=== PATIENT | female | born 1935 | race Caucasian/White ===

== ENCOUNTER 2017-01-17 10:32 | Outpatient (CLI) | payer MEDICARE, OTHER | END 2017-01-17 10:33 | disposition home or self-care (01) | DX: I10 Essential (primary) hypertension (principal); E78.5 Hyperlipidemia, unspecified; E03.9 Hypothyroidism, unspecified ==

== ENCOUNTER 2017-04-19 11:16 | Outpatient (CLI) | payer MEDICARE, OTHER ==
--- NOTE | 2017-04-19 14:24 | Ultrasound Report ---
CAROTID DUPLEX: 04/19/2017 CLINICAL INDICATION: Followup right stenosis. COMPARISON: 07/01/2012 TECHNIQUE: Real-time sonographic vascular imaging was performed by the microfilmer through the carotid arteries utilizing both color-flow and Doppler spectral analysis. Multiple parts representative static images were saved for review. Vessel PSV cm/sec 2D Plaque Estimate % ICA/CCA PSV EDV cm/sec % Stenosis RCCA Prox 48 -- RCCA Dist 53 12 RECA 96 -- RT BULB 80 -- 1.50 23 NIRANJAN Prox 350 -- 6.60 113 NIRANJAN Mid 107 -- 2.01 28 NIRANJAN Dist 82 -- 1.54 30 RVA 49 RVA flow direction: Antegrade. Vessel PSV cm/sec 2D Plaque Estimate % ICA/CCA PSV EDV cm/sec % Stenosis LCCA Prox 64 -- LCCA Dist 60 15 LECA 93 -- LFT BULB 57 -- 0.95 20 LICA Prox 61 -- 1.01 18 LICA Mid 64 -- 1.06 21 LICA Dist 84 -- 1.40 25 LVA 37 LVA flow direction: Antegrade. Velocity criteria are extrapolated from diameter data as defined by the Society of Radiologists in Ultrasound Consensus Conference Radiology 2003; 229; 340-346. Degree of Stenosis % ICA PSV cm/sec Plaque Estimate % ICA/CCA RSV Ratio ICA EDV cm/sec Normal < 125 None < 2.0 < 40 <50 < 125 < 50 < 2.0 < 40 50-69 125 - 130 >/= 50 2.0 - 4.0 40 - 100 >/= 70 but less than near occlusion > 230 >/= 50 > 4.0 > 100 Near occlusion High, low, or undetectable Visible lumen Variable Variable Total occlusion Undetectable No detectable lumen Not applicable Not applicable FINDINGS: RIGHT: There is again seen a high grade stenosis of the right proximal internal carotid artery. Visually, it appears unchanged. LEFT: There is calcified plaquing in the left carotid bifurcation, without evidence of a focal hemodynamically significant stenosis. The vertebral arteries demonstrate antegrade flow bilaterally. IMPRESSION: NO APPRECIABLE INTERVAL CHANGE IN HEMODYNAMICALLY SIGNIFICANT STENOSIS OF THE PROXIMAL RIGHT INTERNAL CAROTID ARTERY. STABLE CALCIFIED PLAQUING, WITHOUT EVIDENCE OF A SIGNIFICANT STENOSIS, IN THE LEFT CAROTID SYSTEM. ANTEGRADE FLOW IN BOTH VERTEBRAL ARTERIES. MTDD
== END 2017-04-19 11:17 | disposition home or self-care (01) ==
LOC: DI 11:16
PROVIDERS: ATTEND Family Medicine
DX: I65.21 Occlusion and stenosis of right carotid artery (principal)
CPT/HCPCS: 93880

== ENCOUNTER 2017-08-02 17:49 | Emergency (ER) | payer MEDICARE, OTHER ==
--- NOTE | 2017-08-02 19:02 | XRAY Preliminary Report ---
Exam: XR Ankle 3 View LT IMPRESSION: No acute fracture or subluxation. [facility] SITE ID: [id number]
--- NOTE | 2017-08-02 19:04 | XRAY Report ---
EXAM: LEFT ANKLE RADIOGRAPHY EXAM DATE: 08/02/2017 06:13 PM. CLINICAL HISTORY: Trauma with pain. COMPARISON: None. TECHNIQUE: 3 views. FINDINGS: Bones: There is generalized diffuse demineralization. No cortical step-off or acute fracture. Joints: Satisfactory alignment. Soft Tissues: Normal. No soft tissue swelling. IMPRESSION: No acute fracture or subluxation. [facility] Referring Provider Line: [phone] SITE ID: [id number]
[2017-08-02] MEDS ORDERED: ACETAMINOPHEN 325 MG TABLET PO STA (20:29)
[2017-08-02] MEDS ORDERED: CEPHALEXIN 250 MG CAPSULE PO STA (20:30)
--- NOTE | 2017-08-02 20:31 | ED Physician Documentation ---
PD HPI LOWER EXT INJURY - Stated complaint Stated Complaint: LT ANKLE/FOOT INJURY - Chief complaint Chief Complaint: Ext Problem - History obtained from History obtained from: Patient - History of Present Illness PD HPI LOW EXT INJURY LOCATION: Left, Ankle, Foot Where injury occurred: Home Timing - onset: Today Timing - details: Gradual onset Improved by: Immobilization Associated symptoms: Discolored. No: Weakness, Numbness Similar symptoms before: Has not had sx before Recently seen: Not recently seen - Additional information Additional information: Patient is a 82 year old female presenting to the emergency for left leg pain. Patient states that she had some pain in her leg/wagner that got progressively worse. Patient states that it got more red and swollen over the day today. Patient denies any nausea, vomiting, fever or trauma. Review of Systems Constitutional: denies: Fever, Chills Eyes: reports: Reviewed and negative Ears: reports: Reviewed and negative Nose: reports: Reviewed and negative Throat: denies: Sore throat Cardiac: denies: Chest pain / pressure, Palpitations, Pedal edema Respiratory: denies: Cough GI: denies: Nausea, Vomiting : denies: Dysuria, Frequency, Hesitancy Skin: reports: Rash Musculoskeletal: reports: Extremity pain, Extremity swelling Neurologic: denies: Generalized weakness, Focal weakness, Difficulty speaking Immunocompromised: reports: Immunocompromised PD PAST MEDICAL HISTORY - Past Medical History Past Medical History: Yes Cardiovascular: Hypertension Respiratory: None Neuro: TIA Endocrine/Autoimmune: HyPOthyroidism GI: Other : None HEENT: Chronic hearing loss Psych: Depression Musculoskeletal: Osteoarthritis, Osteoporosis, Chronic back pain Derm: Herpes zoster - Past Surgical History Past Surgical History: Yes General: Colonoscopy Ortho: Hip replacement /[employer]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: Other - Present Medications Home Medications: Ambulatory Orders Medication Instructions Recorded Confirmed Aspirin 81 mg PO DAILY 03/09/13 08/02/17 Glucosamine Sulfate Dipot Chlr 1,000 mg PO DAILY 03/09/13 08/02/17 [Glucosamine] Levothyroxine [Synthroid] 75 mcg PO QDAC 03/09/13 08/02/17 Metoprolol Succinate [Toprol Xl] 25 mg PO DAILY 03/09/13 08/02/17 Calcium Carb, Citrate/Vit D3 1 tab PO DAILY 05/20/15 08/02/17 [Calcium + D3 ER Tablet] Cholecalciferol (Vitamin D3) 2,000 unit PO DAILY 10/04/15 08/02/17 [Vitamin D-3] amLODIPine [Norvasc] 10 mg PO DAILY 10/04/15 08/02/17 Atorvastatin [Lipitor] 10 mg PO DAILY 08/02/17 08/02/17 Cephalexin [Keflex] 500 mg PO Q6H 7 Days capsule 08/02/17 Sertraline HCl [Zoloft] 200 mg PO DAILY 08/02/17 08/02/17 - Allergies Allergies/Adverse Reactions: Allergies Allergy/AdvReac Type Severity Reaction Status Date / Time amoxicillin trihydrate * Allergy Mild Rash Verified 08/02/17 20:12 [From Augmentin] indomethacin [From Indocin] Allergy Mild Rash Verified 08/02/17 20:12 indomethacin sodium * Allergy Mild Rash Verified 08/02/17 20:12 [From Indocin] lorazepam [From Ativan] Allergy Mild Rash Verified 08/02/17 20:12 metoclopramide HCl * Allergy Mild Rash Verified 08/02/17 20:12 [From Reglan] Penicillins Allergy Mild Rash Verified 08/02/17 20:12 potassium clavulanate * Allergy Mild Rash Verified 08/02/17 20:12 [From Augmentin] prochlorperazine Allergy Mild Rash Verified 08/02/17 20:12 [Prochlorperazine] Sulfa (Sulfonamide Allergy Mild Rash Verified 08/02/17 20:12 Antibiotics) sulfamethoxazole Allergy Mild Rash Verified 08/02/17 20:12 [From Gantanol] adhesive Allergy Rash Verified 10/04/15 07:03 azo gantrisin Allergy Mild Rash Uncoded 03/09/13 16:02 sodium pentothal AdvReac Unknown Uncoded 05/20/15 00:22 - Social History Does the pt smoke?: No Smoking Status: Never smoker Does the pt drink ETOH?: No - Immunizations Immunizations are current?: Yes - POLST Patient has POLST: No PD ED PE NORMAL - Vitals Vital signs reviewed: Yes - General General: Alert and oriented X 3 - HEENT HEENT: Atraumatic, PERRL - Neck Neck: Supple, no meningeal sign - Cardiac Cardiac: RRR, No murmur - Respiratory Respiratory: No respiratory distress, Clear bilaterally - Abdomen Abdomen: Soft, Non distended - Extremities Extremities: No edema - Neuro Neuro: Alert and oriented X 3, No motor deficit, No sensory deficit, Normal speech - Psych Psych: Normal mood, Normal affect PD ED PE EXPANDED - Derm Derm: Rash (cellulitic rash of left lower extremity) - Extremities Extremities: Left leg (tenderness, warmth and erythema of left lower leg) Results - Vitals Vitals: Vital Signs - 24 hr 08/02/17 08/02/17 18:02 20:52 Temperature 36.0 C L 36.0 C L Heart Rate 110 H 98 Respiratory 16 20 Rate Blood Pressure 159/93 H 161/109 H O2 Saturation 100 98 Oxygen O2 Source [With Activity] Room air O2 Source Room air - Rads (name of study) ankle x-ray Radiology: Final report received (no acute bony abnormality) PD MEDICAL DECISION MAKING - ED course Complexity details: reviewed old records, reviewed results, re-evaluated patient , considered differential, d/w patient, d/w family ED course: Patient was seen and examined at bedside. patient had already been to x-ray and there was no acute abnormality. patient's findings were consistent with cellulitis of the lower extremity. patient was treated with keflex and tylenol. Patient required no further work up and was stable for discharge with outpatient follow up. Departure - Departure Disposition: 01 Home, Self Care Clinical Impression: Cellulitis Condition: Good Instructions: ED Infec Skin Cellulitis Follow-Up: Nazanin Bentley MD [Primary Care Provider] - Within 3 Days Prescriptions: Cephalexin [Keflex] 500 mg PO Q6H 7 Days capsule Comments: Your symptoms today are being caused by a cellulitis or infection in your skin. You will need to take the antibiotic 4 times a day for the next week. You can take motrin or tylenol as needed for pain. You should continue with your physical therapy as tolerated. You may return to the emergency department at any time for new, worsening or uncontrollable symptoms. Discharge Date/Time: 08/02/17 20:52
[2017-08-02] MEDS ORDERED: CEPHALEXIN 250 MG CAPSULE PO ONE (20:42)
[2017-08-02] MEDS ORDERED: ACETAMINOPHEN 325 MG TABLET PO ONE (20:43)
[2017-08-02 20:54] VITALS: BP 161/109
== END 2017-08-02 20:52 | disposition home or self-care (01) ==
LOC: ED 17:49
DX: L03.116 Cellulitis of left lower limb (principal); I10 Essential (primary) hypertension; E03.9 Hypothyroidism, unspecified; Z96.649 Presence of unspecified artificial hip joint; Z86.73 Personal history of transient ischemic attack (TIA), and cerebral infarction without residual deficits; Z79.82 Long term (current) use of aspirin
CPT/HCPCS: 73610; 99283; A9270

== ENCOUNTER 2017-09-13 16:47 | Outpatient (CLI) | payer MEDICARE, OTHER ==
--- NOTE | 2017-09-14 12:09 | MRI Report ---
EXAM: LEFT CALF/TIBIA MRI WITHOUT CONTRAST EXAM DATE: 09/13/2017 05:55 PM. CLINICAL HISTORY: Left mid leg pain. Patient heard a pop. COMPARISON: Radiograph 09/05/2017, knee MRI 06/23/2016. TECHNIQUE: Multiplanar, multisequence T1-weighted and fluid-sensitive sequences of the calf/tibia wit hout contrast. Other: None. FINDINGS: Bones: The previously seen fractures of the left proximal tibia have healed. There is a new trabecula r fracture in the lateral tibial plateau primarily anterior (series 601 and 701, image 4 and series 4 01, image 69). In addition, the patient has an oblique fracture through the mid tibia. Thickening of the anterior cortex is best visualized on series 601 and 701, image 10, and thickening of the posteri or cortex is best visualized on series 401, image 34. This is either a stress or insufficiency-type f racture. There is prominent surrounding marrow edema. In addition to the mid tibial fracture, a stres s fracture continues along the anterior medial cortex of the distal tibial diaphysis, corresponding t o the more distal marker indicating the patient's pain. When it reaches the metaphyseal region, the f racture line extends towards the anterior cortex (series 401, images 14 through 11). The patient is o steopenic. Joint Spaces: Visualized portions of the ankle and knee joints are unremarkable. Tendons: Where visualized, the Achilles and plantaris tendons are intact. Musculature: Muscle edema is seen within the peroneals, which may be related to the tibial fractures. There is some distal muscle edema in the flexor hallucis longus muscle which may represent grade 1 s train. Other: The distal calf has anterior subcutaneous edema. IMPRESSION: 1. Healing of the previous proximal tibial fractures. 2. New trabecular fracture of the lateral tibial plateau. 3. Stress or insufficiency oblique fracture through the midshaft of the tibia. 4. Stress fracture of the anterior medial distal tibia. [facility] MUSCULOSKELETAL RADIOLOGY SECTION Referring Provider Line: [phone] SITE ID: [id number]
== END 2017-09-13 16:48 | disposition home or self-care (01) ==
LOC: DI 16:47
PROVIDERS: ATTEND Orthopaedic Surgery
DX: S82.142A Displaced bicondylar fracture of left tibia, initial encounter for closed fracture (principal); M84.362A Stress fracture, left tibia, initial encounter for fracture

== ENCOUNTER 2017-10-14 10:31 | Outpatient (CLI) | payer MEDICARE, OTHER ==
--- NOTE | 2017-10-17 14:11 | DEXA Report ---
DEXA: 10/14/2017 CLINICAL INDICATION: Postmenopausal, Osteoporosis TECHNIQUE: Dual energy x-ray absorptiometry (DXA) was performed on a [employer] A/S system. Regions measured are the AP spine, femoral neck, and, if needed, forearm. COMPARISON: None. In accordance with the International Society for Clinical Densitometry (ISCD) guidelines, data from previous exams may be reanalyzed using current recommendations and techniques. This is done to allow a more accurate basis for comparison with the current study. FINDINGS LUMBAR SPINE DATA: REGION BMD (g/cm/cm) T-SCORE Z-SCORE L1 0.731 -3.3 -1.3 L2 0.875 -2.7 -0.6 L3 0.888 -2.6 -0.5 TOTAL 0.834 -2.8 -0.7 NOTE: All evaluable vertebrae are used for classification. HIP DATA: REGION BMD (g/cm/cm) T-SCORE Z-SCORE Neck 0.607 -3.1 -0.8 TOTAL 0.611 -3.2 -1.0 NOTE: The femoral neck or total proximal femur, whichever is lowest, is used for classification. IMPRESSION THE WHO CLASSIFICATION BASED ON THE INTERNATIONAL REFERENCE STANDARD: OSTEOPOROSIS FRACTURE RISK: HIGH. RECOMMENDATION: Patients with diagnosis of osteoporosis or osteopenia should have regular bone mineral density assessment. For those eligible for Medicare, routine testing is allowed once every 2 years. Testing frequency can be increased for patients who have rapidly progressing disease or for those who are receiving medical therapy to restore bone mass. COMMENT: World Health Organization (WHO) definitions for osteoporosis and osteopenia: NORMAL BMD: T-score at -1.0 or higher, fracture risk is low. OSTEOPENIA BMD: T-score between -1.0 and -2.5, fracture risk is increased. OSTEOPOROSIS BMD: T-score at -2.5 or lower, fracture risk high. National Osteoporosis Foundation recommends: 1. Obtain adequate dietary calcium (at least 1200 mg per day) and vitamin D (400 -800 international units per day). 2. Participate, as appropriate, in regular weight bearing and muscle- strengthening exercise. 3. Avoid tobacco use and reduce alcohol and caffeine intake. 4. For more detailed information see the website at www.NOF.org. MTDD
== END 2017-10-14 10:32 | disposition home or self-care (01) ==
LOC: DI 10:31
PROVIDERS: ATTEND Family Medicine
DX: M81.0 Age-related osteoporosis without current pathological fracture (principal)
CPT/HCPCS: 77080

== ENCOUNTER 2017-12-02 12:54 | Outpatient (CLI) | payer MEDICARE, OTHER ==
--- NOTE | 2017-12-03 17:12 | Ultrasound Report ---
DATE OF SERVICE: 12/02/2017 ULTRASOUND RIGHT BREAST: 12/02/2017 CLINICAL INDICATION: Palpable abnormality. TECHNIQUE: Real-time scanning was performed with product support representative static images obtained. Ultrasound of the palpable abnormality was performed. At the 9 o'clock position, 4 cm from the nipple, there is a hypoechoic irregularly marginated mass measuring 2.1 x 1.9 x 1.2 cm. It demonstrates mild associated vascularity. The appearance is highly suggestive of malignancy. Biopsy is recommended. The nodule appears amenable to ultrasound-guided core needle biopsy. No definite right axillary lymphadenopathy is appreciated. IMPRESSION: Findings highly suggestive of malignancy, with a hypoechoic shadowing mass correlating with the palpable abnormality. RECOMMENDATIONS: Biopsy. The nodule appears amenable to ultrasound-guided core needle biopsy. BI-RADS category 5, highly suggestive of malignancy. Results and recommendations discussed with the patient at the time of the examination, and called to Dr. Bentley on 12/02/2017. Biopsy is scheduled for 12/11/2017 at 9:45 a.m. TD: 12/03/2017 18:10
--- NOTE | 2017-12-03 17:19 | Mammography Report ---
DATE OF SERVICE: 12/02/2017 DIGITAL DIAGNOSTIC BILATERAL MAMMOGRAM: 12/02/2017 CLINICAL INDICATION: Palpable abnormality right breast. TECHNIQUE: Bilateral CC, MLO, as well as bilateral laterally exaggerated CC, right true lateral views were obtained. A marker was placed at the site of the palpable abnormality identified in the right breast 9 o'clock position. COMPARISON: 06/22/2014, 05/28/2013, 02/20/2012, 02/07/2011, 01/05/2010. The breasts again demonstrate heterogeneously dense fibroglandular parenchyma bilaterally. There is an irregular nodule at the site of palpable abnormality, measuring approximately 1.5 cm. Postoperative changes are present. Punctate, typically benign calcifications are seen. No mammographically suspicious findings are appreciated in the left breast. Please also refer to right breast ultrasound of the same day. IMPRESSION: Findings highly suggestive of malignancy, with an irregular shadowing mass correlating with the palpable and mammographic abnormality. RECOMMENDATIONS: Biopsy. The nodule appears amenable to ultrasound-guided core needle biopsy. BI-RADS category 5, highly suggestive of malignancy. Results and recommendations discussed with the patient at the time of the examination, and called to Dr. Bentley on 12/02/2017. Biopsy is scheduled for 12/11/2017 at 9:45 a.m. STANDARD QUALIFYING STATEMENTS 1. This examination was reviewed with the aid of Computed-Aided Detection (CAD). 2. A negative or benign imaging report should not delay biopsy if clinically suspicious findings are present. Consider surgical consultation if warranted. More than 5% of cancers are not identified by imaging. 3. Dense breasts may obscure an underlying neoplasm. TD: 12/03/2017 18:18
== END 2017-12-02 12:55 | disposition home or self-care (01) ==
LOC: DI 12:54
PROVIDERS: ATTEND Family Medicine
DX: N63.10 Unspecified lump in the right breast, unspecified quadrant (principal)
CPT/HCPCS: 76642; 77066

== ENCOUNTER 2017-12-11 09:38 | Outpatient (CLI) | payer MEDICARE, OTHER ==
--- NOTE | 2017-12-11 11:14 | Ultrasound Report ---
ULTRASOUND-GUIDED CORE NEEDLE BIOPSY RIGHT BREAST: 12/11/2017 CLINICAL INDICATION: Hypoechoic mass 9 o'clock periareolar breast. FINDINGS: Informed consent was obtained. Using standard aseptic technique, both 1% buffered lidocaine and Sensorcaine were injected into the right breast for local anesthesia. A small dulce was made in the skin with a #11 blade. A 12-gauge Celero vacuum-assisted device was used to obtain 3 specimens. A Celero marker was placed into the biopsy cavity under ultrasound guidance. The patient was taken to a separate mammography machine, and a 2-view digital mammogram was performed to document the marker in the expected location. No significant postbiopsy hematoma is seen. The wound was dressed and ice applied. The patient was observed for approximately 15 minutes, then was discharged from [facility] in good condition following instructions on wound care and obtaining biopsy results. The tissue was sent for histologic analysis. IMPRESSION: ULTRASOUND-GUIDED BIOPSY OF THE RIGHT BREAST. AN ADDENDUM WILL BE MADE TO THIS REPORT WHEN PATHOLOGY IS REVIEWED TO ESTABLISH CONCORDANCE. TD: 12/11/2017 11:13 KRISTAL
[2017-12-11 11:23] VITALS: BP 131/72
[2017-12-11] MEDS: BUFFERED LIDOCAINE 10 ML SYRINGE IU ONE (14:38)
[2017-12-11] MEDS: BUPIVACAINE 0.5% PF 30 ML VIAL SUBQ ONE (14:40)
== END 2017-12-11 09:39 | disposition home or self-care (01) ==
LOC: DI 09:38
PROVIDERS: ATTEND Family Medicine
DX: C50.811 Malignant neoplasm of overlapping sites of right female breast (principal); Z17.0 Estrogen receptor positive status [ER+]
CPT/HCPCS: 19083

== ENCOUNTER 2017-12-20 08:00 | Outpatient (CLI) | payer MEDICARE, OTHER ==
[2017-12-20 15:08] LABS: H. PYLORIS ANTIGEN STL NEGATIVE (Negative)
== END 2017-12-20 08:01 | disposition home or self-care (01) ==
LOC: LAB.WCP 08:00
PROVIDERS: ATTEND Family Medicine
DX: R19.7 Diarrhea, unspecified (principal)
CPT/HCPCS: 81599; 83630; 87045; 87046; 87177; 87209; 87329; 87338; 87493

== ENCOUNTER 2017-12-26 20:15 | Outpatient (CLI) | payer MEDICARE, OTHER | END 2017-12-26 20:16 | disposition home or self-care (01) | LOC: LAB.WCP 20:15 | PROVIDERS: ATTEND Family Medicine | DX: E03.9 Hypothyroidism, unspecified (principal) | CPT/HCPCS: 36415; 84443 ==

== ENCOUNTER 2018-01-10 12:56 | Outpatient (CLI) | payer MEDICARE, OTHER ==
[~2018-01-10 12:56] MED LIST: GADOBUTROL 7.5 MMOL/7.5 ML VIAL ONE
[2018-01-10] MEDS ORDERED: GADOBUTROL 7.5 MMOL/7.5 ML VIAL IVP ONE (13:58)
--- NOTE | 2018-01-10 15:48 | MRI Report ---
MRI OF BILATERAL BREASTS WITH AND WITHOUT CONTRAST: 01/10/2018 CLINICAL INDICATION: Third right breast cancer, now lobular type. TECHNIQUE: Using a dedicated breast coil, axial precontrast, T1, dynamic postcontrast axial 3-D images, axial 3-D high resolution images, and postcontrast diffusion weighted images were obtained. Six mL of Gadavist was administered intravenously. Post-processing with dynamic contrast enhancement analysis and multiplanar reformations were performed with Prepared Response. FINDINGS RIGHT BREAST: Postoperative changes of partial mastectomy are present. The biopsy-proven breast cancer in the right subareolar region is seen, demonstrating rapid enhancement with washout kinetics. The enhancing lesion measures 2.4 cm craniocaudal x 1.9 cm transverse x 1.5 cm AP. The lesion does abut, but does not definitively invade the chest wall. Right axillary lymph nodes appear enlarged, likely representing antonieta involvement. LEFT BREAST: The left breast demonstrates mild background parenchymal enhancement. No suspicious mass or abnormal enhancement is appreciated. The left axillary lymph nodes appear morphologically normal. IMPRESSION: BIOPSY-PROVEN RIGHT BREAST CANCER, MEASURING 2.4 CM MAXIMAL DIAMETER. THE ABNORMAL ENHANCEMENT DOES ABUT, BUT DOES NOT DEFINITIVELY INVADE THE CHEST WALL. PROMINENT RIGHT AXILLARY NODES, SUSPICIOUS FOR ANOTNIETA INVOLVEMENT. RECOMMENDATIONS: Continued surgical management. BIRADS category 6 - known malignancy. The patient has been instructed to obtain results from Dr. Verde in five business days. COMMENT: Breast MRI is a highly sensitive examination, and has a cancer detection threshold down to approximately 5 mm; however, it only has moderate specificity. Although breast MRI has a high negative predictive value, appropriate clinical and mammographic followup are always necessary. MRI may miss less angiogenic tumors; therefore, it should not be used to avoid a biopsy which is otherwise clinically indicated. Normal appearing lymph nodes may contain microscopic tumor. Due to prone positioning, the described location of findings may differ from other modalities. TD: 01/10/2018 15:47
== END 2018-01-10 12:57 | disposition home or self-care (01) ==
LOC: DI 12:56
PROVIDERS: ATTEND Surgery
DX: C50.911 Malignant neoplasm of unspecified site of right female breast (principal)
CPT/HCPCS: A9585; C8908; 77059

== ENCOUNTER 2018-02-04 10:50 | Day surgery (SDC) | payer MEDICARE, OTHER ==
[2018-02-04] MEDS ORDERED: ceFAZolin 2 GM/50 ML 2 GM/50 ML BAG IV ONE ×2 (10:59→15:57)
[2018-02-04] MEDS ORDERED: LACTATED RINGERS 1,000 ML IV ONE ×2 (11:24→15:35)
[2018-02-04] MEDS ORDERED: BUPIVACAINE 0.5% PF 10 ML VIAL ONE (13:36)
[2018-02-04] MEDS ORDERED: BUPIVACAINE 0.5% PF 30 ML VIAL SUBQ ONE (15:30)
--- NOTE | 2018-02-04 15:52 | OPERATIVE REPORT ---
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 - Other Other Information/Narrative: OPERATIVE DESCRIPTION/REPORT: After verbal and written informed consent was obtained detailing the risks of infection, bleeding requiring transfusion with its risks, nerve injury, and , and after I met with the patient confirming the surgery and the site of the surgery and after initialing the site of the surgery with a surgical marker , the patient was brought to the operative suite and placed supine on the operating table. Great care was taken to avoid pressure points to prevent pressure necrosis or nerve injury. Great care was taken to ensure that the arm was placed in a relaxed manner away from the body to facilitate exposure and to avoid nerve injury. Monitoring devices were applied along with TEDs and pneumatic compressive stockings (to prevent DVT). The patient received preoperative antibiotics for surgical prophylaxis. Dedrick Dickens MD sedated and anethetized the patient for the entire procedure. The patient was prepped and draped in the usual sterile manner. With the patient draped my initials were clearly visible. A "time in" then confirmed that the patient was identified with 3 identifiers (name, date and medical record number), the history and physical was in the chart, the signed consent confirming the procedure was in the chart, the patient was in the correct position, the aforementioned prophylactic measures were in place or given, we had the correct personnel and equipment to complete the procedure and that anesthesia, surgery and nursing were given an opportunity to express any concerns. With the agreement of everyone in the room, we proceeded with the operation. An elliptical incision was made to incorporate the nipple-areolar complex and the previous biopsy site. The skin incision was carried down to the subcutaneous fat, but no further. Using traction and counter traction, the upper flap was dissected from the chest wall, medially to the sternal border, superiorly to the clavicle, laterally to the anterior border of the latissimus dorsi muscle, and superolaterally to the insertion of the pectoralis major muscle. The lower flap was dissected in a similar manner down to the insertion of the pectoralis fascia overlying the fifth rib medially and laterally out to the latissimus dorsi. Bovie electrocautery was used for the majority of the dissection and hemostasis, tying only the large vessels with 2-0 Vicryl. The breast was dissected from the pectoralis muscle beginning medially and progressing laterally, removing the pectoralis fascia entirely. Once the lateral border of the pectoralis major muscle was identified, the pectoralis muscle was retracted medially and the interpectoral fat was removed with the specimen. There was one area where the mass was close to the fascia but not involving the fascia and at this location I resected a small bit of the pectoralis major muscle to ensure that the mass was completely excised. Copious water lavage was used to remove any debris, and meticulous hemostasis was obtained with Bovie electrocautery. Although the preoperative MRI showed clinically involved nodes I could not palpably make out any enlarged lymph nodes. A Lan drain was inserted through a separate stab incision below the initial incision and cut to fit. The drain was directed anteriorly across the pectoralis major. This was secured to the skin using 3-0 Nylon which was Bassam- sandaled about the drain. The subcutaneous tissue was approximated using interrupted simple 2-0 Vicryl. The skin incision was approximated with 4-0 Monocryl in a running subcuticular manner. Mastisol and steristrips were applied. A dressing was applied. The drain was placed on ``grenade suction. At this point a time out was performed that confirmed that all the counts were correct, the procedure that was performed, the blood loss, the urine output, the IV fluids administered, and the patients condition. Having tolerated the procedure well, the patient was subsequently extubated and taken to recovery room in good and stable condition. [employer] disclaimer: This document was created in part using voice recognition technology. Because of the inherent limitations of the system ([employer]'s [employer] Dictate user manual states that the licensee understands that speech recognition is a statistical process and that recognition errors are inherent in the process), occasional same sounding word substitutions and grammatical errors do occur and persist despite proofreading. Please read this document for context.
[2018-02-04] MEDS ORDERED: ROCURONIUM 50 MG/5 ML VIAL IVP ONE (15:57)
[2018-02-04] MEDS ORDERED: ONDANSETRON 4 MG/2 ML VIAL IVP ONE (15:57)
[2018-02-04] MEDS ORDERED: MIDAZOLAM 2 MG/2 ML VIAL IVP ONE (15:57)
[2018-02-04] MEDS ORDERED: fentaNYL 250 MCG/5 ML VIAL IVP ONE (15:57)
[2018-02-04] MEDS ORDERED: PROPOFOL 200 MG/20 ML VIAL IVP ONE (15:57)
[2018-02-04] MEDS: HYDROmorphone 1 MG/ML CARPUJECT ONE ×3 (16:00→16:11)
[2018-02-04] MEDS ORDERED: ACETAMINOPHEN 1,000 MG/100 ML 100 ML IV ONE (16:05)
[2018-02-04] MEDS ORDERED: HYDROmorphone 1 MG/ML CARPUJECT ONE (16:26)
[2018-02-04] MEDS ORDERED: HYDROmorphone 1 MG/ML CARPUJECT IVP PRN (16:38)
[2018-02-04] MEDS ORDERED: ONDANSETRON 4 MG/2 ML VIAL IVP PRN (16:39)
[2018-02-04] MEDS ORDERED: SODIUM CHLORIDE FLUSH 0.9% 10 ML SYRINGE IVP PRN (16:48)
[2018-02-04] MEDS: LACTATED RINGERS 1,000 ML IV SCH ×2 (17:00→22:32)
[2018-02-04] MEDS: HYDROcod/ACETAM 5/325 MG TABLET PO PRN ×2 (20:30→23:42)
[2018-02-04 23:45] VITALS: BP 120/63
== END 2018-02-05 09:35 | disposition home or self-care (01) ==
LOC: SDS 10:50 → OBS 15:45 → SDS 02-05 09:35
PROVIDERS: ATTEND Surgery
PROC: 0HBT0ZZ Excision of Right Breast, Open Approach (ICD-10-PCS; principal; 2018-02-04 11:45)
DX: C50.011 Malignant neoplasm of nipple and areola, right female breast (principal); Z17.0 Estrogen receptor positive status [ER+]; I10 Essential (primary) hypertension; E03.9 Hypothyroidism, unspecified; Z79.82 Long term (current) use of aspirin; Z87.891 Personal history of nicotine dependence
CPT/HCPCS: 19303; A9270; J0131; J0690; J1170; J3010; J7120; 88307

== ENCOUNTER 2018-02-08 09:55 | Emergency (ER) | payer MEDICARE, OTHER ==
[2018-02-08 11:23] LABS: BASOPHILS # (AUTO) 0.1 10^3/uL (0.0-0.1); BASOPHILS % (AUTO) 0.6 %; EOSINOPHILS # (AUTO) 0.1 10^3/uL (0.0-0.7); HGB - HEMOGLOBIN 10.4 g/dL (12.0-16.0); LYMPHOCYTES # (AUTO) 0.8 10^3/uL (1.5-3.5); LYMPHOCYTES % (AUTO) 5.6 %; MEAN CORPUSCULAR HEMOGLOBIN 34.4 pg (27.0-31.0); MEAN CORPUSCULAR HGB CONC 34.5 g/dL (32.0-36.0); MEAN CORPUSCULAR VOLUME 99.7 fL (81.0-99.0); MEAN PLATELET VOLUME 7.2 fL (7.9-10.8); MONOCYTES # (AUTO) 1.1 10^3/uL (0.0-1.0); MONOCYTES % (AUTO) 7.7 %; NEUTROPHILS # (AUTO) 11.7 10^3/uL (1.5-6.6); NEUTROPHILS % (AUTO) 85.1 %; PLT - PLATELET COUNT 301 10^3/uL (130-450); RED BLOOD COUNT 3.03 10^6/uL (4.20-5.40); RED CELL DISTRIBUTION WIDTH 13.3 % (12.0-15.0); WHITE BLOOD COUNT 13.7 x10^3/uL (4.8-10.8)
[2018-02-08 11:25] LABS: BILIRUBIN,URINE NEGATIVE (NEGATIVE); GLUCOSE, URINE (UA) NEGATIVE (NEGATIVE); KETONES,URINE (UA) NEGATIVE (NEGATIVE); LEUKOCYTE ESTERASE, URINE NEGATIVE (NEGATIVE); NITRITE,URINE NEGATIVE (NEGATIVE); OCCULT BLOOD,URINE NEGATIVE (NEGATIVE); PH,URINE 8.5 PH (5.0-7.5); PROTEIN,URINE NEGATIVE (NEGATIVE); UROBILINOGEN,URINE 0.2 (NORMAL) E.U./dL (NORMAL)
[2018-02-08 11:25] LABS: CREATININE 0.7 mg/dL (0.4-1.0)
[2018-02-08 11:28] LABS: CLARITY,URINE CLEAR (CLEAR)
--- NOTE | 2018-02-08 12:08 | ED Physician Documentation ---
History of Present Illness - Stated complaint Stated Complaint: POST OP/DRAINAGE - Chief complaint Chief Complaint: Wound - Additonal information Additional information: hx from pt 82 y/o f s/p masectomy 02/04 Dr Verde awoke this AM with fever to 101, erythema and pain around drain site also LLQ pain no cough dyspnea no NVD no urinary sx not on chemo not imunosuppressed Review of Systems Constitutional: reports: Fever, Fatigue Cardiac: reports: Chest pain / pressure (chest wall pain at surgical site) GI: reports: Abdominal Pain (LLQ) : denies: Dysuria Immunocompromised: denies: Immunocompromised PD PAST MEDICAL HISTORY - Past Medical History Cardiovascular: Hypertension, High cholesterol, Coronary artery disease, Other Respiratory: None Neuro: TIA Endocrine/Autoimmune: HyPOthyroidism GI: Chronic diarrhea, Ulcerative colitis 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 : None HEENT: Chronic hearing loss Psych: Depression Musculoskeletal: Osteoarthritis, Osteoporosis, Other Derm: Eczema - Past Surgical History Past Surgical History: Yes General: Colonoscopy Ortho: Hip replacement /TALENT DEVELOPMENT ANALYST: Mastectomy, Other - Present Medications Home Medications: Ambulatory Orders Medication Instructions Recorded Confirmed Aspirin 81 mg PO DAILY 03/09/13 02/04/18 Glucosamine Sulfate Dipot Chlr 1,500 mg PO DAILY 03/09/13 01/29/18 [Glucosamine] Levothyroxine [Synthroid] 75 mcg PO QDAC 03/09/13 01/29/18 Metoprolol Succinate [Toprol Xl] 25 mg PO DAILY 03/09/13 01/29/18 Calcium Carb, Citrate/Vit D3 1 tab PO DAILY 05/20/15 01/29/18 [Calcium + D3 ER Tablet] Cholecalciferol (Vitamin D3) 2,000 unit PO DAILY 10/04/15 01/29/18 [Vitamin D-3] amLODIPine [Norvasc] 10 mg PO DAILY 10/04/15 01/29/18 Atorvastatin [Lipitor] 10 mg PO DAILY 08/02/17 01/29/18 Sertraline HCl [Zoloft] 200 mg PO BID 08/02/17 02/04/18 Psyllium Husk/Aspartame [Fiber 660 gm PO TID 01/29/18 01/29/18 Therapy Powder] Levofloxacin [Levaquin] 500 mg PO DAILY #7 tablet 02/08/18 - Allergies Allergies/Adverse Reactions: Allergies Allergy/AdvReac Type Severity Reaction Status Date / Time amoxicillin trihydrate * Allergy Mild Rash Verified 02/08/18 10:31 [From Augmentin] indomethacin [From Indocin] Allergy Mild Rash Verified 02/08/18 10:31 indomethacin sodium * Allergy Mild Rash Verified 02/08/18 10:31 [From Indocin] lorazepam [From Ativan] Allergy Mild Rash Verified 02/08/18 10:31 metoclopramide HCl * Allergy Mild Rash Verified 02/08/18 10:31 [From Reglan] Penicillins Allergy Mild Rash Verified 02/08/18 10:31 potassium clavulanate * Allergy Mild Rash Verified 02/08/18 10:31 [From Augmentin] prochlorperazine Allergy Mild Rash Verified 02/08/18 10:31 [Prochlorperazine] Sulfa (Sulfonamide Allergy Mild Rash Verified 02/08/18 10:31 Antibiotics) sulfamethoxazole Allergy Mild Rash Verified 02/08/18 10:31 [From Gantanol] adhesive Allergy Rash Verified 01/31/18 14:27 thiopental [From Pentothal] Allergy seizures Verified 01/31/18 14:27 - Social History Does the pt smoke?: No Smoking Status: Never smoker Does the pt drink ETOH?: No - Immunizations Immunizations are current?: Yes - POLST Patient has POLST: No PD ED PE NORMAL - Vitals Vital signs reviewed: Yes - Neck Neck: Supple, no meningeal sign - Cardiac Cardiac: RRR - Respiratory Respiratory: No respiratory distress, Clear bilaterally, Other (R chest wall, red warm and tender, no necrosis bullae or crepitus) - Abdomen Abdomen: Other (mod mid L abd pain with some vol guarding) - Derm Derm: Other (see chest exam) - Extremities Extremities: No edema, No calf tenderness / cord - Neuro Neuro: Alert and oriented X 3 Results - Vitals Vitals: Vital Signs - 24 hr 02/08/18 02/08/18 10:27 13:23 Temperature 37 C 36.9 C Heart Rate 87 86 Respiratory 15 18 Rate Blood Pressure 108/80 129/79 O2 Saturation 100 97 Oxygen O2 Source [With Activity] Room air O2 Source Room air - Labs Labs: Laboratory Tests 02/08/18 02/08/18 02/08/18 11:05 11:05 11:05 WBC 13.7 H RBC 3.03 L Hgb 10.4 L Hct 30.2 L MCV 99.7 H MCH 34.4 H MCHC 34.5 RDW 13.3 Plt Count 301 MPV 7.2 L Neut # 11.7 H Lymph # 0.8 L [place] # 1.1 H Eos # 0.1 Baso # 0.1 Absolute Nucleated RBC 0.00 Nucleated RBC % 0.0 Sodium 132 L Potassium 3.6 Chloride 96 L Carbon Dioxide 26 Anion Gap 10.0 BUN 12 Creatinine 0.7 Estimated GFR (MDRD) 81 L Glucose 104 H Lactic Acid 0.9 Calcium 9.0 Urine Color Urine Clarity Urine pH Ur Specific [place] Urine Protein Urine Glucose (UA) Urine Ketones Urine Occult Blood Urine Nitrite Urine Bilirubin Urine Urobilinogen Ur Leukocyte Esterase Ur Microscopic Review Urine Culture Comments 02/08/18 11:10 WBC RBC Hgb Hct MCV MCH MCHC RDW Plt Count MPV Neut # Lymph # [place] # Eos # Baso # Absolute Nucleated RBC Nucleated RBC % Sodium Potassium Chloride Carbon Dioxide Anion Gap BUN Creatinine Estimated GFR (MDRD) Glucose Lactic Acid Calcium Urine Color YELLOW Urine Clarity CLEAR Urine pH 8.5 H Ur Specific [place] 1.015 Urine Protein NEGATIVE Urine Glucose (UA) NEGATIVE Urine Ketones NEGATIVE Urine Occult Blood NEGATIVE Urine Nitrite NEGATIVE Urine Bilirubin NEGATIVE Urine Urobilinogen 0.2 (NORMAL) Ur Leukocyte Esterase NEGATIVE Ur Microscopic Review NOT INDICATED Urine Culture Comments NOT INDICATED - Rads (name of study) CT AP Radiology: See rad report (diverticulosis no -itis, no other acute abn, ST thickening R chest wall s discrete abscess) PD MEDICAL DECISION MAKING - ED course ED course: pt seen in ED by Dr Finley who requests she be started on levaquin Departure - Departure Disposition: 01 Home, Self Care Clinical Impression: Cellulitis Qualifiers: Site of cellulitis: trunk Site of cellulitis of trunk: chest wall Qualified Code(s): L03.313 - Cellulitis of chest wall Condition: Good Instructions: ED Infec Skin Cellulitis Follow-Up: Nazanin Bentley MD [Primary Care Provider] - Dedrick Verde MD [Provider Admit Priv/Credential] - (Saturday for a recheck) Prescriptions: Levofloxacin [Levaquin] 500 mg PO DAILY #7 tablet Comments: Dr Finley would like you on an antibiotic called levaquin. Most people tolerate this medication very well. But some people can develop diarrhea so please eat yogurt every day or take a probiotic. And some people can develop nerve or tendon damage so if you have unusual pain in your joints or extremities, please stop the medication and call your PMD or surgeon
[2018-02-08] MEDS ORDERED: levoFLOXacin 250 MG TABLET PO STA (13:03)
[2018-02-08] MEDS ORDERED: levoFLOXacin 500 MG/100 ML 500 MG/100 ML BAG IV ONE (13:05)
--- NOTE | 2018-02-08 13:35 | CT Report ---
EXAM: CT ABDOMEN AND PELVIS EXAM DATE: 02/08/2018 12:33 PM. CLINICAL HISTORY: Left sided mid abdominal pain. COMPARISONS: Abdomen and pelvis CT 02/18/2014. TECHNIQUE: Routine helical CT imaging was performed through the abdomen and pelvis. IV contrast: None . Enteric contrast: No. Reconstructions: Coronal and sagittal. In accordance with CT protocol optimization, one or more of the following dose reduction techniques w ere utilized for this exam: automated exposure control, adjustment of mA and/or KV based on patient s ize, or use of iterative reconstructive technique. FINDINGS: Sensitivity for evaluation of the solid organs as well as bowel is reduced given the absence of both intravenous and oral contrast. Lung Bases: Mild centrilobular emphysema. Some edema and soft tissue density within the right lower c hest anteriorly as well as a surgical drain partially included in the examination in this patient who is status post recent mastectomy. No discrete chest wall abscess. Coronary atherosclerosis. Liver: Normal in contour with 2 hepatic cysts identified, largest measuring 2.4 cm. Gallbladder/Bile Ducts: Unremarkable. Spleen: Normal. Pancreas: Normal. Adrenal Glands: Normal. Kidneys: Normal. No masses or hydronephrosis. Peritoneal Cavity/Bowel: The stomach is decompressed and unremarkable. There are no dilated loops of large or small intestine. Moderate to large amount of stool within the colon. Mild colonic diverticul osis. Pelvic Organs: Normal. The bladder and visualized pelvic organs are within normal limits. Vasculature: Atherosclerosis without abdominal aortic aneurysm. Bones: Status post dynamic hip screw left femur. Other: Left gluteal and iliopsoas muscle atrophy. IMPRESSION: 1. Mild colonic diverticulosis without jaret diverticulitis. 2. Atherosclerosis including coronary atherosclerosis. 3. Soft tissue thickening and edema at the region of the right breast with a subcutaneous drain prese nt consistent with the history of recent right mastectomy. No discrete abscess seen. [facility] Referring Provider Line: [phone] SITE ID: [id number]
[2018-02-08 14:29] VITALS: BP 132/74
== END 2018-02-08 14:29 | disposition home or self-care (01) ==
LOC: ED 09:55
DX: L03.313 Cellulitis of chest wall (principal); C50.919 Malignant neoplasm of unspecified site of unspecified female breast; I10 Essential (primary) hypertension; I25.10 Atherosclerotic heart disease of native coronary artery without angina pectoris; E78.00 Pure hypercholesterolemia, unspecified; E03.9 Hypothyroidism, unspecified; Z86.73 Personal history of transient ischemic attack (TIA), and cerebral infarction without residual deficits; Z96.649 Presence of unspecified artificial hip joint; Z90.10 Acquired absence of unspecified breast and nipple; Z79.82 Long term (current) use of aspirin
CPT/HCPCS: 36415; 74176; 80048; 81001; 81003; 83605; 85025; 87040; 87086; 96365; 99283; 99284

== ENCOUNTER 2018-02-10 11:48 | Inpatient (IN) | payer MEDICARE, OTHER ==
[2018-02-10] MEDS ORDERED: SODIUM CHLORIDE FLUSH 0.9% 10 ML SYRINGE IVP PRN (12:14)
[2018-02-10] MEDS ORDERED: HYDROmorphone 1 MG/ML CARPUJECT IVP PRN ×2 (14:15)
[2018-02-10 14:35] LABS: BASOPHILS # (AUTO) 0.1 10^3/uL (0.0-0.1); BASOPHILS % (AUTO) 0.7 %; EOSINOPHILS # (AUTO) 0.5 10^3/uL (0.0-0.7); EOSINOPHILS % (AUTO) 4.4 %; HGB - HEMOGLOBIN 9.7 g/dL (12.0-16.0); LYMPHOCYTES % (AUTO) 9.4 %; MEAN CORPUSCULAR VOLUME 100.2 fL (81.0-99.0); MEAN PLATELET VOLUME 7.2 fL (7.9-10.8); MONOCYTES # (AUTO) 0.8 10^3/uL (0.0-1.0); MONOCYTES % (AUTO) 7.2 %; NEUTROPHILS # (AUTO) 8.2 10^3/uL (1.5-6.6); NEUTROPHILS % (AUTO) 78.3 %; PLT - PLATELET COUNT 312 10^3/uL (130-450); RED BLOOD COUNT 2.77 10^6/uL (4.20-5.40); RED CELL DISTRIBUTION WIDTH 13.3 % (12.0-15.0); WHITE BLOOD COUNT 10.5 x10^3/uL (4.8-10.8)
[2018-02-10] MEDS: CALCIUM CARB (OYSTER SHELL) 500 MG TABLET PO SCH (14:41)
[2018-02-10] MEDS: SACCHAROMYCES BOULARDII 250 MG CAPSULE PO SCH ×2 (14:41→16:55)
[2018-02-10] MEDS: MEROPENEM 1 GM in SODIUM CHLORIDE 0.9% MINIBAG 100 ML IV SCH ×2 (14:42→20:39)
[2018-02-10] MEDS: diphenhydrAMINE INJ 50 MG/ML VIAL IVP PRN (16:38)
[2018-02-10] MEDS: SODIUM CHLORIDE FLUSH 0.9% 10 ML SYRINGE IVP SCH (16:40)
[2018-02-10] MEDS: HYDROcod/ACETAM 5/325 MG TABLET PO PRN ×2 (16:47→20:39)
[2018-02-10] MEDS: ATORVASTATIN 10 MG TABLET PO SCH (20:38)
[2018-02-10] MEDS: PSYLLIUM PACKET PO SCH (21:50)
[2018-02-11] MEDS: HYDROcod/ACETAM 5/325 MG TABLET PO PRN ×4 (00:42→21:34)
[2018-02-11] MEDS: diphenhydrAMINE INJ 50 MG/ML VIAL IVP PRN ×2 (01:52→09:34)
[2018-02-11] MEDS: SODIUM CHLORIDE FLUSH 0.9% 10 ML SYRINGE IVP SCH ×3 (01:52→20:46)
[2018-02-11 04:29] LABS: BASOPHILS # (AUTO) 0.1 10^3/uL (0.0-0.1); EOSINOPHILS # (AUTO) 0.7 10^3/uL (0.0-0.7); EOSINOPHILS % (AUTO) 8.4 %; HGB - HEMOGLOBIN 9.1 g/dL (12.0-16.0); LYMPHOCYTES # (AUTO) 1.6 10^3/uL (1.5-3.5); LYMPHOCYTES % (AUTO) 17.6 %; MEAN CORPUSCULAR HEMOGLOBIN 34.6 pg (27.0-31.0); MEAN CORPUSCULAR HGB CONC 34.1 g/dL (32.0-36.0); MEAN CORPUSCULAR VOLUME 101.3 fL (81.0-99.0); MEAN PLATELET VOLUME 7.2 fL (7.9-10.8); MONOCYTES # (AUTO) 0.8 10^3/uL (0.0-1.0); MONOCYTES % (AUTO) 8.4 %; NEUTROPHILS # (AUTO) 5.8 10^3/uL (1.5-6.6); NEUTROPHILS % (AUTO) 64.6 %; PLT - PLATELET COUNT 313 10^3/uL (130-450); RED BLOOD COUNT 2.64 10^6/uL (4.20-5.40); RED CELL DISTRIBUTION WIDTH 12.9 % (12.0-15.0); WHITE BLOOD COUNT 8.9 x10^3/uL (4.8-10.8)
[2018-02-11] MEDS: MEROPENEM 1 GM in SODIUM CHLORIDE 0.9% MINIBAG 100 ML IV SCH (05:26)
[2018-02-11] MEDS: PSYLLIUM PACKET PO SCH ×3 (05:39→20:46)
[2018-02-11] MEDS: LEVOTHYROXINE 75 MCG TABLET PO SCH (06:15)
[2018-02-11] MEDS: SERTRALINE 50 MG TABLET PO SCH (09:34)
[2018-02-11] MEDS: amLODIPine 5 MG TABLET PO SCH (09:35)
[2018-02-11] MEDS: CALCIUM CARB (OYSTER SHELL) 500 MG TABLET PO SCH (09:35)
[2018-02-11] MEDS: METOPROLOL SUCCINATE 25 MG TABLET PO SCH (09:35)
[2018-02-11] MEDS: CHOLECALCIFEROL 1,000 UNIT TABLET PO SCH (09:35)
[2018-02-11] MEDS: SACCHAROMYCES BOULARDII 250 MG CAPSULE PO SCH ×2 (09:35→17:51)
[2018-02-11] MEDS ORDERED: MIN OIL/DIMETHICON/COCONUT OIL 92 GM TUBE TOP PRN (10:54)
[2018-02-11] MEDS: GLUCOSAMINE 1500 MG PO SCH (12:55)
--- NOTE | 2018-02-11 13:16 | PROVIDER PROGRESS NOTE ---
Subjective - General Admit Date: 02/10/18 Procedure Date: 02/04/18 Post Op Days: 7 Procedure Performed: RIGHT mastectomy - Review of Systems Wound/Incisions: positive: Erythema improving Drain Type: 19 Fr Lan Drain Output Description: Serous draining around tube Approximate mls Output: 50 General: positive: Other (Generalized itchiness felt to be secondary to antibiotics.) HEENT: positive: No symptoms (Some redness and swelling around eyes see "itchiness.") Pulmonary: positive: No symptoms Cardiovascular: positive: No symptoms Gastrointestinal: positive: No symptoms Genitourinary: positive: No symptoms Musculoskeletal: positive: No symptoms Skin: positive: Puritis Psychiatric: positive: No symptoms Objective - Patient Data Reviewed Vital Signs: Yes Vital Signs: Vital Signs x48h Temp Pulse Resp BP Pulse Ox 02/11/18 13:00 36.6 C 85 18 107/59 L 94 02/11/18 08:17 36.3 C L 97 18 119/70 95 Weight: Weight 02/09/18 02/10/18 02/11/18 23:59 23:59 23:59 Weight (kg) 58.5 kg Intake & Output: Intake and Output Totals x24h 02/09/18 02/10/18 02/11/18 23:59 23:59 23:59 Intake Total 1100 1010 Output Total 45 50 Balance 1055 960 - Lab Results Lab Results: 02/11/18 04:15 Other Lab Results: Lab Results x24hrs 02/11/18 02/10/18 Range/Units 04:15 14:29 WBC 8.9 10.5 (4.8-10.8) x10^3/uL RBC 2.64 L 2.77 L (4.20-5.40) 10^6/uL Hgb 9.1 L 9.7 L (12.0-16.0) g/dL Hct 26.8 L 27.7 L (37.0-47.0) % MCV 101.3 H 100.2 H (81.0-99.0) fL MCH 34.6 H 35.0 H (27.0-31.0) pg MCHC 34.1 35.0 (32.0-36.0) g/dL RDW 12.9 13.3 (12.0-15.0) % Plt Count 313 312 (130-450) 10^3/uL MPV 7.2 L 7.2 L (7.9-10.8) fL Neut # 5.8 8.2 H (1.5-6.6) 10^3/uL Lymph # 1.6 1.0 L (1.5-3.5) 10^3/uL [place] # 0.8 0.8 (0.0-1.0) 10^3/uL Eos # 0.7 0.5 (0.0-0.7) 10^3/uL Baso # 0.1 0.1 (0.0-0.1) 10^3/uL Absolute Nucleated RBC 0.00 0.01 x10^3/uL Nucleated RBC % 0.0 0.1 /100WBC - Current Medications Current Medications: Current Medications Generic Name Dose Route Start Last Admin Trade Name Freq PRN Reason Stop Dose Admin Acetaminophen/Hydrocodone Bitart 1 tab 02/10/18 14:16 02/11/18 11:09 [place] 5/325 PO 1 tab Q4HR PRN Administration PAIN Acetaminophen/Hydrocodone Bitart 2 tab 02/10/18 14:16 02/11/18 05:38 [place] 5/325 PO 2 tab Q4HR PRN Administration PAIN Amlodipine Besylate 10 mg 02/11/18 09:00 02/11/18 09:35 Norvasc PO 10 mg DAILY CHARLES Administration Atorvastatin Calcium 10 mg 02/10/18 21:00 02/10/18 20:38 Lipitor PO 10 mg QPM CHARLES Administration Calcium Carbonate/Glycine 500 mg 02/10/18 13:00 02/11/18 09:35 Oysco-500 PO 500 mg DAILY CHARLES Administration Cholecalciferol 2,000 unit 02/11/18 09:00 02/11/18 09:35 Vitamin D3 PO 2,000 unit DAILY CHARLES Administration Diphenhydramine HCl 25 mg 02/10/18 12:18 02/11/18 09:34 Benadryl Inj IVP 25 mg Q6H PRN Administration ITCHING Hydromorphone HCl 1 mg 02/10/18 14:15 02/10/18 14:50 Dilaudid Inj Carp IVP 1 mg Q2HR PRN Administration PAIN Meropenem 1 gm/ Sodium 100 mls @ 200 mls/hr 02/10/18 13:00 02/11/18 06:09 Chloride IV Infused Q8H CHARLES Infusion Levothyroxine Sodium 75 mcg 02/11/18 07:00 02/11/18 06:15 Synthroid PO 75 mcg QDAC CHARLES Administration Metoprolol Succinate 25 mg 02/11/18 09:00 02/11/18 09:35 Toprol Xl PO 25 mg DAILY CHARLES Administration Mineral Oil 1 applic 02/11/18 10:54 02/11/18 11:32 Cavilon TOP 1 drops PRN PRN Administration Skin Care Glucosamine 1,500 Mg 1 each 02/11/18 09:00 02/11/18 12:55 PO Not Given DAILY CHARLES Psyllium Hydrophilic Mucilloid 1 packet 02/10/18 22:00 02/11/18 05:39 Metamucil PO 1 packet TID CHARLES Administration Saccharomyces Boulardii 250 mg 02/10/18 13:00 02/11/18 09:35 Florastor PO 250 mg BIDWM CHARLES Administration Sertraline HCl 200 mg 02/11/18 09:00 02/11/18 09:34 Zoloft PO 200 mg DAILY CHARLES Administration Sodium Chloride 10 ml 02/10/18 17:00 02/11/18 12:55 Normal Saline Flush 0.9% IVP Not Given 0100,0900,1700 CHARLES Sodium Chloride 10 ml 02/10/18 12:14 02/11/18 05:27 Normal Saline Flush 0.9% IVP 10 ml PRN PRN Administration NEEDED PER PROVIDER ORDERS - Physical Exam Wound/Incisions: positive: Erythema improving (Well approximated. Serous drainage in tube and around tube.) Eyes Bilateral: positive: Conjunctivae nml, No scleral icterus, Other (Some redness and swelling around both eyes.) ENT: positive: No signs of dehydration Neck: positive: Trachea midline Neurologic/Psychiatric: positive: Oriented x3 Impression/Plan - Problem List Problem List: POD 7 s/p mastectomy admitted for treatment of cellulitis Complicated by multiple allergies now including Levaquin. Will try clindamycin as antibiotic will cover most common pathogens and patient is not currently listed to be allergic to it. Additionally, when I asked patient she did not state that she was allergic to it. Have enlisted the help of the hospitalists in case of an allergic reaction - an official consult is NOT required. If clindamycin works overnight will plan on discharge with a prescription in the morning.
[2018-02-11] MEDS: CLINDAMYCIN 150 MG CAPSULE PO SCH ×2 (14:42→17:51)
[2018-02-11] MEDS: diphenhydrAMINE 25 MG CAPSULE PO PRN ×2 (16:33→21:33)
[2018-02-11] MEDS: ATORVASTATIN 10 MG TABLET PO SCH (20:46)
[2018-02-12] MEDS: CLINDAMYCIN 150 MG CAPSULE PO SCH ×4 (00:38→17:53)
[2018-02-12] MEDS: SODIUM CHLORIDE FLUSH 0.9% 10 ML SYRINGE IVP SCH ×3 (00:38→16:49)
[2018-02-12] MEDS: LEVOTHYROXINE 75 MCG TABLET PO SCH (06:28)
[2018-02-12] MEDS: HYDROcod/ACETAM 5/325 MG TABLET PO PRN ×2 (06:29→12:48)
[2018-02-12] MEDS: PSYLLIUM PACKET PO SCH ×2 (06:30→12:49)
[2018-02-12] MEDS: diphenhydrAMINE 25 MG CAPSULE PO PRN ×2 (09:58→16:49)
[2018-02-12] MEDS: SACCHAROMYCES BOULARDII 250 MG CAPSULE PO SCH ×2 (09:59→16:49)
[2018-02-12] MEDS: amLODIPine 5 MG TABLET PO SCH (10:01)
[2018-02-12] MEDS: CALCIUM CARB (OYSTER SHELL) 500 MG TABLET PO SCH (10:02)
[2018-02-12] MEDS: CHOLECALCIFEROL 1,000 UNIT TABLET PO SCH (10:02)
[2018-02-12] MEDS: METOPROLOL SUCCINATE 25 MG TABLET PO SCH (10:04)
[2018-02-12] MEDS: SERTRALINE 50 MG TABLET PO SCH (10:12)
[2018-02-12] MEDS: GLUCOSAMINE 1500 MG PO SCH (10:22)
--- NOTE | 2018-02-12 13:28 | PROVIDER PROGRESS NOTE ---
Subjective - General Admit Date: 02/10/18 Procedure Date: 02/04/18 Post Op Days: 8 Procedure Performed: RIGHT mastectomy - Review of Systems Wound/Incisions: positive: Erythema improving (Well approximated. Serous drainage in tube and around tube.) Drain Type: 19 Fr Lan Drain Output Description: Serous draining around tube Approximate mls Output: 30 General: positive: Other (Very tearful feels weak and slightly dizzy.) HEENT: positive: No symptoms (Some redness and swelling around eyes see "itchiness.") Pulmonary: positive: No symptoms Cardiovascular: positive: No symptoms Gastrointestinal: positive: No symptoms Genitourinary: positive: No symptoms Musculoskeletal: positive: No symptoms Skin: positive: Puritis Psychiatric: positive: No symptoms Objective - Patient Data Reviewed Vital Signs: Yes Vital Signs: Vital Signs x48h Temp Pulse Resp BP Pulse Ox 02/12/18 12:42 36.4 C L 109 H 20 149/78 H 100 02/12/18 09:04 102 H 97/54 L 02/12/18 08:21 37 C 102 H 16 96/50 L 98 02/12/18 05:55 36.9 C 96 16 109/67 98 Weight: Weight 02/10/18 02/11/18 02/12/18 23:59 23:59 23:59 Weight (kg) 58.5 kg Intake & Output: Intake and Output Totals x24h 02/10/18 02/11/18 02/12/18 23:59 23:59 23:59 Intake Total 1100 2120 580 Output Total 45 80 30 Balance 1055 2040 550 - Lab Results Lab Results: 02/11/18 04:15 - Current Medications Current Medications: Current Medications Generic Name Dose Route Start Last Admin Trade Name Freq PRN Reason Stop Dose Admin Acetaminophen/Hydrocodone Bitart 1 tab 02/10/18 14:16 02/11/18 21:34 [place] 5/325 PO 1 tab Q4HR PRN Administration PAIN Acetaminophen/Hydrocodone Bitart 2 tab 02/10/18 14:16 02/12/18 12:48 [place] 5/325 PO 2 tab Q4HR PRN Administration PAIN Amlodipine Besylate 10 mg 02/11/18 09:00 02/12/18 10:01 Norvasc PO 10 mg DAILY CHARLES Administration Atorvastatin Calcium 10 mg 02/10/18 21:00 02/11/18 20:46 Lipitor PO 10 mg QPM CHARLES Administration Calcium Carbonate/Glycine 500 mg 02/10/18 13:00 02/12/18 10:02 Oysco-500 PO 500 mg DAILY CHARLES Administration Cholecalciferol 2,000 unit 02/11/18 09:00 02/12/18 10:02 Vitamin D3 PO 2,000 unit DAILY CHARLES Administration Clindamycin HCl 150 mg 02/11/18 14:00 02/12/18 11:39 Cleocin PO 150 mg Q6HR CHARLES Administration Diphenhydramine HCl 25 mg 02/11/18 14:57 02/12/18 09:58 Benadryl PO 25 mg Q4HR PRN Administration Allergy Symptoms Hydromorphone HCl 1 mg 02/10/18 14:15 02/10/18 14:50 Dilaudid Inj Carp IVP 1 mg Q2HR PRN Administration PAIN Levothyroxine Sodium 75 mcg 02/11/18 07:00 02/12/18 06:28 Synthroid PO 75 mcg QDAC [facility] Administration Metoprolol Succinate 25 mg 02/11/18 09:00 02/12/18 10:04 Toprol Xl PO Not Given DAILY [facility] Mineral Oil 1 applic 02/11/18 10:54 02/11/18 11:32 [place] TOP 1 drops PRN PRN Administration Skin Care Glucosamine 1,500 Mg 1 each 02/11/18 09:00 02/12/18 10:22 PO Not Given DAILY [facility] Psyllium Hydrophilic Mucilloid 1 packet 02/10/18 22:00 02/12/18 12:49 Metamucil PO 1 packet TID [facility] Administration Saccharomyces Boulardii 250 mg 02/10/18 13:00 02/12/18 09:59 Florastor PO 250 mg BIDWM [facility] Administration Sertraline HCl 200 mg 02/11/18 09:00 02/12/18 10:12 Zoloft PO 200 mg DAILY CHARLES Administration Sodium Chloride 10 ml 02/10/18 17:00 02/12/18 10:16 Normal Saline Flush 0.9% IVP Not Given 0100,0900,1700 CHARLES Sodium Chloride 10 ml 02/10/18 12:14 02/11/18 05:27 Normal Saline Flush 0.9% IVP 10 ml PRN PRN Administration NEEDED PER PROVIDER ORDERS - Physical Exam Wound/Incisions: positive: Healing well (Markedly improved from yesterday.) Eyes Bilateral: positive: Other (Redness around eyes slightly better.) ENT: positive: No signs of dehydration Neck: positive: Trachea midline Respiratory: positive: Chest non-tender, No respiratory distress, Breath sounds nml Cardiovascular: positive: Regular rate & rhythm Skin: positive: Color nml Neurologic/Psychiatric: positive: Oriented x3 Impression/Plan - Problem List Problem List: D8 s/p RIGHT mastectomy Patient tolerating Doxycycline and will be discharged on it. Orthostatic pressures did not show a great difference. Drain output was only 30 mL and I will remove drain prior to discharge. Discussed plan with patient and her who are in agreement.
[2018-02-12 17:52] VITALS: BP 134/79
--- NOTE | 2018-02-12 17:55 | DISCHARGE SUMMARY ---
"Discharge Summary Admit Date: 02/10/18 (Dr. Zhou Finley) Discharge Date: 02/12/18 Discharging Provider: MD Ammon Code Status: Attempt Resuscitation Condition at Discharge: Good Discharge Disposition: 01 Home, Self Care - DIAGNOSES Admission Diagnoses: Cellulitis complicated by multiple allergies to antibiotics - limiting choices. Discharge Diagnoses with Status of Each Condition: Celluilitis improved. - HPI History of Present Illness: The patient is 8 days postoperative following mastectomy for recurrent breast cancer. Apparently she presented with cellulitis of the chest wall that could not be treated with oral agents and was admitted to the hospital by Dr. Finley for IV Abx therapy. I then took over her care and started her on Doxycycline on the with excellent response. The drain out decreased to 30 mL in a 24 hour period and I pulled the drain prior to discharge. She is being sent home on 10 days of oral Doxycycline. - CONSULTS | PROCEDURES Procedures: Drain pulled 02-12-18 by me. - ALLERGIES Allergies/Adverse Reactions: Allergies Allergy/AdvReac Type Severity Reaction Status Date / Time amoxicillin trihydrate * Allergy Mild Rash Verified 02/08/18 10:31 [From Augmentin] indomethacin [From Indocin] Allergy Mild Rash Verified 02/08/18 10:31 indomethacin sodium * Allergy Mild Rash Verified 02/08/18 10:31 [From Indocin] lorazepam [From Ativan] Allergy Mild Rash Verified 02/08/18 10:31 metoclopramide HCl * Allergy Mild Rash Verified 02/08/18 10:31 [From Reglan] Penicillins Allergy Mild Rash Verified 02/08/18 10:31 potassium clavulanate * Allergy Mild Rash Verified 02/08/18 10:31 [From Augmentin] prochlorperazine Allergy Mild Rash Verified 02/08/18 10:31 [Prochlorperazine] Sulfa (Sulfonamide Allergy Mild Rash Verified 02/08/18 10:31 Antibiotics) sulfamethoxazole Allergy Mild Rash Verified 02/08/18 10:31 [From Gantanol] adhesive Allergy Rash Verified 01/31/18 14:27 thiopental [From Pentothal] Allergy seizures Verified 01/31/18 14:27 - MEDICATIONS Home Medications: Ambulatory Orders Medication Instructions Recorded Confirmed Aspirin 81 mg PO DAILY 03/09/13 02/10/18 Glucosamine Sulfate Dipot Chlr 1,500 mg PO DAILY 03/09/13 02/10/18 [Glucosamine] Levothyroxine [Synthroid] 75 mcg PO QDAC 03/09/13 02/10/18 Metoprolol Succinate [Toprol Xl] 25 mg PO DAILY 03/09/13 02/10/18 Calcium Carb, Citrate/Vit D3 1 tab PO DAILY 05/20/15 02/10/18 [Calcium + D3 ER Tablet] Cholecalciferol (Vitamin D3) 2,000 unit PO DAILY 10/04/15 02/10/18 [Vitamin D3] Atorvastatin [Lipitor] 10 mg PO QPM 08/02/17 02/10/18 Sertraline HCl [Zoloft] 200 mg PO DAILY 08/02/17 02/10/18 Psyllium Husk/Aspartame [Fiber 1 packet PO TID 01/29/18 02/10/18 Therapy Powder] Amlodipine Besylate 10 mg PO DAILY 02/10/18 02/10/18 Atorvastatin [Lipitor] 10 mg PO QPM tablet 02/12/18 Clindamycin [Cleocin] 150 mg PO Q6HR #40 capsule 02/12/18 HYDROcod/ACETAM 5/325 [[place] 5/325] 1 tab PO Q4HR PRN tablet 02/12/18 amLODIPine [Norvasc] 10 mg PO DAILY tablet 02/12/18 diphenhydrAMINE [Benadryl] 25 mg PO Q4HR PRN #20 capsule 02/12/18 Home Medications Other | Comments: Prescriptions for benadryl and Doxycycline. - PHYSICAL EXAM AT DISCHARGE General Appearance: positive: No acute distress Eyes Bilateral: positive: Other (Redness around eyes improved.) ENT: positive: No signs of dehydration Neck: positive: Trachea midline Respiratory: positive: Chest non-tender, No respiratory distress, Breath sounds nml Cardiovascular: positive: Regular rate & rhythm Skin: positive: Color nml, Other (Chest wall markedly improved.) Extremities: positive: Nml appearance Neurologic/Psychiatric: positive: Oriented x3 - LABS Result Diagrams: 02/11/18 04:15 - FOLLOW UP Follow Up: [facility] in 7-10 days. - TIME SPENT Time Spent in Discharge (Minutes): 40"
--- NOTE | 2018-02-12 18:02 | Discharge Plan ---
Discharge Plan Disposition: 01 Home, Self Care Condition: Good Prescriptions: diphenhydrAMINE [Benadryl] 25 mg PO Q4HR PRN #20 capsule PRN Reason: Allergy Symptoms Clindamycin [Cleocin] 150 mg PO Q6HR #40 capsule Diet: Regular Activity Restrictions: No Restrictions Shower Restrictions: No Driving Restrictions: Yes Assistance Devices: Cane Weight Bearing: Full Weight Additional Instructions or Follow Up instructions: Expect some swelling under the wound. If bothersome call my office for drainage. . No Smoking: If you smoke, Please STOP! Call for help. Follow-up with: Dedrick Verde MD [Provider Admit Priv/Credential] -
--- NOTE | 2018-02-20 01:07 | HISTORY & PHYSICAL EXAMINATION ---
DATE OF SERVICE: 02/10/2018 Physician: Bhargav Finley MD REASON FOR ADMISSION: Cellulitis right chest skin/chest wall, status post mastectomy 1 week prior. HISTORY OF PRESENT ILLNESS: Patient is an 82-year-old female who underwent a right mastectomy 1 week prior to this admission. She had developed some drainage around her KANG site about 3 days after surgery going into the emergency room. Patient did have bruising, edema and possible cellulitis being present. She was then started on Levaquin and discharged home. Today in clinic, she was seen with increasing redness, swelling on the chest wall. She also appeared to be having a reaction to Levaquin, as she was having pruritus along with reddened face, especially around her eyes. Because of this, along with ALLERGIES TO PENICILLIN, she was admitted to the hospital to be given IV antibiotics to treat this presumed cellulitis. PAST MEDICAL HISTORY, SURGICAL HISTORY, ALLERGIES, AND MEDICATIONS: See history of present illness. PHYSICAL EXAMINATION VITAL SIGNS: Temperature is 36.6, heart rate 97, blood pressure 104/64. GENERAL: patient looks tired and is bothered by her pruritus. FACE: Patient has a rash, mainly around her eyes. HEART: Regular. LUNGS: Clear. CHEST: Right mastectomy incision is intact. There is edema and bruising the whole right chest wall. There is some swelling and erythema also being present. She may have some fluid also underneath her flap. Her drain has been draining over 50 mL a day, however. EXTREMITIES: No edema or cyanosis. ABDOMEN: Soft, nontender. NEUROLOGIC: Patient appears a little drowsy, otherwise is coherent, cooperative. DIAGNOSTIC DATA: Patient had a white count elevation from prior emergency room visit with it being 14. She was having fevers also at that time. Since starting the Levaquin, she did have presumed allergic reaction, but has now been afebrile. ASSESSMENT AND PLAN 1. Status post right mastectomy, now with cellulitis on the chest wall. PATIENT IS ALLERGIC TO PENICILLIN AND MOST LIKELY FLUOROQUINOLONES. I have recommended she be admitted to the hospital and given IV antibiotics. 2. Pruritus, most likely allergic reaction to Levaquin. We will stop the Levaquin and start her on Benadryl. PLAN 1. Admit to the hospital. 2. IV antibiotics, which will be meropenem. 3. Benadryl as needed for pruritus. 4. Continued KANG drain care. If she continues to have drainage from around the wound, then would see about removing the drain. TD: 02/20/2018 01:06
== END 2018-02-12 18:35 | disposition home or self-care (01) | DRG 863 ==
LOC: MS2 11:48
PROVIDERS: ADMIT Surgery; ATTEND Surgery
DX: T81.4XXA Infection following a procedure, initial encounter (principal); L03.313 Cellulitis of chest wall; C50.911 Malignant neoplasm of unspecified site of right female breast; Y83.8 Other surgical procedures as the cause of abnormal reaction of the patient, or of later complication, without mention of misadventure at the time of the procedure; Y92.234 Operating room of hospital as the place of occurrence of the external cause; F41.9 Anxiety disorder, unspecified; F32.9 Major depressive disorder, single episode, unspecified; I10 Essential (primary) hypertension; E03.9 Hypothyroidism, unspecified; Z88.1 Allergy status to other antibiotic agents; Z90.11 Acquired absence of right breast and nipple; Z87.891 Personal history of nicotine dependence; Z86.73 Personal history of transient ischemic attack (TIA), and cerebral infarction without residual deficits; Z87.440 Personal history of urinary (tract) infections; Z96.642 Presence of left artificial hip joint
CPT/HCPCS: 36415; 85025

== ENCOUNTER 2018-05-29 13:12 | Outpatient (CLI) | payer MEDICARE, OTHER | END 2018-05-29 13:13 | disposition critical access hospital (66) | LOC: EMS 13:12 | PROVIDERS: ATTEND Surgery | DX: R47.9 Unspecified speech disturbances (principal); R68.89 Other general symptoms and signs | CPT/HCPCS: A0425; A0429 ==

== ENCOUNTER 2018-05-29 13:19 | Inpatient (IN) | payer MEDICARE, OTHER ==
--- NOTE | 2018-05-29 13:49 | ED Physician Documentation ---
PD HPI FOCAL NEURO - Stated complaint Stated Complaint: AFIB - History obtained from History obtained from: Patient - History of Present Illness Timing - onset: Today (She has been dealing with A. fib issues recently and has upcoming testing including echocardiogram and I think an ultrasound of her carotids. Today she had an episode of about 10 minutes worth of word salad without neurologic deficits otherwise. She was on warfarin for about a day may be a week ago, but she developed nausea with it and it was stopped.) Review of Systems Ten Systems: 10 systems reviewed and negative Constitutional: denies: Fever, Chills Cardiac: reports: Palpitations. 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: Breast cancer : None HEENT: Chronic hearing loss Psych: Depression Musculoskeletal: Osteoarthritis, Osteoporosis, Other Derm: Eczema - Past Surgical History Past Surgical History: Yes General: Colonoscopy Ortho: Hip replacement /SPANISH INTERPRETER/TRANSLATOR: Mastectomy, Other HEENT: Cataracts - Present Medications Home Medications: Ambulatory Orders Medication Instructions Recorded Confirmed Glucosamine Sulfate Dipot Chlr 1,500 mg PO DAILY 03/09/13 05/29/18 [Glucosamine] Levothyroxine [Synthroid] 75 mcg PO QDAC 03/09/13 05/29/18 Metoprolol Succinate [Toprol Xl] 50 mg PO DAILY 03/09/13 05/29/18 Cholecalciferol (Vitamin D3) 4,000 unit PO DAILY 10/04/15 05/29/18 [Vitamin D3] Atorvastatin [Lipitor] 10 mg PO QPM 08/02/17 05/29/18 Sertraline HCl [Zoloft] 200 mg PO DAILY 08/02/17 05/29/18 Psyllium Husk/Aspartame [Fiber 1 packet PO DAILY 01/29/18 05/29/18 Therapy Powder] Amlodipine Besylate [Amlodipine 10 mg PO DAILY 05/29/18 05/29/18 Besylate] Aspirin [Aspirin EC] 81 mg PO DAILY 05/29/18 05/29/18 Calcium Carbonate [Tums (Calcium 1,000 mg PO QPM 05/29/18 05/29/18 Carbonate 500mg)] Omeprazole [PriLOSEC] 20 mg PO BIDAC 05/29/18 05/29/18 - Allergies Allergies/Adverse Reactions: Allergies Allergy/AdvReac Type Severity Reaction Status Date / Time amoxicillin trihydrate * Allergy Mild Rash Verified 05/29/18 13:55 [From Augmentin] indomethacin [From Indocin] Allergy Mild Rash Verified 05/29/18 13:55 indomethacin sodium * Allergy Mild Rash Verified 05/29/18 13:55 [From Indocin] lorazepam [From Ativan] Allergy Mild Rash Verified 05/29/18 13:55 metoclopramide HCl * Allergy Mild Rash Verified 05/29/18 13:55 [From Reglan] Penicillins Allergy Mild Rash Verified 05/29/18 13:55 potassium clavulanate * Allergy Mild Rash Verified 05/29/18 13:55 [From Augmentin] prochlorperazine Allergy Mild Rash Verified 05/29/18 13:55 [Prochlorperazine] Sulfa (Sulfonamide Allergy Mild Rash Verified 05/29/18 13:55 Antibiotics) sulfamethoxazole Allergy Mild Rash Verified 05/29/18 13:55 [From Gantanol] adhesive Allergy Rash Verified 05/29/18 13:55 thiopental [From Pentothal] Allergy seizures Verified 05/29/18 13:55 - Social History Does the pt smoke?: No Smoking Status: Former smoker Does the pt drink ETOH?: No - Family History Family history: reports: Non contributory - Immunizations Immunizations are current?: Yes - POLST Patient has POLST: No PD ED PE NORMAL - Vitals Vital signs reviewed: Yes - General General: Alert and oriented X 3, No acute distress - HEENT HEENT: PERRL, EOMI - Neck Neck: Supple, no meningeal sign, No bony TTP - Cardiac Cardiac: Other (Rapid and irregularly irregular without murmur) - Respiratory Respiratory: No respiratory distress, Clear bilaterally - Abdomen Abdomen: Non tender - Extremities Extremities: No edema, No calf tenderness / cord - Neuro Neuro: Alert and oriented X 3, Normal speech NIHSS - Time Time: 13:45 - Level of Consciousness Level of consciousness: (0) Alert, Keenly responsive LOC Questions: (0) Answers both Q's correct LOC Commands: (0) Performs both correctly - Gaze Best Gaze: (0) Normal - Visual Visual: (0) No loss - Facial Palsy Facial Palsy: (0) Normal, symmetrical movement - Motor Arms (both separate) Motor Arm (right): (0) No drift Motor Arm (left): (0) No drift - Motor Legs (both separate) Motor Leg (right): (0) No drift Motor Leg (left): (0) No drift - Limb Ataxia Limb Ataxia: (0) Absent - Sensory Sensory: (0) Normal - Best Language Best Language: (0) No aphasia - Dysarthria Dysarthria: (0) Normal - Extinction and Inattention (formally neg Extinction and inattention: (0) No abnormality - Total Score/Results Total Score/Result: 0 Results - Vitals Vitals: Vital Signs - 24 hr 05/29/18 05/29/18 05/29/18 13:32 14:11 14:16 Temperature 36.2 C L Heart Rate 115 H 128 H 117 H Respiratory 18 21 22 Rate Blood Pressure 132/84 H 127/89 H 127/89 H O2 Saturation 95 93 92 05/29/18 05/29/18 05/29/18 15:13 15:35 15:37 Temperature Heart Rate 122 H 116 H 90 Respiratory 18 18 18 Rate Blood Pressure 121/97 H 109/69 91/62 O2 Saturation 92 92 92 Oxygen O2 Source [] Room air O2 Source Room air - EKG (time done) 1342 Rate: Rate (enter#) (133) Rhythm: Atrial fibrillation [place]: Normal QRS: Normal Ischemia: Non specific changes Computer interpretation: Agree with computer - Labs Labs: Laboratory Tests 05/29/18 05/29/18 05/29/18 14:15 14:15 14:15 WBC 6.2 RBC 3.38 L Hgb 11.7 L Hct 34.8 L MCV 102.8 H MCH 34.5 H MCHC 33.6 RDW 14.4 Plt Count 268 MPV 7.4 L Neut # (Auto) 4.8 Lymph # (Auto) 0.8 L [place] # (Auto) 0.5 Eos # (Auto) 0.1 Baso # (Auto) 0.1 Absolute Nucleated RBC 0.00 Nucleated RBC % 0.0 PT 12.1 INR 1.1 Sodium 132 L Potassium 4.2 Chloride 102 Carbon Dioxide 22 Anion Gap 8.0 BUN 21 H Creatinine 0.9 Estimated GFR (MDRD) 60 L Glucose 105 H Calcium 9.1 Total Bilirubin 1.1 H AST 96 H ALT 110 H Alkaline Phosphatase 85 B-Natriuretic Peptide Total Protein 7.3 Albumin 4.2 Globulin 3.1 Albumin/Globulin Ratio 1.4 Lipase 33 05/29/18 14:15 WBC RBC Hgb Hct MCV MCH MCHC RDW Plt Count MPV Neut # (Auto) Lymph # (Auto) [place] # (Auto) Eos # (Auto) Baso # (Auto) Absolute Nucleated RBC Nucleated RBC % PT INR Sodium Potassium Chloride Carbon Dioxide Anion Gap BUN Creatinine Estimated GFR (MDRD) Glucose Calcium Total Bilirubin AST ALT Alkaline Phosphatase B-Natriuretic Peptide 608 H Total Protein Albumin Globulin Albumin/Globulin Ratio Lipase - Rads (name of study) CT head Radiology: EMP read contemporaneously (Left posterior fossa arachnoid cyst unchanged from prior, the patient was already aware about this.) PD MEDICAL DECISION MAKING - ED course ED course: 83-year-old with recent diagnosis of atrial fibrillation who was briefly on anticoagulation but now not presents with A. fib with RVR and an episode that sounds like a TIA earlier today. Her neurologic symptoms have resolved and her head CT is without acute findings but the elevated liver enzymes suggest CHF which was corroborated by a BNP of 608. She had no response to a small dose of IV Lopressor and this was followed by diltiazem and Lasix IV. - Sepsis Event Vital Signs: Vital Signs - 24 hr 05/29/18 05/29/18 05/29/18 13:32 14:11 14:16 Temperature 36.2 C L Heart Rate 115 H 128 H 117 H Respiratory 18 21 22 Rate Blood Pressure 132/84 H 127/89 H 127/89 H O2 Saturation 95 93 92 05/29/18 05/29/18 05/29/18 15:13 15:35 15:37 Temperature Heart Rate 122 H 116 H 90 Respiratory 18 18 18 Rate Blood Pressure 121/97 H 109/69 91/62 O2 Saturation 92 92 92 Oxygen O2 Source [] Room air O2 Source Room air Departure - Departure Disposition: ED Place in Observation Clinical Impression: TIA (transient ischemic attack), Atrial fibrillation, rapid CHF (congestive heart failure) Qualifiers: Heart failure type: unspecified Heart failure chronicity: acute Qualified Code( s): I50.9 - Heart failure, unspecified Condition: Serious
[2018-05-29] MEDS ORDERED: METOPROLOL 5 MG/5 ML VIAL IVP STA (13:51)
--- NOTE | 2018-05-29 14:21 | CT Report ---
Procedure Date: 05/29/2018 Accession Number: [id number] / [id number] Procedure: CT - Head W/O CPT Code: FULL RESULT: EXAM: CT HEAD EXAM DATE: 05/29/2018 02:06 PM. CLINICAL HISTORY: Left posterior fossa cyst. Episode of altered mental status. COMPARISON: MRI BRAIN W TECHNIQUE: Multiaxial CT images were obtained from the foramen magnum to the vertex. Reformats: Head MRI 10/15/2011. No prior head CT. IV contrast: None. In accordance with CT protocol optimization, one or more of the following dose reduction techniques were utilized for this exam: automated exposure control, adjustment of mA and/or KV based on patient size, or use of iterative reconstructive technique. FINDINGS: Parenchyma: Stable 5.0 x 4.0 x 3.0 cm well demarcated thin walled uniformly water density lesion left side of the posterior fossa. No erosion of the adjacent bone. This causes stable moderate mass effect on the left cerebellar hemisphere. No intraparenchymal hemorrhage. No evidence of new mass, midline shift, or CT findings of acute infarction. Charles-white differentiation is distinct. Diffuse chronic microangiopathic white matter changes are evident. Extraaxial Spaces: Normal for age. No subdural or epidural collections identified. Ventricles: Stable mild left to right shift of the normal caliber fourth ventricle. Normal caliber third and lateral ventricles remain midline. No intraventricular blood products. Sinuses and orbits: Imaged paranasal sinuses, orbits, and mastoids show no significant abnormality. Bones: No evidence of fracture or calvarial defect. Other: None. IMPRESSION: 1. Stable 5.0 x 4.0 x 3.0 cm arachnoid cyst left lateral posterior fossa. 2. No acute intracranial abnormality nor bleed. RADIA
[2018-05-29 14:22] LABS: BASOPHILS # (AUTO) 0.1 10^3/uL (0.0-0.1); BASOPHILS % (AUTO) 1.4 %; EOSINOPHILS # (AUTO) 0.1 10^3/uL (0.0-0.7); EOSINOPHILS % (AUTO) 1.2 %; HGB - HEMOGLOBIN 11.7 g/dL (12.0-16.0); LYMPHOCYTES # (AUTO) 0.8 10^3/uL (1.5-3.5); LYMPHOCYTES % (AUTO) 12.4 %; MEAN CORPUSCULAR HEMOGLOBIN 34.5 pg (27.0-31.0); MEAN CORPUSCULAR HGB CONC 33.6 g/dL (32.0-36.0); MEAN CORPUSCULAR VOLUME 102.8 fL (81.0-99.0); MEAN PLATELET VOLUME 7.4 fL (7.9-10.8); MONOCYTES # (AUTO) 0.5 10^3/uL (0.0-1.0); MONOCYTES % (AUTO) 7.6 %; NEUTROPHILS # (AUTO) 4.8 10^3/uL (1.5-6.6); NEUTROPHILS % (AUTO) 77.4 %; PLT - PLATELET COUNT 268 10^3/uL (130-450); RED BLOOD COUNT 3.38 10^6/uL (4.20-5.40); RED CELL DISTRIBUTION WIDTH 14.4 % (12.0-15.0); WHITE BLOOD COUNT 6.2 x10^3/uL (4.8-10.8)
[2018-05-29 14:38] LABS: INR 1.1 (0.8-1.2); PT - PROTHROMBIN TIME 12.1 secs (9.9-12.6)
[2018-05-29 14:42] LABS: ALBUMIN 4.2 g/dL (3.2-5.5); ALBUMIN/GLOBULIN RATIO 1.4 (1.0-2.2); BILIRUBIN,TOTAL 1.1 mg/dL (0.2-1.0); CALCIUM 9.1 mg/dL (8.5-10.3); CREATININE 0.9 mg/dL (0.4-1.0); TOTAL PROTEIN 7.3 g/dL (6.7-8.2)
--- NOTE | 2018-05-29 15:18 | XRAY Report ---
Procedure Date: 05/29/2018 Accession Number: [id number] / [id number] Procedure: XR - Chest 1 View X-Ray CPT Code: 06716 FULL RESULT: EXAM: CHEST RADIOGRAPHY EXAM DATE: 05/29/2018 03:07 PM. CLINICAL HISTORY: Dyspnea. COMPARISON: Chest 2 view PA/lateral 08/05/2017. TECHNIQUE: 1 view. FINDINGS: Lungs/Pleura: Overexpanded, emphysematous changes. New small airspace of the right base. New minimal blunting right lateral costophrenic angle. No pneumothorax. Mediastinum: New mild cardiomegaly. No tracheal shift. Other: Remote right mastectomy. IMPRESSION: 1. Mild cardiomegaly. 2. Acute on chronic lung disease consisting of small right lung base infiltrate and effusion. RADIA
[2018-05-29] MEDS ORDERED: diltiaZEM INJ 5 MG/ML VIAL IVP STA (15:22)
[2018-05-29] MEDS ORDERED: FUROSEMIDE 20 MG/2 ML VIAL IVP STA (15:22)
[2018-05-29] MEDS ORDERED: ENOXAPARIN 60 MG/0.6 ML SYRINGE SUBQ STA (15:31)
[2018-05-29] MEDS ORDERED: PROCHLORPERAZINE 10 MG/2 ML VIAL IVP PRN (16:54)
[2018-05-29] MEDS ORDERED: ONDANSETRON 4 MG/2 ML VIAL IVP PRN (16:54)
[2018-05-29] MEDS ORDERED: ACETAMINOPHEN 325 MG TABLET PO PRN (16:54)
[2018-05-29] MEDS ORDERED: ONDANSETRON ODT 4 MG TABLET TL PRN (16:54)
[2018-05-29] MEDS ORDERED: diltiaZEM INJ 5 MG/ML VIAL IVP ONE (18:30)
[2018-05-29] MEDS: SODIUM CHLORIDE FLUSH 0.9% 10 ML SYRINGE IVP SCH (19:51)
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
[2018-05-29] MEDS: ATORVASTATIN 10 MG TABLET PO SCH (20:19)
[2018-05-29] MEDS: oxyCODONE 5 MG TABLET PO PRN (21:15)
[2018-05-30] MEDS: SODIUM CHLORIDE FLUSH 0.9% 10 ML SYRINGE IVP PRN (00:23)
--- NOTE | 2018-05-30 04:38 | Ultrasound Report ---
Procedure Date: 05/30/2018 Accession Number: [id number] / [id number] Procedure: US - Abdomen Complete CPT Code: FULL RESULT: EXAM: ABDOMEN ULTRASOUND EXAM DATE: 05/30/2018 12:43 AM. CLINICAL HISTORY: History of breast cancer. Abnormal liver function tests. COMPARISON: CT, 02/08/2018. TECHNIQUE: Real-time scanning was performed with static images obtained. FINDINGS: Liver: Left lobe cyst measuring 2.5 x 2.1 x 2.2 cm. Otherwise normal echotexture. 14.1 cm. Main portal vein flow: Hepatopetal. Gallbladder: Wall thickness upper normal at 3 mm. Trace pericholecystic fluid. No gallstones are seen. No focal tenderness over the gallbladder. Biliary System: Common bile duct measures 2.4 mm. No intrahepatic or extrahepatic ductal dilatation. Pancreas: Visualized portion is unremarkable. Kidneys: Right: 9.9 cm longitudinally. Normal. No contour-deforming mass, stones, or hydronephrosis. Left: 8.3 cm longitudinally. Normal. No contour-deforming mass, stones, or hydronephrosis. Spleen: 7.5 cm. Normal in size and echotexture. Aorta and Inferior Vena Cava: Unremarkable where seen. Other: None. IMPRESSION: 1. Left lobe liver cyst. No other focal liver abnormality seen. 2. No cholelithiasis or cholecystitis identified. There is trace pericholecystic fluid. 3. No biliary dilatation seen. RADIA
[2018-05-30] MEDS: NAPROXEN 250 MG TABLET PO PRN (06:18)
[2018-05-30] MEDS: oxyCODONE 5 MG TABLET PO PRN (07:49)
[2018-05-30] MEDS: LEVOTHYROXINE 75 MCG TABLET PO SCH (07:49)
--- NOTE | 2018-05-30 07:50 | Ultrasound Report ---
Procedure Date: 05/30/2018 Accession Number: [id number] / [id number] Procedure: US - Carotid Doppler Complete CPT Code: FULL RESULT: EXAM: BILATERAL CAROTID AND VERTEBRAL ARTERY DUPLEX DOPPLER ULTRASOUND: EXAM DATE: 05/30/2018 01:35 AM CLINICAL HISTORY: Garbled speech, atrial fibrillation. COMPARISON: Carotid Doppler 04/19/2017. TECHNIQUE: Grayscale imaging, color Doppler, and duplex spectral Doppler were used to evaluate the carotid and vertebral arteries bilaterally. Static images were obtained. FINDINGS: Right Carotid System: Moderate calcified plaque in the distal common carotid artery, carotid bulb and proximal internal and external carotid arteries with peak systolic velocity in the proximal internal carotid artery measuring 215 cm/s and end-diastolic velocity measuring 44 cm/s indicating 50-69% stenosis. Calcified shadowing plaque in the proximal internal carotid artery with suboptimal visualization of the vessel lumen. Left Carotid System: Small amount of partially calcified plaque in the proximal common carotid artery without stenosis. Moderate calcified plaque in the carotid bulb and proximal internal carotid artery with shadowing plaque precluding evaluation of the lumen without elevated velocities or ratios in the internal carotid artery to suggest an underlying hemodynamically significant stenosis. Normal antegrade flow is present in bilateral vertebral arteries. VELOCITIES (cm/s): Right: RCCA Prox: PSV 36.8 cm/s, EDV 10.8 cm/s. RCCA Mid: PSV 30.1 cm/s, EDV 8.1 cm/s. RCCA Dist: PSV 30.9 cm/s, EDV 14.2 cm/s. RECA: PSV 78.4 cm/s, EDV 15.8 cm/s. R Bulb: PSV 30.3 cm/s, EDV 8.0 cm/s. NIRANJAN Prox: PSV 215.1 cm/s, EDV 98.6 cm/s. NIRANJAN Mid: PSV 89.6 cm/s, EDV 31.4 cm/s. NIRANJAN Dist: PSV 45.0 cm/s, EDV 25.2 cm/s. RVA: PSV 61.9 cm/s, EDV 27.1 cm/s. RVA flow direction: Antegrade. ICA/CCA PSV: 5.85 ICA/CCA EDV: 6.93 Left: LCCA Prox: PSV 42.5 cm/s, EDV 15.1 cm/s. LCCA Mid: PSV 49.8 cm/s, EDV 25.5 cm/s. LCCA Dist: PSV 48.3 cm/s, EDV 23.2 cm/s. LECA: PSV 59.9 cm/s, EDV 12.8 cm/s. L Bulb: PSV 40.6 cm/s, EDV 9.7 cm/s. LICA Prox: PSV 56.0 cm/s, EDV 25.5 cm/s. LICA Mid: PSV 52.1 cm/s, EDV 26.7 cm/s. LICA Dist: PSV 85.9 cm/s, EDV 36.5 cm/s. LVA: PSV 28.2 cm/s, EDV 12.4 cm/s. LVA flow direction: Antegrade. ICA/CCA PSV: 1.72 ICA/CCA EDV: 1.43 IMPRESSION: 1. Moderate calcified plaque in the right carotid bulb and proximal internal carotid artery with velocities indicating 50-69% stenosis. 2. Moderate calcified plaque in the left carotid bulb and proximal internal carotid artery with shadowing plaque limiting evaluation of the lumen without velocities indicating a hemodynamically significant stenosis. Degree of stenosis would be better evaluated with CTA neck. RADIA
[2018-05-30] MEDS: SERTRALINE 50 MG TABLET PO SCH (08:45)
[2018-05-30] MEDS: POLYETHYLENE GLYCOL 3350 17 GM PACKET PO SCH (08:45)
[2018-05-30] MEDS: amLODIPine 5 MG TABLET PO SCH (08:45)
[2018-05-30] MEDS: SODIUM CHLORIDE FLUSH 0.9% 10 ML SYRINGE IVP SCH ×2 (08:46→18:13)
[2018-05-30] MEDS ORDERED: METOPROLOL 5 MG/5 ML VIAL IVP STA (08:51)
[2018-05-30] MEDS ORDERED: METOPROLOL SUCCINATE 25 MG TABLET PO SCH (09:00)
[2018-05-30] MEDS: APIXABAN 2.5 MG TABLET PO SCH ×2 (09:12→20:18)
[2018-05-30] MEDS ORDERED: LORazepam 2 MG/ML VIAL IVP PRN (09:21)
[2018-05-30] MEDS ORDERED: diazePAM 5 MG TABLET PO PRN (09:23)
[2018-05-30] MEDS ORDERED: GADOBUTROL 7.5 MMOL/7.5 ML VIAL ONE (11:52)
[2018-05-30 13:02] LABS: HEPATITIS A IGM NON-REACTIVE (NON-REACTIVE); HEPATITIS B CORE ANTIBODY IGM NON-REACTIVE (NON-REACTIVE); HEPATITIS B SURFACE ANTIGEN NON-REACTIVE (NON-REACTIVE); HEPATITIS C ANTIBODY NON-REACTIVE (NON-REACTIVE)
--- NOTE | 2018-05-30 15:07 | MRI Report ---
Procedure Date: 05/30/2018 Accession Number: [id number] / [id number] Procedure: MRI - Brain W/O CPT Code: FULL RESULT: EXAM: MRI BRAIN WITHOUT CONTRAST EXAM DATE: 05/30/2018 12:19 PM. CLINICAL HISTORY: 83-year-old with history of breast cancer and atrial fibrillation presenting with loss of speech. Evaluate for intracranial pathology. COMPARISON: CT head 05/29/2018; MR brain 10/15/2011. TECHNIQUE: Multiplanar, multisequence T1-weighted and fluid-sensitive MR sequences of the brain were performed. Sequences optimized for routine evaluation. Other: None. IV Contrast: None. FINDINGS: Brain Volume: Normal for age. Parenchyma/Dura: No definite acute parenchymal hemorrhage, mass, or midline shift. There is mild to moderate bilateral areas of T2/FLAIR signal hyperintensity seen that appears slightly progressed from 10/15/2011. Old chronic lacunar infarct of the left thalamus and bilateral centrum semiovale, greater on the right. There are at least 6 punctate to small foci of restricted diffusion involving the left temporal operculum and left temporoparietal region and a left MCA territory distribution. Largest area of restricted diffusion is within the left temporal operculum measuring up to 8 mm (series 505, image 104). There is associated T2/FLAIR signal hyperintensity. There is no associated susceptibility artifact or intrinsic T1 signal hyperintensity. No abnormal areas of hemosiderin deposition. Ventricles/Cisterns: Again seen is a CSF density left posterior fossa extra-axial arachnoid cyst measuring 3.8 x 3.8 x 4.2 cm) cc by TRV by AP) is unchanged in size from 10/15/2011. There is mass effect on the left cerebellum and brachium pontis similar to prior study. No definite new abnormal extra-axial fluid collection/mass seen. Graft overall ventricular size configuration appears similar to prior study. Orbits: Changes of bilateral lens replacement. Sella Turcica: The pituitary gland, cavernous sinuses, suprasellar cistern and optic chiasm are unremarkable. IAC: Symmetric and unremarkable. Vasculature: Normal signal flow void is seen in the major arterial structures at the skull base. Sinuses: No acute appearing sinus disease. Bones: No focal pathologic appearing marrow signal changes. Other: None. IMPRESSION: 1. There is a cluster of 6 punctate to small foci of acute infarct (1-7 days) involving the left temporal operculum and left temporoparietal region in a left MCA territory distribution. No evidence of hemorrhagic transformation. 2. There is mild to moderate white matter changes including old chronic lacunar infarcts that appear progressed from 10/15/2011 and may represent sequela of chronic small vessel ischemic disease. 3. Again seen is a large lateral left posterior fossa arachnoid cyst is unchanged in size from 10/15/2011. 4. No acute intracranial hemorrhage, mass, hydrocephalus, or midline shift. RADIA The above findings were discussed with Lin Heard by Dr. Cristian Avila at 15:06 hrs on 05/30/18.
[2018-05-30] MEDS ORDERED: FUROSEMIDE 20 MG/2 ML VIAL IVP STA (17:49)
[2018-05-30] MEDS ORDERED: METOPROLOL SUCCINATE 50 MG TABLET PO ONE (17:49)
--- NOTE | 2018-05-30 18:32 | PROVIDER PROGRESS NOTE ---
Subjective - Prog Note Date Prog Note Date: 05/30/18 Prog Note Time: 18:30 - Subjective Pt reports feeling: No change Subjective: I have been treating her for congestive heart failure from [place] lacey with RVR. Mild. She continues to have mild shortness of breath, in spite of multiple doses of beta-tyrel and calcium channel tyrel continues to be tachycardic. Echocardiogram shows intact left ventricle. Dilated atrial sizes. Mild right- sided heart failure and elevated pulmonary pressures. Her carotid Dopplers show the same stenosis amount. No new stenosis. CT that had a been negative. The echo was negative for clots. However the MRIs come back positive for 6 micro punctate lesions in the parietal lobe left side. Current Medications - Current Medications Current Medications: Active Medications Generic Name Dose Route Start Last Admin Trade Name Freq PRN Reason Stop Dose Admin Acetaminophen 650 mg 05/29/18 16:54 Tylenol PO Q4HR PRN Pain 1 to 4 Amlodipine Besylate 10 mg 05/30/18 09:00 05/30/18 08:45 Norvasc PO 10 mg DAILY CHARLES Administration Apixaban 2.5 mg 05/30/18 09:00 05/30/18 09:12 Eliquis PO 2.5 mg BID CHARLES Administration Atorvastatin Calcium 10 mg 05/29/18 21:00 05/29/18 20:19 Lipitor PO 10 mg QPM CHARLES Administration Levothyroxine Sodium 75 mcg 05/30/18 07:00 05/30/18 07:49 Synthroid PO 75 mcg QDAC CHARLES Administration Metoprolol Succinate 50 mg 05/30/18 09:00 05/30/18 08:45 Toprol Xl PO 50 mg DAILY CHARLES Administration Naproxen 250 mg 05/30/18 06:07 05/30/18 06:18 Naprosyn PO 250 mg TID PRN Administration PAIN Ondansetron HCl 4 mg 05/29/18 16:54 Zofran Inj IVP Q6HR PRN Nausea / Vomiting Ondansetron HCl 4 mg 05/29/18 16:54 Zofran Odt TL Q6HR PRN Nausea / Vomiting Oxycodone HCl 5 mg 05/29/18 16:54 05/30/18 07:49 Roxicodone PO 5 mg Q4HR PRN Administration Pain 5 to 7 Polyethylene Glycol 17 gm 05/30/18 09:00 05/30/18 08:45 Miralax PO Not Given DAILY CHARLES Prochlorperazine Edisylate 10 mg 05/29/18 16:54 Compazine Inj IVP Q6HR PRN Nausea / Vomiting Sertraline HCl 200 mg 05/30/18 09:00 05/30/18 08:45 Zoloft PO 200 mg DAILY CHARLES Administration Sodium Chloride 10 ml 05/29/18 16:54 05/30/18 00:23 Normal Saline Flush 0.9% IVP 10 ml PRN PRN Administration NEEDED PER PROVIDER ORDERS Sodium Chloride 10 ml 05/30/18 01:00 05/30/18 18:13 Normal Saline Flush 0.9% IVP 10 ml 0100,0900,1700 CHARLES Administration Glucosamine Sulfate Dipot Chlr [Glucosamine] 1,500 mg PO DAILY 03/09/13 Levothyroxine [Synthroid] 75 mcg PO QDAC 03/09/13 Metoprolol Succinate [Toprol Xl] 50 mg PO DAILY 03/09/13 Cholecalciferol (Vitamin D3) [Vitamin D3] 4,000 unit PO DAILY 10/04/15 Atorvastatin [Lipitor] 10 mg PO QPM 08/02/17 Sertraline HCl [Zoloft] 200 mg PO DAILY 08/02/17 Psyllium Husk/Aspartame [Fiber Therapy Powder] 1 packet PO DAILY 01/29/18 Amlodipine Besylate [Amlodipine Besylate] 10 mg PO DAILY 05/29/18 Aspirin [Aspirin EC] 81 mg PO DAILY 05/29/18 Calcium Carbonate [Tums (Calcium Carbonate 500mg)] 1,000 mg PO QPM 05/29/18 Omeprazole [PriLOSEC] 20 mg PO BIDAC 05/29/18 Objective - Vital Signs/Intake & Output Reviewed Vital Signs: Yes Vital Signs: Vital Signs x48h Temp Pulse Resp BP Pulse Ox 05/30/18 15:53 36.7 C 116 H 19 101/62 95 Intake & Output: Intake & Output 05/27/18 05/28/18 05/29/18 05/30/18 23:59 23:59 23:59 23:59 Intake Total 1720 Balance 1720 - Objective General Appearance: positive: No acute distress, Alert, Other (Still tearful. When we discussed the arachnoid cyst that she has had for decades, she starts perseverating and fixates on the arachnoid cyst and is angry that people of not been following up on that over the last few years.) Eyes Bilateral: positive: PERRL ENT: positive: Pharynx nml Neck: positive: No JVD. negative: Stiff neck Respiratory: positive: Chest non-tender. negative: Wheezes, Rales, Rhonchi Cardiovascular: positive: Irregularly irregular, Tachycardia. negative: Gallop/ S4, Friction rub Abdomen: positive: Non-tender, No organomegaly, Nml bowel sounds, No distention Skin: positive: No rash, Warm, Dry Extremities: positive: Full ROM, No pedal edema Neurologic/Psychiatric: positive: Oriented x3, CN's nml (2-12), Motor nml (She has a little bit of stumbling when she stands but finger to nose is still normal. Slow on her rapid alternating hand movement. No tremors.), Slurred/ abnml speech (Still with word finding difficulty, occasionally stuttering speech especially the more anxious she gets). negative: Mood/affect nml ( Anxious. 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 MRI confirms the punctate small emboli. I have explained, carefully, to her that it is most likely from the atrial fibrillation. Anticoagulation is important. I have given her chads score. She gets very anxious when she is told that she must take medication so I have couched in terms of leaving it up to her. She has a high risk of stroke, she is already proven it. Or we can reduce the risk of stroke with anticoagulation. After going back and forth she decided to do anticoagulation she just does not want Coumadin. Start Eliquis 2.5 mg p.o. twice daily Occupational and physical therapy consult Changed to inpatient status (2) Atrial fibrillation, rapid Impression: Rate is still not controlled. BNP is the same as it was. We will give a dose of IV Lasix, a dose of p.o. metoprolol as well as IV metoprolol. (3) Abnormal liver enzymes Impression: My fear was that of metastatic breast cancer. There are no liver lesions. Acute hepatitis panel pending. (4) Acute systolic congestive heart failure, NYHA class 2 Impression: Still present with a mild elevation of BNP and shortness of breath at rest. I hope that the Lasix and slowing down her rate was more metoprolol will help. Again patient has been drainage transition to inpatient status
[2018-05-30] MEDS: ATORVASTATIN 10 MG TABLET PO SCH (20:18)
[2018-05-31] MEDS: SODIUM CHLORIDE FLUSH 0.9% 10 ML SYRINGE IVP SCH ×3 (00:23→16:00)
[2018-05-31 05:08] LABS: CALCIUM 8.7 mg/dL (8.5-10.3); CREATININE 0.8 mg/dL (0.4-1.0)
[2018-05-31] MEDS: LEVOTHYROXINE 75 MCG TABLET PO SCH (06:05)
[2018-05-31] MEDS ORDERED: diltiaZEM 30 MG TABLET PO ONE (08:42)
[2018-05-31] MEDS: METOPROLOL SUCCINATE 50 MG TABLET PO SCH (08:58)
[2018-05-31] MEDS: amLODIPine 5 MG TABLET PO SCH (08:59)
[2018-05-31] MEDS: SERTRALINE 50 MG TABLET PO SCH (08:59)
[2018-05-31] MEDS: APIXABAN 2.5 MG TABLET PO SCH ×2 (09:00→21:05)
[2018-05-31] MEDS: POLYETHYLENE GLYCOL 3350 17 GM PACKET PO SCH (09:08)
[2018-05-31] MEDS: POTASSIUM CHLORIDE 20 MEQ/15 ML UDC PO SCH (09:12)
--- NOTE | 2018-05-31 13:17 | PROVIDER PROGRESS NOTE ---
Subjective - Prog Note Date Prog Note Date: 05/31/18 Prog Note Time: 13:15 - Subjective Pt reports feeling: No change Subjective: She continues to have mild to moderate word finding difficulty. In the more anxious she gets the more she stutters and then tries to find her words and gets more frustrated. But no focal neurological deficits. No ataxia that severe. She is tolerating the Eliquis. Heart rate still bounces up to the 120s in spite of metoprolol dosing yesterday. Shortness of breath is gone, still short of breath when she tries to get up out of bed to go to the bathroom or sit in a chair Current Medications - Current Medications Current Medications: Active Medications Acetaminophen (Tylenol) 650 mg PO Q4HR PRN PRN Reason: Pain 1 to 4 Amlodipine Besylate (Norvasc) 10 mg PO DAILY [facility] Last Admin: 05/31/18 08:59 Dose: 10 mg Apixaban (Eliquis) 2.5 mg PO BID [facility] Last Admin: 05/31/18 09:00 Dose: 2.5 mg Atorvastatin Calcium (Lipitor) 10 mg PO QPM [facility] Last Admin: 05/30/18 20:18 Dose: 10 mg Levothyroxine Sodium (Synthroid) 75 mcg PO QDAC [facility] Last Admin: 05/31/18 06:05 Dose: 75 mcg Metoprolol Succinate (Toprol Xl) 100 mg PO DAILY [facility] Last Admin: 05/31/18 08:58 Dose: 100 mg Naproxen (Naprosyn) 250 mg PO TID PRN PRN Reason: PAIN Last Admin: 05/30/18 06:18 Dose: 250 mg Ondansetron HCl (Zofran Inj) 4 mg IVP Q6HR PRN PRN Reason: Nausea / Vomiting Ondansetron HCl (Zofran Odt) 4 mg TL Q6HR PRN PRN Reason: Nausea / Vomiting Oxycodone HCl (Roxicodone) 5 mg PO Q4HR PRN PRN Reason: Pain 5 to 7 Last Admin: 05/30/18 07:49 Dose: 5 mg Polyethylene Glycol (Miralax) 17 gm PO DAILY [facility] Last Admin: 05/31/18 09:08 Dose: Not Given Potassium Chloride () [facility] [place] Admin: 05/31/18 09:12 Dose: 20 meq Prochlorperazine Edisylate (Compazine Inj) 10 mg IVP Q6HR PRN PRN Reason: Nausea / Vomiting Sertraline HCl (Zoloft) 200 mg PO DAILY [facility] Last Admin: 05/31/18 08:59 Dose: 200 mg Sodium Chloride (Normal Saline Flush 0.9%) 10 ml IVP PRN PRN PRN Reason: NEEDED PER PROVIDER ORDERS Last Admin: 05/30/18 00:23 Dose: 10 ml Sodium Chloride (Normal Saline Flush 0.9%) 10 ml IVP 0100,0900,1700 [facility] Last Admin: 05/31/18 09:12 Dose: Not Given Glucosamine Sulfate Dipot Chlr [Glucosamine] 1,500 mg PO DAILY 03/09/13 Levothyroxine [Synthroid] 75 mcg PO QDAC 03/09/13 Metoprolol Succinate [Toprol Xl] 50 mg PO DAILY 03/09/13 Cholecalciferol (Vitamin D3) [Vitamin D3] 4,000 unit PO DAILY 10/04/15 Atorvastatin [Lipitor] 10 mg PO QPM 08/02/17 Sertraline HCl [Zoloft] 200 mg PO DAILY 08/02/17 Psyllium Husk/Aspartame [Fiber Therapy Powder] 1 packet PO DAILY 01/29/18 Amlodipine Besylate [Amlodipine Besylate] 10 mg PO DAILY 05/29/18 Aspirin [Aspirin EC] 81 mg PO DAILY 05/29/18 Calcium Carbonate [Tums (Calcium Carbonate 500mg)] 1,000 mg PO QPM 05/29/18 Omeprazole [PriLOSEC] 20 mg PO BIDAC 05/29/18 Objective - Vital Signs/Intake & Output Reviewed Vital Signs: Yes Vital Signs: Vital Signs x48h Temp Pulse Pulse Resp BP BP BP 05/31/18 11:52 106 H 134/79 H 05/31/18 08:58 119/81 H 05/31/18 07:58 36.5 C 122 H 20 119/81 H Pulse Ox Pulse Ox 05/31/18 11:52 92 05/31/18 08:58 05/31/18 07:58 96 Intake & Output: Intake & Output 05/28/18 05/29/18 05/30/18 05/31/18 23:59 23:59 23:59 23:59 Intake Total 1150 830 Balance 1150 830 - Objective General Appearance: positive: Alert, Mild distress (From the stress of it all in the anxiety), Other (Has been at the bedside.) Eyes Bilateral: positive: PERRL, EOMI ENT: positive: Pharynx nml Neck: positive: No JVD, Carotid bruit. negative: Stiff neck Respiratory: positive: Chest non-tender. negative: Wheezes, Rales, Rhonchi Cardiovascular: positive: Irregularly irregular, Tachycardia (At times but the rate is slower than it has been the last 2 days). negative: Gallop/S4, Friction rub Abdomen: positive: Non-tender, No organomegaly, Nml bowel sounds, No distention Skin: positive: Warm, Dry Extremities: positive: Full ROM, No pedal edema Neurologic/Psychiatric: positive: Oriented x3, CN's nml (2-12), Motor nml, Other (She continues to have manifestations of cognitive deficit. Today I answered her questions which were repetitive. I answered all of her questions once, she could not remember my answers and had to repeat it again twice. These questions were the same questions answered yesterday for her. So I do believe she has cognitive deficit as a manifestation of her punctate microhemorrhages as well as word finding difficulty.) - Lab Results Fish Bones: 05/29/18 14:15 05/31/18 04:35 Other Labs: Lab Results x24hrs 05/31/18 Range/Units 04:35 Sodium 135 (135-145) mmol/L Potassium 3.4 L (3.5-5.0) mmol/L Chloride 104 (101-111) mmol/L Carbon Dioxide 23 (21-32) mmol/L Anion Gap 8.0 (6-13) BUN 15 (6-20) mg/dL Creatinine 0.8 (0.4-1.0) mg/dL Estimated GFR (MDRD) 69 L (>89) Glucose 98 (70-100) mg/dL Calcium 8.7 (8.5-10.3) mg/dL ABX Reporting Has patient been on IV antibiotics over the past 48 hours?: No Assessment/Plan - Problem List (1) 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 MRI yesterday confirms the punctate small emboli. I did explain to radiology that I wanted MRI with and without contrast because I was worried about her breast cancer and the possibility of metastatic disease. However they were unable to do the contrast part because of her anxiety and 7 panic and needing to get off the table. The radiologist feels that I do not need to repeat the MRI with contrast. That her answer is seen with the punctate hemorrhages.I have explained, carefully, to her that it is most likely from the atrial fibrillation. This was done yesterday and today. Her is present today. Anticoagulation is important. I have given her chads score. She gets very anxious when she is told that she must take medication so I have couched in terms of leaving it up to her. She has a high risk of stroke, she is already proven it. Or we can reduce the risk of stroke with anticoagulation. After going back and forth she decided to do anticoagulation she just does not want Coumadin. Today she wonders if she made a mistake about declining Coumadin. She is still on Eliquis. She has an appointment with Dr. Faye on June 04. I told her to share her concerns and worries with Dr. Faye and between she and Dr. Faye I am confident that they can come up with the right anticoagulant to suit her. Started Eliquis 2.5 mg p.o. twice daily yesterday. Occupational and physical therapy consult but no OT this weekend, only PT. Changed to inpatient status yesterday. Will need OT, cognitive eval in outpatient setting. No driving until eval feel she can do it. Plan for dc in am bc of rate control. (2) Atrial fibrillation, rapid Impression: Rate is still not controlled. BNP was the same as it was on admission. We gave a dose of IV Lasix, a dose of p.o. metoprolol as well as IV metoprolol yesterday. this am I have doubled her metoprolol dose. Check CMP an BNP. Hopefully rate will be controlled enough to dc in am. (3) Abnormal liver enzymes Impression: My fear was that of metastatic breast cancer. There are no liver lesions. Acute hepatitis panel nonreactive. So unclear why she bumped her liver enzymes. repeat check today [facility] CMP (4) Acute systolic congestive heart failure, NYHA class 2 Impression: Still present with a mild elevation of BNP and shortness of breath at rest. I hope that the Lasix and slowing down her rate was more metoprolol will help. Again patient has been transitioned to inpatient status yesterday. ECHO shows RVSP to 57 mm Hg. Moderate TR. LV is 60-65% and no . Moderate LAE. Systolic heart failure most likely from right side and the fast afib.
[2018-05-31 15:24] LABS: CALCIUM 9.2 mg/dL (8.5-10.3); CREATININE 0.9 mg/dL (0.4-1.0)
[2018-05-31] MEDS: NAPROXEN 250 MG TABLET PO PRN (16:00)
[2018-05-31] MEDS ORDERED: FUROSEMIDE 40 MG/4 ML VIAL IVP ONE ×2 (18:34)
[2018-05-31] MEDS ORDERED: METOPROLOL 5 MG/5 ML VIAL IVP STA (18:35)
[2018-05-31] MEDS: SODIUM CHLORIDE FLUSH 0.9% 10 ML SYRINGE IVP PRN (18:55)
[2018-05-31] MEDS: ATORVASTATIN 10 MG TABLET PO SCH (21:05)
[2018-05-31] MEDS: oxyCODONE 5 MG TABLET PO PRN (22:38)
[2018-06-01] MEDS: SODIUM CHLORIDE FLUSH 0.9% 10 ML SYRINGE IVP SCH ×2 (00:12→09:05)
[2018-06-01 05:11] LABS: CALCIUM 8.5 mg/dL (8.5-10.3); CREATININE 0.8 mg/dL (0.4-1.0)
[2018-06-01] MEDS: LEVOTHYROXINE 75 MCG TABLET PO SCH ×2 (06:09→06:12)
--- NOTE | 2018-06-01 07:59 | Discharge Plan ---
Discharge Plan Disposition: Home, Self Care Condition: Stable Prescriptions: Apixaban [Eliquis] 2.5 mg PO BID #30 tablet Furosemide [Lasix] 20 mg PO DAILY PRN #30 tablet PRN Reason: Shortness Of Air/Wheezing Metoprolol Succinate [Toprol Xl] 100 mg PO DAILY #60 tablet Potassium Chloride [Klor-Con 10] 10 meq PO DAILY #30 tablet.er Diet: Low Sodium Activity Restrictions: no driving until seen by occupational therapy Shower Restrictions: No Driving Restrictions: Yes Instruction Topics: Apixaban oral tablets, Atrial Fibrillation Additional Instructions or Follow Up instructions: You were admitted to the hospital because of garbled speech and mild confusion. You were also in atrial fibrillation with a fast heart rate. And that fast heart rate was giving you mild congestive heart failure. Before you came to the hospital, you already knew you had the atrial fibrillation but were unable to tolerate the medications given to you because they made you nauseated. While here we found out that your garbled speech and mild confusion was from small embolic strokes. The tiny little blood clots called emboli most likely came from your heart that were formed in the heart chambers as a result of the atrial fibrillation. You will need blood thinners. You had taken 1 dose of Coumadin but between you and Dr. Boyd, you felt that that was the cause of your nausea. So we have started you on Eliquis. You are worried about the cost. I would suggest to talk to Dr. Bentley, Dr. Faye, and your . Between the four of you, you should be able to figure out which blood thinner is best for you. But I strongly recommend you stay on a blood thinner since the blood thinner will prevent further emboli from forming and hopefully prevent further embolic strokes. Your heart rate was in the 130s and 140s when you came in. When at rest and not anxious your heart rate can go down to 80 which is a very good heart rate. When you start getting anxious, your heart rate goes into the low 100s. Right now we have increased your metoprolol from 25 mg a day to 100 mg a day. Your heart rate this morning is 86. Dr. Faye may change the metoprolol to another medicine or may continue this current dose. Follow his recommendations. For the mild congestive heart failure that the fast heart rate gave you, you were given Lasix while here. Lasix makes your potassium low. You will go home on Lasix and potassium temporarily. Once your heart rate slows down, and stays down on a regular basis, you most likely will be able to come off the Lasix. Dr. Faye or Dr. Bentley will be able to decide when that happens. Please keep your appointment with Dr. Faye. That is already scheduled for June 04. I have printed up the reports of the results of your echocardiogram, carotid Dopplers, MRI of the head. Please feel free to share those with Dr. Faye when he sees you. After you see Dr. Faye, make an appointment with your regular primary care provider to keep him or her in the loop of what is going on with you. Follow-Up Care: Outpatient Rehab - PT, Outpatient Rehab - OT No Smoking: If you smoke, Please STOP! Call for help. Follow-up with: Nazanin Bentley MD [Primary Care Provider] -
[2018-06-01] MEDS: POTASSIUM CHLORIDE 20 MEQ/15 ML UDC PO SCH (09:03)
[2018-06-01] MEDS: POLYETHYLENE GLYCOL 3350 17 GM PACKET PO SCH (09:04)
[2018-06-01] MEDS: METOPROLOL SUCCINATE 50 MG TABLET PO SCH (09:04)
[2018-06-01] MEDS: APIXABAN 2.5 MG TABLET PO SCH (09:04)
[2018-06-01] MEDS: SERTRALINE 50 MG TABLET PO SCH (09:04)
[2018-06-01] MEDS: amLODIPine 5 MG TABLET PO SCH (09:05)
[2018-06-01 10:44] VITALS: BP 110/61
--- NOTE | 2018-06-02 08:01 | DISCHARGE SUMMARY ---
Physician: Lin Heard MD DATE OF ADMISSION: 05/30/2018 DATE OF DISCHARGE: 06/01/2018 PRIMARY CARE PROVIDER: Nazanin Bentley MD DISCHARGE DIAGNOSES 1. 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 2. Persistent atrial fibrillation with rapid ventricular response. 3. Abnormal liver function studies. 4. History of breast cancer. 5. Acute systolic congestive heart failure. 6. Generalized anxiety. 7. Carotid stenosis DISCHARGE MEDICATIONS 1. Amlodipine 10 mg daily. 2. Eliquis 2.5 mg p.o. b.i.d., which is a new prescription. 3. Aspirin 81 mg daily. 4. Lipitor 10 mg q.p.m. 5. Calcium 1000 mg q.p.m. 6. Vitamin D 4000 units daily. 7. Lasix 20 mg p.o. daily (new prescription). 8. Metoprolol XL 100 mg p.o. daily (new prescription). 9. Potassium 10 mEq daily (new prescription). 10. Glucosamine 1500 mg daily. 11. Synthroid 75 mcg daily. 12. Prilosec 20 mg b.i.d. 13. Psyllium 1 packet daily. 14. Zoloft 200 mg daily. PRINCIPAL PROCEDURES 1. Head CT 05/29/2018 showing no acute intracranial abnormalities or bleeds. She has a stable 5 x 4 x 3 cm arachnoid cyst of the left lateral posterior fossa. 2. Chest x-ray with mild cardiomegaly, acute on chronic lung disease consisting of small right lung base infiltrate and effusion. 3. Carotid Doppler study compared to carotid Doppler 04/19/2017. Moderate calcified plaque in the right carotid bulb and proximal internal carotid artery with velocities indicating 50%-69% stenosis. Moderate calcified plaque in the left carotid bulb and proximal internal carotid artery with shadowing of plaque limiting evaluation of lumen without velocities, indicating a hemodynamically significant stenosis. 4. Abdominal ultrasound with left lobe liver cyst. No cholelithiasis or cholecystitis. No biliary dilatation. 5. Brain MRI done without contrast. The patient was unable to tolerate contrast to stay on the table because of severe anxiety. Brain shows a cluster of 6 punctate to small foci of acute infarct involving the left temporal operculum and left temporoparietal region in the left middle cerebral artery distribution. No evidence of hemorrhagic transformation. Mild to moderate white matter changes including old chronic lacunar infarcts that have progressed from 10/15/2011. A large lateral left posterior fossa arachnoid cyst, unchanged. No acute intracranial hemorrhage. 6. Echocardiogram. This is a preliminary report. Final report has not been read. She is in atrial fibrillation, left ventricular systolic function normal with ejection fraction of 60%-65%. Moderate right ventricular enlargement with right ventricular systolic function mildly impaired. Moderate right atrial enlargement. Moderate to severe tricuspid regurgitation. Moderately abnormal right heart pressures. Right ventricular systolic pressure at rest is 57 mmHg. HOSPITAL COURSE: The patient is an 83-year-old female who has had a previous stroke in the past. That history is vague and unavailable for review. She did have a history of garbled speech with use of aromatase inhibitor in 2011. At that time, she was identified as having 70% carotid stenosis on the right side. She recently had another recurrence of her breast cancer that was initially diagnosed in 1992. This is her second recurrence as she underwent a mastectomy in January. Postoperative complication included cellulitis. She is under a lot of stress, has had some illness, and she is becoming more and more tearful and stressed out, according to her . She is a worrier and will have quite a bit of generalized anxiety and gets angry when she gets anxious. About a month ago, she began having daily diarrhea, nausea, and occasional palpitations with shortness of breath. No edema. No chest pain. No orthopnea. No swollen legs. This went on from March into April. She saw her primary care provider on 05/22/2018 and was found to have new atrial fibrillation and EKG confirmed that. She was given Coumadin, aspirin, and metoprolol. She was referred to Dr. Faye , who saw her in the past for her carotid Dopplers, at least that is what she remembers. After one dose of Coumadin, she felt it was worse and did not take the medication after consulting with Dr. Boyd. On 05/23/2018, she called the office to tell him that she was having heartburn and more shortness of breath. After today's garbled speech episode, she came to the emergency room. No fever, no chills, no focal deficits, no facial dysesthesia, no dizziness. She was evaluated by Dr. Mai, and head CT was negative. She was in atrial fibrillation with RVR, and she was felt to have mild congestive heart failure with an elevated BNP. Her lung exam was clear, no JVD. The other problem was that of generalized nausea with right upper quadrant fullness and elevated liver enzymes. Treatment in the emergency room consisted of diltiazem, Lopressor, and Lasix for atrial fibrillation with RVR and congestive heart failure. She was angry, tearful, having fast pressured speech because of the idea of being admitted to observation initially. She required doses of Lopressor and diltiazem IV. She was eventually slowed down and given Lasix to control her CHF. Metoprolol doses were gradually increased. At the time of discharge, pulse was 86-96. It would bounce up to the one-teens when she was up and about or anxious. This is an improvement to a heart rate into the 130s and 140s when she was admitted. Lasix was used p.r.n. Shortness of breath was also improved. BNP went up to 724, and it was down to 585 by the time of discharge. Hypokalemia was treated with potassium. Because she is still going to be on Lasix at discharge, she is discharged on potassium as well. Echocardiogram showed intact left ventricular function with dilated atria, right -sided heart failure with elevated pulmonary pressures, and moderate tricuspid regurgitation. All of these readings were shared with the patient. Printed copies were given to the patient. She is very anxious about what these results show and how she needs to deal with them. She has an appointment with Dr. Faye on June 04. I urged her to make sure she gives copies of these reports to Dr. Faye. She may be a candidate for changing in her medications. She may be a candidate for carotid treatment and he may refer her to vascular surgery. She is also felt to have possible microemboli from her AFib. Could this have given her not only her strokes, but also her elevated liver enzymes? With regards to her elevated liver enzymes, I was worried about metastatic disease because of her breast cancer. In the past, she has declined radiation and aromatase inhibitor hormonal manipulation. She has [place] positive, ER positive and HER2/ava positive with varying stages, but her tumor markers have worsened with her second recurrence. Her ultrasound showed no metastatic disease. No lesions. Acute hepatitis panel was negative. But, again, I wonder if she is having some emboli to her liver. Generalized anxiety was noted during her stay. In times of stress, this patient gets very angry, very tearful. Her was constantly remonstrating her, asking her to please calm down. I attempted to allay some of her anxiety by making sure that I sat down, spent close to an hour every day going over everything in our treatment plan. She still has more to go. I have carefully explained that to her. For instance , she needs to see Dr. Faye in followup. Will need to see her primary care in followup, and most likely will need opinion about the carotid disease. She was unable to do the MRI with contrast because of anxiety, and unable to lay on the table even after I gave her Ativan. At discharge, she is discharged in stable condition. Temperature is 36.3, pulse is 96, blood pressure 110/61, respirations 19 and 90% on room air. I was not aware of this discharge O2 percentage and she has been 94-97% room air. She has clear lungs, irregular rate and rhythm with a systolic murmur. The abdomen is soft, nontender. No masses. She still has vague right upper quadrant fullness and aching. Feet have no edema. She was evaluated by physical therapy and has no ataxia. She was walking independently over 150 feet. She was not felt to need any further PT needs. During my exam, speech deficit and occasional garbled speech was noted. She is to follow up with physical therapy, [facility], and occupational therapy as well. She has identified them as the place she wants to see. Greater than 30 minutes was spent in coordinating discharge. cc: Nazanin Bentley MD TD: 06/01/2018 18:46 [facility]
== END 2018-06-01 11:25 | disposition home or self-care (01) | DRG 64 ==
LOC: EDUNIT# → ED 13:19 → MS3 16:54 → OBSVTOIN 05-30 15:19
PROVIDERS: ADMIT Specialist; ATTEND Specialist
DX: I63.412 Cerebral infarction due to embolism of left middle cerebral artery (principal); I50.21 Acute systolic (congestive) heart failure; I11.0 Hypertensive heart disease with heart failure; I48.1 Persistent atrial fibrillation; R74.8 Abnormal levels of other serum enzymes; R11.0 Nausea; J43.9 Emphysema, unspecified; R47.89 Other speech disturbances; I25.10 Atherosclerotic heart disease of native coronary artery without angina pectoris; E03.9 Hypothyroidism, unspecified; I65.21 Occlusion and stenosis of right carotid artery; M81.0 Age-related osteoporosis without current pathological fracture; E78.5 Hyperlipidemia, unspecified; F41.8 Other specified anxiety disorders; R48.2 Apraxia; R41.89 Other symptoms and signs involving cognitive functions and awareness; Z87.891 Personal history of nicotine dependence; Z63.79 Other stressful life events affecting family and household; Z90.11 Acquired absence of right breast and nipple; I50.810 Right heart failure, unspecified; Z66 Do not resuscitate; G93.0 Cerebral cysts; F41.1 Generalized anxiety disorder; J98.4 Other disorders of lung; I65.23 Occlusion and stenosis of bilateral carotid arteries; K76.89 Other specified diseases of liver; I07.1 Rheumatic tricuspid insufficiency; E87.6 Hypokalemia; Z86.73 Personal history of transient ischemic attack (TIA), and cerebral infarction without residual deficits; Z79.899 Other long term (current) drug therapy; Z85.3 Personal history of malignant neoplasm of breast; Z79.82 Long term (current) use of aspirin
CPT/HCPCS: 36415; 70450; 70551; 71045; 76700; 80048; 80053; 80074; 83690; 83880; 85025; 85610; 93005; 93306; 93880; 96372; 96374; 96375; 96376; 99284

== ENCOUNTER 2018-06-28 15:11 | Inpatient (IN) | payer MEDICARE, OTHER ==
--- NOTE | 2018-06-28 15:40 | ED Physician Documentation ---
History of Present Illness - Stated complaint Stated Complaint: PULSE HIGH, L SIDE RIB/ABN PX - Chief complaint Chief Complaint: General - History obtained from History obtained from: Patient, Family - History of Present Illness Pain level max: 7 Pain level now: 5 - Additonal information Additional information: Patient is an 83-year-old female with several issues today upon presentation to the emergency department. The first is dyspnea on exertion worsening over the past month. States that it is worse with exertion and better with rest. She also complains of a rapid heartbeat for the past month. States that she was recently diagnosed with atrial fibrillation and has been on metoprolol for this. She also complains of left-sided abdominal pain that is been ongoing for "quite some time". She does state that it is been worse over the past few days and today developed diarrhea. She also states that she had a temperature of 100.0 today at home no vomiting. The pain is worse with palpation or movement and better with rest Review of Systems Ten Systems: 10 systems reviewed and negative Constitutional: reports: Fever, Chills Ears: denies: Ear pain Nose: denies: Rhinorrhea / runny nose, Congestion Throat: denies: Sore throat Cardiac: reports: Palpitations. denies: Chest pain / pressure Respiratory: reports: Dyspnea, Wheezing. denies: Cough GI: reports: Abdominal Pain, Diarrhea. denies: Nausea, Vomiting Skin: denies: Rash Musculoskeletal: denies: Neck pain, Back pain Neurologic: denies: Headache PD PAST MEDICAL HISTORY - Past Medical History Cardiovascular: Hypertension, High cholesterol, Coronary artery disease, Other Respiratory: None Endocrine/Autoimmune: HyPOthyroidism GI: Chronic diarrhea, Ulcerative colitis [employer]: Breast cancer : None HEENT: Chronic hearing loss Psych: Depression Musculoskeletal: Osteoarthritis, Osteoporosis, Other Derm: Eczema - Past Surgical History Past Surgical History: Yes General: Colonoscopy Ortho: Hip replacement /[employer]: Mastectomy, Other HEENT: Cataracts - Present Medications Home Medications: Ambulatory Orders Medication Instructions Recorded Confirmed Glucosamine Sulfate Dipot Chlr 1,500 mg PO DAILY 03/09/13 06/28/18 [Glucosamine] Levothyroxine [Synthroid] 75 mcg PO QDAC 03/09/13 06/28/18 Cholecalciferol (Vitamin D3) 4,000 unit PO DAILY 10/04/15 06/28/18 [Vitamin D3] Atorvastatin [Lipitor] 10 mg PO QPM 08/02/17 06/28/18 Sertraline HCl [Zoloft] 200 mg PO DAILY 08/02/17 06/28/18 Psyllium Husk/Aspartame [Fiber 1 packet PO DAILY 01/29/18 06/28/18 Therapy Powder] Aspirin [Aspirin EC] 81 mg PO DAILY 05/29/18 06/28/18 Calcium Carbonate [Tums (Calcium 1,000 mg PO QPM 05/29/18 06/28/18 Carbonate 500mg)] Omeprazole [PriLOSEC] 20 mg PO BIDAC 05/29/18 06/28/18 Furosemide [Lasix] 20 mg PO DAILY PRN #30 tablet 06/01/18 06/28/18 Potassium Chloride [Klor-Con 10] 10 meq PO DAILY #30 tablet.er 06/01/18 06/28/18 Rivaroxaban [Xarelto] 15 mg PO DAILY 06/24/18 06/28/18 Metoprolol Succinate [Toprol Xl] 100 mg PO BID 06/28/18 06/28/18 - Allergies Allergies/Adverse Reactions: Allergies Allergy/AdvReac Type Severity Reaction Status Date / Time amoxicillin trihydrate * Allergy Mild Rash Verified 05/29/18 13:55 [From Augmentin] indomethacin [From Indocin] Allergy Mild Rash Verified 05/29/18 13:55 indomethacin sodium * Allergy Mild Rash Verified 05/29/18 13:55 [From Indocin] lorazepam [From Ativan] Allergy Mild Rash Verified 05/29/18 13:55 metoclopramide HCl * Allergy Mild Rash Verified 05/29/18 13:55 [From Reglan] Penicillins Allergy Mild Rash Verified 05/29/18 13:55 potassium clavulanate * Allergy Mild Rash Verified 05/29/18 13:55 [From Augmentin] prochlorperazine Allergy Mild Rash Verified 05/29/18 13:55 [Prochlorperazine] Sulfa (Sulfonamide Allergy Mild Rash Verified 05/29/18 13:55 Antibiotics) sulfamethoxazole Allergy Mild Rash Verified 05/29/18 13:55 [From Gantanol] adhesive Allergy Rash Verified 05/29/18 13:55 thiopental [From Pentothal] Allergy seizures Verified 05/29/18 13:55 - Social History Does the pt smoke?: No Smoking Status: Never smoker Does the pt drink ETOH?: No - Immunizations Immunizations are current?: Yes - POLST Patient has POLST: No PD ED PE NORMAL - Vitals Vital signs reviewed: Yes - General General: Alert and oriented X 3, No acute distress - HEENT HEENT: Moist mucous membranes - Neck Neck: Supple, no meningeal sign, Other (JVD present) - Cardiac Cardiac: Other (Tachycardic, irregular) - Respiratory Respiratory: Other (Fine crackles throughout both lung richardson) - Abdomen Abdomen: Soft, Non distended, Other (Tender palpation along the left side of the abdomen without peritoneal signs) - Back Back: No CVA TTP, No spinal TTP - Derm Derm: Warm and dry - Extremities Extremities: Other (2+ bilateral lower extremity edema) - Neuro Neuro: Alert and oriented X 3 - Psych Psych: Normal mood, Normal affect Results - Vitals Vitals: Vital Signs - 24 hr 06/28/18 06/28/18 06/28/18 15:20 15:40 16:38 Temperature 36.2 C L Heart Rate 114 H 117 H 105 H Respiratory 22 18 18 Rate Blood Pressure 147/118 H 147/118 H 136/93 H O2 Saturation 93 94 93 Oxygen O2 Source [With Activity] Room air O2 Source Room air - EKG (time done) 1527 Rate: Rate (enter#) (130) Rhythm: Atrial fibrillation (RVR) [place]: Normal QRS: Normal Ischemia: Non specific changes - Labs Labs: Laboratory Tests 06/28/18 06/28/18 06/28/18 15:40 15:40 15:40 WBC 7.3 RBC 3.62 L Hgb 12.4 Hct 36.8 L MCV 101.7 H MCH 34.3 H MCHC 33.7 RDW 14.0 Plt Count 263 MPV 7.4 L Neut # (Auto) 5.4 Lymph # (Auto) 1.0 L [place] # (Auto) 0.7 Eos # (Auto) 0.2 Baso # (Auto) 0.1 Absolute Nucleated RBC 0.00 Nucleated RBC % 0.0 Sodium 133 L Potassium 4.0 Chloride 100 L Carbon Dioxide 23 Anion Gap 10.0 BUN 17 Creatinine 0.9 Estimated GFR (MDRD) 60 L Glucose 110 H Calcium 9.2 Total Bilirubin 1.1 H AST 87 H ALT 81 H Alkaline Phosphatase 89 Troponin I < 0.04 B-Natriuretic Peptide Total Protein 7.1 Albumin 4.4 Globulin 2.7 Albumin/Globulin Ratio 1.6 Lipase 28 06/28/18 15:40 WBC RBC Hgb Hct MCV MCH MCHC RDW Plt Count MPV Neut # (Auto) Lymph # (Auto) [place] # (Auto) Eos # (Auto) Baso # (Auto) Absolute Nucleated RBC Nucleated RBC % Sodium Potassium Chloride Carbon Dioxide Anion Gap BUN Creatinine Estimated GFR (MDRD) Glucose Calcium Total Bilirubin AST ALT Alkaline Phosphatase Troponin I B-Natriuretic Peptide 854 H Total Protein Albumin Globulin Albumin/Globulin Ratio Lipase - Rads (name of study) cxr Radiology: Prelim report reviewed, EMP read contemporaneously, See rad report ( Linear and patchy bibasilar opacities. New masslike consolidation about the right cardiophrenic sulcus. Correlate clinically for pneumonia. Follow-up is recommended) ct abd/pelvis Radiology: Prelim report reviewed, EMP read contemporaneously, See rad report PD MEDICAL DECISION MAKING - ED course Complexity details: reviewed old records, reviewed results, re-evaluated patient , considered differential, d/w patient, d/w computing consultant ED course: Patient is an 83-year-old female who presents to the emergency department with new pulmonary edema as well as borderline hypoxia, drops into the upper 80s whenever she moves or attempts to walk. She is also in atrial fibrillation with rapid ventricular response, placed on an esmolol drip. Given Lasix in the emergency department as well. Will admit for further evaluation and care. CT scan is ordered from the emergency department and will be followed up by the hospitalist. Discussed the case with Dr. Finn, hospitalist who accepts This document was made in part using voice recognition software. While efforts are made to proofread this document, sound alike and grammatical errors may occur. - Sepsis Event Vital Signs: Vital Signs - 24 hr 06/28/18 06/28/18 06/28/18 15:20 15:40 16:38 Temperature 36.2 C L Heart Rate 114 H 117 H 105 H Respiratory 22 18 18 Rate Blood Pressure 147/118 H 147/118 H 136/93 H O2 Saturation 93 94 93 Oxygen O2 Source [With Activity] Room air O2 Source Room air Departure - Departure Disposition: 66 [facility] DC/Xfer Clinical Impression: Atrial fibrillation with RVR Abdominal pain Qualifiers: Abdominal location: unspecified location Qualified Code(s): R10.9 - Unspecified abdominal pain Pulmonary edema Qualifiers: Chronicity: acute Qualified Code(s): J81.0 - Acute pulmonary edema Condition: Stable Discharge Date/Time: 06/28/18 17:25
[2018-06-28 15:56] LABS: BASOPHILS # (AUTO) 0.1 10^3/uL (0.0-0.1); BASOPHILS % (AUTO) 0.7 %; EOSINOPHILS # (AUTO) 0.2 10^3/uL (0.0-0.7); EOSINOPHILS % (AUTO) 2.6 %; HGB - HEMOGLOBIN 12.4 g/dL (12.0-16.0); LYMPHOCYTES % (AUTO) 13.3 %; MEAN CORPUSCULAR HEMOGLOBIN 34.3 pg (27.0-31.0); MEAN CORPUSCULAR HGB CONC 33.7 g/dL (32.0-36.0); MEAN CORPUSCULAR VOLUME 101.7 fL (81.0-99.0); MEAN PLATELET VOLUME 7.4 fL (7.9-10.8); MONOCYTES # (AUTO) 0.7 10^3/uL (0.0-1.0); MONOCYTES % (AUTO) 9.2 %; NEUTROPHILS # (AUTO) 5.4 10^3/uL (1.5-6.6); NEUTROPHILS % (AUTO) 74.2 %; PLT - PLATELET COUNT 263 10^3/uL (130-450); RED BLOOD COUNT 3.62 10^6/uL (4.20-5.40); WHITE BLOOD COUNT 7.3 x10^3/uL (4.8-10.8)
[2018-06-28 16:06] LABS: ALBUMIN 4.4 g/dL (3.2-5.5); ALBUMIN/GLOBULIN RATIO 1.6 (1.0-2.2); BILIRUBIN,TOTAL 1.1 mg/dL (0.2-1.0); CALCIUM 9.2 mg/dL (8.5-10.3); CREATININE 0.9 mg/dL (0.4-1.0); TOTAL PROTEIN 7.1 g/dL (6.7-8.2)
--- NOTE | 2018-06-28 16:09 | XRAY Report ---
Reason: chest pain Procedure Date: 06/28/2018 Accession Number: [id number] / [id number] Procedure: XR - Chest 1 View X-Ray CPT Code: 21494 FULL RESULT: EXAM: CHEST RADIOGRAPHY EXAM DATE: 06/28/2018 03:52 PM. CLINICAL HISTORY: Palpitations and cough COMPARISON: Chest 05/29/2018. TECHNIQUE: 1 view. FINDINGS: Lungs/Pleura: There are linear and patchy bibasilar opacities. There is new masslike consolidation about the right cardiophrenic sulcus. Mediastinum: Stable cardiomegaly. IMPRESSION: Linear and patchy bibasilar opacities. New masslike consolidation about the right cardiophrenic sulcus. Correlate clinically for pneumonia. Follow-up is recommended. [facility]
[2018-06-28] MEDS ORDERED: ESMOLOL 100 MG/10 ML VIAL IVP STA (16:20)
[2018-06-28] MEDS ORDERED: FUROSEMIDE 20 MG/2 ML VIAL IVP STA (16:26)
[2018-06-28] MEDS ORDERED: ESMOLOL 2.5 GM/250 ML BAG IV STA (16:47)
[2018-06-28] MEDS ORDERED: SODIUM CHLORIDE FLUSH 0.9% 10 ML SYRINGE IVP PRN (16:50)
[2018-06-28] MEDS ORDERED: ALBUTEROL NEB 2.5 MG/3 ML INH PRN (16:50)
[2018-06-28] MEDS ORDERED: ZOLPIDEM 5 MG TABLET PO PRN (16:50)
--- NOTE | 2018-06-28 17:03 | HISTORY & PHYSICAL EXAMINATION ---
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 treated with lumpectomy followed by right breast radiation, recurrent right breast cancer in 2011 involving right lower chest wall below the inflammatory crease treated with surgical resection placed on tamoxifen briefly , stopped after she had a stroke, recurrent right breast infiltrating lobular carcinoma status post mastectomy of the right breast on 02/04/2018, recent diagnosis of atrial fibrillation on Xarelto, 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 The patient states that after she was discharged from the hospital on 06/01/2018 she felt fatigued and as though she had very little energy. She states that she continued to have mild dysarthria which is what she presented to the hospital with. She states that for some time she began feeling better and had started going for walks like she previously did. She states however when she did go for a walk she noticed that she was having palpitations. She states that normally her heart rate was running between 60 and 70 but when she would check it it was running over 100 constantly. She states that over the last few weeks she is noticed that she is becoming more and more short of breath. She states that she needs to go up a flight of stairs in her home and previously was able to do this with ease. She states that over the last 2 weeks she becomes short of air and has to stop about long term up the stairs. She also notes that she has been having difficulty sleeping because she has been unable to get comfortable in the bed. She denies any orthopnea. She states that she has been having a left upper quadrant abdominal pain which has been radiating across the upper abdomen. She denies having had any increased lower extremity swelling. She just feels a pressure-like sensation in her upper abdomen. She denies any chest pain but does state that there is discomfort that she feels with the palpitations. Over the last 2 days the patient is stated that she has been having increasing bowel movements that have been loose. She states that this is not normal for her. She states that she recently did have her metoprolol dose doubled however her heart rate continues to be elevated. The patient denies any fevers or chills. She denies any cough. She denies any nausea or vomiting. She denies any dysuria, increased urinary frequency or urinary urgency. The patient does admit to a headache today. The patient denies any blurred vision, runny nose, sore throat, nasal congestion , difficulty swallowing, constipation, increased joint pain, muscle aches, joint swelling, back pain, neck stiffness, recent unintentional weight loss, changes in her appetite, night sweats, skin rash, hair loss or any new focal neurologic deficits. On presentation to the emergency department the patient was afebrile, tachycardic with heart rate ranging from the 110s to the 120s. She was hypertensive and mildly tachypneic. The patient was saturating well on room air. The patient underwent routine lab work which revealed a mild hyponatremia along with mildly elevated LFTs and an elevated BNP. The patient's troponin was less than 0.04 and her EKG showed no acute ischemic changes. The patient's urinalysis was negative. The patient did undergo a chest x-ray which appeared to show pulmonary vascular congestion but was read as linear and patchy by basilar opacities with a new masslike consolidation about the right cardiophrenic sulcus. The patient was given a dose of esmolol in the emergency department with which the patient's heart rate did improve however she continued to remain tachycardic with atrial fibrillation. The patient also appeared to be congested on examination. The patient was admitted to the intensive care unit on a esmolol drip for atrial fibrillation with rapid ventricular rate and acute diastolic heart failure. The emergency room physician also ordered a CT of the patient's abdomen and pelvis given her complaints of abdominal discomfort and diarrhea which was pending at the time of this dictation. 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: reports: Breast cancer : reports: None HEENT: reports: Chronic hearing loss Psych: reports: Depression Musculoskeletal: reports: Osteoarthritis, Osteoporosis, Other Derm: reports: Eczema MRSA Hx?: No Other Past Medical History: Postherpetic neuralgia - Past Surgical History General: reports: Colonoscopy Ortho: reports: Hip replacement /CONTINUOUS PICKLING LINE PICKLER: reports: Mastectomy, Other HEENT: reports: Cataracts - Family & Social History Family History: Mother: , Father: , Hyperlipidemia, Hypertension , Mental Illness Family History Comment/Other: Father had arrhythmias, Mom had migraines and DVT. Living arrangement: At home Living Situation: With spouse/s.o. Social History Notes: Patient lives with her in their home. She has been living on [facility] for decades. She lives independently but does have a lady that comes in to help clean the home every other week. They live in [place]. She has one son who lives in [place] and another son who lives in [facility]. She smoked one-quarter of a pack a day for 30 years and quit smoking in 1969. She drinks 2 glasses of wine daily. She denies any illicit drug use. - POLST Patient has POLST: No POLST Status: DNR Meds/Allgy - Home Medications Home Medications: Ambulatory Orders Medication Instructions Recorded Confirmed Glucosamine Sulfate Dipot Chlr 1,500 mg PO DAILY 03/09/13 06/28/18 [Glucosamine] Levothyroxine [Synthroid] 75 mcg PO QDAC 03/09/13 06/28/18 Cholecalciferol (Vitamin D3) 4,000 unit PO DAILY 10/04/15 06/28/18 [Vitamin D3] Atorvastatin [Lipitor] 10 mg PO QPM 08/02/17 06/28/18 Sertraline HCl [Zoloft] 200 mg PO DAILY 08/02/17 06/28/18 Psyllium Husk/Aspartame [Fiber 1 packet PO DAILY 01/29/18 06/28/18 Therapy Powder] Aspirin [Aspirin EC] 81 mg PO DAILY 05/29/18 06/28/18 Calcium Carbonate [Tums (Calcium 1,000 mg PO QPM 05/29/18 06/28/18 Carbonate 500mg)] Omeprazole [PriLOSEC] 20 mg PO BIDAC 05/29/18 06/28/18 Furosemide [Lasix] 20 mg PO DAILY PRN #30 tablet 06/01/18 06/28/18 Potassium Chloride [Klor-Con 10] 10 meq PO DAILY #30 tablet.er 06/01/18 06/28/18 Rivaroxaban [Xarelto] 15 mg PO DAILY 06/24/18 06/28/18 Metoprolol Succinate [Toprol Xl] 100 mg PO BID 06/28/18 06/28/18 - Allergies Allergies/Adverse Reactions: Allergies Allergy/AdvReac Type Severity Reaction Status Date / Time amoxicillin trihydrate * Allergy Mild Rash Verified 05/29/18 13:55 [From Augmentin] indomethacin [From Indocin] Allergy Mild Rash Verified 05/29/18 13:55 indomethacin sodium * Allergy Mild Rash Verified 05/29/18 13:55 [From Indocin] lorazepam [From Ativan] Allergy Mild Rash Verified 05/29/18 13:55 metoclopramide HCl * Allergy Mild Rash Verified 05/29/18 13:55 [From Reglan] Penicillins Allergy Mild Rash Verified 05/29/18 13:55 potassium clavulanate * Allergy Mild Rash Verified 05/29/18 13:55 [From Augmentin] prochlorperazine Allergy Mild Rash Verified 05/29/18 13:55 [Prochlorperazine] Sulfa (Sulfonamide Allergy Mild Rash Verified 05/29/18 13:55 Antibiotics) sulfamethoxazole Allergy Mild Rash Verified 05/29/18 13:55 [From Gantanol] adhesive Allergy Rash Verified 05/29/18 13:55 thiopental [From Pentothal] Allergy seizures Verified 05/29/18 13:55 Review of Systems - Other Findings Other Findings: A comprehensive review of systems was performed the pertinent positives and negatives are stated above in the HPI and the remainder of the review of systems is negative. Exam - Vital Signs Reviewed Vital Signs: Yes Vital Signs: Vital Signs x48h Temp Pulse Resp BP Pulse Ox 06/28/18 16:38 105 H 18 136/93 H 93 06/28/18 15:40 117 H 18 147/118 H 94 06/28/18 15:20 36.2 C L 114 H 22 147/118 H 93 - Physical Exam General Appearance: positive: Alert, Mild distress (Tachypnic), Other (Elderly, frail, thin) Eyes Bilateral: positive: Normal inspection, PERRL, EOMI, No lid inflammation, Conjunctivae nml, No scleral icterus ENT: positive: ENT inspection nml, Pharynx nml, No signs of dehydration. negative: Purulent nasal drainage Neck: positive: Nml inspection, Thyroid nml, Trachea midline, Carotid bruit ( Right). negative: Thyromegaly, Lymphadenopathy (R), Lymphadenopathy (L), Stiff neck Respiratory: positive: Chest non-tender, Rales (Mild, scattered at the bases) Cardiovascular: positive: Irregularly irregular, Tachycardia, Systolic murmur Peripheral Pulses: positive: 2+ Abdomen: positive: No organomegaly, Nml bowel sounds, Tenderness (Mild tenderness in the LUQ and across the upper abd). negative: Guarding, Rebound, Hepatomegaly Back: positive: Nml inspection. negative: CVA tenderness (R), CVA tenderness (L ) Skin: positive: Color nml, No rash, Warm, Dry. negative: Cyanosis, Diaphoresis , Pallor, Skin rash Extremities: positive: Non-tender, Full ROM, Nml appearance, Pedal edema (Trace) Neurologic/Psychiatric: positive: Oriented x3, CN's nml (2-12), Motor nml, Sensation nml, Mood/affect nml, Slurred/abnml speech (Mild word finding difficulties) Conclusion/Plan - Problem List (1) Atrial fibrillation with RVR Conclusion/Plan: Patient was diagnosed with atrial fibrillation last month during hospitalization for a stroke. The patient was started on Eliquis at that time she has since been switched to Xarelto for anticoagulation. The patient's chads 2 score is 5. She is appropriately on anticoagulation. She was also placed on metoprolol for rate control. However since discharge the patient states that she has continued to have palpitations and when she checks her heart rate at home it is consistently above 100. She did report this to her primary care physician who increased her metoprolol dose from 50 mg to 100 mg. Despite this the patient continues to have an elevated heart rate with palpitations. The patient has also began having increasing shortness of breath with exertion. On presentation to the emergency department the patient's heart rate was in the 120s. She also appeared to be in congestive heart failure. She was placed on an esmolol drip and given IV Lasix and admitted to the intensive care unit. Plan: Admit to the intensive care unit Continue to titrate esmolol drip with target heart rate of less than 110 Telemetry monitoring Continue Xarelto Increase Toprol-XL to 200 mg daily and consider adding diltiazem if rate still not controlled Serial troponins Patient had an echo less than a month ago therefore no need for repeat echocardiogram (2) Acute on chronic diastolic congestive heart failure, NYHA class 2 Conclusion/Plan: The patient has a history of diastolic heart failure with a preserved ejection fraction. She had an echo done just 1 month ago. The patient appears to be in diastolic heart failure as she does have congestion on chest x-ray, elevated BNP and crackles on examination. She is also been having increasing shortness of breath over the last month. The patient has been in A. fib with RVR which is likely contributing to her developing diastolic heart failure. The patient' s previous echo showed tricuspid regurgitation with elevated right sided pressures. This is likely also the cause of her abdominal discomfort as she likely has congestion from right-sided heart failure. She has mildly elevated LFTs which are also likely due to the congestion. Plan: Admit to the intensive care unit for a esmolol drip to control heart rate Lasix 40 mg IV twice daily Monitor daily weights and strict I's and O's Restricted 2 L of fluid 2 g sodium restriction Telemetry monitoring No need for repeat echocardiogram as patient has echocardiogram just 1 month ago. (3) Abdominal pain Conclusion/Plan: Patient has been having abdominal discomfort all throughout the last month. Recently over the last couple of days she has developed diarrhea. Given the patient's presenting symptoms it is likely that the patient has congestion secondary to right-sided heart failure which is causing her abdominal discomfort. It is likely that the diarrhea is not related to the abdominal discomfort as most of her discomfort is in the upper abdomen. The patient's abdomen is not terribly tender and her exam is benign. The patient is not having any fever or elevated white blood cell count. The patient did have a CT of her abdomen and ultrasound of her abdomen and the last 4 months both of which showed liver cysts but no other obvious abnormalities. Plan: The emergency room physician did order a CT of the patient's abdomen and pelvis which we will follow-up We will monitor the patient for any further diarrhea. If the patient does continue to have diarrhea we will get stool studies including cultures and C. difficile. For now the patient is being given IV Lasix for diastolic heart failure if she does continue to have diarrhea and becomes dehydrated patient may require IV fluids. Patient will be given Tylenol and oxycodone for pain control. Qualifiers: Abdominal location: unspecified location Qualified Code(s): R10.9 - Unspecified abdominal pain (4) HTN (hypertension) Conclusion/Plan: Patient is a history of hypertension and blood pressure was elevated on presentation to the emergency department. It has remained elevated specifically her diastolic blood pressure has remained over 100. The patient's hypertension is likely also contributing to her diastolic heart failure. The patient will be continued on metoprolol and dose will be increased. The patient is being placed on an esmolol drip which should help to control the patient's blood pressure. We will monitor the patient's blood pressure closely and titrate medication as needed. Qualifiers: Hypertension type: essential hypertension Qualified Code(s): I10 - Essential (primary) hypertension (5) Depression Conclusion/Plan: Patient has depression with anxiety. She takes Zoloft at home which we will continue while she is hospitalized. Currently the patient does not appear depressed or anxious her mood appears to be stable. Qualifiers: Depression Type: unspecified Qualified Code(s): F32.9 - Major depressive disorder, single episode, unspecified (6) Hyperlipidemia Conclusion/Plan: Patient has a history of hyperlipidemia and is on Lipitor at home. Patient will be continued on her home dose of Lipitor while she is hospitalized. Qualifiers: Hyperlipidemia type: unspecified Qualified Code(s): E78.5 - Hyperlipidemia , unspecified (7) History of CVA (cerebrovascular accident) Conclusion/Plan: Patient had recent CVA likely secondary to atrial fibrillation as she had what appears to be multiple emboli in the left middle cerebral artery causing dysarthria. The patient does still have some mild residual dysarthria but otherwise has no major focal neurologic deficits. The patient is currently on aspirin, Lipitor and Xarelto. We will continue these medications while the patient is hospitalized. (8) Hypothyroidism Conclusion/Plan: Patient has a history of hypothyroidism and is on Synthroid at home. Patient will be continued on her home dose of Synthroid. The patient did have her TSH checked in December of this year and it was 1.3 at that time. Qualifiers: Hypothyroidism type: unspecified Qualified Code(s): E03.9 - Hypothyroidism , unspecified (9) Abnormal chest xray Conclusion/Plan: The patient has a finding of a new masslike consolidation about the right cardiophrenic sulcus. Given her history of recent recurrent breast cancer this is concerning for possible malignancy. The patient is not having any obvious signs or symptoms of pneumonia therefore I will get a CT of the chest to better evaluate this finding. - Lab Results Lab results reviewed: Yes Fish Bones: 06/28/18 15:40 06/28/18 15:40 Other Lab Results: Laboratory Results WBC 7.3 x10^3/uL (4.8-10.8) 06/28/18 15:40 RBC 3.62 10^6/uL (4.20-5.40) L 06/28/18 15:40 Hgb 12.4 g/dL (12.0-16.0) 06/28/18 15:40 Hct 36.8 % (37.0-47.0) L 06/28/18 15:40 MCV 101.7 fL (81.0-99.0) H 06/28/18 15:40 MCH 34.3 pg (27.0-31.0) H 06/28/18 15:40 MCHC 33.7 g/dL (32.0-36.0) 06/28/18 15:40 RDW 14.0 % (12.0-15.0) 06/28/18 15:40 Plt Count 263 10^3/uL (130-450) 06/28/18 15:40 MPV 7.4 fL (7.9-10.8) L 06/28/18 15:40 Neut # (Auto) 5.4 10^3/uL (1.5-6.6) 06/28/18 15:40 Lymph # (Auto) 1.0 10^3/uL (1.5-3.5) L 06/28/18 15:40 [place] # (Auto) 0.7 10^3/uL (0.0-1.0) 06/28/18 15:40 Eos # (Auto) 0.2 10^3/uL (0.0-0.7) 06/28/18 15:40 Baso # (Auto) 0.1 10^3/uL (0.0-0.1) 06/28/18 15:40 Absolute Nucleated RBC 0.00 x10^3/uL 06/28/18 15:40 Nucleated RBC % 0.0 /100WBC 06/28/18 15:40 Sodium 133 mmol/L (135-145) L 06/28/18 15:40 Potassium 4.0 mmol/L (3.5-5.0) 06/28/18 15:40 Chloride 100 mmol/L (101-111) L 06/28/18 15:40 Carbon Dioxide 23 mmol/L (21-32) 06/28/18 15:40 Anion Gap 10.0 (6-13) 06/28/18 15:40 BUN 17 mg/dL (6-20) 06/28/18 15:40 Creatinine 0.9 mg/dL (0.4-1.0) 06/28/18 15:40 Estimated GFR (MDRD) 60 (>89) L 06/28/18 15:40 Glucose 110 mg/dL (70-100) H 06/28/18 15:40 Calcium 9.2 mg/dL (8.5-10.3) 06/28/18 15:40 Total Bilirubin 1.1 mg/dL (0.2-1.0) H 06/28/18 15:40 AST 87 IU/L (10-42) H 06/28/18 15:40 ALT 81 IU/L (10-60) H 06/28/18 15:40 Alkaline Phosphatase 89 IU/L (42-121) 06/28/18 15:40 Troponin I < 0.04 ng/mL (<0.49) 06/28/18 15:40 B-Natriuretic Peptide 854 pg/mL (5-100) H 06/28/18 15:40 Total Protein 7.1 g/dL (6.7-8.2) 06/28/18 15:40 Albumin 4.4 g/dL (3.2-5.5) 06/28/18 15:40 Globulin 2.7 g/dL (2.1-4.2) 06/28/18 15:40 Albumin/Globulin Ratio 1.6 (1.0-2.2) 06/28/18 15:40 Lipase 28 U/L (22-51) 06/28/18 15:40 - Diagnostic Imaging Results Diagnostic Imaging Results: positive: Final report reviewed Diagnostic Imaging Results Comments: Chest x-ray Impression: Linear and patchy bibasilar opacities. New masslike consolidation about the right cardiophrenic sulcus. Correlate clinically for pneumonia. Follow-up is recommended. - EKG Results EKG Interpreted Independently: Yes EKG Findings: No ST elevations or acute ischemic changes. Core Measures - Anticipated LOS I expect patient to be DC'd or transferred within 96 hours.: Yes - DVT/VTE - Prophylaxis VTE/DVT Device ordered at admit?: Yes
[2018-06-28] MEDS ORDERED: IOPAMIDOL-300 100 ML VIAL ONE (17:11)
[2018-06-28] MEDS: ESMOLOL 2.5 GM/250 ML BAG IV SCH ×2 (17:30→21:59)
[2018-06-28 17:45] LABS: BILIRUBIN,URINE NEGATIVE (NEGATIVE); GLUCOSE, URINE (UA) NEGATIVE (NEGATIVE); KETONES,URINE (UA) NEGATIVE (NEGATIVE); LEUKOCYTE ESTERASE, URINE NEGATIVE (NEGATIVE); NITRITE,URINE NEGATIVE (NEGATIVE); OCCULT BLOOD,URINE NEGATIVE (NEGATIVE); PROTEIN,URINE NEGATIVE (NEGATIVE); UROBILINOGEN,URINE 0.2 (NORMAL) E.U./dL (NORMAL)
[2018-06-28 17:49] LABS: CLARITY,URINE CLEAR (CLEAR)
[2018-06-28] MEDS ORDERED: IOPAMIDOL-300 100 ML VIAL IVP ONE (20:19)
[2018-06-28] MEDS: ATORVASTATIN 10 MG TABLET PO SCH (21:10)
[2018-06-28] MEDS: CALCIUM CARBONATE CHEW 500 MG TABLET PO SCH (21:11)
[2018-06-28] MEDS: FUROSEMIDE 40 MG/4 ML VIAL IVP SCH (21:11)
[2018-06-28] MEDS: IBUPROFEN 400 MG TABLET PO PRN (21:16)
[2018-06-28] MEDS: SODIUM CHLORIDE FLUSH 0.9% 10 ML SYRINGE IVP SCH (21:45)
--- NOTE | 2018-06-28 23:15 | CT Report ---
Reason: Mass like consolidation on CXR h/o Breast cancer Procedure Date: 06/28/2018 Accession Number: [id number] / [id number] Procedure: CT - Chest W/ CPT Code: FULL RESULT: EXAM: CT CHEST EXAM DATE: 06/28/2018 08:18 PM. CLINICAL HISTORY: Abnormal chest x-ray, question mass COMPARISONS: CHEST 1 VIEW 06/28/2018. TECHNIQUE: Routine helical CT imaging was performed through the chest. IV contrast: 100 mL Isovue 300. Reconstructions: Coronal and sagittal. In accordance with CT protocol optimization, one or more of the following dose reduction techniques were utilized for this exam: automated exposure control, adjustment of mA and/or KV based on patient size, or use of iterative reconstructive technique. FINDINGS: Lungs/Pleura: Right greater than left pleural effusions with basilar atelectasis. Mild emphysema. No evidence of pulmonary nodule or mass lesion. No pneumothorax. Mediastinum: Normal. No adenopathy or masses. The heart and great vessels are normal. Bones: Unremarkable. Visualized Abdomen: Please see separate CT. Other: None. IMPRESSION: Right greater than left effusions with basilar atelectasis. No evidence of pulmonary nodule or mass lesion in the aerated segments. RADIA
--- NOTE | 2018-06-28 23:19 | CT Report ---
Reason: L sided abd pain, diarrhea Procedure Date: 06/28/2018 Accession Number: [id number] / [id number] Procedure: CT - Abdomen/Pelvis W/ CPT Code: FULL RESULT: EXAM: CT ABDOMEN AND PELVIS EXAM DATE: 06/28/2018 08:18 PM. CLINICAL HISTORY: Left sided abdominal pain, diarrhea COMPARISONS: ABDOMEN/PELVIS W/O 02/08/2018 12:22 AM. TECHNIQUE: Routine helical CT imaging was performed through the abdomen and pelvis. IV contrast: ISOVUE 300 100mL. Enteric contrast: No. Reconstructions: Coronal and sagittal. Image quality is degraded by respiratory motion. In accordance with CT protocol optimization, one or more of the following dose reduction techniques were utilized for this exam: automated exposure control, adjustment of mA and/or KV based on patient size, or use of iterative reconstructive technique. FINDINGS: Lung Bases: Please see separate CT. Liver: Stable cyst in the left lobe. No new lesion. Gallbladder/Bile Ducts: Unremarkable. Spleen: Normal. Pancreas: Normal. Adrenal Glands: Normal. Kidneys: Normal. No masses or hydronephrosis. Peritoneal Cavity/Bowel: No evidence of bowel obstruction. Trace ascites. No free gas is appreciated. pelvic Organs: Trace ascites in the pelvis. The bladder and visualized pelvic organs are within normal limits. Vasculature: No aneurysms or other significant abnormality. Bones: No significant abnormality. Other: None. IMPRESSION: Trace ascites. No evidence of bowel obstruction. RADIA
[2018-06-29] MEDS: ESMOLOL 2.5 GM/250 ML BAG IV SCH ×8 (01:38→22:48)
[2018-06-29] MEDS ORDERED: METOPROLOL 5 MG/5 ML VIAL IVP PRN (02:01)
[2018-06-29] MEDS: METOPROLOL TARTRATE 50 MG TABLET PO SCH ×2 (02:14→09:15)
[2018-06-29] MEDS: oxyCODONE 5 MG TABLET PO PRN ×3 (02:20→20:06)
[2018-06-29] MEDS: SODIUM CHLORIDE FLUSH 0.9% 10 ML SYRINGE IVP SCH ×4 (02:23→20:07)
[2018-06-29 05:01] LABS: BASOPHILS # (AUTO) 0.1 10^3/uL (0.0-0.1); BASOPHILS % (AUTO) 1.2 %; EOSINOPHILS # (AUTO) 0.2 10^3/uL (0.0-0.7); EOSINOPHILS % (AUTO) 3.6 %; HGB - HEMOGLOBIN 10.7 g/dL (12.0-16.0); LYMPHOCYTES # (AUTO) 0.9 10^3/uL (1.5-3.5); LYMPHOCYTES % (AUTO) 14.1 %; MEAN CORPUSCULAR HEMOGLOBIN 35.2 pg (27.0-31.0); MEAN CORPUSCULAR HGB CONC 34.7 g/dL (32.0-36.0); MEAN CORPUSCULAR VOLUME 101.7 fL (81.0-99.0); MEAN PLATELET VOLUME 7.6 fL (7.9-10.8); MONOCYTES # (AUTO) 0.5 10^3/uL (0.0-1.0); MONOCYTES % (AUTO) 8.1 %; NEUTROPHILS # (AUTO) 4.7 10^3/uL (1.5-6.6); PLT - PLATELET COUNT 231 10^3/uL (130-450); RED BLOOD COUNT 3.04 10^6/uL (4.20-5.40); RED CELL DISTRIBUTION WIDTH 14.2 % (12.0-15.0); WHITE BLOOD COUNT 6.5 x10^3/uL (4.8-10.8)
[2018-06-29 05:05] LABS: INR 1.3 (0.8-1.2); PT - PROTHROMBIN TIME 14.8 secs (9.9-12.6)
[2018-06-29 05:16] LABS: ALBUMIN 3.6 g/dL (3.2-5.5); ALBUMIN/GLOBULIN RATIO 1.5 (1.0-2.2); BILIRUBIN,TOTAL 0.8 mg/dL (0.2-1.0); CALCIUM 8.8 mg/dL (8.5-10.3); CREATININE 1.2 mg/dL (0.4-1.0); MAGNESIUM 1.7 mg/dL (1.7-2.8)
[2018-06-29] MEDS: LEVOTHYROXINE 75 MCG TABLET PO SCH (07:07)
[2018-06-29] MEDS ORDERED: METOPROLOL SUCCINATE 50 MG TABLET PO SCH (09:00)
[2018-06-29] MEDS: ASPIRIN EC 81 MG TABLET PO SCH (09:12)
[2018-06-29] MEDS: CHOLECALCIFEROL 1,000 UNIT TABLET PO SCH (09:13)
[2018-06-29] MEDS: IBUPROFEN 400 MG TABLET PO PRN (09:13)
[2018-06-29] MEDS: SERTRALINE 50 MG TABLET PO SCH (09:13)
[2018-06-29] MEDS: RIVAROXABAN 15 MG TABLET PO SCH (09:14)
[2018-06-29] MEDS: POTASSIUM CHLORIDE 10 MEQ CAPSULE PO SCH (09:14)
[2018-06-29] MEDS: FAMOTIDINE 20 MG TABLET PO SCH (09:14)
[2018-06-29] MEDS: FUROSEMIDE 40 MG/4 ML VIAL IVP SCH ×3 (09:35→20:06)
[2018-06-29] MEDS ORDERED: diltiaZEM CD 180 MG CAPSULE PO SCH (10:00)
--- NOTE | 2018-06-29 15:41 | PROVIDER PROGRESS NOTE ---
Assessment/Plan - Problem List (1) Atrial fibrillation with RVR Assessment/Plan: Patient was diagnosed with atrial fibrillation last month during hospitalization for a stroke. The patient was started on Eliquis at that time she has since been switched to Xarelto for anticoagulation. The patient's chads 2 score is 5. She is appropriately on anticoagulation. She was also placed on metoprolol for rate control. However since discharge the patient states that she has continued to have palpitations and when she checks her heart rate at home it is consistently above 100. She did report this to her primary care physician who increased her metoprolol dose from 50 mg to 100 mg. Despite this the patient continues to have an elevated heart rate with palpitations. The patient has also began having increasing shortness of breath with exertion. On presentation to the emergency department the patient's heart rate was in the 120s. She also appeared to be in congestive heart failure. She was placed on an esmolol drip and given IV Lasix and admitted to the intensive care unit. Patient is on a max dose of the esmolol drip and HR still up Increased Toprol-XL to 200 mg this morning daily and restarted home dose of dilt 180 mg this am hopefully with this HR will improve We will monitor if HR not controlled will consider switching esmolol drip to dilt drip Serial troponins negative Patient had an echo less than a month ago therefore no need for repeat echocardiogram Continued Xarelto (2) Acute on chronic diastolic congestive heart failure, NYHA class 2 Conclusion/Plan: The patient has a history of diastolic heart failure with a preserved ejection fraction. She had an echo done just 1 month ago. The patient appears to be in diastolic heart failure as she does have congestion on chest x-ray, elevated BNP and crackles on examination. She is also been having increasing shortness of breath over the last month. The patient has been in A. fib with RVR which is likely contributing to her developing diastolic heart failure. The patient' s previous echo showed tricuspid regurgitation with elevated right sided pressures. This is likely also the cause of her abdominal discomfort as she likely has congestion from right-sided heart failure. She has mildly elevated LFTs which are also likely due to the congestion. 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 Patients CT abdomen showed trace ascites but no other acute findings. Given increased right sided heart pressures on recent echo and tricuspid regurgitation patient likely as liver congestion secondary to right heart failure and this is likely cause of abdominal discomfort as the discomfort is in the upper abdomen. Qualifiers: Abdominal location: unspecified location Qualified Code(s): R10.9 - Unspecified abdominal pain (4) HTN (hypertension) Conclusion/Plan: Being on the esmolol drip, PO metoprolol and PO diltiazem the patients BP is borderline Will need to monitor closely and may need to start amiodarone or digoxin if BP remains low Qualifiers: Hypertension type: essential hypertension Qualified Code(s): I10 - Essential (primary) hypertension (5) Depression Conclusion/Plan: Patient has depression with anxiety. She takes Zoloft at home which has been continued while she is hospitalized. Currently the patient does not appear depressed or anxious her mood appears to be stable. Qualifiers: Depression Type: unspecified Qualified Code(s): F32.9 - Major depressive disorder, single episode, unspecified (6) Hyperlipidemia Conclusion/Plan: Patient has a history of hyperlipidemia and is on Lipitor at home. Patient continued on her home dose of Lipitor and stable Qualifiers: Hyperlipidemia type: unspecified Qualified Code(s): E78.5 - Hyperlipidemia , unspecified (7) History of CVA (cerebrovascular accident) Conclusion/Plan: Patient had recent CVA likely secondary to atrial fibrillation as she had what appears to be multiple emboli in the left middle cerebral artery causing dysarthria. The patient does still have some mild residual dysarthria but otherwise has no major focal neurologic deficits. The patient is currently on aspirin, Lipitor and Xarelto. We will continue these medications while the patient is hospitalized. Stable (8) Hypothyroidism Conclusion/Plan: Patient has a history of hypothyroidism and is on Synthroid at home. Patient continued on her home dose of Synthroid. The patient did have her TSH checked in December of this year and it was 1.3 at that time. Qualifiers: Hypothyroidism type: unspecified Qualified Code(s): E03.9 - Hypothyroidism , unspecified (9) Abnormal chest xray Conclusion/Plan: The patient has a finding of a new masslike consolidation about the right cardiophrenic sulcus. Given her history of recent recurrent breast cancer this is concerning for possible malignancy. CT chest done and shows no evidence of mass only showing bilateral pleural effusion right greater than left - Current Meds Current Meds: Current Medications Generic Name Dose Route Start Last Admin Trade Name Freq PRN Reason Stop Dose Admin Aspirin 81 mg 06/29/18 09:00 06/29/18 09:12 Ecotrin PO 81 mg DAILY CHARLES Administration Atorvastatin Calcium 10 mg 06/28/18 21:00 06/28/18 21:10 Lipitor PO 10 mg QPM CHARLES Administration Calcium Carbonate/Glycine 1,000 mg 06/28/18 21:00 06/28/18 21:11 Tums PO 1,000 mg QPM CHARLES Administration Cholecalciferol 4,000 unit 06/29/18 09:00 06/29/18 09:13 Vitamin D3 PO 4,000 unit DAILY CHARLES Administration Diltiazem HCl 180 mg 06/29/18 10:00 06/29/18 10:33 Cardizem Cd PO 180 mg DAILY CHARLES Administration Famotidine 20 mg 06/29/18 09:00 06/29/18 09:14 Pepcid PO 20 mg DAILY CHARLES Administration Furosemide 40 mg 06/28/18 21:00 06/29/18 09:35 Lasix Inj 40 Mg Vial IVP 40 mg BID CHARLES Administration Esmolol HCl 2.5 gm in 250 mls @ 16.8 mls/hr 06/28/18 17:00 06/29/18 15:24 Brevibloc IV 0.3 mg/kg/min .[id number] CHARLES 100.8 mls/hr Protocol Administration 0.05 MG/KG/MIN Ibuprofen 400 mg 06/28/18 18:14 06/29/18 09:13 Motrin PO 400 mg Q6HR PRN Administration PAIN Levothyroxine Sodium 75 mcg 06/29/18 07:00 06/29/18 07:07 Synthroid PO 75 mcg QDAC CHARLES Administration Metoprolol Tartrate 100 mg 06/29/18 02:01 06/29/18 09:15 Lopressor PO 100 mg BID CHARLES Administration Oxycodone HCl 5 mg 06/28/18 16:50 06/29/18 11:05 Roxicodone PO 5 mg Q4HR PRN Administration Pain 5 to 7 Potassium Chloride 10 meq 06/29/18 09:00 06/29/18 09:14 Micro-K PO 10 meq DAILY CHARLES Administration Rivaroxaban 15 mg 06/29/18 09:00 06/29/18 09:14 Xarelto PO 15 mg DAILY CHARLES Administration Sertraline HCl 200 mg 06/29/18 09:00 06/29/18 09:13 Zoloft PO 200 mg DAILY CHARLES Administration Sodium Chloride 10 ml 06/28/18 17:00 06/29/18 09:19 Normal Saline Flush 0.9% IVP Not Given 0100,0900,1700 CHARLES - Lab Result Lab results reviewed: Yes Fish Bone Diagrams: 06/29/18 04:30 06/29/18 04:30 - Diagnostic Imaging Results Diagnostic Imaging Results: Final report reviewed - Additional Planning Condition/Complexity: Guarded My Orders: My Active Orders 06/28/18 18:14 Ibuprofen [Motrin] 400 mg PO Q6HR PRN 06/28/18 18:18 Nutrition Consult [CONS] Routine 06/28/18 20:57 Nebulizer [Nebulizer/MDI Tx.] [RC] .prn 06/29/18 10:00 diltiaZEM CD [Cardizem Cd] 180 mg PO DAILY Plan Discussed with:: Patient, Family, Spouse Time Spent: 31-60 minutes Subjective - Subjective Patient Reports: Abdominal Pain (Discomfort mostly in the left upper quadrant), Diarrhea (Improving), Shortness of Breath (With minimal movement or exertion), Other (Now requring O2.) Nursing Reports: No Complaints Objective Vital Signs: Vital Signs - 24 hr 06/28/18 06/28/18 06/28/18 17:01 17:44 18:00 Temperature Heart Rate 122 H Heart Rate [ 120 H 118 H Monitoring electrodes] Respiratory 23 20 20 Rate Blood Pressure 146/110 H Blood Pressure 113/64 132/108 H [Left] O2 Saturation 94 94 97 06/28/18 06/28/18 06/28/18 18:21 18:30 19:00 Temperature Heart Rate Heart Rate [ 105 H 111 H 115 H Monitoring electrodes] Respiratory 17 18 24 Rate Blood Pressure Blood Pressure 124/88 H 125/84 H 115/76 [Left] O2 Saturation 93 94 94 06/28/18 06/28/18 06/28/18 20:00 21:00 22:00 Temperature 36.7 C Heart Rate Heart Rate [ 118 H 103 H 114 H Monitoring electrodes] Respiratory 20 19 19 Rate Blood Pressure Blood Pressure 94/67 119/82 H 107/76 [Left] O2 Saturation 89 L 92 92 06/28/18 06/29/18 06/29/18 23:00 00:00 01:00 Temperature 37.1 C Heart Rate Heart Rate [ 117 H 120 H 112 H Monitoring electrodes] Respiratory 19 24 16 Rate Blood Pressure Blood Pressure 100/80 93/52 L 96/64 [Left] O2 Saturation 91 L 89 L 88 L 06/29/18 06/29/18 06/29/18 02:00 02:14 03:00 Temperature Heart Rate Heart Rate [ 117 H 118 H Monitoring electrodes] Respiratory 16 16 Rate Blood Pressure 105/89 H Blood Pressure 105/89 H 103/69 [Left] O2 Saturation 87 L 88 L 06/29/18 06/29/18 06/29/18 04:00 05:00 06:00 Temperature 36.7 C Heart Rate Heart Rate [ 123 H 109 H 104 H Monitoring electrodes] Respiratory 19 14 14 Rate Blood Pressure Blood Pressure 110/73 107/80 96/74 [Left] O2 Saturation 93 84 L 87 L 06/29/18 06/29/18 06/29/18 07:00 07:30 08:00 Temperature 36.6 C Heart Rate 120 H Heart Rate [ 106 H 118 H Monitoring electrodes] Respiratory 18 24 18 Rate Blood Pressure Blood Pressure 117/98 H 120/95 H [Left] O2 Saturation 91 L 94 06/29/18 06/29/18 06/29/18 09:00 09:15 10:00 Temperature Heart Rate Heart Rate [ 116 H 77 Monitoring electrodes] Respiratory 19 21 Rate Blood Pressure 96/65 Blood Pressure 96/65 109/96 H [Left] O2 Saturation 96 95 06/29/18 06/29/18 06/29/18 11:00 12:00 13:00 Temperature 37.0 C Heart Rate Heart Rate [ 106 H 109 H 114 H Monitoring electrodes] Respiratory 15 16 16 Rate Blood Pressure Blood Pressure 113/83 H 102/83 H 98/63 [Left] O2 Saturation 95 95 95 06/29/18 06/29/18 14:00 15:00 Temperature Heart Rate Heart Rate [ 105 H 102 H Monitoring electrodes] Respiratory 12 12 Rate Blood Pressure Blood Pressure 85/46 L 87/58 L [Left] O2 Saturation 94 Oxygen O2 Source Nasal cannula I&O (Last 24 Hrs): Intake and Output Totals x24h 06/27/18 06/28/18 06/29/18 23:59 23:59 23:59 Intake Total 463.32 3381.12 Output Total 800 375 Balance -336.68 3006.12 General: Alert, Oriented x3, Cooperative, No acute distress HEENT: Atraumatic, PERRLA, EOMI, Other (Dry mucus membranes) Neck: Supple, No thyromegaly, +2 carotid pulse wo bruit, No LAD, Other (Pos JVD) Lymphatic: no adenopathy Neuro: Alert, Non Focal, CN 2-12 Grossly Intact, Oriented Times 3 Cardiovascular: Other (Irreguarly irregular, tachycardic, systolic murmur) Respiratory: Chest non-tender, No respiratory distress, Rales (Bilateral crackles) Abdomen: Normal bowel sounds, Soft, No hepatospenomegaly, Other (Upper abdominal tenderness, soft, no peritoneal signs) Extremities: No clubbing, No cyanosis, Normal pulses, Other (Trace LE edema) Skin: No rashes, No breakdown - Results Results: Laboratory Results WBC 6.5 x10^3/uL (4.8-10.8) 06/29/18 04:30 RBC 3.04 10^6/uL (4.20-5.40) L 06/29/18 04:30 Hgb 10.7 g/dL (12.0-16.0) L 06/29/18 04:30 Hct 30.9 % (37.0-47.0) L 06/29/18 04:30 MCV 101.7 fL (81.0-99.0) H 06/29/18 04:30 MCH 35.2 pg (27.0-31.0) H 06/29/18 04:30 MCHC 34.7 g/dL (32.0-36.0) 06/29/18 04:30 RDW 14.2 % (12.0-15.0) 06/29/18 04:30 Plt Count 231 10^3/uL (130-450) 06/29/18 04:30 MPV 7.6 fL (7.9-10.8) L 06/29/18 04:30 Neut # (Auto) 4.7 10^3/uL (1.5-6.6) 06/29/18 04:30 Lymph # (Auto) 0.9 10^3/uL (1.5-3.5) L 06/29/18 04:30 [place] # (Auto) 0.5 10^3/uL (0.0-1.0) 06/29/18 04:30 Eos # (Auto) 0.2 10^3/uL (0.0-0.7) 06/29/18 04:30 Baso # (Auto) 0.1 10^3/uL (0.0-0.1) 06/29/18 04:30 Absolute Nucleated RBC 0.00 x10^3/uL 06/29/18 04:30 Nucleated RBC % 0.0 /100WBC 06/29/18 04:30 PT 14.8 secs (9.9-12.6) H 06/29/18 04:30 INR 1.3 (0.8-1.2) H 06/29/18 04:30 Sodium 133 mmol/L (135-145) L 06/29/18 04:30 Potassium 3.7 mmol/L (3.5-5.0) 06/29/18 04:30 Chloride 101 mmol/L (101-111) 06/29/18 04:30 Carbon Dioxide 20 mmol/L (21-32) L 06/29/18 04:30 Anion Gap 12.0 (6-13) 06/29/18 04:30 BUN 20 mg/dL (6-20) 06/29/18 04:30 Creatinine 1.2 mg/dL (0.4-1.0) H 06/29/18 04:30 Estimated GFR (MDRD) 43 (>89) L 06/29/18 04:30 Glucose 101 mg/dL (70-100) H 06/29/18 04:30 Calcium 8.8 mg/dL (8.5-10.3) 06/29/18 04:30 Phosphorus 4.0 mg/dL (2.5-4.6) 06/29/18 04:30 Magnesium 1.7 mg/dL (1.7-2.8) 06/29/18 04:30 Total Bilirubin 0.8 mg/dL (0.2-1.0) 06/29/18 04:30 AST 66 IU/L (10-42) H 06/29/18 04:30 ALT 63 IU/L (10-60) H 06/29/18 04:30 Alkaline Phosphatase 75 IU/L (42-121) 06/29/18 04:30 Troponin I < 0.04 ng/mL (<0.49) 06/29/18 04:30 B-Natriuretic Peptide 996 pg/mL (5-100) H 06/29/18 04:30 Total Protein 6.0 g/dL (6.7-8.2) L 06/29/18 04:30 Albumin 3.6 g/dL (3.2-5.5) 06/29/18 04:30 Globulin 2.4 g/dL (2.1-4.2) 06/29/18 04:30 Albumin/Globulin Ratio 1.5 (1.0-2.2) 06/29/18 04:30 Lipase 28 U/L (22-51) 06/28/18 15:40 Urine Color YELLOW 06/28/18 17:30 Urine Clarity CLEAR (CLEAR) 06/28/18 17:30 Urine pH 6.0 PH (5.0-7.5) 06/28/18 17:30 Ur Specific [place] <=1.005 (1.002-1.030) 06/28/18 17:30 Urine Protein NEGATIVE mg/dL (NEGATIVE) 06/28/18 17:30 Urine Glucose (UA) NEGATIVE mg/dL (NEGATIVE) 06/28/18 17:30 Urine Ketones NEGATIVE mg/dL (NEGATIVE) 06/28/18 17:30 Urine Occult Blood NEGATIVE (NEGATIVE) 06/28/18 17:30 Urine Nitrite NEGATIVE (NEGATIVE) 06/28/18 17:30 Urine Bilirubin NEGATIVE (NEGATIVE) 06/28/18 17:30 Urine Urobilinogen 0.2 (NORMAL) E.U./dL (NORMAL) 06/28/18 17:30 Ur Leukocyte Esterase NEGATIVE (NEGATIVE) 06/28/18 17:30 Ur Microscopic Review NOT INDICATED 06/28/18 17:30 Urine Culture Comments NOT INDICATED 06/28/18 17:30 - Procedures Procedures: Procedures CATARAC PHACOEMULS/ASPIR (09/08/14) EXCISION OF RIGHT BREAST, OPEN APPROACH (02/04/18) INSERT CATHETER SPINAL CANAL, INFUSION THER. SUB. (05/20/15) INSERT LENS AT CATAR EXT (09/08/14) LIMB SKIN TRACTION NEC (05/20/15) OPEN REDUC-INT FIX FEMUR (05/20/15) PACKED CELL TRANSFUSION (05/20/15) REMOVAL OF INT FIX FROM L UP FEMUR, OPEN APPROACH (11/22/15) REPLACEMENT OF L UP FEMUR WITH NONAUT SUB, OPEN APPROACH (11/22/15) ABX Reporting Has patient been on IV antibiotics over the past 48 hours?: No Current Medications - Current Medications Current Medications: Active Medications Generic Name Dose Route Start Last Admin Trade Name Freq PRN Reason Stop Dose Admin Acetaminophen 650 mg 06/28/18 16:50 Tylenol PO Q4HR PRN Pain 1 to 4 Albuterol 2.5 mg 06/28/18 16:50 INH Q4HR PRN Wheezing Aspirin 81 mg 06/29/18 09:00 06/29/18 09:12 Ecotrin PO 81 mg DAILY CHARLES Administration Atorvastatin Calcium 10 mg 06/28/18 21:00 06/28/18 21:10 Lipitor PO 10 mg QPM CHARLES Administration Calcium Carbonate/Glycine 1,000 mg 06/28/18 21:00 06/28/18 21:11 Tums PO 1,000 mg QPM CHARLES Administration Cholecalciferol 4,000 unit 06/29/18 09:00 06/29/18 09:13 Vitamin D3 PO 4,000 unit DAILY CHARLES Administration Diltiazem HCl 180 mg 06/29/18 10:00 06/29/18 10:33 Cardizem Cd PO 180 mg DAILY CHARLES Administration Famotidine 20 mg 06/29/18 09:00 06/29/18 09:14 Pepcid PO 20 mg DAILY CHARLES Administration Furosemide 40 mg 06/28/18 21:00 06/29/18 09:35 Lasix Inj 40 Mg Vial IVP 40 mg BID CHARLES Administration Esmolol HCl 2.5 gm in 250 mls @ 16.8 mls/hr 06/28/18 17:00 06/29/18 15:24 Brevibloc IV 0.3 mg/kg/min .[id number] CHARLES 100.8 mls/hr Protocol Administration 0.05 MG/KG/MIN Levothyroxine Sodium 75 mcg 06/29/18 07:00 06/29/18 07:07 Synthroid PO 75 mcg QDAC CHARLES Administration Metoprolol Tartrate 5 mg 06/29/18 02:01 Lopressor Inj IVP Q6H PRN for HR> 100 Metoprolol Tartrate 100 mg 06/29/18 02:01 06/29/18 09:15 Lopressor PO 100 mg BID CHARLES Administration Ondansetron HCl 4 mg 06/28/18 16:50 Zofran Inj IVP Q6HR PRN Nausea / Vomiting Oxycodone HCl 5 mg 06/28/18 16:50 06/29/18 11:05 Roxicodone PO 5 mg Q4HR PRN Administration Pain 5 to 7 Potassium Chloride 10 meq 06/29/18 09:00 06/29/18 09:14 Micro-K PO 10 meq DAILY CHARLES Administration Rivaroxaban 15 mg 06/29/18 09:00 06/29/18 09:14 Xarelto PO 15 mg DAILY CHARLES Administration Sertraline HCl 200 mg 06/29/18 09:00 06/29/18 09:13 Zoloft PO 200 mg DAILY CHARLES Administration Sodium Chloride 10 ml 06/28/18 17:00 06/29/18 09:19 Normal Saline Flush 0.9% IVP Not Given 0100,0900,1700 [facility] Sodium Chloride 10 ml 06/28/18 16:50 Normal Saline Flush 0.9% IVP PRN PRN NEEDED PER PROVIDER ORDERS Zolpidem Tartrate 5 mg 06/28/18 16:50 Ambien PO QPM PRN Insomnia Glucosamine Sulfate Dipot Chlr [Glucosamine] 1,500 mg PO DAILY 03/09/13 Levothyroxine [Synthroid] 75 mcg PO QDAC 03/09/13 Cholecalciferol (Vitamin D3) [Vitamin D3] 4,000 unit PO DAILY 10/04/15 Atorvastatin [Lipitor] 10 mg PO QPM 08/02/17 Sertraline HCl [Zoloft] 200 mg PO DAILY 08/02/17 Psyllium Husk/Aspartame [Fiber Therapy Powder] 1 packet PO DAILY 01/29/18 Aspirin [Aspirin EC] 81 mg PO DAILY 05/29/18 Calcium Carbonate [Tums (Calcium Carbonate 500mg)] 1,000 mg PO QPM 05/29/18 Omeprazole [PriLOSEC] 20 mg PO BIDAC 05/29/18 Rivaroxaban [Xarelto] 15 mg PO DAILY 06/24/18 Metoprolol Succinate [Toprol Xl] 100 mg PO BID 06/28/18 diltiaZEM CD [Cardizem Cd] 180 mg PO DAILY 06/29/18
[2018-06-29] MEDS: ONDANSETRON 4 MG/2 ML VIAL IVP PRN (16:33)
[2018-06-29] MEDS: ACETAMINOPHEN 325 MG TABLET PO PRN (20:05)
[2018-06-29] MEDS: CALCIUM CARBONATE CHEW 500 MG TABLET PO SCH (20:06)
[2018-06-29] MEDS: MAG HYDROX/AL HYDROX/SIMETH 30 ML UDC PO PRN (20:06)
[2018-06-29] MEDS: ATORVASTATIN 10 MG TABLET PO SCH (20:06)
[2018-06-30] MEDS: ESMOLOL 2.5 GM/250 ML BAG IV SCH ×2 (01:21→03:50)
[2018-06-30] MEDS ORDERED: DIGOXIN 500 MCG/2 ML AMP IVP STA (03:54)
[2018-06-30] MEDS: DIGOXIN 125 MCG TABLET PO SCH ×2 (04:46→09:26)
[2018-06-30] MEDS: oxyCODONE 5 MG TABLET PO PRN ×3 (04:47→22:27)
[2018-06-30] MEDS: ACETAMINOPHEN 325 MG TABLET PO PRN (04:48)
[2018-06-30 05:15] LABS: BASOPHILS % (AUTO) 0.7 %; EOSINOPHILS # (AUTO) 0.2 10^3/uL (0.0-0.7); EOSINOPHILS % (AUTO) 3.3 %; HGB - HEMOGLOBIN 10.3 g/dL (12.0-16.0); LYMPHOCYTES # (AUTO) 0.8 10^3/uL (1.5-3.5); LYMPHOCYTES % (AUTO) 14.9 %; MEAN CORPUSCULAR HEMOGLOBIN 35.1 pg (27.0-31.0); MEAN CORPUSCULAR HGB CONC 34.2 g/dL (32.0-36.0); MEAN CORPUSCULAR VOLUME 102.7 fL (81.0-99.0); MEAN PLATELET VOLUME 7.5 fL (7.9-10.8); MONOCYTES # (AUTO) 0.5 10^3/uL (0.0-1.0); MONOCYTES % (AUTO) 9.9 %; NEUTROPHILS # (AUTO) 3.7 10^3/uL (1.5-6.6); NEUTROPHILS % (AUTO) 71.2 %; PLT - PLATELET COUNT 223 10^3/uL (130-450); RED BLOOD COUNT 2.93 10^6/uL (4.20-5.40); WHITE BLOOD COUNT 5.2 x10^3/uL (4.8-10.8)
[2018-06-30 05:28] LABS: ALBUMIN 3.2 g/dL (3.2-5.5); ALBUMIN/GLOBULIN RATIO 1.3 (1.0-2.2); BILIRUBIN,TOTAL 0.7 mg/dL (0.2-1.0); CALCIUM 8.4 mg/dL (8.5-10.3); CREATININE 1.2 mg/dL (0.4-1.0); INR 1.7 (0.8-1.2); MAGNESIUM 1.9 mg/dL (1.7-2.8); PHOSPHORUS 4.5 mg/dL (2.5-4.6); PT - PROTHROMBIN TIME 18.3 secs (9.9-12.6); TOTAL PROTEIN 5.7 g/dL (6.7-8.2)
[2018-06-30] MEDS: LEVOTHYROXINE 75 MCG TABLET PO SCH (06:50)
[2018-06-30] MEDS: CHOLECALCIFEROL 1,000 UNIT TABLET PO SCH (08:31)
[2018-06-30] MEDS: FAMOTIDINE 20 MG TABLET PO SCH (08:31)
[2018-06-30] MEDS: FUROSEMIDE 40 MG/4 ML VIAL IVP SCH (08:31)
[2018-06-30] MEDS: ASPIRIN EC 81 MG TABLET PO SCH (08:31)
[2018-06-30] MEDS: POTASSIUM CHLORIDE 10 MEQ CAPSULE PO SCH (08:32)
[2018-06-30] MEDS: SODIUM CHLORIDE FLUSH 0.9% 10 ML SYRINGE IVP SCH ×2 (08:32→17:03)
[2018-06-30] MEDS: SERTRALINE 50 MG TABLET PO SCH (08:32)
[2018-06-30] MEDS: RIVAROXABAN 15 MG TABLET PO SCH (08:32)
[2018-06-30] MEDS: MAG HYDROX/AL HYDROX/SIMETH 30 ML UDC PO PRN (08:37)
[2018-06-30] MEDS: ONDANSETRON 4 MG/2 ML VIAL IVP PRN (08:40)
[2018-06-30] MEDS ORDERED: diltiaZEM CD 180 MG CAPSULE PO SCH (09:00)
[2018-06-30] MEDS ORDERED: DIGOXIN 500 MCG/2 ML AMP IVP SCH (10:00)
[2018-06-30] MEDS: METOPROLOL TARTRATE 50 MG TABLET PO SCH ×2 (12:11→21:27)
--- NOTE | 2018-06-30 13:37 | PROVIDER PROGRESS NOTE ---
Assessment/Plan - Problem List (1) Atrial fibrillation with RVR Assessment/Plan: Patient was diagnosed with atrial fibrillation last month during hospitalization for a stroke. The patient was started on Eliquis at that time she has since been switched to Xarelto for anticoagulation. The patient's chads 2 score is 5. She is appropriately on anticoagulation. She was also placed on metoprolol for rate control. However since discharge the patient states that she has continued to have palpitations and when she checks her heart rate at home it is consistently above 100. She did report this to her primary care physician who increased her metoprolol dose from 50 mg to 100 mg. Despite this the patient continues to have an elevated heart rate with palpitations. The patient has also began having increasing shortness of breath with exertion. On presentation to the emergency department the patient's heart rate was in the 120s. She also appeared to be in congestive heart failure. She was placed on an esmolol drip and given IV Lasix and admitted to the intensive care unit. Patient was on a max dose of the esmolol drip and HR was still up despite increasing PO dilt and metoprolol doses yesterday. Also patient was hypotensive. Overnight the night hospitalist stopped the esmolol drip and placed the patient on IV digoxin load and changed to the diltiazem to 60 mg PO q 6 and stopped metoprolol as patient was hypotensive This morning patient extremely nauseated and unable to keep down any of her morning meds. Patient feels the nausea is secondary to digoxin and wants to stop digoxin. Digoxin stopped this morning and patient will be given antiemetics then metoprolol will be restarted Serial troponins negative Patient had an echo less than a month ago therefore no need for repeat echocardiogram Continued Xarelto HR is better but still in the low 100s for the most part Off of the drip Continue to monitor closely in the ICU for now (2) Acute on chronic diastolic congestive heart failure, NYHA class 2 Conclusion/Plan: The patient has a history of diastolic heart failure with a preserved ejection fraction. She had an echo done just 1 month ago. The patient appears to be in diastolic heart failure as she does have congestion on chest x-ray, elevated BNP and crackles on examination. She is also been having increasing shortness of breath over the last month. The patient has been in A. fib with RVR which is likely contributing to her developing diastolic heart failure. The patient' s previous echo showed tricuspid regurgitation with elevated right sided pressures. This is likely also the cause of her abdominal discomfort as she likely has congestion from right-sided heart failure. She has mildly elevated LFTs which are also likely due to the congestion. Patient receiving 40 mg IV lasix BID with improved urine output today Patients acct exec stable today at 1.2 BNP improved to 677 BP better this am Patient still requiring 2L of O2 Continue lasix Continue treatment for a fib rvr COntinue fluid restriction Tele monitoring Patient +3800 ml yesterday secondary to esmolol drip but better urine output today with negative fluid balance (3) Abdominal pain Conclusion/Plan: Patients CT abdomen showed trace ascites but no other acute findings. Given increased right sided heart pressures on recent echo and tricuspid regurgitation patient likely as liver congestion secondary to right heart failure and this is likely cause of abdominal discomfort as the discomfort is in the upper abdomen. Today she is nauseated but feels that the nausea started when she took digoxin. Will stop nausea and monitor. Qualifiers: Abdominal location: unspecified location Qualified Code(s): R10.9 - Unspecified abdominal pain (4) HTN (hypertension) Conclusion/Plan: BP improved this am Will continue PO metoprolol and diltiazem along with lasix IV Qualifiers: Hypertension type: essential hypertension Qualified Code(s): I10 - Essential (primary) hypertension (5) Depression Conclusion/Plan: Patient has depression with anxiety. She takes Zoloft at home which has been continued while she is hospitalized. Currently the patient does appear depressed and anxious as she is frustrated with her predicament and taking so many medications. Qualifiers: Depression Type: unspecified Qualified Code(s): F32.9 - Major depressive disorder, single episode, unspecified (6) Hyperlipidemia Conclusion/Plan: Patient has a history of hyperlipidemia and is on Lipitor at home. Patient continued on her home dose of Lipitor and stable Qualifiers: Hyperlipidemia type: unspecified Qualified Code(s): E78.5 - Hyperlipidemia , unspecified (7) History of CVA (cerebrovascular accident) Conclusion/Plan: Patient had recent CVA likely secondary to atrial fibrillation as she had what appears to be multiple emboli in the left middle cerebral artery causing dysarthria. The patient does still have some mild residual dysarthria but otherwise has no major focal neurologic deficits. The patient is currently on aspirin, Lipitor and Xarelto. We will continue these medications while the patient is hospitalized. Stable (8) Hypothyroidism Conclusion/Plan: Patient has a history of hypothyroidism and is on Synthroid at home. Patient continued on her home dose of Synthroid. The patient did have her TSH checked in December of this year and it was 1.3 at that time. Qualifiers: Hypothyroidism type: unspecified Qualified Code(s): E03.9 - Hypothyroidism , unspecified (9) Abnormal chest xray Conclusion/Plan: The patient had a finding of a new masslike consolidation about the right cardiophrenic sulcus. Given her history of recent recurrent breast cancer this is concerning for possible malignancy. CT chest done and shows no evidence of mass only showing bilateral pleural effusion right greater than left - Current Meds Current Meds: Current Medications Generic Name Dose Route Start Last Admin Trade Name Freq PRN Reason Stop Dose Admin Acetaminophen 650 mg 06/28/18 16:50 06/30/18 04:48 Tylenol PO 650 mg Q4HR PRN Administration Pain 1 to 4 Al Hydroxide/Mg Hydroxide 30 ml 06/29/18 19:21 06/30/18 08:37 Mylanta Plus PO 30 ml Q4HR PRN Administration INDIGESTION Aspirin 81 mg 06/29/18 09:00 06/30/18 08:31 Ecotrin PO 81 mg DAILY CHARLES Administration Atorvastatin Calcium 10 mg 06/28/18 21:00 06/29/18 20:06 Lipitor PO 10 mg QPM CHARLES Administration Calcium Carbonate/Glycine 1,000 mg 06/28/18 21:00 06/29/18 20:06 Tums PO Not Given QPM CHARLES Cholecalciferol 4,000 unit 06/29/18 09:00 06/30/18 08:31 Vitamin D3 PO 4,000 unit DAILY CHARLES Administration Digoxin 250 mcg 06/30/18 10:00 06/30/18 09:26 Lanoxin Inj IVP 06/30/18 14:00 250 mcg ONCE CHARLES Administration Diltiazem HCl 60 mg 06/30/18 04:00 06/30/18 11:59 Cardizem PO 60 mg Q6HR CHARLES Administration Famotidine 20 mg 06/29/18 09:00 06/30/18 08:31 Pepcid PO 20 mg DAILY CHARLES Administration Furosemide 40 mg 06/30/18 09:00 06/30/18 08:31 Lasix Inj 40 Mg Vial IVP 40 mg DAILY CHARLES Administration Levothyroxine Sodium 75 mcg 06/29/18 07:00 06/30/18 06:50 Synthroid PO 75 mcg QDAC CHARLES Administration Metoprolol Tartrate 200 mg 06/30/18 12:00 06/30/18 12:11 Lopressor PO 200 mg BID CHARLES Administration Ondansetron HCl 4 mg 06/28/18 16:50 06/30/18 08:40 Zofran Inj IVP 4 mg Q6HR PRN Administration Nausea / Vomiting Oxycodone HCl 5 mg 06/28/18 16:50 06/30/18 08:32 Roxicodone PO 5 mg Q4HR PRN Administration Pain 5 to 7 Potassium Chloride 10 meq 06/29/18 09:00 06/30/18 08:32 Micro-K PO 10 meq DAILY CHARLES Administration Rivaroxaban 15 mg 06/29/18 09:00 06/30/18 08:32 Xarelto PO 15 mg DAILY CHARLES Administration Sertraline HCl 200 mg 06/29/18 09:00 06/30/18 08:32 Zoloft PO 200 mg DAILY CHARLES Administration Sodium Chloride 10 ml 06/28/18 17:00 06/30/18 08:32 Normal Saline Flush 0.9% IVP 10 ml 0100,0900,1700 CHARLES Administration Sodium Chloride 10 ml 06/28/18 16:50 06/30/18 08:40 Normal Saline Flush 0.9% IVP 10 ml PRN PRN Administration NEEDED PER PROVIDER ORDERS - Lab Result Lab results reviewed: Yes Fish Bone Diagrams: 06/30/18 04:38 06/30/18 04:38 - Diagnostic Imaging Results Diagnostic Imaging Results: Final report reviewed - Additional Planning Condition/Complexity: Guarded My Orders: My Active Orders 06/29/18 19:21 Mag Hydrox/Al Hydrox/Simeth [Mylanta Plus] 30 ml PO Q4HR PRN 06/30/18 12:00 Metoprolol Tartrate [Lopressor] 200 mg PO BID Plan Discussed with:: Patient, Spouse Time Spent: 31-60 minutes Subjective - Subjective Patient Reports: Abdominal Pain (Upper left quadrant across upper abdoment), Fatigue, Nausea (Unable to keep down meds this morning has been unable to eat dinner last night and breakfast this morning), Shortness of Breath (With exertion not improved), Other (No fevers or chills.) Nursing Reports: No Complaints Objective Vital Signs: Vital Signs - 24 hr 06/29/18 06/29/18 06/29/18 14:00 15:00 16:00 Temperature Heart Rate Heart Rate [ 105 H 102 H 95 Monitoring electrodes] Respiratory 12 12 15 Rate Blood Pressure Blood Pressure 85/46 L 87/58 L 95/57 L [Left] O2 Saturation 94 06/29/18 06/29/18 06/29/18 17:00 18:00 19:00 Temperature Heart Rate Heart Rate [ 95 94 105 H Monitoring electrodes] Respiratory 14 13 14 Rate Blood Pressure Blood Pressure 95/74 110/63 108/87 H [Left] O2 Saturation 06/29/18 06/29/18 06/29/18 20:00 21:00 22:00 Temperature 36.0 C L Heart Rate Heart Rate [ 112 H 107 H 99 Monitoring electrodes] Respiratory 15 15 16 Rate Blood Pressure Blood Pressure 102/61 94/65 91/55 L [Left] O2 Saturation 98 97 91 L 06/29/18 06/30/18 06/30/18 23:00 00:00 01:00 Temperature 36.1 C L Heart Rate Heart Rate [ 98 106 H 114 H Monitoring electrodes] Respiratory 11 L 10 L 12 Rate Blood Pressure Blood Pressure 88/69 L 86/55 L 83/65 L [Left] O2 Saturation 97 96 95 06/30/18 06/30/18 06/30/18 02:00 03:00 04:00 Temperature 36.1 C L Heart Rate Heart Rate [ 117 H 116 H 114 H Monitoring electrodes] Respiratory 18 12 17 Rate Blood Pressure Blood Pressure 91/54 L 104/75 97/69 [Left] O2 Saturation 96 97 97 06/30/18 06/30/18 06/30/18 04:55 05:00 06:00 Temperature Heart Rate Heart Rate [ 106 H 108 H Monitoring electrodes] Respiratory 11 L 13 Rate Blood Pressure 114/79 Blood Pressure 128/92 H 109/70 [Left] O2 Saturation 93 95 06/30/18 06/30/18 06/30/18 06:57 08:00 09:00 Temperature 36.6 C Heart Rate Heart Rate [ 105 H 100 104 H Monitoring electrodes] Respiratory 14 15 16 Rate Blood Pressure Blood Pressure 135/88 H 138/90 H 144/109 H [Left] O2 Saturation 97 97 98 06/30/18 06/30/18 06/30/18 09:26 10:00 11:00 Temperature Heart Rate 112 H Heart Rate [ 108 H 93 Monitoring electrodes] Respiratory 18 12 Rate Blood Pressure Blood Pressure 140/108 H 122/75 [Left] O2 Saturation 97 92 06/30/18 06/30/18 06/30/18 11:59 12:00 13:00 Temperature 36.6 C Heart Rate Heart Rate [ 89 94 Monitoring electrodes] Respiratory 14 16 Rate Blood Pressure 124/89 H Blood Pressure 124/89 H 107/58 L [Left] O2 Saturation 98 97 Oxygen O2 Source Nasal cannula I&O (Last 24 Hrs): Intake and Output Totals x24h 06/28/18 06/29/18 06/30/18 23:59 23:59 23:59 Intake Total 463.32 4646.16 1810.16 Output Total 902 752 3013 Balance -336.68 3871.16 -139.84 General: Alert, Oriented x3, Cooperative, Mild distress (secondary to nausea), Other (Elderly appearing) HEENT: Atraumatic, PERRLA, EOMI, Other (Dry mucus membranes) Neck: Supple, No JVD, No thyromegaly, +2 carotid pulse wo bruit, No LAD Lymphatic: no adenopathy Neuro: Alert, Non Focal, CN 2-12 Grossly Intact, Oriented Times 3 Cardiovascular: Other (Irregular, tachycardic, systolic murmur) Respiratory: Chest non-tender, Rales (Bilateral bases) Abdomen: Normal bowel sounds, Soft, Other (Tenderness mostly epigastric and LUQ) Extremities: No clubbing, No cyanosis, Normal pulses, Other (Bilateral trace edema) Skin: No rashes, No breakdown - Results Results: Laboratory Results WBC 5.2 x10^3/uL (4.8-10.8) 06/30/18 04:38 RBC 2.93 10^6/uL (4.20-5.40) L 06/30/18 04:38 Hgb 10.3 g/dL (12.0-16.0) L 06/30/18 04:38 Hct 30.1 % (37.0-47.0) L 06/30/18 04:38 MCV 102.7 fL (81.0-99.0) H 06/30/18 04:38 MCH 35.1 pg (27.0-31.0) H 06/30/18 04:38 MCHC 34.2 g/dL (32.0-36.0) 06/30/18 04:38 RDW 14.0 % (12.0-15.0) 06/30/18 04:38 Plt Count 223 10^3/uL (130-450) 06/30/18 04:38 MPV 7.5 fL (7.9-10.8) L 06/30/18 04:38 Neut # (Auto) 3.7 10^3/uL (1.5-6.6) 06/30/18 04:38 Lymph # (Auto) 0.8 10^3/uL (1.5-3.5) L 06/30/18 04:38 [place] # (Auto) 0.5 10^3/uL (0.0-1.0) 06/30/18 04:38 Eos # (Auto) 0.2 10^3/uL (0.0-0.7) 06/30/18 04:38 Baso # (Auto) 0.0 10^3/uL (0.0-0.1) 06/30/18 04:38 Absolute Nucleated RBC 0.01 x10^3/uL 06/30/18 04:38 Nucleated RBC % 0.1 /100WBC 06/30/18 04:38 PT 18.3 secs (9.9-12.6) H 06/30/18 04:38 INR 1.7 (0.8-1.2) H 06/30/18 04:38 Sodium 131 mmol/L (135-145) L 06/30/18 04:38 Potassium 3.5 mmol/L (3.5-5.0) 06/30/18 04:38 Chloride 101 mmol/L (101-111) 06/30/18 04:38 Carbon Dioxide 20 mmol/L (21-32) L 06/30/18 04:38 Anion Gap 10.0 (6-13) 06/30/18 04:38 BUN 18 mg/dL (6-20) 06/30/18 04:38 Creatinine 1.2 mg/dL (0.4-1.0) H 06/30/18 04:38 Estimated GFR (MDRD) 43 (>89) L 06/30/18 04:38 Glucose 96 mg/dL (70-100) 06/30/18 04:38 Calcium 8.4 mg/dL (8.5-10.3) L 06/30/18 04:38 Phosphorus 4.5 mg/dL (2.5-4.6) 06/30/18 04:38 Magnesium 1.9 mg/dL (1.7-2.8) 06/30/18 04:38 Total Bilirubin 0.7 mg/dL (0.2-1.0) 06/30/18 04:38 AST 45 IU/L (10-42) H 06/30/18 04:38 ALT 54 IU/L (10-60) 06/30/18 04:38 Alkaline Phosphatase 65 IU/L (42-121) 06/30/18 04:38 Troponin I < 0.04 ng/mL (<0.49) 06/29/18 04:30 B-Natriuretic Peptide 677 pg/mL (5-100) H 06/30/18 04:38 Total Protein 5.7 g/dL (6.7-8.2) L 06/30/18 04:38 Albumin 3.2 g/dL (3.2-5.5) 06/30/18 04:38 Globulin 2.5 g/dL (2.1-4.2) 06/30/18 04:38 Albumin/Globulin Ratio 1.3 (1.0-2.2) 06/30/18 04:38 Lipase 28 U/L (22-51) 06/28/18 15:40 Urine Color YELLOW 06/28/18 17:30 Urine Clarity CLEAR (CLEAR) 06/28/18 17:30 Urine pH 6.0 PH (5.0-7.5) 06/28/18 17:30 Ur Specific [place] <=1.005 (1.002-1.030) 06/28/18 17:30 Urine Protein NEGATIVE mg/dL (NEGATIVE) 06/28/18 17:30 Urine Glucose (UA) NEGATIVE mg/dL (NEGATIVE) 06/28/18 17:30 Urine Ketones NEGATIVE mg/dL (NEGATIVE) 06/28/18 17:30 Urine Occult Blood NEGATIVE (NEGATIVE) 06/28/18 17:30 Urine Nitrite NEGATIVE (NEGATIVE) 06/28/18 17:30 Urine Bilirubin NEGATIVE (NEGATIVE) 06/28/18 17:30 Urine Urobilinogen 0.2 (NORMAL) E.U./dL (NORMAL) 06/28/18 17:30 Ur Leukocyte Esterase NEGATIVE (NEGATIVE) 06/28/18 17:30 Ur Microscopic Review NOT INDICATED 06/28/18 17:30 Urine Culture Comments NOT INDICATED 06/28/18 17:30 - Procedures Procedures: Procedures CATARAC PHACOEMULS/ASPIR (09/08/14) EXCISION OF RIGHT BREAST, OPEN APPROACH (02/04/18) INSERT CATHETER SPINAL CANAL, INFUSION THER. SUB. (05/20/15) INSERT LENS AT CATAR EXT (09/08/14) LIMB SKIN TRACTION NEC (05/20/15) OPEN REDUC-INT FIX FEMUR (05/20/15) PACKED CELL TRANSFUSION (05/20/15) REMOVAL OF INT FIX FROM L UP FEMUR, OPEN APPROACH (11/22/15) REPLACEMENT OF L UP FEMUR WITH NONAUT SUB, OPEN APPROACH (11/22/15) ABX Reporting Has patient been on IV antibiotics over the past 48 hours?: No Current Medications - Current Medications Current Medications: Active Medications Generic Name Dose Route Start Last Admin Trade Name Freq PRN Reason Stop Dose Admin Acetaminophen 650 mg 06/28/18 16:50 06/30/18 04:48 Tylenol PO 650 mg Q4HR PRN Administration Pain 1 to 4 Al Hydroxide/Mg Hydroxide 30 ml 06/29/18 19:21 06/30/18 08:37 Mylanta Plus PO 30 ml Q4HR PRN Administration INDIGESTION Albuterol 2.5 mg 06/28/18 16:50 INH Q4HR PRN Wheezing Aspirin 81 mg 06/29/18 09:00 06/30/18 08:31 Ecotrin PO 81 mg DAILY CHARLES Administration Atorvastatin Calcium 10 mg 06/28/18 21:00 06/29/18 20:06 Lipitor PO 10 mg QPM CHARLES Administration Calcium Carbonate/Glycine 1,000 mg 06/28/18 21:00 06/29/18 20:06 Tums PO Not Given QPM CHARLES Cholecalciferol 4,000 unit 06/29/18 09:00 06/30/18 08:31 Vitamin D3 PO 4,000 unit DAILY CHARLES Administration Digoxin 250 mcg 06/30/18 10:00 06/30/18 09:26 Lanoxin Inj IVP 06/30/18 14:00 250 mcg ONCE CHARLES Administration Diltiazem HCl 60 mg 06/30/18 04:00 06/30/18 11:59 Cardizem PO 60 mg Q6HR CHARLES Administration Famotidine 20 mg 06/29/18 09:00 06/30/18 08:31 Pepcid PO 20 mg DAILY CHARLES Administration Furosemide 40 mg 06/30/18 09:00 06/30/18 08:31 Lasix Inj 40 Mg Vial IVP 40 mg DAILY CHARLES Administration Levothyroxine Sodium 75 mcg 06/29/18 07:00 06/30/18 06:50 Synthroid PO 75 mcg QDAC CHARLES Administration Metoprolol Tartrate 200 mg 06/30/18 12:00 06/30/18 12:11 Lopressor PO 200 mg BID CHARLES Administration Ondansetron HCl 4 mg 06/28/18 16:50 06/30/18 08:40 Zofran Inj IVP 4 mg Q6HR PRN Administration Nausea / Vomiting Oxycodone HCl 5 mg 06/28/18 16:50 06/30/18 08:32 Roxicodone PO 5 mg Q4HR PRN Administration Pain 5 to 7 Potassium Chloride 10 meq 06/29/18 09:00 06/30/18 08:32 Micro-K PO 10 meq DAILY CHARLES Administration Rivaroxaban 15 mg 06/29/18 09:00 06/30/18 08:32 Xarelto PO 15 mg DAILY CHARLES Administration Sertraline HCl 200 mg 06/29/18 09:00 06/30/18 08:32 Zoloft PO 200 mg DAILY CHARLES Administration Sodium Chloride 10 ml 06/28/18 17:00 06/30/18 08:32 Normal Saline Flush 0.9% IVP 10 ml 0100,0900,1700 CHARLES Administration Sodium Chloride 10 ml 06/28/18 16:50 06/30/18 08:40 Normal Saline Flush 0.9% IVP 10 ml PRN PRN Administration NEEDED PER PROVIDER ORDERS Zolpidem Tartrate 5 mg 06/28/18 16:50 Ambien PO QPM PRN Insomnia Glucosamine Sulfate Dipot Chlr [Glucosamine] 1,500 mg PO DAILY 03/09/13 Levothyroxine [Synthroid] 75 mcg PO QDAC 03/09/13 Cholecalciferol (Vitamin D3) [Vitamin D3] 4,000 unit PO DAILY 10/04/15 Atorvastatin [Lipitor] 10 mg PO QPM 08/02/17 Sertraline HCl [Zoloft] 200 mg PO DAILY 08/02/17 Psyllium Husk/Aspartame [Fiber Therapy Powder] 1 packet PO DAILY 01/29/18 Aspirin [Aspirin EC] 81 mg PO DAILY 05/29/18 Calcium Carbonate [Tums (Calcium Carbonate 500mg)] 1,000 mg PO QPM 05/29/18 Omeprazole [PriLOSEC] 20 mg PO BIDAC 05/29/18 Rivaroxaban [Xarelto] 15 mg PO DAILY 06/24/18 Metoprolol Succinate [Toprol Xl] 100 mg PO BID 06/28/18 diltiaZEM CD [Cardizem Cd] 180 mg PO DAILY 06/29/18
[2018-06-30] MEDS: ATORVASTATIN 10 MG TABLET PO SCH (21:25)
[2018-06-30] MEDS: CALCIUM CARBONATE CHEW 500 MG TABLET PO SCH (21:25)
[2018-07-01] MEDS: SODIUM CHLORIDE FLUSH 0.9% 10 ML SYRINGE IVP SCH ×3 (04:46→16:56)
[2018-07-01 05:30] LABS: BASOPHILS % (AUTO) 0.7 %; EOSINOPHILS # (AUTO) 0.3 10^3/uL (0.0-0.7); HGB - HEMOGLOBIN 11.6 g/dL (12.0-16.0); LYMPHOCYTES # (AUTO) 1.3 10^3/uL (1.5-3.5); LYMPHOCYTES % (AUTO) 19.3 %; MEAN CORPUSCULAR HEMOGLOBIN 34.9 pg (27.0-31.0); MEAN CORPUSCULAR HGB CONC 34.1 g/dL (32.0-36.0); MEAN CORPUSCULAR VOLUME 102.2 fL (81.0-99.0); MEAN PLATELET VOLUME 7.3 fL (7.9-10.8); MONOCYTES # (AUTO) 0.6 10^3/uL (0.0-1.0); MONOCYTES % (AUTO) 8.9 %; NEUTROPHILS # (AUTO) 4.6 10^3/uL (1.5-6.6); NEUTROPHILS % (AUTO) 66.1 %; PLT - PLATELET COUNT 257 10^3/uL (130-450); RED BLOOD COUNT 3.32 10^6/uL (4.20-5.40); RED CELL DISTRIBUTION WIDTH 14.1 % (12.0-15.0); WHITE BLOOD COUNT 6.9 x10^3/uL (4.8-10.8)
[2018-07-01 05:31] LABS: INR 1.8 (0.8-1.2); PT - PROTHROMBIN TIME 19.6 secs (9.9-12.6)
[2018-07-01 05:44] LABS: ALBUMIN 3.3 g/dL (3.2-5.5); ALBUMIN/GLOBULIN RATIO 1.3 (1.0-2.2); BILIRUBIN,TOTAL 0.7 mg/dL (0.2-1.0); CALCIUM 8.7 mg/dL (8.5-10.3); MAGNESIUM 1.9 mg/dL (1.7-2.8); PHOSPHORUS 3.8 mg/dL (2.5-4.6); TOTAL PROTEIN 5.8 g/dL (6.7-8.2)
[2018-07-01] MEDS: LEVOTHYROXINE 75 MCG TABLET PO SCH (07:04)
[2018-07-01] MEDS: CHOLECALCIFEROL 1,000 UNIT TABLET PO SCH (09:19)
[2018-07-01] MEDS: POTASSIUM CHLORIDE 10 MEQ CAPSULE PO SCH (09:20)
[2018-07-01] MEDS: METOPROLOL TARTRATE 50 MG TABLET PO SCH (09:20)
[2018-07-01] MEDS: ASPIRIN EC 81 MG TABLET PO SCH (09:20)
[2018-07-01] MEDS: FUROSEMIDE 40 MG/4 ML VIAL IVP SCH (09:20)
[2018-07-01] MEDS: SERTRALINE 50 MG TABLET PO SCH (09:20)
[2018-07-01] MEDS: FAMOTIDINE 20 MG TABLET PO SCH (09:21)
[2018-07-01] MEDS: oxyCODONE 5 MG TABLET PO PRN ×3 (09:21→21:09)
[2018-07-01] MEDS: RIVAROXABAN 15 MG TABLET PO SCH (09:21)
[2018-07-01] MEDS: METOPROLOL SUCCINATE 50 MG TABLET PO SCH ×2 (12:32→21:09)
[2018-07-01] MEDS: diltiaZEM CD 240 MG CAPSULE PO SCH (12:32)
--- NOTE | 2018-07-01 16:46 | PROVIDER PROGRESS NOTE ---
Assessment/Plan - Problem List (1) Atrial fibrillation with RVR Assessment/Plan: The patient required iv Esmolol drip, higher doses of Cardizem sukhwinder Metoprolol and even Dig, to obtaine Rate control. Today the HRis 70-990, but BP is low (90 systolic). Esmolol iv was stopped and Dig also (due to nausea), but Dig effect still in her toxicology blood test results Will continue with a higher Cardizem CD dose of 240 daily and her old Metoprolol dose of Toprol XL 100 mg bid. Monitor HR with more activity OOB today. Will order PT to eval, for poss DCh tomorrow. The pt had a limited Echo done today, to check for tachycardia induced cardiomyopathy, and LVEF was preserved. (2) Acute on chronic diastolic congestive heart failure, NYHA class 2 Assessment/Plan: Pt is not volume overloaded by clinical exam today. Also BP was low this am. Will stop iv Lasix. Resume the po Lasix dose as at home (it was prn). Will assess for need for home O2 with exercise, tomorrow. Probable DCh tomorrow. (3) Nausea Assessment/Plan: Resolved. (4) Hypotension Assessment/Plan: Meds were held this am due to systolic BP of 90. This afternoon BP colleen to 129. Will stop iv Lasix and adjust oral B-tyrel and Diltiazem. (5) History of CVA (cerebrovascular accident) Assessment/Plan: The patient had a limited Echo done today, to check for tachycardia induced cardiomyopathy, and LVEF was preserved. The Echo did however confirm moderate pulmonary HTN, which was seen 1 mo ago, and found a large PFO with L to R shunt by color Doppler, which was not read at last Echo 1 month ago. This was discussed with patient, and son. She will need Cardiology F/U for consideration for possible PFO closure with clamshell device, after DCh. Continue Xarrelto, dose checked and is correct for her creat clearance (GFR, on labs). The patient has known moderate carotid on one side. Continue ASA daily and statin. (6) Anxiety and depression Assessment/Plan: Continue meds. (7) Hyperlipidemia Qualifiers: Hyperlipidemia type: unspecified Qualified Code(s): E78.5 - Hyperlipidemia , unspecified Assessment/Plan: Continue home meds. (8) Hypothyroidism Qualifiers: Hypothyroidism type: unspecified Qualified Code(s): E03.9 - Hypothyroidism , unspecified Assessment/Plan: Her free T4 was checked today, to R/O any other cause for RVR. It was at a good level. Continue current Synthroid replacement dose. - Current Meds Current Meds: Current Medications Generic Name Dose Route Start Last Admin Trade Name Freq PRN Reason Stop Dose Admin Acetaminophen 650 mg 06/28/18 16:50 06/30/18 04:48 Tylenol PO 650 mg Q4HR PRN Administration Pain 1 to 4 Al Hydroxide/Mg Hydroxide 30 ml 06/29/18 19:21 06/30/18 08:37 Mylanta Plus PO 30 ml Q4HR PRN Administration INDIGESTION Aspirin 81 mg 06/29/18 09:00 07/01/18 09:20 Ecotrin PO 81 mg DAILY CHARLES Administration Atorvastatin Calcium 10 mg 06/28/18 21:00 06/30/18 21:25 Lipitor PO 10 mg QPM CHARLES Administration Calcium Carbonate/Glycine 1,000 mg 06/28/18 21:00 06/30/18 21:25 Tums PO 1,000 mg QPM CHARLES Administration Cholecalciferol 4,000 unit 06/29/18 09:00 07/01/18 09:19 Vitamin D3 PO 4,000 unit DAILY CHARLES Administration Diltiazem HCl 240 mg 07/01/18 13:00 07/01/18 12:32 Cardizem Cd PO 240 mg DAILY CHARLES Administration Famotidine 20 mg 06/29/18 09:00 07/01/18 09:21 Pepcid PO 20 mg DAILY CHARLES Administration Levothyroxine Sodium 75 mcg 06/29/18 07:00 07/01/18 07:04 Synthroid PO 75 mcg QDAC CHARLES Administration Metoprolol Succinate 100 mg 07/01/18 13:00 07/01/18 12:32 Toprol Xl PO 100 mg BID CHARLES Administration Ondansetron HCl 4 mg 06/28/18 16:50 06/30/18 08:40 Zofran Inj IVP 4 mg Q6HR PRN Administration Nausea / Vomiting Oxycodone HCl 5 mg 06/28/18 16:50 07/01/18 13:26 Roxicodone PO 5 mg Q4HR PRN Administration Pain 5 to 7 Sertraline HCl 200 mg 06/29/18 09:00 07/01/18 09:20 Zoloft PO 200 mg DAILY CHARLES Administration Sodium Chloride 10 ml 06/28/18 17:00 07/01/18 09:23 Normal Saline Flush 0.9% IVP 10 ml 0100,0900,1700 CHARLES Administration Sodium Chloride 10 ml 06/28/18 16:50 06/30/18 08:40 Normal Saline Flush 0.9% IVP 10 ml PRN PRN Administration NEEDED PER PROVIDER ORDERS - Lab Result Fish Bone Diagrams: 07/01/18 04:55 07/01/18 04:55 - Additional Planning My Orders: My Active Orders 07/01/18 Evaluate and Treat PT [PT] Routine 07/01/18 09:25 Echo Limited [ECHO] Routine 07/01/18 13:00 Metoprolol Succinate [Toprol Xl] 100 mg PO BID diltiaZEM CD [Cardizem Cd] 240 mg PO DAILY 07/02/18 09:00 Oxygen Desat. Study w/Exercise [RC] .ONCE 07/02/18 13:00 Rivaroxaban [Xarelto] 15 mg PO 1700 Subjective - Subjective Patient Reports: Feeling Better, Resting Comfortably, Other (Frustrated over all the new diagnoses in past 2 mos.) Objective Vital Signs: Vital Signs - 24 hr 06/30/18 06/30/18 06/30/18 17:00 21:00 21:27 Temperature 36.7 C 36.8 C Heart Rate [ 78 59 L Monitoring electrodes] Respiratory 17 15 Rate Blood Pressure 83/58 L Blood Pressure 113/97 H 83/58 L [Left] O2 Saturation 94 97 07/01/18 07/01/18 07/01/18 01:00 04:47 08:26 Temperature 36.8 C 36.8 C 36.2 C L Heart Rate [ 72 69 81 Monitoring electrodes] Respiratory 20 14 13 Rate Blood Pressure Blood Pressure 101/68 118/71 152/99 H [Left] O2 Saturation 96 96 100 07/01/18 07/01/18 07/01/18 09:20 12:16 16:19 Temperature 36.4 C L 36.6 C Heart Rate [ 100 73 Monitoring electrodes] Respiratory 18 20 Rate Blood Pressure 91/74 Blood Pressure 125/94 H 129/80 [Left] O2 Saturation 97 95 Oxygen O2 Source Room air I&O (Last 24 Hrs): Intake and Output Totals x24h 06/29/18 06/30/18 07/01/18 23:59 23:59 23:59 Intake Total 4646.16 2110.16 960 Output Total 775 2250 Balance 3871.16 -139.84 960 General: Alert, Oriented x3 HEENT: Mucous membr. moist/pink Neck: Supple, Other ((+) JVD) Neuro: Other ([place] slow speech) Cardiovascular: No murmurs Respiratory: No respiratory distress, Breath sounds nml Abdomen: Normal bowel sounds, Soft Extremities: No cyanosis, No edema - Results Results: Laboratory Results WBC 6.9 x10^3/uL (4.8-10.8) 07/01/18 04:55 RBC 3.32 10^6/uL (4.20-5.40) L 07/01/18 04:55 Hgb 11.6 g/dL (12.0-16.0) L 07/01/18 04:55 Hct 33.9 % (37.0-47.0) L 07/01/18 04:55 MCV 102.2 fL (81.0-99.0) H 07/01/18 04:55 MCH 34.9 pg (27.0-31.0) H 07/01/18 04:55 MCHC 34.1 g/dL (32.0-36.0) 07/01/18 04:55 RDW 14.1 % (12.0-15.0) 07/01/18 04:55 Plt Count 257 10^3/uL (130-450) 07/01/18 04:55 MPV 7.3 fL (7.9-10.8) L 07/01/18 04:55 Neut # (Auto) 4.6 10^3/uL (1.5-6.6) 07/01/18 04:55 Lymph # (Auto) 1.3 10^3/uL (1.5-3.5) L 07/01/18 04:55 [place] # (Auto) 0.6 10^3/uL (0.0-1.0) 07/01/18 04:55 Eos # (Auto) 0.3 10^3/uL (0.0-0.7) 07/01/18 04:55 Baso # (Auto) 0.0 10^3/uL (0.0-0.1) 07/01/18 04:55 Absolute Nucleated RBC 0.00 x10^3/uL 07/01/18 04:55 Nucleated RBC % 0.0 /100WBC 07/01/18 04:55 PT 19.6 secs (9.9-12.6) H 07/01/18 04:55 INR 1.8 (0.8-1.2) H 07/01/18 04:55 Sodium 136 mmol/L (135-145) 07/01/18 04:55 Potassium 3.5 mmol/L (3.5-5.0) 07/01/18 04:55 Chloride 103 mmol/L (101-111) 07/01/18 04:55 Carbon Dioxide 25 mmol/L (21-32) 07/01/18 04:55 Anion Gap 8.0 (6-13) 07/01/18 04:55 BUN 14 mg/dL (6-20) 07/01/18 04:55 Creatinine 1.0 mg/dL (0.4-1.0) 07/01/18 04:55 Estimated GFR (MDRD) 53 (>89) L 07/01/18 04:55 Glucose 90 mg/dL (70-100) 07/01/18 04:55 Calcium 8.7 mg/dL (8.5-10.3) 07/01/18 04:55 Phosphorus 3.8 mg/dL (2.5-4.6) 07/01/18 04:55 Magnesium 1.9 mg/dL (1.7-2.8) 07/01/18 04:55 Total Bilirubin 0.7 mg/dL (0.2-1.0) 07/01/18 04:55 AST 35 IU/L (10-42) 07/01/18 04:55 ALT 44 IU/L (10-60) 07/01/18 04:55 Alkaline Phosphatase 62 IU/L (42-121) 07/01/18 04:55 Troponin I < 0.04 ng/mL (<0.49) 06/29/18 04:30 B-Natriuretic Peptide 900 pg/mL (5-100) H 07/01/18 04:55 Total Protein 5.8 g/dL (6.7-8.2) L 07/01/18 04:55 Albumin 3.3 g/dL (3.2-5.5) 07/01/18 04:55 Globulin 2.5 g/dL (2.1-4.2) 07/01/18 04:55 Albumin/Globulin Ratio 1.3 (1.0-2.2) 07/01/18 04:55 Lipase 28 U/L (22-51) 06/28/18 15:40 Free T4 0.89 ng/dL (0.58-1.64) 07/01/18 04:45 Urine Color YELLOW 06/28/18 17:30 Urine Clarity CLEAR (CLEAR) 06/28/18 17:30 Urine pH 6.0 PH (5.0-7.5) 06/28/18 17:30 Ur Specific [place] <=1.005 (1.002-1.030) 06/28/18 17:30 Urine Protein NEGATIVE mg/dL (NEGATIVE) 06/28/18 17:30 Urine Glucose (UA) NEGATIVE mg/dL (NEGATIVE) 06/28/18 17:30 Urine Ketones NEGATIVE mg/dL (NEGATIVE) 06/28/18 17:30 Urine Occult Blood NEGATIVE (NEGATIVE) 06/28/18 17:30 Urine Nitrite NEGATIVE (NEGATIVE) 06/28/18 17:30 Urine Bilirubin NEGATIVE (NEGATIVE) 06/28/18 17:30 Urine Urobilinogen 0.2 (NORMAL) E.U./dL (NORMAL) 06/28/18 17:30 Ur Leukocyte Esterase NEGATIVE (NEGATIVE) 06/28/18 17:30 Ur Microscopic Review NOT INDICATED 06/28/18 17:30 Urine Culture Comments NOT INDICATED 06/28/18 17:30 Last Dose Date 06/30/18 07/01/18 04:45 Last Dose Time 0926 07/01/18 04:45 Digoxin 1.0 ng/mL 07/01/18 04:45 - Procedures Procedures: Procedures CATARAC PHACOEMULS/ASPIR (09/08/14) EXCISION OF RIGHT BREAST, OPEN APPROACH (02/04/18) INSERT CATHETER SPINAL CANAL, INFUSION THER. SUB. (05/20/15) INSERT LENS AT CATAR EXT (09/08/14) LIMB SKIN TRACTION NEC (05/20/15) OPEN REDUC-INT FIX FEMUR (05/20/15) PACKED CELL TRANSFUSION (05/20/15) REMOVAL OF INT FIX FROM L UP FEMUR, OPEN APPROACH (11/22/15) REPLACEMENT OF L UP FEMUR WITH NONAUT SUB, OPEN APPROACH (11/22/15) ABX Reporting Has patient been on IV antibiotics over the past 48 hours?: No
[2018-07-01] MEDS: CALCIUM CARBONATE CHEW 500 MG TABLET PO SCH (21:09)
[2018-07-01] MEDS: ATORVASTATIN 10 MG TABLET PO SCH (21:09)
[2018-07-02] MEDS: SODIUM CHLORIDE FLUSH 0.9% 10 ML SYRINGE IVP SCH ×2 (01:23→08:32)
[2018-07-02 04:45] LABS: BASOPHILS % (AUTO) 0.8 %; EOSINOPHILS # (AUTO) 0.3 10^3/uL (0.0-0.7); EOSINOPHILS % (AUTO) 5.8 %; HGB - HEMOGLOBIN 11.8 g/dL (12.0-16.0); LYMPHOCYTES # (AUTO) 1.3 10^3/uL (1.5-3.5); LYMPHOCYTES % (AUTO) 21.2 %; MEAN CORPUSCULAR HEMOGLOBIN 34.9 pg (27.0-31.0); MEAN CORPUSCULAR HGB CONC 33.9 g/dL (32.0-36.0); MONOCYTES # (AUTO) 0.7 10^3/uL (0.0-1.0); MONOCYTES % (AUTO) 11.1 %; NEUTROPHILS # (AUTO) 3.7 10^3/uL (1.5-6.6); NEUTROPHILS % (AUTO) 61.1 %; PLT - PLATELET COUNT 261 10^3/uL (130-450); RED BLOOD COUNT 3.39 10^6/uL (4.20-5.40); RED CELL DISTRIBUTION WIDTH 13.9 % (12.0-15.0)
[2018-07-02 04:54] LABS: ALBUMIN 3.4 g/dL (3.2-5.5); ALBUMIN/GLOBULIN RATIO 1.4 (1.0-2.2); BILIRUBIN,TOTAL 0.6 mg/dL (0.2-1.0); CALCIUM 8.8 mg/dL (8.5-10.3); CREATININE 0.7 mg/dL (0.4-1.0); MAGNESIUM 1.8 mg/dL (1.7-2.8); PHOSPHORUS 3.5 mg/dL (2.5-4.6); TOTAL PROTEIN 5.9 g/dL (6.7-8.2)
[2018-07-02] MEDS: LEVOTHYROXINE 75 MCG TABLET PO SCH (07:06)
[2018-07-02 07:45] VITALS: BP 171/84
[2018-07-02] MEDS: SERTRALINE 50 MG TABLET PO SCH (08:30)
[2018-07-02] MEDS: ASPIRIN EC 81 MG TABLET PO SCH (08:31)
[2018-07-02] MEDS: diltiaZEM CD 240 MG CAPSULE PO SCH (08:31)
[2018-07-02] MEDS: FAMOTIDINE 20 MG TABLET PO SCH (08:31)
[2018-07-02] MEDS: CHOLECALCIFEROL 1,000 UNIT TABLET PO SCH (08:31)
[2018-07-02] MEDS: METOPROLOL SUCCINATE 50 MG TABLET PO SCH (08:32)
[2018-07-02] MEDS ORDERED: POLYETHYLENE GLYCOL 3350 17 GM PACKET PO SCH (09:00)
--- NOTE | 2018-07-02 11:18 | Discharge Plan ---
Discharge Plan Disposition: 01 Home, Self Care Condition: Stable Diet: Low Sodium Activity Restrictions: Activity as Tolerated Shower Restrictions: No Assistance Devices: Cane Weight Bearing: Full Weight Instruction Topics: Metoprolol extended-release tablets, Diltiazem extended- release capsules or tablets Additional Instructions or Follow Up instructions: Resume all your pre-hospital medications EXCEPT STOP THE CARDIZEM CD 180 mg daily dose and start the new 240 mg daily dose. A new prescription has been provided for you. The Xarelto, blood thinner medication, should be taken with your dinner meal. See your Clothes Model (or get a referral to a new Clothes Model from your PCP), to have follow-up for: -decision regarding a stress test or an angiogram -decision about management of the PFO (which is the shunt in the upper chambers of your heart) found by Echo. -decision about possible cardioversion out of Afib. You should weigh yourself daily and if you have gained > 5 lbs in 1 day, it is likely water weight, and you should take the water pill (Lasix) on that day. If you feel short of breath, dizzy/lightheaded or have palpitations, and cannot reach your doctor, return to the ER. No Smoking: If you smoke, Please STOP! Call for help. Follow-up with: Nazanin Bentley MD [Primary Care Provider] -
[2018-07-02] MEDS ORDERED: RIVAROXABAN 15 MG TABLET PO SCH (13:00)
--- NOTE | 2018-07-07 03:32 | DISCHARGE SUMMARY ---
Physician: Joi Joseph MD DATE OF ADMISSION: 06/28/2018 DATE OF DISCHARGE: 07/02/2018 HISTORY OF PRESENT ILLNESS: This is an 83-year-old white female with a history of remote breast cancer and recurrent breast cancer, GERD, hypertension, hyperlipidemia, anxiety and depression, and hypothyroidism. The patient had just been discharged from this hospital one month previously when she was an inpatient with a stroke. Prior to that, she had been diagnosed with new atrial fibrillation, and her anticoagulant had been discontinued. During that hospitalization with stroke, she had an Echo showing normal LV function, Carotid Doppler showing right carotid atherosclerosis that was moderate, and she was started on metoprolol for rate control and discharged on anticoagulants. Subsequently, she was seen by her doctor, who adjusted her anticoagulant, possibly due to cost. She was compliant with her medications but had continued feelings of weakness and shortness of breath. She presented with these complaints now, and was found to be in a rapid rate of 160s to 180s in her atrial fib. She reported not yet having a stress test or outpatient workup looking for CAD or etiologies of the new onset of atrial fib. The patient was admitted for management of shortness of breath and rate control. HOSPITAL COURSE AND DISCHARGE DIAGNOSES 1. Atrial fibrillation with rapid ventricular response. The patient required an esmolol drip and was in the ICU during her course. Despite that, she required digitalization and Cardizem doses. This combination caused her to have nausea and vomiting and low blood pressure. She was eventually controlled with various medication adjustments and discharged on the same dose of Toprol- XL 100 mg b.i.d. but a higher dose of Cardizem CD. She was also continued on her Xarelto 15 mg daily at the time of discharge. 2. [id number] diastolic heart failure, [place] Heart Association class II. The patient needed IV Lasix, then eventual transitioned to her p.o. diuretic. A repeat limited Echocardiogram with color Doppler was performed to confirm that she had not developed a tachycardia-induced cardiomyopathy. The LVEF remained normal at 55% to 60%. Of note was that PA pressure was elevated at 54 mmHg, similar to one month previously, but also color Doppler revealed a large patent foramen ovale with [id number] shunt, which had not been reported on the Echocardiogram from 05/30/2018, on the stroke admission. This result was reviewed with the patient and family and the PFO needs followup and management decisions by her Store Host. 3. History of stroke. The patient had the recent hospitalization and discharge one month previously. She was continued on her cholesterol medication , baby aspirin daily, Xarelto, and blood pressure medications. The patient's residual deficit was slower speech and occasional difficulty finding words. 4. Patent foramen ovale. This is a new diagnosis for this patient, based on the Echocardiogram report, as described above. Continued anticoagulation is advised and consultation with Cardiology as to whether she needs a closure device placed. 5. Anxiety and depression. The patient was continued on her medications during the hospital course. 6. Elevated cholesterol. The patient's atorvastatin was continued throughout this course. The patient has not yet had a stress test since the diagnosis of new-onset atrial fib, which was approximately 6 weeks previously. 3. Hypothyroidism. The patient was on her Synthroid dose while here. Her free T4 was checked and in a normal range, ruling out thyroid excess as the cause of the atrial fibrillation. ALLERGIES 1. AMOXICILLIN. 2. INDOCIN 3. ATIVAN. 4. REGLAN. 5. PENICILLIN. 6. AUGMENTIN 7. PROCHLORPERAZINE. 8. SULFA ANTIBIOTICS. 9. SULFAMETHOXAZOLE. 10. ADHESIVE TAPE, 11. THIOPENTAL. MEDICATIONS AT DISCHARGE 1. Toprol-XL 100 mg b.i.d. 2. Zoloft 200 mg daily. 3. Xarelto 15 mg daily with dinner. 4. Fiber Therapy powder 1 packet daily. 2. Potassium 10 mEq daily. 3. Prilosec 20 mg b.i.d. 4. Levothyroxine 75 mcg daily. 5. Glucosamine daily. 6. Lasix 20 mg daily p.r.n. edema or orthopnea. 7. Vitamin D3 4000 units daily. 8. Tums daily. 9. Lipitor 10 mg every evening. 10. Baby aspirin daily. 11. Diltiazem CD 240 mg daily. LABORATORY AND IMAGING: Reviewed and summarized above. CONDITION AT DISCHARGE: Stable. PHYSICAL EXAMINATION VITAL SIGNS: Blood pressure 171/84, pulse of 78, in atrial fibrillation, afebrile, room air saturation 95%. HEENT: Unremarkable. NECK: Without JVD and no carotid bruits heard. CHEST: Clear. HEART: Sounds are irregular, with a 1-2/6 murmur heard at the lower left sternal border. ABDOMEN: Soft and benign. EXTREMITIES: No edema. NEUROLOGIC: Slow speech and word finding difficulty, otherwise nonfocal. FOLLOWUP: The patient was given instructions to see her Store Host, to have followup for decision regarding a stress test or an angiogram, decision about management of the PFO, and decision about possible cardioversion out of atrial fibrillation. She should see her PCP within a week for lab tests such as electrolytes, creatinine, and arrange the above Cardiology appointment. CODE STATUS: DNR. Time required to complete this entire discharge, chart review, medication orders , patient education, and dictation: 60 minutes. cc: Nazanin Bentley MD TD: 07/06/2018 20:45 [email or web address]
== END 2018-07-02 12:10 | disposition home or self-care (01) | DRG 308 ==
LOC: ED 15:11 → ICU 16:51
PROVIDERS: ADMIT Internal Medicine; ATTEND Internal Medicine
DX: I48.91 Unspecified atrial fibrillation (principal); R10.9 Unspecified abdominal pain; J81.0 Acute pulmonary edema; I50.43 Acute on chronic combined systolic (congestive) and diastolic (congestive) heart failure; Q21.1 Atrial septal defect; I25.10 Atherosclerotic heart disease of native coronary artery without angina pectoris; K52.9 Noninfective gastroenteritis and colitis, unspecified; K51.90 Ulcerative colitis, unspecified, without complications; I11.0 Hypertensive heart disease with heart failure; I69.021 Dysphasia following nontraumatic subarachnoid hemorrhage; F41.8 Other specified anxiety disorders; E78.00 Pure hypercholesterolemia, unspecified; E03.9 Hypothyroidism, unspecified; E78.5 Hyperlipidemia, unspecified; K21.9 Gastro-esophageal reflux disease without esophagitis; H91.90 Unspecified hearing loss, unspecified ear; I69.821 Dysphasia following other cerebrovascular disease; R11.0 Nausea; T46.0X5A Adverse effect of cardiac-stimulant glycosides and drugs of similar action, initial encounter; Y92.230 Patient room in hospital as the place of occurrence of the external cause; Z79.82 Long term (current) use of aspirin; Z87.891 Personal history of nicotine dependence; Z85.3 Personal history of malignant neoplasm of breast; Z90.11 Acquired absence of right breast and nipple; Z72.89 Other problems related to lifestyle
CPT/HCPCS: 36415; 71045; 71260; 74177; 80053; 80162; 81001; 81003; 83690; 83735; 83880; 84100; 84439; 84484; 85025; 85610; 87086; 87150; 93005; 93308; 94761; 96374; 96375; 99284

== ENCOUNTER 2018-07-07 01:32 | Outpatient (CLI) | payer MEDICARE, OTHER | END 2018-07-07 01:33 | disposition critical access hospital (66) | LOC: EMS 01:32 | PROVIDERS: ATTEND Surgery | DX: R00.0 Tachycardia, unspecified (principal); R07.0 Pain in throat; H92.03 Otalgia, bilateral; R00.2 Palpitations ==

== ENCOUNTER 2018-07-07 01:44 | Emergency (ER) | payer MEDICARE, OTHER ==
--- NOTE | 2018-07-07 02:48 | ED Physician Documentation ---
History of Present Illness - Stated complaint Stated Complaint: SOA - Chief complaint Chief Complaint: Cardiac - History obtained from History obtained from: Patient, Family (spouse) - History of Present Illness Timing: Today (tonight) Pain level now: 0 Improved by: rest Worsened by: exertion - Additonal information Additional information: discharged from [facility] 07/02 (4 days ago) after inpatient stay for FLO. presents due to recurrence of rapid and irregular palpitations associated with dyspnea. This episode occurred few hours ago while in bed, woke her from sleep. Review of Systems Constitutional: denies: Fever Cardiac: reports: Palpitations. denies: Chest pain / pressure Respiratory: reports: Dyspnea. denies: Cough GI: reports: Reviewed and negative PD PAST MEDICAL HISTORY - Past Medical History Past Medical History: Yes Cardiovascular: Hypertension, High cholesterol, Coronary artery disease, Other Respiratory: None Neuro: CVA, TIA, Other Endocrine/Autoimmune: HyPOthyroidism GI: Chronic diarrhea, Ulcerative colitis [employer]: Breast cancer : None HEENT: Chronic hearing loss Psych: Depression Musculoskeletal: Osteoarthritis, Osteoporosis, Other Derm: Eczema - Past Surgical History Past Surgical History: Yes General: Colonoscopy Ortho: Hip replacement /[employer]: Mastectomy, Other HEENT: Cataracts - Present Medications Home Medications: Ambulatory Orders Medication Instructions Recorded Confirmed Glucosamine Sulfate [place] Chlr 1,500 mg PO DAILY 03/09/13 06/28/18 [Glucosamine] Levothyroxine [Synthroid] 75 mcg PO QDAC 03/09/13 06/28/18 Cholecalciferol (Vitamin D3) 4,000 unit PO DAILY 10/04/15 06/28/18 [Vitamin D3] Atorvastatin [Lipitor] 10 mg PO QPM 08/02/17 06/28/18 Sertraline HCl [Zoloft] 200 mg PO DAILY 08/02/17 06/28/18 Psyllium Husk/Aspartame [Fiber 1 packet PO DAILY 01/29/18 06/28/18 Therapy Powder] Aspirin [Aspirin EC] 81 mg PO DAILY 05/29/18 06/28/18 Calcium Carbonate [Tums (Calcium 1,000 mg PO QPM 05/29/18 06/28/18 Carbonate 500mg)] Omeprazole [PriLOSEC] 20 mg PO BIDAC 05/29/18 06/28/18 Furosemide [Lasix] 20 mg PO DAILY PRN #30 tablet 06/01/18 06/28/18 Potassium Chloride [Klor-Con 10] 10 meq PO DAILY #30 tablet.er 06/01/18 06/28/18 Rivaroxaban [Xarelto] 15 mg PO DAILY 06/24/18 06/28/18 Metoprolol Succinate [Toprol Xl] 100 mg PO BID 06/28/18 06/28/18 Omeprazole [PriLOSEC] 20 mg PO BID #60 capsule 07/02/18 diltiaZEM CD [Cardizem Cd] 240 mg PO DAILY capsule 07/02/18 diltiaZEM CD [Cardizem Cd] 240 mg PO DAILY #30 capsule 07/02/18 diltiaZEM CD [Cardizem Cd] 120 mg PO DAILY #14 capsule 07/07/18 - Allergies Allergies/Adverse Reactions: Allergies Allergy/AdvReac Type Severity Reaction Status Date / Time amoxicillin trihydrate * Allergy Mild Rash Verified 07/07/18 01:53 [From Augmentin] indomethacin [From Indocin] Allergy Mild Rash Verified 07/07/18 01:53 indomethacin sodium * Allergy Mild Rash Verified 07/07/18 01:53 [From Indocin] lorazepam [From Ativan] Allergy Mild Rash Verified 07/07/18 01:53 metoclopramide HCl * Allergy Mild Rash Verified 07/07/18 01:53 [From Reglan] Penicillins Allergy Mild Rash Verified 07/07/18 01:53 potassium clavulanate * Allergy Mild Rash Verified 07/07/18 01:53 [From Augmentin] prochlorperazine Allergy Mild Rash Verified 07/07/18 01:53 [Prochlorperazine] Sulfa (Sulfonamide Allergy Mild Rash Verified 07/07/18 01:53 Antibiotics) sulfamethoxazole Allergy Mild Rash Verified 07/07/18 01:53 [From Gantanol] adhesive Allergy Rash Verified 07/07/18 01:53 thiopental [From Pentothal] Allergy seizures Verified 07/07/18 01:53 - Social History Does the pt smoke?: No Smoking Status: Former smoker Does the pt drink ETOH?: Yes Does the pt have substance abuse?: No - Immunizations Immunizations are current?: Yes - POLST Patient has POLST: No POLST Status: DNR PD ED PE NORMAL - Vitals Vital signs reviewed: Yes - General General: Alert and oriented X 3, No acute distress, Well developed/nourished - Cardiac Cardiac: No murmur - Respiratory Respiratory: No respiratory distress, Clear bilaterally - Abdomen Abdomen: Soft, Non tender - Derm Derm: Normal color, Warm and dry - Extremities Extremities: No edema PD ED PE EXPANDED - Cardiac Cardiac: Tachy, Irregularly irregular Results - Vitals Vitals: Vital Signs - 24 hr 07/07/18 07/07/18 07/07/18 01:47 02:14 03:42 Temperature 36.4 C L 36.6 C Heart Rate 123 H 128 H Respiratory 18 14 Rate Blood Pressure 155/120 H 152/117 H Blood Pressure 152/114 H [Left] O2 Saturation 96 93 07/07/18 07/07/18 07/07/18 03:50 03:56 04:01 Temperature Heart Rate 93 71 76 Respiratory 21 16 18 Rate Blood Pressure 114/75 117/81 H 130/76 Blood Pressure [Left] O2 Saturation 91 L 92 93 07/07/18 07/07/18 07/07/18 04:16 04:30 04:47 Temperature Heart Rate 76 78 76 Respiratory 20 24 15 Rate Blood Pressure 121/82 H 151/91 H 130/91 H Blood Pressure [Left] O2 Saturation 93 88 L 92 07/07/18 05:35 Temperature Heart Rate 92 Respiratory 20 Rate Blood Pressure 142/107 H Blood Pressure [Left] O2 Saturation 96 Oxygen O2 Source [With Activity] Room air O2 Source Room air - EKG (time done) No standard instances Rate: Rate (enter#) (128), Tachy Rhythm: Atrial fibrillation Sells: LAD QRS: Normal Ischemia: Normal ST segments - Labs Labs: Laboratory Tests 07/07/18 07/07/18 07/07/18 03:46 03:46 03:46 WBC 9.6 RBC 3.50 L Hgb 12.1 Hct 35.2 L MCV 100.6 H MCH 34.5 H MCHC 34.3 RDW 13.6 Plt Count 315 MPV 7.3 L Neut # (Auto) 7.6 H Lymph # (Auto) 0.7 L [place] # (Auto) 0.7 Eos # (Auto) 0.4 Baso # (Auto) 0.1 Absolute Nucleated RBC 0.00 Nucleated RBC % 0.0 Sodium 138 Potassium 3.6 Chloride 103 Carbon Dioxide 22 Anion Gap 13.0 BUN 19 Creatinine 0.8 Estimated GFR (MDRD) 69 L Glucose 114 H Calcium 9.3 Troponin I 0.06 B-Natriuretic Peptide TSH 07/07/18 07/07/18 03:46 03:46 WBC RBC Hgb Hct MCV MCH MCHC RDW Plt Count MPV Neut # (Auto) Lymph # (Auto) [place] # (Auto) Eos # (Auto) Baso # (Auto) Absolute Nucleated RBC Nucleated RBC % Sodium Potassium Chloride Carbon Dioxide Anion Gap BUN Creatinine Estimated GFR (MDRD) Glucose Calcium Troponin I B-Natriuretic Peptide 976 H TSH 3.85 - Rads (name of study) chest xray Radiology: Prelim report reviewed, See rad report PD MEDICAL DECISION MAKING - ED course Complexity details: reviewed old records, reviewed results, re-evaluated patient , considered differential, d/w patient, d/w family ED course: patient had excellent response to single dose of IV diltiazem 15mg: given early in ED stay and subsequently she remained in atrial fibrillation with ventricular rate 80s-90s and mildly elevated blood pressure readings. She reported significant improvement in symptoms. - Sepsis Event Vital Signs: Vital Signs - 24 hr 07/07/18 07/07/18 07/07/18 01:47 02:14 03:42 Temperature 36.4 C L 36.6 C Heart Rate 123 H 128 H Respiratory 18 14 Rate Blood Pressure 155/120 H 152/117 H Blood Pressure 152/114 H [Left] O2 Saturation 96 93 07/07/18 07/07/18 07/07/18 03:50 03:56 04:01 Temperature Heart Rate 93 71 76 Respiratory 21 16 18 Rate Blood Pressure 114/75 117/81 H 130/76 Blood Pressure [Left] O2 Saturation 91 L 92 93 07/07/18 07/07/18 07/07/18 04:16 04:30 04:47 Temperature Heart Rate 76 78 76 Respiratory 20 24 15 Rate Blood Pressure 121/82 H 151/91 H 130/91 H Blood Pressure [Left] O2 Saturation 93 88 L 92 07/07/18 05:35 Temperature Heart Rate 92 Respiratory 20 Rate Blood Pressure 142/107 H Blood Pressure [Left] O2 Saturation 96 Oxygen O2 Source [With Activity] Room air O2 Source Room air Departure - Departure Disposition: 01 Home, Self Care Clinical Impression: Atrial fibrillation with RVR Condition: Good Instructions: ED Afib Prescriptions: diltiaZEM CD [Cardizem Cd] 120 mg PO DAILY #14 capsule Comments: Continue your current medications. In addition to the Cardizem CD 240mg that you are currently taking, you should also take Cardizem CD 120mg. You are being provided with a prescription for the Cardizem CD 120mg at this time. If you are taking your Cardizem CD 240mg in the morning, I recommend you take the Cardizem CD 120mg at night. Follow up with your manufacturing technologist Saturday as scheduled. Discharge Date/Time: 07/07/18 05:54
[2018-07-07] MEDS ORDERED: diltiaZEM INJ 5 MG/ML VIAL IVP STA (03:13)
[2018-07-07 03:50] LABS: BASOPHILS # (AUTO) 0.1 10^3/uL (0.0-0.1); BASOPHILS % (AUTO) 1.1 %; EOSINOPHILS # (AUTO) 0.4 10^3/uL (0.0-0.7); EOSINOPHILS % (AUTO) 4.2 %; HGB - HEMOGLOBIN 12.1 g/dL (12.0-16.0); LYMPHOCYTES # (AUTO) 0.7 10^3/uL (1.5-3.5); LYMPHOCYTES % (AUTO) 7.5 %; MEAN CORPUSCULAR HEMOGLOBIN 34.5 pg (27.0-31.0); MEAN CORPUSCULAR HGB CONC 34.3 g/dL (32.0-36.0); MEAN CORPUSCULAR VOLUME 100.6 fL (81.0-99.0); MEAN PLATELET VOLUME 7.3 fL (7.9-10.8); MONOCYTES # (AUTO) 0.7 10^3/uL (0.0-1.0); MONOCYTES % (AUTO) 7.4 %; NEUTROPHILS # (AUTO) 7.6 10^3/uL (1.5-6.6); NEUTROPHILS % (AUTO) 79.8 %; PLT - PLATELET COUNT 315 10^3/uL (130-450); RED CELL DISTRIBUTION WIDTH 13.6 % (12.0-15.0); WHITE BLOOD COUNT 9.6 x10^3/uL (4.8-10.8)
[2018-07-07 03:59] LABS: CALCIUM 9.3 mg/dL (8.5-10.3); CREATININE 0.8 mg/dL (0.4-1.0)
--- NOTE | 2018-07-07 04:00 | XRAY Report ---
Reason: dyspnea Procedure Date: 07/07/2018 Accession Number: [id number] / [id number] Procedure: XR - Chest 2 View X-Ray CPT Code: 64513 FULL RESULT: EXAM: CHEST RADIOGRAPHY EXAM DATE: 07/07/2018 03:17 AM. CLINICAL HISTORY: Dyspnea. COMPARISON: 06/28/2018. TECHNIQUE: 2 views. FINDINGS: Lungs/Pleura: Large lung volumes consistent with emphysema. Pulmonary vascular congestion. Small right pleural effusion with associated atelectasis or infiltrate. No pneumothorax. Mediastinum: Mild cardiomegaly. Aortic atherosclerosis. Other: Osteopenia. Status post right mastectomy. IMPRESSION: 1. Emphysema with cardiomegaly and pulmonary vascular congestion. 2. Small right pleural effusion with right basilar atelectasis or infiltrate. RADIA
[2018-07-07 05:36] VITALS: BP 142/107
== END 2018-07-07 05:54 | disposition home or self-care (01) ==
LOC: EDUNIT# → SUPCPDRO 01:44 → ED 01:44
DX: I48.91 Unspecified atrial fibrillation (principal); I45.81 Long QT syndrome; I10 Essential (primary) hypertension; I25.10 Atherosclerotic heart disease of native coronary artery without angina pectoris; E78.00 Pure hypercholesterolemia, unspecified; E03.9 Hypothyroidism, unspecified; Z86.73 Personal history of transient ischemic attack (TIA), and cerebral infarction without residual deficits; Z85.3 Personal history of malignant neoplasm of breast; Z90.10 Acquired absence of unspecified breast and nipple; Z96.649 Presence of unspecified artificial hip joint; Z87.891 Personal history of nicotine dependence
CPT/HCPCS: 36415; 71046; 80048; 83880; 84443; 84484; 85025; 93005; 96374; 99283; 99284

== ENCOUNTER 2018-07-23 00:54 | Outpatient (CLI) | payer MEDICARE, OTHER | END 2018-07-23 00:55 | disposition critical access hospital (66) | LOC: EMS 00:54 | PROVIDERS: ATTEND Surgery | DX: R07.9 Chest pain, unspecified (principal); R06.02 Shortness of breath; R11.0 Nausea; R51 Headache | CPT/HCPCS: A0425; A0427 ==

== ENCOUNTER 2018-07-23 01:08 | Emergency (ER) | payer MEDICARE, OTHER ==
--- NOTE | 2018-07-23 01:10 | ED Physician Documentation ---
PD HPI CHEST PAIN - Stated complaint Stated Complaint: CP/SOA - Chief complaint Chief Complaint: Cardiac - History obtained from History obtained from: Patient, Family (spouse) - History of Present Illness Timing - onset: How many hours ago (2) Timing - onset during: Rest Timing - duration: Hours Timing - details: Gradual onset Quality: Pain Location: Substernal Radiation: Other (back of head, "behind my ears") Improved by: Nothing Worsened by: Other (no exacerbating factors) Associated symptoms: Shortness of air, Nausea. No: Diaphoresis, Vomiting - Additional information Additional information: c/o chest pain, dyspnea, nausea, posterior headache x 2 hours, onset while lying in bed but awake. Patient says she felt fine all day and says she was active during the day Review of Systems Constitutional: denies: Fever, Chills, Sweats Cardiac: reports: Chest pain / pressure. denies: Palpitations, Pedal edema, Calf pain Respiratory: reports: Dyspnea. denies: Cough, Wheezing GI: reports: Nausea. denies: Abdominal Pain, Abdominal Swelling, Vomiting, Constipation, Diarrhea : denies: Dysuria, Frequency Musculoskeletal: reports: Reviewed and negative Neurologic: reports: Headache. 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 : None HEENT: Chronic hearing loss Psych: Depression Musculoskeletal: Osteoarthritis, Osteoporosis, Other Derm: Eczema - Past Surgical History Past Surgical History: Yes General: Colonoscopy Ortho: Hip replacement /CERAMIC TILER: Mastectomy, Other HEENT: Cataracts - Present Medications Home Medications: Ambulatory Orders Medication Instructions Recorded Confirmed Glucosamine Sulfate Dipot Chlr 1,500 mg PO DAILY 03/09/13 07/23/18 [Glucosamine] Levothyroxine [Synthroid] 75 mcg PO QPM 03/09/13 07/23/18 Atorvastatin [Lipitor] 10 mg PO DAILY 08/02/17 07/23/18 Sertraline HCl [Zoloft] 200 mg PO QPM 08/02/17 07/23/18 Psyllium Husk/Aspartame [Fiber 1 packet PO DAILY 01/29/18 06/28/18 Therapy Powder] Aspirin [Aspirin EC] 81 mg PO DAILY 05/29/18 07/23/18 Furosemide [Lasix] 20 mg PO DAILY PRN #30 tablet 06/01/18 07/23/18 Rivaroxaban [Xarelto] 15 mg PO QPM 06/24/18 07/23/18 Metoprolol Succinate [Toprol Xl] 100 mg PO BID 06/28/18 07/23/18 diltiaZEM CD [Cardizem Cd] 240 mg PO DAILY #30 capsule 07/02/18 07/23/18 Calcium Carbonate/Vitamin D3 1 tab PO DAILY 07/23/18 07/23/18 [Calcium 500-Vit D3 600 Caplet] Cholecalciferol (Vitamin D3) 1 tab PO DAILY 07/23/18 07/23/18 [Vitajoy Daily D] Omeprazole [PriLOSEC] 20 mg PO DAILY 07/23/18 07/23/18 diltiaZEM CD [Cardizem Cd] 120 mg PO QPM 07/23/18 07/23/18 - Allergies Allergies/Adverse Reactions: Allergies Allergy/AdvReac Type Severity Reaction Status Date / Time amoxicillin trihydrate * Allergy Mild Rash Verified 07/23/18 01:23 [From Augmentin] indomethacin [From Indocin] Allergy Mild Rash Verified 07/23/18 01:23 indomethacin sodium * Allergy Mild Rash Verified 07/23/18 01:23 [From Indocin] lorazepam [From Ativan] Allergy Mild Rash Verified 07/23/18 01:23 metoclopramide HCl * Allergy Mild Rash Verified 07/23/18 01:23 [From Reglan] Penicillins Allergy Mild Rash Verified 07/23/18 01:23 potassium clavulanate * Allergy Mild Rash Verified 07/23/18 01:23 [From Augmentin] prochlorperazine Allergy Mild Rash Verified 07/23/18 01:23 [Prochlorperazine] Sulfa (Sulfonamide Allergy Mild Rash Verified 07/23/18 01:23 Antibiotics) sulfamethoxazole Allergy Mild Rash Verified 07/23/18 01:23 [From Gantanol] adhesive Allergy Rash Verified 07/23/18 01:23 thiopental [From Pentothal] Allergy seizures Verified 07/23/18 01:23 - Social History Does the pt smoke?: No Smoking Status: Former smoker Does the pt drink ETOH?: Yes Does the pt have substance abuse?: No - Immunizations Immunizations are current?: Yes - POLST Patient has POLST: No POLST Status: DNR PD ED PE NORMAL - Vitals Vital signs reviewed: Yes - General General: Alert and oriented X 3, No acute distress, Well developed/nourished - HEENT HEENT: Atraumatic, PERRL, EOMI, Moist mucous membranes - Neck Neck: Supple, no meningeal sign, No bony TTP - Cardiac Cardiac: No murmur - Respiratory Respiratory: No respiratory distress, Clear bilaterally - Abdomen Abdomen: Soft, Non tender, Non distended - Back Back: No CVA TTP - Derm Derm: Normal color, Warm and dry, No rash - Extremities Extremities: No deformity, No edema - Neuro Neuro: Alert and oriented X 3, plug maker 2-12 intact, No motor deficit, No sensory deficit, Normal speech Eye Opening: Spontaneous Motor: Obeys Commands Verbal: Oriented GCS Score: 15 PD ED PE EXPANDED - Cardiac Cardiac: Regular Rate, Irregularly irregular Results - Vitals Vitals: Oxygen O2 Source [With Activity] Room air O2 Source Room air - EKG (time done) No standard instances Rate: Rate (enter#) (77) Rhythm: Atrial fibrillation [place]: Normal QRS: Normal Ischemia: Normal ST segments - Labs Labs: Laboratory Tests 07/23/18 07/23/18 07/23/18 01:20 01:20 01:20 WBC 8.7 RBC 3.51 L Hgb 12.1 Hct 35.8 L MCV 102.2 H MCH 34.4 H MCHC 33.7 RDW 14.0 Plt Count 287 MPV 7.1 L Neut # (Auto) 6.3 Lymph # (Auto) 1.2 L [place] # (Auto) 0.7 Eos # (Auto) 0.6 Baso # (Auto) 0.1 Absolute Nucleated RBC 0.01 Nucleated RBC % 0.1 Sodium 136 Potassium 3.5 Chloride 101 Carbon Dioxide 22 Anion Gap 13.0 BUN 18 Creatinine 0.7 Estimated GFR (MDRD) 80 L Glucose 102 H Calcium 9.2 Total Bilirubin 0.3 AST 64 H ALT 49 Alkaline Phosphatase 82 Troponin I < 0.04 Total Protein 6.9 Albumin 3.9 Globulin 3.0 Albumin/Globulin Ratio 1.3 Lipase 31 PD MEDICAL DECISION MAKING - ED course Complexity details: reviewed old records, reviewed results, re-evaluated patient, considered differential, d/w patient, d/w family - Sepsis Event Vital Signs: Oxygen O2 Source [With Activity] Room air O2 Source Room air Departure - Departure Disposition: 01 Home, Self Care Clinical Impression: Chest pain Condition: Good Instructions: ED Chest Pain Atypical Unkn Cause Follow-Up: Nazanin Bentley MD [Primary Care Provider] - Discharge Date/Time: 07/23/18 04:16
[2018-07-23 01:35] LABS: BASOPHILS # (AUTO) 0.1 10^3/uL (0.0-0.1); BASOPHILS % (AUTO) 1.3 %; EOSINOPHILS # (AUTO) 0.6 10^3/uL (0.0-0.7); EOSINOPHILS % (AUTO) 6.4 %; HGB - HEMOGLOBIN 12.1 g/dL (12.0-16.0); LYMPHOCYTES # (AUTO) 1.2 10^3/uL (1.5-3.5); LYMPHOCYTES % (AUTO) 13.2 %; MEAN CORPUSCULAR HEMOGLOBIN 34.4 pg (27.0-31.0); MEAN CORPUSCULAR HGB CONC 33.7 g/dL (32.0-36.0); MEAN CORPUSCULAR VOLUME 102.2 fL (81.0-99.0); MEAN PLATELET VOLUME 7.1 fL (7.9-10.8); MONOCYTES # (AUTO) 0.7 10^3/uL (0.0-1.0); MONOCYTES % (AUTO) 7.5 %; NEUTROPHILS # (AUTO) 6.3 10^3/uL (1.5-6.6); NEUTROPHILS % (AUTO) 71.6 %; PLT - PLATELET COUNT 287 10^3/uL (130-450); RED BLOOD COUNT 3.51 10^6/uL (4.20-5.40); WHITE BLOOD COUNT 8.7 x10^3/uL (4.8-10.8)
[2018-07-23 01:46] LABS: ALBUMIN 3.9 g/dL (3.2-5.5); ALBUMIN/GLOBULIN RATIO 1.3 (1.0-2.2); BILIRUBIN,TOTAL 0.3 mg/dL (0.2-1.0); CALCIUM 9.2 mg/dL (8.5-10.3); CREATININE 0.7 mg/dL (0.4-1.0); TOTAL PROTEIN 6.9 g/dL (6.7-8.2)
[2018-07-23] MEDS ORDERED: ACETAMINOPHEN 325 MG TABLET PO STA (02:43)
[2018-07-23] MEDS ORDERED: ALPRAZolam 0.25 MG TABLET PO STA (03:48)
[2018-07-23 04:16] VITALS: BP 120/68
== END 2018-07-23 04:16 | disposition home or self-care (01) ==
LOC: EDUNIT# → ED 01:08
DX: R07.9 Chest pain, unspecified (principal); I10 Essential (primary) hypertension; I25.10 Atherosclerotic heart disease of native coronary artery without angina pectoris; Z86.73 Personal history of transient ischemic attack (TIA), and cerebral infarction without residual deficits; Z87.891 Personal history of nicotine dependence
CPT/HCPCS: 36415; 80053; 83690; 84484; 85025; 93005; 99283; 99284; A9270

== ENCOUNTER 2018-08-07 15:39 | Outpatient (CLI) | payer MEDICARE, OTHER ==
[2018-08-07 16:18] LABS: CALCIUM 8.7 mg/dL (8.5-10.3); CREATININE 0.8 mg/dL (0.4-1.0)
== END 2018-08-07 15:40 | disposition home or self-care (01) ==
LOC: LAB 15:39
PROVIDERS: ATTEND Family Medicine
DX: I10 Essential (primary) hypertension (principal)
CPT/HCPCS: 36415; 80048

== ENCOUNTER 2018-10-09 08:00 | Outpatient (CLI) | payer MEDICARE, OTHER | END 2018-10-09 23:59 | disposition home or self-care (01) | LOC: LAB.WCP 08:00 | PROVIDERS: ATTEND Family Medicine | DX: E03.9 Hypothyroidism, unspecified (principal) | CPT/HCPCS: 36415; 84443 ==

== ENCOUNTER 2018-11-17 01:52 | Outpatient (CLI) | payer MEDICARE, OTHER | END 2018-11-17 01:53 | disposition critical access hospital (66) | LOC: EMS 01:52 | PROVIDERS: ATTEND Surgery | DX: R06.02 Shortness of breath (principal) | CPT/HCPCS: A0425; A0429 ==

== ENCOUNTER 2018-11-17 02:04 | Inpatient (IN) | payer MEDICARE, OTHER ==
--- NOTE | 2018-11-17 02:09 | ED Physician Documentation ---
History of Present Illness - Stated complaint Stated Complaint: SOA, ABD PAIN - History obtained from History obtained from: Patient - History of Present Illness Timing: Other (multiple c/o with various timeframes (see below)) Pain level now: 6 Improved by: rest Worsened by: exertion (dyspnea) Associated symptoms: dyspnea, chest discomfort, abdominal pain, black/tarry stool - Additonal information Additional information: BIBA. She c/o exertional shortness of breath x 1 week, dark/tarry stool x a few weeks, episodic abdominal pain (across lower abdomen) x 1 week, and midline upper chest and anterior neck discomfort since earlier this evening. Review of Systems Constitutional: reports: Fatigue. denies: Fever, Chills, Sweats Eyes: reports: Reviewed and negative Ears: reports: Reviewed and negative Nose: reports: Reviewed and negative Throat: reports: Reviewed and negative Cardiac: reports: Chest pain / pressure. denies: Palpitations, Pedal edema Respiratory: reports: Dyspnea. denies: Cough, Hemoptysis GI: reports: Abdominal Pain, Bloody / black stool. 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 HEENT: Chronic hearing loss Psych: Depression Musculoskeletal: Osteoarthritis, Osteoporosis, Other Derm: Eczema - Past Surgical History Past Surgical History: Yes General: Colonoscopy Ortho: Hip replacement /OIL EXTRACTOR: Mastectomy, Other HEENT: Cataracts - Present Medications Home Medications: Ambulatory Orders Medication Instructions Recorded Confirmed Glucosamine Sulfate Dipot Chlr 1,500 mg PO DAILY 03/09/13 07/23/18 [Glucosamine] Levothyroxine [Synthroid] 75 mcg PO QPM 03/09/13 07/23/18 Atorvastatin [Lipitor] 10 mg PO DAILY 08/02/17 07/23/18 Sertraline HCl [Zoloft] 200 mg PO QPM 08/02/17 07/23/18 Psyllium Husk/Aspartame [Fiber 1 packet PO DAILY 01/29/18 06/28/18 Therapy Powder] Aspirin [Aspirin EC] 81 mg PO DAILY 05/29/18 07/23/18 Furosemide [Lasix] 20 mg PO DAILY PRN #30 tablet 06/01/18 07/23/18 Rivaroxaban [Xarelto] 15 mg PO QPM 06/24/18 07/23/18 Metoprolol Succinate [Toprol Xl] 100 mg PO BID 06/28/18 07/23/18 diltiaZEM CD [Cardizem Cd] 240 mg PO DAILY #30 capsule 07/02/18 07/23/18 Calcium Carbonate/Vitamin D3 1 tab PO DAILY 07/23/18 07/23/18 [Calcium 500-Vit D3 600 Caplet] Cholecalciferol (Vitamin D3) 1 tab PO DAILY 07/23/18 07/23/18 [Vitajoy Daily D] Omeprazole [PriLOSEC] 20 mg PO DAILY 07/23/18 07/23/18 diltiaZEM CD [Cardizem Cd] 120 mg PO QPM 07/23/18 07/23/18 amLODIPine [Norvasc] 10 mg PO DAILY 11/17/18 11/17/18 - Allergies Allergies/Adverse Reactions: Allergies Allergy/AdvReac Type Severity Reaction Status Date / Time amoxicillin trihydrate * Allergy Mild Rash Verified 07/23/18 01:23 [From Augmentin] indomethacin [From Indocin] Allergy Mild Rash Verified 07/23/18 01:23 indomethacin sodium * Allergy Mild Rash Verified 07/23/18 01:23 [From Indocin] lorazepam [From Ativan] Allergy Mild Rash Verified 07/23/18 01:23 metoclopramide HCl * Allergy Mild Rash Verified 07/23/18 01:23 [From Reglan] Penicillins Allergy Mild Rash Verified 07/23/18 01:23 potassium clavulanate * Allergy Mild Rash Verified 07/23/18 01:23 [From Augmentin] prochlorperazine Allergy Mild Rash Verified 07/23/18 01:23 [Prochlorperazine] Sulfa (Sulfonamide Allergy Mild Rash Verified 07/23/18 01:23 Antibiotics) sulfamethoxazole Allergy Mild Rash Verified 07/23/18 01:23 [From Gantanol] adhesive Allergy Rash Verified 07/23/18 01:23 sulfasalazine Allergy Unknown Verified 11/17/18 02:19 [From Sulfazine] thiopental [From Pentothal] Allergy seizures Verified 07/23/18 01:23 aspirin AdvReac Cramps Verified 11/17/18 02:19 levofloxacin [From Levaquin] AdvReac Itching Verified 11/17/18 02:19 metoclopramide [From Reglan] AdvReac Unknown Verified 11/17/18 02:19 phenazopyridine [From Azo] AdvReac Cramps Verified 11/17/18 02:19 - Social History Does the pt smoke?: No Smoking Status: Former smoker Does the pt drink ETOH?: Yes Does the pt have substance abuse?: No - Immunizations Immunizations are current?: Yes - POLST Patient has POLST: No POLST Status: DNR PD ED PE NORMAL - Vitals Vital signs reviewed: Yes - General General: Alert and oriented X 3, No acute distress, Well developed/nourished - HEENT HEENT: PERRL, EOMI, Moist mucous membranes - Neck Neck: Supple, no meningeal sign - Cardiac Cardiac: RRR, No murmur, No gallop, No rub - Respiratory Respiratory: No respiratory distress, Clear bilaterally - Abdomen Abdomen: Soft, Non distended, Other (mild tenderness bilateral lower quadrants without rebound or guarding) - Back Back: No CVA TTP - Derm Derm: Warm and dry, Other (pale) - Extremities Extremities: No edema - Neuro Neuro: Alert and oriented X 3 Eye Opening: Spontaneous Motor: Obeys Commands Verbal: Oriented GCS Score: 15 PD ED PE EXPANDED - Rectal Rectal: Heme Occult Pos - QC + (strongly (+) reaction ), Market Research Specialist present, Other (black stool). No: Hemorrhoid Results - Vitals Vitals: Vital Signs - 24 hr 11/17/18 11/17/18 11/17/18 02:05 02:40 03:00 Temperature 36.7 C Heart Rate 76 70 70 Respiratory 20 14 16 Rate Blood Pressure 158/74 H 136/78 H 136/76 H O2 Saturation 99 100 100 Oxygen O2 Source [With Activity] Room air O2 Source Room air - EKG (time done) No standard instances Rate: Rate (enter#) (67) Rhythm: NSR, Abnormal P waves (II, III, aVF (inverted p waves)) [place]: Normal Intervals: Normal [place] QRS: Normal Ischemia: Normal ST segments - Labs Labs: Laboratory Tests 11/17/18 11/17/18 11/17/18 02:09 02:09 02:09 WBC 6.2 RBC 1.78 L Hgb 6.4 L* Hct 18.8 L* MCV 105.4 H MCH 35.9 H MCHC 34.1 RDW 16.7 H Plt Count 384 MPV 6.7 L Neut # (Auto) 4.6 Lymph # (Auto) 0.7 L [place] # (Auto) 0.5 Eos # (Auto) 0.3 Baso # (Auto) 0.1 Absolute Nucleated RBC 0.01 Nucleated RBC % 0.1 Sodium 134 L Potassium 3.8 Chloride 103 Carbon Dioxide 22 Anion Gap 9.0 BUN 25 H Creatinine 0.9 Estimated GFR (MDRD) 60 L Glucose 107 H Calcium 8.5 Total Bilirubin 0.6 AST 26 ALT 18 Alkaline Phosphatase 55 Troponin I < 0.04 Total Protein 6.8 Albumin 3.8 Globulin 3.0 Albumin/Globulin Ratio 1.3 Lipase 33 Blood Type Antibody Screen Crossmatch IS Only 11/17/18 11/17/18 02:39 02:39 WBC RBC Hgb 7.1 L Hct 21.0 L MCV MCH MCHC RDW Plt Count MPV Neut # (Auto) Lymph # (Auto) [place] # (Auto) Eos # (Auto) Baso # (Auto) Absolute Nucleated RBC Nucleated RBC % Sodium Potassium Chloride Carbon Dioxide Anion Gap BUN Creatinine Estimated GFR (MDRD) Glucose Calcium Total Bilirubin AST ALT Alkaline Phosphatase Troponin I Total Protein Albumin Globulin Albumin/Globulin Ratio Lipase Blood Type O POSITIVE Antibody Screen NEGATIVE Crossmatch IS Only See Detail - Rads (name of study) chest xray Radiology: Prelim report reviewed, See rad report PD MEDICAL DECISION MAKING - ED course Complexity details: reviewed old records, reviewed results, re-evaluated jun nava, considered differential, d/w patient ED course: symptomatic anemia with guaiac (+) stool and on xarelto. Will admit for RBC transfusions and further w/u and observation Departure - Departure Disposition: 66 [facility] DC/Xfer Clinical Impression: Lower gastrointestinal bleeding Condition: Stable Discharge Date/Time: 11/17/18 04:06
[2018-11-17 02:23] LABS: BASOPHILS # (AUTO) 0.1 10^3/uL (0.0-0.1); BASOPHILS % (AUTO) 1.1 %; EOSINOPHILS # (AUTO) 0.3 10^3/uL (0.0-0.7); EOSINOPHILS % (AUTO) 5.2 %; LYMPHOCYTES # (AUTO) 0.7 10^3/uL (1.5-3.5); LYMPHOCYTES % (AUTO) 11.6 %; MEAN CORPUSCULAR HEMOGLOBIN 35.9 pg (27.0-31.0); MEAN CORPUSCULAR HGB CONC 34.1 g/dL (32.0-36.0); MEAN CORPUSCULAR VOLUME 105.4 fL (81.0-99.0); MEAN PLATELET VOLUME 6.7 fL (7.9-10.8); MONOCYTES # (AUTO) 0.5 10^3/uL (0.0-1.0); MONOCYTES % (AUTO) 8.8 %; NEUTROPHILS # (AUTO) 4.6 10^3/uL (1.5-6.6); NEUTROPHILS % (AUTO) 73.3 %; PLT - PLATELET COUNT 384 10^3/uL (130-450); RED BLOOD COUNT 1.78 10^6/uL (4.20-5.40); RED CELL DISTRIBUTION WIDTH 16.7 % (12.0-15.0); WHITE BLOOD COUNT 6.2 x10^3/uL (4.8-10.8)
[2018-11-17 02:27] LABS: ALBUMIN 3.8 g/dL (3.2-5.5); ALBUMIN/GLOBULIN RATIO 1.3 (1.0-2.2); BILIRUBIN,TOTAL 0.6 mg/dL (0.2-1.0); CALCIUM 8.5 mg/dL (8.5-10.3); CREATININE 0.9 mg/dL (0.4-1.0); HGB - HEMOGLOBIN 6.4 g/dL (12.0-16.0); TOTAL PROTEIN 6.8 g/dL (6.7-8.2)
[2018-11-17 02:46] LABS: HGB - HEMOGLOBIN 7.1 g/dL (12.0-16.0)
--- NOTE | 2018-11-17 03:17 | XRAY Report ---
Reason: dyspnea Procedure Date: 11/17/2018 Accession Number: [id number] / [id number] Procedure: XR - Chest 2 View X-Ray CPT Code: 03543 FULL RESULT: EXAM: CHEST RADIOGRAPHY EXAM DATE: 11/17/2018 03:08 AM. CLINICAL HISTORY: Dyspnea. COMPARISON: SHOULDER 2 VIEW LT 11/05/2018 3:02 PM. TECHNIQUE: 2 views. FINDINGS: Lungs/Pleura: The lungs are relatively hyperinflated. There are no infiltrates nor pleural effusions. Mediastinum: The heart is borderline enlarged. Other: There is a healing fracture involving the left humeral neck. IMPRESSION: 1. Enlarged heart. 2. No infiltrates. RADIA
[2018-11-17] MEDS ORDERED: ONDANSETRON 4 MG/2 ML VIAL IVP PRN (03:41)
[2018-11-17] MEDS ORDERED: diphenhydrAMINE INJ 50 MG/ML VIAL IVP ONE (03:41)
[2018-11-17] MEDS ORDERED: MORPHINE 2 MG/ML CARPUJECT IVP PRN (03:41)
[2018-11-17] MEDS ORDERED: FUROSEMIDE 20 MG/2 ML VIAL IVP PRN (03:41)
[2018-11-17] MEDS ORDERED: FUROSEMIDE 20 MG TABLET PO PRN (03:48)
--- NOTE | 2018-11-17 03:55 | HISTORY & PHYSICAL EXAMINATION ---
Chief Complaint - Chief Complaint Chief Complaint: Shortness of breath History of Present Illness - Admitted From Admitted From:: Emergency department - History Obtained From Records Reviewed: Emergency department as well as prior hospital stay History obtained from: Patient, and Dr. Slaughter, ED physician Exam Limitations: None - History of Present Illness HPI Comment/Other: Patient is an 83-year-old female with a past medical history of atrial fibrillation, Breast cancer, CVA, hypothyroidism, colitis, who presents with a 2-week history of shortness of breath progressively getting worse in particular over the last 48 hours to the extent that today when she tried to go out for a walk she had to stop multiple times due to the difficulty breathing. She also noted on the review of systems to the urgency room physician that she is been having dark tarry stools for approximately the same timeline. She does endorse a mild amount of lower abdominal pain, but denies any significant debilitating abdominal pain or acute abdomen symptoms. She denies any nausea or vomiting but has had a decreased oral intake with decreased appetite. She does not complain of chest pain but she does complain of some mild discomfort in the anterior neck area. She denies any radicular pain into the jaw or upper extremity though she does have a left humeral fracture remotely which is in the process of healing. In the emergency department, the evaluation was remarkable for an initial hemoglobin of 6.4 which was drawn from the IV line, when repeated increased to 7.1 but still with a hematocrit of 21 and she did have a guaiac positive results. Given the symptoms of shortness of breath, with acute anemia blood loss and history of dark tarry stools, we were asked to admit the patient. Her vital signs are relatively normal, with heart rate 70, blood pressure in the 130s and her oxygen saturation is in the mid 90s on room air. Emergency room physician initiated the process for a transfusion of 2 units of packed red blood cells, which I will continue on the floor. 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 Social History Notes: Patient lives with her in their home. She has been living on [facility] for decades. She lives independently but does have a lady that comes in to help clean the home every other week. They live in [place]. She has one son who lives in [place] and another son who lives in [facility]. She smoked one-quarter of a pack a day for 30 years and quit smoking in 1969. She drinks 2 glasses of wine daily. She denies any illicit drug use. - POLST Patient has POLST: Yes POLST Status: DNR Meds/Allgy - Home Medications Home Medications: Ambulatory Orders Medication Instructions Recorded Confirmed Glucosamine Sulfate Dipot Chlr 1,500 mg PO DAILY 03/09/13 07/23/18 [Glucosamine] Levothyroxine [Synthroid] 75 mcg PO QPM 03/09/13 07/23/18 Atorvastatin [Lipitor] 10 mg PO DAILY 08/02/17 07/23/18 Sertraline HCl [Zoloft] 200 mg PO QPM 08/02/17 07/23/18 Psyllium Husk/Aspartame [Fiber 1 packet PO DAILY 01/29/18 06/28/18 Therapy Powder] Aspirin [Aspirin EC] 81 mg PO DAILY 05/29/18 07/23/18 Furosemide [Lasix] 20 mg PO DAILY PRN #30 tablet 06/01/18 07/23/18 Rivaroxaban [Xarelto] 15 mg PO QPM 06/24/18 07/23/18 Metoprolol Succinate [Toprol Xl] 100 mg PO BID 06/28/18 07/23/18 diltiaZEM CD [Cardizem Cd] 240 mg PO DAILY #30 capsule 07/02/18 07/23/18 Calcium Carbonate/Vitamin D3 1 tab PO DAILY 07/23/18 07/23/18 [Calcium 500-Vit D3 600 Caplet] Cholecalciferol (Vitamin D3) 1 tab PO DAILY 07/23/18 07/23/18 [Vitajoy Daily D] Omeprazole [PriLOSEC] 20 mg PO DAILY 07/23/18 07/23/18 diltiaZEM CD [Cardizem Cd] 120 mg PO QPM 07/23/18 07/23/18 amLODIPine [Norvasc] 10 mg PO DAILY 11/17/18 11/17/18 - Allergies Allergies/Adverse Reactions: Allergies Allergy/AdvReac Type Severity Reaction Status Date / Time amoxicillin trihydrate * Allergy Mild Rash Verified 07/23/18 01:23 [From Augmentin] indomethacin [From Indocin] Allergy Mild Rash Verified 07/23/18 01:23 indomethacin sodium * Allergy Mild Rash Verified 07/23/18 01:23 [From Indocin] lorazepam [From Ativan] Allergy Mild Rash Verified 07/23/18 01:23 metoclopramide HCl * Allergy Mild Rash Verified 07/23/18 01:23 [From Reglan] Penicillins Allergy Mild Rash Verified 07/23/18 01:23 potassium clavulanate * Allergy Mild Rash Verified 07/23/18 01:23 [From Augmentin] prochlorperazine Allergy Mild Rash Verified 07/23/18 01:23 [Prochlorperazine] Sulfa (Sulfonamide Allergy Mild Rash Verified 07/23/18 01:23 Antibiotics) sulfamethoxazole Allergy Mild Rash Verified 07/23/18 01:23 [From Gantanol] adhesive Allergy Rash Verified 07/23/18 01:23 sulfasalazine Allergy Unknown Verified 11/17/18 02:19 [From Sulfazine] thiopental [From Pentothal] Allergy seizures Verified 07/23/18 01:23 aspirin AdvReac Cramps Verified 11/17/18 02:19 levofloxacin [From Levaquin] AdvReac Itching Verified 11/17/18 02:19 metoclopramide [From Reglan] AdvReac Unknown Verified 11/17/18 02:19 phenazopyridine [From Azo] AdvReac Cramps Verified 11/17/18 02:19 Review of Systems - Constitutional Constitutional: reports: Fatigue, Malaise, Weakness, Poor appetite. denies: Fever, Chills - Cardiovascular Cariovascular: reports: Lightheadedness, Exertional dyspnea, Decr. exercise tolerance. denies: Irregular heart rate, Palpitations, Chest pain, Syncope - Respiratory Respiratory: reports: SOB at rest, SOB with exertion. denies: Cough, Sputum pro duction, Wheezing - Gastrointestinal Gastrointestinal: reports: Abdominal pain, Black stools, Nausea, Reflux/heartburn. denies: Abdominal distention, Constipation, Diarrhea, Change in bowel habits, Bloody stools, Vomiting, Bile emesis, Conrad blood emesis, Coff ee grounds emesis - Neurological Neurological: reports: General weakness. denies: Focal weakness - Hematologic/Lymphatic Hematologic/Lymphatic: reports: Petechiae. denies: Blood clots, Bleeding tendencies - All Other Systems All Other Systems: reports: Reviewed and negative Prior Level of Functionality: Previously independent Exam - Vital Signs Reviewed Vital Signs: Yes Vital Signs: Vital Signs x48h Temp Pulse Resp BP Pulse Ox 11/17/18 03:00 70 16 136/76 H 100 11/17/18 02:40 70 14 136/78 H 100 11/17/18 02:05 36.7 C 76 20 158/74 H 99 - Physical Exam General Appearance: positive: No acute distress Eyes Bilateral: positive: Normal inspection ENT: positive: ENT inspection nml Neck: positive: Nml inspection Respiratory: positive: Chest non-tender, No respiratory distress, Breath sounds nml Cardiovascular: positive: Regular rate & rhythm, No murmur, No gallop, Irregularly irregular Peripheral Pulses: positive: 2+ Abdomen: positive: Non-tender, No organomegaly, Nml bowel sounds, No distention Skin: positive: Color nml, No rash, Warm Extremities: positive: Non-tender, No pedal edema Neurologic/Psychiatric: positive: Oriented x3, CN's nml (2-12), Motor nml, Sensation nml, Mood/affect nml Sepsis Event Note (H) - Evaluation Current Stage of Sepsis: Ruled out Conclusion/Plan - Problem List (1) Lower gastrointestinal bleeding Conclusion/Plan: Patient presents with symptoms of lower GI bleed with dark tarry stools causing shortness of breath over the last 2 weeks. Given her history of colitis, which apparently is documented in the chart as ulcerative colitis but the patient is unsure of this, she may need a repeat colonoscopy. ED has already initiated the process for 2 units PRBC transfusion. Given her symptoms, being that she is on Xarelto, I would agree with this management. We will check a hemoglobin and hematocrit level posttransfusion. Will consult general surgery in the morning for consideration of GI series. In the meantime her vitals are stable and she will be closely monitored for signs of hypotension and/or tachycardia to be managed accordingly. (2) Acute blood loss anemia Conclusion/Plan: As stated above, symptomatic anemia with shortness of breath, transfusion orders in process. (3) Atrial fibrillation Conclusion/Plan: Patient is currently in a regular sinus rhythm and rate controlled. She was admitted in July with atrial fibrillation with a rapid ventricular response. Her blood pressures are normal so I will continue the metoprolol as it appears she will be able to tolerate that, but for now may hold off on the 240 mg extended release Cardizem pending clinical course in case she becomes more hypotensive with blood loss. Qualifiers: Atrial fibrillation type: paroxysmal Qualified Code(s): I48.0 - Paroxysmal atrial fibrillation (4) HTN (hypertension) Conclusion/Plan: As stated above, is on metoprolol and Cardizem due to A. fib. Blood pressure is now normal, will hold off on Cardizem and add if necessary once stabilized. Qualifiers: Hypertension type: essential hypertension Qualified Code(s): I10 - Essential (primary) hypertension (5) Hyperlipidemia Conclusion/Plan: Chronic, continue statin Qualifiers: Hyperlipidemia type: unspecified Qualified Code(s): E78.5 - Hyperlipidemia, unspecified (6) Hypothyroidism Conclusion/Plan: Chronic, continue levothyroxine Qualifiers: Hypothyroidism type: unspecified Qualified Code(s): E03.9 - Hypothyroidism, unspecified - Lab Results Lab results reviewed: Yes Fish Bones: 11/17/18 02:39 11/17/18 02:09 - Diagnostic Imaging Results Diagnostic Imaging Results: positive: Final report reviewed - EKG Results EKG Interpreted Independently: Yes EKG Comparison: Changed from prior EKG (No longer in A. fib or rapid ventricular response) Core Measures - Anticipated LOS I expect patient to be DC'd or transferred within 96 hours.: Yes - DVT/VTE - Prophylaxis VTE/DVT Device ordered at admit?: Yes
[2018-11-17] MEDS: SODIUM CHLORIDE FLUSH 0.9% 10 ML SYRINGE IVP PRN ×3 (04:33→06:30)
[2018-11-17] MEDS ORDERED: SODIUM CHLORIDE 0.9% 500 ML IV ONE (04:33)
[2018-11-17] MEDS: SODIUM CHLORIDE 0.9% 1,000 ML IV SCH (04:33)
[2018-11-17] MEDS: PANTOPRAZOLE 40 MG VIAL IVP SCH ×2 (06:25→16:34)
[2018-11-17 08:17] LABS: BILIRUBIN,URINE NEGATIVE (NEGATIVE); GLUCOSE, URINE (UA) NEGATIVE (NEGATIVE); KETONES,URINE (UA) NEGATIVE (NEGATIVE); LEUKOCYTE ESTERASE, URINE NEGATIVE (NEGATIVE); NITRITE,URINE NEGATIVE (NEGATIVE); OCCULT BLOOD,URINE NEGATIVE (NEGATIVE); PROTEIN,URINE NEGATIVE (NEGATIVE); UROBILINOGEN,URINE 0.2 (NORMAL) E.U./dL (NORMAL)
[2018-11-17 08:19] LABS: CLARITY,URINE CLEAR (CLEAR)
[2018-11-17] MEDS: amLODIPine 5 MG TABLET PO SCH (09:10)
[2018-11-17] MEDS: METOPROLOL SUCCINATE 50 MG TABLET PO SCH ×2 (09:10→20:00)
[2018-11-17] MEDS: POLYETHYLENE GLYCOL 3350 17 GM PACKET PO SCH (09:10)
[2018-11-17] MEDS: SODIUM CHLORIDE FLUSH 0.9% 10 ML SYRINGE IVP SCH ×2 (09:10→16:35)
[2018-11-17] MEDS: ATORVASTATIN 10 MG TABLET PO SCH (09:10)
[2018-11-17 14:26] LABS: INR 1.1 (0.8-1.2); PT - PROTHROMBIN TIME 12.3 secs (9.9-12.6)
--- NOTE | 2018-11-17 17:49 | CONSULTATION NOTE ---
Referring Provider Consult Date: 11/17/18 Chief Complaint - Chief Complaint Chief Complaint: Dyspnea History of Present Illness - History of Present Illness HPI Comment/Other: 83 yo demented woman presented to the ER for progressive dyspnea. She was found to have severe anemia and admitted to two weeks of melena. Admits to taking NSAIDs for joint pains. Also has Afib and is prescribed Xarelto, although it is unclear if she was actually taking it. Also c/o epigastric pain. 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 Social History Notes: Patient lives with her in their home. She has been living on [facility] for decades. She lives independently but does have a lady that comes in to help clean the home every other week. They live in [place]. She has one son who lives in [place] and another son who lives in [facility]. She smoked one-quarter of a pack a day for 30 years and quit smoking in 1969. She drinks 2 glasses of wine daily. She denies any illicit drug use. - POLST Patient has POLST: No POLST Status: DNR Meds/Allgy - Home Medications Home Medications: Ambulatory Orders Medication Instructions Recorded Confirmed Glucosamine Sulfate Dipot Chlr 1,500 mg PO DAILY 03/09/13 11/17/18 [Glucosamine] Atorvastatin [Lipitor] 10 mg PO DAILY 08/02/17 11/17/18 Sertraline HCl [Zoloft] 200 mg PO QPM 08/02/17 11/17/18 Psyllium Husk/Aspartame [Fiber 1 packet PO DAILY 01/29/18 11/17/18 Therapy Powder] Aspirin [Aspirin EC] 81 mg PO DAILY 05/29/18 11/17/18 Rivaroxaban [Xarelto] 15 mg PO QDDINNER 06/24/18 11/17/18 Metoprolol Succinate [Toprol Xl] 100 mg PO DAILY 06/28/18 11/17/18 Calcium Carbonate/Vitamin D3 1 tab PO DAILY 07/23/18 11/17/18 [Calcium 500-Vit D3 600 Caplet] Cholecalciferol (Vitamin D3) 2,000 unit PO DAILY 07/23/18 11/17/18 [Vitajoy Daily D] Omeprazole [PriLOSEC] 20 mg PO DAILY 07/23/18 11/17/18 diltiaZEM CD [Cardizem Cd] 120 mg PO QPM 07/23/18 11/17/18 Furosemide 20 mg PO DAILY 11/17/18 11/17/18 Levothyroxine Sodium 75 mcg PO QDAC 11/17/18 11/17/18 Potassium Chloride 10 meq PO DAILY 11/17/18 11/17/18 - Allergies Allergies/Adverse Reactions: Allergies Allergy/AdvReac Type Severity Reaction Status Date / Time amoxicillin trihydrate * Allergy Mild Rash Verified 07/23/18 01:23 [From Augmentin] indomethacin [From Indocin] Allergy Mild Rash Verified 07/23/18 01:23 indomethacin sodium * Allergy Mild Rash Verified 07/23/18 01:23 [From Indocin] lorazepam [From Ativan] Allergy Mild Rash Verified 07/23/18 01:23 metoclopramide HCl * Allergy Mild Rash Verified 07/23/18 01:23 [From Reglan] Penicillins Allergy Mild Rash Verified 07/23/18 01:23 potassium clavulanate * Allergy Mild Rash Verified 07/23/18 01:23 [From Augmentin] prochlorperazine Allergy Mild Rash Verified 07/23/18 01:23 [Prochlorperazine] Sulfa (Sulfonamide Allergy Mild Rash Verified 07/23/18 01:23 Antibiotics) sulfamethoxazole Allergy Mild Rash Verified 07/23/18 01:23 [From Gantanol] adhesive Allergy Rash Verified 07/23/18 01:23 sulfasalazine Allergy Unknown Verified 11/17/18 02:19 [From Sulfazine] thiopental [From Pentothal] Allergy seizures Verified 07/23/18 01:23 aspirin AdvReac Cramps Verified 11/17/18 02:19 levofloxacin [From Levaquin] AdvReac Itching Verified 11/17/18 02:19 metoclopramide [From Reglan] AdvReac Unknown Verified 11/17/18 02:19 phenazopyridine [From Azo] AdvReac Cramps Verified 11/17/18 02:19 Review of Systems - Constitutional Constitutional: reports: Fatigue, Weakness - Respiratory Respiratory: reports: SOB with exertion - Gastrointestinal Gastrointestinal: reports: Abdominal pain, Black stools Exam - Vital Signs Vital Signs: Vital Signs x48h Temp Pulse Resp BP Pulse Ox 11/17/18 15:21 36.7 C 92 18 165/95 H 97 - Physical Exam General Appearance: positive: No acute distress Eyes Bilateral: positive: Normal inspection ENT: positive: ENT inspection nml Neck: positive: Nml inspection Respiratory: positive: Chest non-tender Abdomen: positive: Tenderness Back: positive: Nml inspection Skin: positive: Color nml Extremities: positive: Non-tender Neurologic/Psychiatric: positive: Oriented x3 Conclusion/Plan - Diagnosis Diagnosis: Upper GI bleed - Plan Plan: Probable upper GI bleed. Plan for EGD tomorrow if she continues to bleed overnight. - Lab Results Lab results reviewed: Yes Fish Bones: 11/17/18 13:40 11/17/18 02:09
[2018-11-17] MEDS ORDERED: LEVOTHYROXINE 75 MCG TABLET PO SCH (21:00)
[2018-11-17] MEDS ORDERED: SERTRALINE 50 MG TABLET PO SCH (21:00)
[2018-11-18] MEDS: SODIUM CHLORIDE FLUSH 0.9% 10 ML SYRINGE IVP SCH ×2 (00:10→07:54)
[2018-11-18] MEDS: SODIUM CHLORIDE 0.9% 1,000 ML IV SCH (00:11)
[2018-11-18] MEDS: SODIUM CHLORIDE FLUSH 0.9% 10 ML SYRINGE IVP PRN ×2 (06:24→06:30)
[2018-11-18] MEDS: PANTOPRAZOLE 40 MG VIAL IVP SCH (06:24)
[2018-11-18 08:04] LABS: HGB - HEMOGLOBIN 9.9 g/dL (12.0-16.0)
[2018-11-18] MEDS ORDERED: LEVOTHYROXINE 75 MCG TABLET PO SCH (09:00)
--- NOTE | 2018-11-18 10:45 | Discharge Plan ---
Discharge Plan Disposition: 01 Home, Self Care Condition: Good Prescriptions: Acetaminophen 1,000 mg PO Q8H #180 tablet Diet: Regular Activity Restrictions: Activity as Tolerated Shower Restrictions: No Additional Instructions or Follow Up instructions: You were admitted with GI bleeding that was significant enough to require a blood transfusion. Since you reported black stools, the most likely explanation is the bleeding was very high up in the bowels or in your stomach. You got 2 units of blood cells and your blood counts stabilized. Your diet was resumed and you had a resolution of your symptoms. Your bleed is thought to be caused by the combination of the Aleve that you take with your joint pain, and your Xarelto that you take for the atrial fibrillation. Since your admission, you have had no documented moments of atrial fibrillation. You will need gastrointestinal specialist follow up. Please take a proton pump inhibitor (omeprazole-Prilosec), this would be the treatment for a suspected gastric ulcer. Please STOP Xarelto, Aleve and the baby dose aspirin. This is probably temporary, and some of these may be restarted in the future. Your arthritis pain can be treated with Tylenol. Your PCP may have other alternatives if the Tylenol is not effective. Please allow at least 5 days of regular tylenol use to get the greatest effect. Please see your PCP within one week, Nazanin Bentley will get a discharge summary. No Smoking: If you smoke, Please STOP! Call for help. Follow-up with: Juan Luis Awan DO [Primary Care Provider] -
--- NOTE | 2018-11-18 10:51 | PROVIDER PROGRESS NOTE ---
Subjective - Prog Note Date Prog Note Date: 11/18/18 Prog Note Time: 10:49 - Subjective Pt reports feeling: Improved (Pt's hematocrit has remianed stable. Abdominal pain resolved.) Objective - Vital Signs/Intake & Output Vital Signs: Vital Signs x48h Temp Pulse Resp BP Pulse Ox 11/18/18 07:41 36.6 C 66 16 156/83 H 97 11/18/18 05:28 36.4 C L 89 18 105/90 H 98 11/18/18 02:53 60 18 163/80 H Intake & Output: Intake & Output 11/15/18 11/16/18 11/17/18 11/18/18 23:59 23:59 23:59 23:59 Intake Total 579 1672.5 Output Total 450 Balance 129 1672.5 - Objective General Appearance: positive: No acute distress Eyes Bilateral: positive: Normal inspection ENT: positive: ENT inspection nml Neck: positive: Nml inspection Respiratory: positive: Chest non-tender Abdomen: positive: Non-tender Back: positive: Nml inspection Skin: positive: Color nml Extremities: positive: Non-tender Neurologic/Psychiatric: positive: Oriented x3 - Lab Results Fish Bones: 11/18/18 08:00 11/17/18 02:09 Other Labs: Lab Results x24hrs 11/18/18 11/17/18 11/17/18 Range/Units 08:00 14:17 13:40 Hgb 9.9 L 9.8 L (12.0-16.0) g/dL Hct 28.9 L (37.0-47.0) % PT 12.3 (9.9-12.6) secs INR 1.1 (0.8-1.2) APTT 28.2 (24.9-33.3) secs Sepsis Event Note (H) - Evaluation Current Stage of Sepsis: Ruled out Assessment/Plan - Problem List (1) Acute blood loss anemia Impression: Pt's bleeding has spontaneously resolved. No EGD planned.
[2018-11-18] MEDS: METOPROLOL SUCCINATE 50 MG TABLET PO SCH (11:03)
[2018-11-18] MEDS: amLODIPine 5 MG TABLET PO SCH (11:04)
[2018-11-18] MEDS: ATORVASTATIN 10 MG TABLET PO SCH (11:04)
[2018-11-18] MEDS: POLYETHYLENE GLYCOL 3350 17 GM PACKET PO SCH (11:04)
--- NOTE | 2018-11-18 11:04 | DISCHARGE SUMMARY ---
"Discharge Summary Admit Date: 11/17/18 Discharge Date: 11/18/18 Discharging Provider: DONATO Huntley Code Status: Do Not Attempt Resuscitation Condition at Discharge: Good Discharge Disposition: 01 Home, Self Care - DIAGNOSES Admission Diagnoses: Gastrointestinal hemorrhage, unspecified (K92.2) Acute posthemorrhagic anemia (D62) Unspecified atrial fibrillation (I48.91) Essential (primary) hypertension (I10) Hyperlipidemia, unspecified (E78.5) Hypothyroidism, unspecified (E03.9) Discharge Diagnoses with Status of Each Condition: GI bleed (K92.2) resolved. Anticoagulant-induced bleeding (T45.7X1A) resolved. Acute blood loss anemia (D62) improved, transfused 2 units of PRBCs. Atrial fibrillation (I48.91) chronic, no atrial fibrillation noted while inpatient. Hypertension (I10) chronic, stable. Hyperlipidemia (E78.5) chronic, stable. Hypothyroidism (E03.9) chronic, stable. History of CVA (cerebrovascular accident) (Z86.73) chronic, stable. NSAID long-term use (Z79.1) chronic, no longer advised. Osteoarthritis (M19.90) chronic, stable. Recommended Tylenol use. Short-term memory loss (R41.3) chronic, stable. Depression (F32.9) chronic, stable. - HPI History of Present Illness: HPI per Dr. Guerrero: Patient is an 83-year-old female with a past medical history of atrial fibrillation, Breast cancer, CVA, hypothyroidism, colitis, who presents with a 2-week history of shortness of breath progressively getting worse in particular over the last 48 hours to the extent that today when she tried to go out for a walk she had to stop multiple times due to the difficulty breathing. She also noted on the review of systems to the urgency room physician that she is been having dark tarry stools for approximately the same timeline. She does endorse a mild amount of lower abdominal pain, but denies any significant debilitating abdominal pain or acute abdomen symptoms. She denies any nausea or vomiting but has had a decreased oral intake with decreased appetite. She does not complain of chest pain but she does complain of some mild discomfort in the anterior neck area. She denies any radicular pain into the jaw or upper extremity though she does have a left humeral fracture remotely which is in the process of healing. In the emergency department, the evaluation was remarkable for an initial hemoglobin of 6.4 which was drawn from the IV line, when repeated increased to 7.1 but still with a hematocrit of 21 and she did have a guaiac positive results. Given the symptoms of shortness of breath, with acute anemia blood loss and history of dark tarry stools, we were asked to admit the patient. Her vital signs are relatively normal, with heart rate 70, blood pressure in the 130s and her oxygen saturation is in the mid 90s on room air. Emergency room physician initiated the process for a transfusion of 2 units of packed red blood cells, which I will continue on the floor. - CONSULTS | PROCEDURES Consultations: general surgery-Dr. Beckwith Procedures: none - HOSPITAL COURSE Hospital Course: The patient received a blood transfusion in response to her acute GI bleed as she had a hemoglobin that was 6.4, improved to 9.9. She reported black stools, and the most likely explanation was a possible gastric ulcer. Her diet was resumed and she had a resolution of her symptoms. The bleed was thought to be caused by the combination of the Aleve and Xarelto. She had no documented atrial fibrillation during her hospital stay. She will need gastrointestinal specialist follow up. She was continued on her proton pump inhibitor (omeprazole-Prilosec) as this would be the treatment for a gastric ulcer. Anticoagulation may be considered in the future. To treat her arthritis, she was instructed to take Tylenol. General surgery was consulted in case a scope was indicated, but given the patient reservations about her previous experience to anesthesia AND the suspicion of the bleeding to have been resolved, this was saved to be done at a later date outpatient. The patient scored a 2, low re- bleeding risk using the [place] score. The patient was medically stable at the time of discharge and anxious to return home. Time was taken to sit down and explain all events and specifically which medications she should no longer take. - ALLERGIES Allergies/Adverse Reactions: Allergies Allergy/AdvReac Type Severity Reaction Status Date / Time amoxicillin trihydrate * Allergy Mild Rash Verified 07/23/18 01:23 [From Augmentin] indomethacin [From Indocin] Allergy Mild Rash Verified 07/23/18 01:23 indomethacin sodium * Allergy Mild Rash Verified 07/23/18 01:23 [From Indocin] lorazepam [From Ativan] Allergy Mild Rash Verified 07/23/18 01:23 metoclopramide HCl * Allergy Mild Rash Verified 07/23/18 01:23 [From Reglan] Penicillins Allergy Mild Rash Verified 07/23/18 01:23 potassium clavulanate * Allergy Mild Rash Verified 07/23/18 01:23 [From Augmentin] prochlorperazine Allergy Mild Rash Verified 07/23/18 01:23 [Prochlorperazine] Sulfa (Sulfonamide Allergy Mild Rash Verified 07/23/18 01:23 Antibiotics) sulfamethoxazole Allergy Mild Rash Verified 07/23/18 01:23 [From Gantanol] adhesive Allergy Rash Verified 07/23/18 01:23 sulfasalazine Allergy Unknown Verified 11/17/18 02:19 [From Sulfazine] thiopental [From Pentothal] Allergy seizures Verified 07/23/18 01:23 aspirin AdvReac Cramps Verified 11/17/18 02:19 levofloxacin [From Levaquin] AdvReac Itching Verified 11/17/18 02:19 metoclopramide [From Reglan] AdvReac Unknown Verified 11/17/18 02:19 phenazopyridine [From Azo] AdvReac Cramps Verified 11/17/18 02:19 - MEDICATIONS Home Medications: Ambulatory Orders Medication Instructions Recorded Confirmed Glucosamine Sulfate Dipot Chlr 1,500 mg PO DAILY 03/09/13 11/17/18 [Glucosamine] Atorvastatin [Lipitor] 10 mg PO DAILY 08/02/17 11/17/18 Sertraline HCl [Zoloft] 200 mg PO QPM 08/02/17 11/17/18 Psyllium Husk/Aspartame [Fiber 1 packet PO DAILY 01/29/18 11/17/18 Therapy Powder] Metoprolol Succinate [Toprol Xl] 100 mg PO DAILY 06/28/18 11/17/18 Calcium Carbonate/Vitamin D3 1 tab PO DAILY 07/23/18 11/17/18 [Calcium 500-Vit D3 600 Caplet] Cholecalciferol (Vitamin D3) 2,000 unit PO DAILY 07/23/18 11/17/18 [Vitajoy Daily D] Omeprazole [PriLOSEC] 20 mg PO DAILY 07/23/18 11/17/18 diltiaZEM CD [Cardizem Cd] 120 mg PO QPM 07/23/18 11/17/18 Furosemide 20 mg PO DAILY 11/17/18 11/17/18 Levothyroxine Sodium 75 mcg PO QDAC 11/17/18 11/17/18 Potassium Chloride 10 meq PO DAILY 11/17/18 11/17/18 Acetaminophen 1,000 mg PO Q8H #180 tablet 11/18/18 - PHYSICAL EXAM AT DISCHARGE General Appearance: positive: No acute distress, Alert, Anxious Eyes Bilateral: positive: PERRL ENT: positive: Pharynx nml, No signs of dehydration Neck: positive: Thyroid nml, No JVD, Trachea midline Respiratory: positive: Chest non-tender, No respiratory distress, Breath sounds nml Cardiovascular: positive: Regular rate & rhythm, No gallop, Systolic murmur Peripheral Pulses: positive: 2+ Abdomen: positive: Non-tender, Nml bowel sounds Back: positive: Nml inspection Skin: positive: No rash, Warm, Dry Extremities: positive: Non-tender, Full ROM, Nml appearance, No pedal edema Neurologic/Psychiatric: positive: Oriented x3, CN's nml (2-12), Motor nml, Sensation nml, Weakness, Other (baseline STM loss) Reflexes: Bicep (R): 2+, Bicep (L): 2+ - LABS Result Diagrams: 11/18/18 08:00 11/17/18 02:09 - DIAGNOSTIC IMAGING Diagnostic Imaging Results: Final report reviewed Diagnostic Imaging Results Comments: EXAM: CHEST RADIOGRAPHY EXAM DATE: 11/17/2018 03:08 AM. IMPRESSION: 1. Enlarged heart. 2. No infiltrates. - SEPSIS Current Stage of Sepsis: Ruled out - FOLLOW UP Follow Up: Disposition: Home Prescriptions: Acetaminophen 1,000 mg PO Q8H #180 tablet Additional Instructions or Follow Up instructions: You were admitted with GI bleeding that was significant enough to require a blood transfusion. Since you reported black stools, the most likely explanation is the bleeding was very high up in the bowels or in your stomach. You got 2 units of blood cells and your blood counts stabilized. Your diet was resumed and you had a resolution of your symptoms. Your bleed is thought to be caused by the combination of the Aleve that you take with your joint pain, and your Xarelto that you take for the atrial fibrillation. Since your admission, you have had no documented moments of atrial fibrillation. You will need gastrointestinal specialist follow up. Please take a proton pump inhibitor (omeprazole-Prilosec), this would be the treatment for a suspected gastric ulcer. Please STOP Xarelto, Aleve and the baby dose aspirin. This is probably temporary, and some of these may be restarted in the future. Your arthritis pain can be treated with Tylenol. Your PCP may have other alternatives if the Tylenol is not effective. Please allow at least 5 days of regular tylenol use to get the greatest effect. Please see your PCP within one week. - TIME SPENT Time Spent in Discharge (Minutes): 55"
[2018-11-18 12:47] VITALS: BP 138/65
[2018-11-18] MEDS ORDERED: diltiaZEM CD 120 MG CAPSULE PO SCH (21:00)
== END 2018-11-18 13:05 | disposition home or self-care (01) | DRG 378 ==
LOC: EDUNIT# → ED 02:04 → MS2 03:41
PROVIDERS: ADMIT Family Medicine Sports Medicine; ATTEND Family Medicine Sports Medicine
PROC: 30233N1 Transfusion of Nonautologous Red Blood Cells into Peripheral Vein, Percutaneous Approach (ICD-10-PCS; principal; 2018-11-17)
DX: K92.2 Gastrointestinal hemorrhage, unspecified (principal); D64.9 Anemia, unspecified; D62 Acute posthemorrhagic anemia; E78.00 Pure hypercholesterolemia, unspecified; I25.10 Atherosclerotic heart disease of native coronary artery without angina pectoris; I48.91 Unspecified atrial fibrillation; E78.5 Hyperlipidemia, unspecified; K52.9 Noninfective gastroenteritis and colitis, unspecified; K51.90 Ulcerative colitis, unspecified, without complications; Z85.3 Personal history of malignant neoplasm of breast; H91.90 Unspecified hearing loss, unspecified ear; R41.3 Other amnesia; F32.9 Major depressive disorder, single episode, unspecified; M81.0 Age-related osteoporosis without current pathological fracture; Z96.649 Presence of unspecified artificial hip joint; Z90.10 Acquired absence of unspecified breast and nipple; Z79.82 Long term (current) use of aspirin; Z87.891 Personal history of nicotine dependence; I10 Essential (primary) hypertension; Z86.73 Personal history of transient ischemic attack (TIA), and cerebral infarction without residual deficits; E03.9 Hypothyroidism, unspecified; M19.90 Unspecified osteoarthritis, unspecified site; Z66 Do not resuscitate
CPT/HCPCS: 36415; 71046; 80053; 81001; 81003; 83690; 84484; 85014; 85018; 85025; 85610; 85730; 86850; 86900; 86901; 86920; 87086; 93005; 99284

== ENCOUNTER 2018-12-03 12:05 | Outpatient (CLI) | payer MEDICARE, OTHER ==
[2018-12-03 12:18] LABS: BASOPHILS # (AUTO) 0.1 10^3/uL (0.0-0.1); BASOPHILS % (AUTO) 1.4 %; EOSINOPHILS # (AUTO) 0.4 10^3/uL (0.0-0.7); EOSINOPHILS % (AUTO) 5.6 %; HGB - HEMOGLOBIN 11.1 g/dL (12.0-16.0); LYMPHOCYTES # (AUTO) 0.9 10^3/uL (1.5-3.5); MEAN CORPUSCULAR HEMOGLOBIN 33.3 pg (27.0-31.0); MEAN CORPUSCULAR VOLUME 97.8 fL (81.0-99.0); MEAN PLATELET VOLUME 6.7 fL (7.9-10.8); MONOCYTES # (AUTO) 0.5 10^3/uL (0.0-1.0); MONOCYTES % (AUTO) 7.8 %; NEUTROPHILS # (AUTO) 4.7 10^3/uL (1.5-6.6); NEUTROPHILS % (AUTO) 71.2 %; PLT - PLATELET COUNT 329 10^3/uL (130-450); RED BLOOD COUNT 3.34 10^6/uL (4.20-5.40); RED CELL DISTRIBUTION WIDTH 18.3 % (12.0-15.0); WHITE BLOOD COUNT 6.7 x10^3/uL (4.8-10.8)
== END 2018-12-03 12:06 | disposition home or self-care (01) ==
LOC: LAB 12:05
PROVIDERS: ATTEND Family Medicine
DX: K92.2 Gastrointestinal hemorrhage, unspecified (principal)
CPT/HCPCS: 36415; 85025

== ENCOUNTER 2018-12-07 03:26 | Outpatient (CLI) | payer MEDICARE, OTHER | END 2018-12-07 03:27 | disposition critical access hospital (66) | LOC: EMS 03:26 | PROVIDERS: ATTEND Surgery | DX: R11.2 Nausea with vomiting, unspecified (principal); R10.10 Upper abdominal pain, unspecified | CPT/HCPCS: A0425; A0427 ==

== ENCOUNTER 2018-12-07 03:36 | Emergency (ER) | payer MEDICARE, OTHER ==
[2018-12-07] MEDS ORDERED: MAG HYDROX/AL HYDROX/SIMETH 30 ML UDC PO STA (03:55)
--- NOTE | 2018-12-07 03:57 | ED Physician Documentation ---
History of Present Illness - Stated complaint Stated Complaint: N/V - Chief complaint Chief Complaint: Abd Pain - History obtained from History obtained from: Patient, EMS - History of Present Illness Timing: How many hours ago (2) Pain level max: 5 Pain level now: 5 - Additonal information Additional information: 83-year-old female presents to the emergency department with nausea and a feeling of a burning sensation going from her mouth down to her stomach. This goes through the chest. She has had dry heaves but no vomitus. Has had similar symptoms several times in the past. She states no cause found. No fevers. No diarrhea. No constipation. States nothing makes it better or worse. Brought in by EMS. Patient was recently admitted for an upper GI bleed, but was not scoped at that time. Review of Systems Constitutional: denies: Fever, Chills Ears: denies: Ear pain Nose: denies: Rhinorrhea / runny nose, Congestion Respiratory: denies: Cough GI: reports: Nausea, Vomiting. denies: Abdominal Pain, Diarrhea Skin: denies: Rash Musculoskeletal: denies: Neck pain, Back pain PD PAST MEDICAL HISTORY - Past Medical History Past Medical History: Yes Cardiovascular: Hypertension, High cholesterol, Coronary artery disease, Other Respiratory: None Neuro: CVA, TIA, Other Endocrine/Autoimmune: HyPOthyroidism GI: Chronic diarrhea, Ulcerative colitis CONDITIONER TENDER: Breast cancer : None HEENT: Chronic hearing loss Psych: Depression Musculoskeletal: Osteoarthritis, Osteoporosis, Other Derm: Eczema - Past Surgical History Past Surgical History: Yes General: Colonoscopy Ortho: Hip replacement /CONDITIONER TENDER: Mastectomy, Other HEENT: Cataracts - Present Medications Home Medications: Ambulatory Orders Medication Instructions Recorded Confirmed Glucosamine Sulfate Dipot Chlr 1,500 mg PO DAILY 03/09/13 12/07/18 [Glucosamine] Atorvastatin [Lipitor] 10 mg PO DAILY 08/02/17 12/07/18 Sertraline HCl [Zoloft] 200 mg PO QPM 08/02/17 12/07/18 Psyllium Husk/Aspartame [Fiber 1 packet PO DAILY 01/29/18 12/07/18 Therapy Powder] Metoprolol Succinate [Toprol Xl] 100 mg PO DAILY 06/28/18 12/07/18 Calcium Carbonate/Vitamin D3 1 tab PO DAILY 07/23/18 12/07/18 [Calcium 500-Vit D3 600 Caplet] Cholecalciferol (Vitamin D3) 2,000 unit PO DAILY 07/23/18 12/07/18 [Vitajoy Daily D] Omeprazole [PriLOSEC] 20 mg PO DAILY 07/23/18 12/07/18 diltiaZEM CD [Cardizem Cd] 120 mg PO QPM 07/23/18 12/07/18 Furosemide 20 mg PO DAILY 11/17/18 12/07/18 Levothyroxine Sodium 75 mcg PO QDAC 11/17/18 12/07/18 Potassium Chloride 10 meq PO DAILY 11/17/18 12/07/18 Acetaminophen 1,000 mg PO Q8H #180 tablet 11/18/18 12/07/18 - Allergies Allergies/Adverse Reactions: Allergies Allergy/AdvReac Type Severity Reaction Status Date / Time amoxicillin trihydrate * Allergy Mild Rash Verified 12/07/18 03:54 [From Augmentin] indomethacin [From Indocin] Allergy Mild Rash Verified 12/07/18 03:54 indomethacin sodium * Allergy Mild Rash Verified 12/07/18 03:54 [From Indocin] lorazepam [From Ativan] Allergy Mild Rash Verified 12/07/18 03:54 metoclopramide HCl * Allergy Mild Rash Verified 12/07/18 03:54 [From Reglan] Penicillins Allergy Mild Rash Verified 12/07/18 03:54 potassium clavulanate * Allergy Mild Rash Verified 12/07/18 03:54 [From Augmentin] prochlorperazine Allergy Mild Rash Verified 12/07/18 03:54 [Prochlorperazine] Sulfa (Sulfonamide Allergy Mild Rash Verified 12/07/18 03:54 Antibiotics) sulfamethoxazole Allergy Mild Rash Verified 12/07/18 03:54 [From Gantanol] adhesive Allergy Rash Verified 12/07/18 03:54 sulfasalazine Allergy Unknown Verified 12/07/18 03:54 [From Sulfazine] thiopental [From Pentothal] Allergy seizures Verified 12/07/18 03:54 aspirin AdvReac Cramps Verified 12/07/18 03:54 levofloxacin [From Levaquin] AdvReac Itching Verified 12/07/18 03:54 metoclopramide [From Reglan] AdvReac Unknown Verified 12/07/18 03:54 phenazopyridine [From Azo] AdvReac Cramps Verified 12/07/18 03:54 - Social History Does the pt smoke?: No Smoking Status: Never smoker Does the pt drink ETOH?: Yes Does the pt have substance abuse?: No - Immunizations Immunizations are current?: Yes - POLST Patient has POLST: No POLST Status: DNR PD ED PE NORMAL - Vitals Vital signs reviewed: Yes - General General: Alert and oriented X 3, No acute distress, Well developed/nourished - HEENT HEENT: PERRL, Moist mucous membranes - Neck Neck: Supple, no meningeal sign - Cardiac Cardiac: RRR, Strong equal pulses - Respiratory Respiratory: No respiratory distress, Clear bilaterally - Abdomen Abdomen: Soft, Non tender, Non distended - Back Back: No CVA TTP, No spinal TTP - Derm Derm: Warm and dry - Extremities Extremities: No edema, No calf tenderness / cord - Neuro Neuro: Alert and oriented X 3 - Psych Psych: Normal mood, Normal affect Results - Vitals Vitals: Vital Signs - 24 hr 12/07/18 12/07/18 12/07/18 03:37 04:05 04:20 Temperature 36.5 C Heart Rate 70 56 L 72 Respiratory 19 19 16 Rate Blood Pressure 181/106 H 179/90 H 165/89 H O2 Saturation 100 98 96 12/07/18 12/07/18 04:59 05:50 Temperature 36.5 C Heart Rate 79 70 Respiratory 16 16 Rate Blood Pressure 172/96 H 160/90 H O2 Saturation 98 100 Oxygen O2 Source [] Room air O2 Source Room air - EKG (time done) 0359 Rate: Rate (enter#) (57) Rhythm: NSR [place]: Normal Intervals: Normal ID QRS: Normal Ischemia: Normal ST segments - Labs Labs: Laboratory Tests 12/07/18 12/07/18 12/07/18 03:57 03:57 03:57 WBC 5.8 RBC 3.29 L Hgb 11.0 L Hct 32.4 L MCV 98.5 MCH 33.5 H MCHC 34.0 RDW 18.0 H Plt Count 296 MPV 6.9 L Neut # (Auto) 4.0 Lymph # (Auto) 1.1 L [place] # (Auto) 0.4 Eos # (Auto) 0.3 Baso # (Auto) 0.1 Absolute Nucleated RBC 0.00 Nucleated RBC % 0.0 Sodium 135 Potassium 3.6 Chloride 100 L Carbon Dioxide 22 Anion Gap 13.0 BUN 20 Creatinine 0.7 Estimated GFR (MDRD) 80 L Glucose 84 Calcium 9.6 Total Bilirubin 0.4 AST 36 ALT 22 Alkaline Phosphatase 58 Troponin I < 0.04 Total Protein 7.5 Albumin 4.3 Globulin 3.2 Albumin/Globulin Ratio 1.3 Lipase 41 - Rads (name of study) cxr Radiology: Prelim report reviewed, EMP read contemporaneously, See rad report (Mild cardiomegaly with pulmonary vascular congestion. Left humeral neck fracture again seen) PD MEDICAL DECISION MAKING - ED course Complexity details: reviewed old records, reviewed results, re-evaluated patient, considered differential, d/w patient, d/w family ED course: 83-year-old female with nausea and vomiting earlier tonight. Resolved prior to arrival in the emergency department. Tolerating p.o. without difficulty here. She is well-appearing, nontoxic. Afebrile. Did develop a slight headache and was given tramadol. This resolved her symptoms. No chest pain in the emergency department. She states that it started after eating pizza last night, possible esophageal irritation? Patient counseled regarding signs and symptoms for which I believe and urgent re-evaluation would be necessary. Patient with good understanding of and agreement to plan and is comfortable going home at this time This document was made in part using voice recognition software. While efforts are made to proofread this document, sound alike and grammatical errors may occur. Departure - Departure Disposition: 01 Home, Self Care Clinical Impression: Nausea Vomiting Qualifiers: Vomiting type: unspecified Vomiting Intractability: non-intractable Nausea presence: with nausea Qualified Code(s): R11.2 - Nausea with vomiting, unspecified Condition: Good Instructions: ED Nausea Vomiting Follow-Up: your,doctor in 1 week [Other] Comments: Your testing is normal tonight. return if you worsen. The cause of your symptoms is unclear tonight but may be related to the pizza you ate last night. Discharge Date/Time: 12/07/18 05:53
[2018-12-07 04:05] LABS: BASOPHILS # (AUTO) 0.1 10^3/uL (0.0-0.1); BASOPHILS % (AUTO) 1.1 %; EOSINOPHILS # (AUTO) 0.3 10^3/uL (0.0-0.7); EOSINOPHILS % (AUTO) 5.2 %; LYMPHOCYTES # (AUTO) 1.1 10^3/uL (1.5-3.5); LYMPHOCYTES % (AUTO) 18.8 %; MEAN CORPUSCULAR HEMOGLOBIN 33.5 pg (27.0-31.0); MEAN CORPUSCULAR VOLUME 98.5 fL (81.0-99.0); MEAN PLATELET VOLUME 6.9 fL (7.9-10.8); MONOCYTES # (AUTO) 0.4 10^3/uL (0.0-1.0); MONOCYTES % (AUTO) 6.6 %; NEUTROPHILS % (AUTO) 68.3 %; PLT - PLATELET COUNT 296 10^3/uL (130-450); RED BLOOD COUNT 3.29 10^6/uL (4.20-5.40); WHITE BLOOD COUNT 5.8 x10^3/uL (4.8-10.8)
[2018-12-07 04:18] LABS: ALBUMIN 4.3 g/dL (3.2-5.5); ALBUMIN/GLOBULIN RATIO 1.3 (1.0-2.2); BILIRUBIN,TOTAL 0.4 mg/dL (0.2-1.0); CALCIUM 9.6 mg/dL (8.5-10.3); CREATININE 0.7 mg/dL (0.4-1.0); TOTAL PROTEIN 7.5 g/dL (6.7-8.2)
--- NOTE | 2018-12-07 04:25 | XRAY Report ---
Reason: Chest Pain Procedure Date: 12/07/2018 Accession Number: [id number] / [id number] Procedure: XR - Chest 1 View X-Ray CPT Code: 25085 FULL RESULT: EXAM: CHEST RADIOGRAPHY EXAM DATE: 12/07/2018 03:58 AM. CLINICAL HISTORY: Chest Pain. COMPARISON: 11/17/2018. TECHNIQUE: 1 view. FINDINGS: Lungs/Pleura: Large lung volumes. Mild pulmonary vascular congestion. No alveolar consolidation or pleural effusion. No pneumothorax. Mediastinum: Lordotic position. Within exam limitations, there is mild cardiomegaly. Aortic atherosclerosis. Other: Osteopenia. Left humeral neck fracture again seen. Surgical clips in the right axilla. IMPRESSION: 1. Mild cardiomegaly with pulmonary vascular congestion. 2. Left humeral neck fracture again seen. RADIA
[2018-12-07] MEDS ORDERED: traMADol 50 MG TABLET PO STA (05:47)
[2018-12-07 06:07] VITALS: BP 160/90
== END 2018-12-07 05:53 | disposition home or self-care (01) ==
LOC: EDUNIT# → ED 03:36
DX: R11.2 Nausea with vomiting, unspecified (principal); R51 Headache; Z87.19 Personal history of other diseases of the digestive system; I10 Essential (primary) hypertension; I51.7 Cardiomegaly
CPT/HCPCS: 36415; 71045; 80053; 83690; 84484; 85025; 93005; 99283; 99284; A9270

== ENCOUNTER 2018-12-22 11:32 | Outpatient (CLI) | payer MEDICARE, OTHER ==
--- NOTE | 2018-12-23 10:06 | Ultrasound Report ---
Reason: ABDOMINAL MASS Procedure Date: 12/22/2018 Accession Number: [id number] / [id number] Procedure: US - Abdomen Limited CPT Code: FULL RESULT: EXAM: ABDOMEN ULTRASOUND LIMITED EXAM DATE: 12/22/2018 11:58 AM. CLINICAL HISTORY: Abdominal mass. COMPARISON: None. TECHNIQUE: Real-time scanning was performed with static images obtained. FINDINGS: Focal ultrasound of the epigastric region was performed which demonstrated a 1.5 x 1.4 cm wide and 0.4 cm tall hernia sac which did not reduce during the examination, with a 0.3 cm narrow neck which did not contain any bowel sonographically. IMPRESSION: Fat-containing epigastric hernia. RADIA
== END 2018-12-22 11:33 | disposition home or self-care (01) ==
LOC: DI 11:32
PROVIDERS: ATTEND Family Medicine
DX: K43.9 Ventral hernia without obstruction or gangrene (principal)
CPT/HCPCS: 76705

== ENCOUNTER 2019-01-01 15:59 | Outpatient (CLI) | payer MEDICARE, OTHER | END 2019-01-01 16:00 | disposition home or self-care (01) | LOC: LAB 15:59 | PROVIDERS: ATTEND Family Medicine | DX: R07.9 Chest pain, unspecified (principal) | CPT/HCPCS: 36415; 84484 ==

== ENCOUNTER 2019-01-30 15:07 | Outpatient (CLI) | payer MEDICARE, OTHER ==
[2019-01-30 15:39] LABS: BUN - BLOOD UREA NITROGEN 25 mg/dL (6-20); CALCIUM 9.7 mg/dL (8.5-10.3); CARBON DIOXIDE - CO2 25 mmol/L (21-32); CHLORIDE 100 mmol/L (101-111); CREATININE 0.7 mg/dL (0.4-1.0); DIGOXIN 0.5 ng/mL; GFR - MDRD 80 (>89); GLUCOSE 92 mg/dL (70-100); SODIUM 138 mmol/L (135-145)
== END 2019-01-30 15:08 | disposition home or self-care (01) ==
LOC: LAB 15:07
PROVIDERS: ATTEND Nurse Practitioner
DX: I48.0 Paroxysmal atrial fibrillation (principal)
CPT/HCPCS: 36415; 80048; 80162

== ENCOUNTER 2019-04-13 14:09 | Outpatient (CLI) | payer MEDICARE, OTHER ==
[2019-04-13 14:51] LABS: BASOPHILS # (AUTO) 0.1 10^3/uL (0.0-0.1); BASOPHILS % (AUTO) 1.1 %; EOSINOPHILS # (AUTO) 0.3 10^3/uL (0.0-0.7); EOSINOPHILS % (AUTO) 4.7 %; HGB - HEMOGLOBIN 11.7 g/dL (12.0-16.0); LYMPHOCYTES # (AUTO) 1.3 10^3/uL (1.5-3.5); LYMPHOCYTES % (AUTO) 21.7 %; MEAN CORPUSCULAR HEMOGLOBIN 33.1 pg (27.0-31.0); MEAN CORPUSCULAR HGB CONC 32.9 g/dL (32.0-36.0); MEAN CORPUSCULAR VOLUME 100.7 fL (81.0-99.0); MEAN PLATELET VOLUME 7.2 fL (7.9-10.8); MONOCYTES # (AUTO) 0.5 10^3/uL (0.0-1.0); MONOCYTES % (AUTO) 8.3 %; NEUTROPHILS # (AUTO) 3.7 10^3/uL (1.5-6.6); NEUTROPHILS % (AUTO) 64.2 %; PLT - PLATELET COUNT 272 10^3/uL (130-450); RED BLOOD COUNT 3.54 10^6/uL (4.20-5.40); WHITE BLOOD COUNT 5.8 x10^3/uL (4.8-10.8)
[2019-04-13 15:10] LABS: ALBUMIN 4.3 g/dL (3.2-5.5); ALBUMIN/GLOBULIN RATIO 1.5 (1.0-2.2); ALKALINE PHOSPHATASE 53 IU/L (42-121); ALT ALANINE AMINOTRANSFERASE 37 IU/L (10-60); AST ASPARTATE AMINOTRANSFERASE 45 IU/L (10-42); BUN - BLOOD UREA NITROGEN 20 mg/dL (6-20); CALCIUM 9.3 mg/dL (8.5-10.3); CARBON DIOXIDE - CO2 23 mmol/L (21-32); CHLORIDE 101 mmol/L (101-111); CHOLESTEROL 176 mg/dL; CREATININE 0.8 mg/dL (0.4-1.0); GFR - MDRD 69 (>89); GLUCOSE 91 mg/dL (70-100); HDL CHOLESTEROL 86 mg/dL; LDL CHOLESTEROL,CALCULATED 78 mg/dL; LDL/HDL RATIO 0.9 (<4.4); SODIUM 135 mmol/L (135-145); TOTAL PROTEIN 7.1 g/dL (6.7-8.2); VLDL CHOLESTEROL 12 mg/dL
== END 2019-04-13 14:10 | disposition home or self-care (01) ==
LOC: LAB 14:09
PROVIDERS: ATTEND Family Medicine
DX: R19.7 Diarrhea, unspecified (principal); E78.5 Hyperlipidemia, unspecified; R61 Generalized hyperhidrosis; I10 Essential (primary) hypertension; E03.9 Hypothyroidism, unspecified
CPT/HCPCS: 36415; 80053; 80061; 81599; 83630; 83721; 84443; 85025; 87045; 87046; 87177; 87209; 87329; 87493; 89055

== ENCOUNTER 2019-04-16 01:55 | Outpatient (CLI) | payer MEDICARE, OTHER | END 2019-04-16 01:56 | disposition critical access hospital (66) | LOC: EMS 01:55 | PROVIDERS: ATTEND Surgery | DX: R07.9 Chest pain, unspecified (principal); R51 Headache; M54.2 Cervicalgia | CPT/HCPCS: A0425; A0427 ==

== ENCOUNTER 2019-04-16 02:05 | Emergency (ER) | payer MEDICARE, OTHER ==
--- NOTE | 2019-04-16 02:21 | ED Physician Documentation ---
PD HPI CHEST PAIN - Stated complaint Stated Complaint: CP - Chief complaint Chief Complaint: Cardiac - History obtained from History obtained from: Patient - History of Present Illness Timing - onset: Today Timing - duration: Minutes (Just prior to arrival) Timing - details: Abrupt onset Quality: Pressure Location: Substernal Radiation: Neck Improved by: Nitro Worsened by: Exertion Associated symptoms: Shortness of air (With exertion), Nausea, Palpitations. No: Vomiting, Cough Similar symptoms before: Diagnosis (History of atrial fibrillation. Denies history of DC.) - Additional information Additional information: This is an 84-year-old woman who presents from home with complaints that she was getting ready for bed when she got pain in her neck and in the front of her chest radiating up into her ears bilaterally and her pulse felt very rapid and she had a headache. She called the ambulance and in route they gave her a nit roglycerin tablet and some morphine. The pressure in her chest is now down to a 6 out of 10 from a 7 out of 10. Patient does have a history of atrial fibrillation and is on Xarelto. She has been told not to take aspirin because of a history of GI bleeding. She denies history of DC but says she has had a stroke in the past. She is feeling little nauseous but has not vomited. She has been experiencing shortness of breath with exertion. Denies any peripheral edema. She is not dizzy. Review of Systems Unable to obtain: Other (Tachycardia with active chest pain) Constitutional: denies: Fever Cardiac: reports: Chest pain / pressure, Palpitations Respiratory: reports: Dyspnea. denies: Cough GI: reports: Nausea. denies: Abdominal Pain, Vomiting, Diarrhea : denies: Dysuria Musculoskeletal: reports: Neck pain Neurologic: reports: Headache. 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 : None HEENT: Chronic hearing loss Psych: Depression Musculoskeletal: Osteoarthritis, Osteoporosis, Other Derm: Eczema - Past Surgical History Past Surgical History: Yes General: Colonoscopy Ortho: Hip replacement /DOUGHNUT BATTER MIXER: Mastectomy, Other HEENT: Cataracts - Present Medications Home Medications: Ambulatory Orders Medication Instructions Recorded Confirmed Atorvastatin [Lipitor] 10 mg PO DAILY 08/02/17 12/07/18 Sertraline HCl [Zoloft] 100 mg PO BID 08/02/17 12/07/18 Psyllium Husk/Aspartame [Fiber 1 packet PO DAILY 01/29/18 12/07/18 Therapy Powder] Metoprolol Succinate [Toprol Xl] 100 mg PO BID 06/28/18 12/07/18 Calcium Carbonate/Vitamin D3 1 tab PO DAILY 07/23/18 12/07/18 [Calcium 500-Vit D3 600 Caplet] Cholecalciferol (Vitamin D3) 2,000 unit PO DAILY 07/23/18 12/07/18 [Vitajoy Daily D] Furosemide 20 mg PO DAILY 11/17/18 12/07/18 Levothyroxine Sodium 75 mcg PO QDAC 11/17/18 12/07/18 Potassium Chloride 10 meq PO DAILY 11/17/18 12/07/18 Aspirin [Adult Low Dose Aspirin EC] 81 mg PO DAILY 04/16/19 04/16/19 Clobetasol 0.05% Oint [Temovate 1 applic TOP PRN 04/16/19 0.05% Oint] Digoxin 125 mcg PO DAILY 04/16/19 04/16/19 Lisinopril 2.5 mg PO DAILY 04/16/19 04/16/19 Rivaroxaban [Xarelto] 20 mg PO DAILY 04/16/19 04/16/19 Vitamin B Complex/Folic Acid 0.4 mg PO DAILY 04/16/19 04/16/19 [Vitamin B-100 Complex Tablet] - Allergies Allergies/Adverse Reactions: Allergies Allergy/AdvReac Type Severity Reaction Status Date / Time amoxicillin trihydrate * Allergy Mild Rash Verified 04/16/19 02:16 [From Augmentin] indomethacin [From Indocin] Allergy Mild Rash Verified 04/16/19 02:16 indomethacin sodium * Allergy Mild Rash Verified 04/16/19 02:16 [From Indocin] lorazepam [From Ativan] Allergy Mild Rash Verified 04/16/19 02:16 metoclopramide HCl * Allergy Mild Rash Verified 04/16/19 02:16 [From Reglan] Penicillins Allergy Mild Rash Verified 04/16/19 02:16 potassium clavulanate * Allergy Mild Rash Verified 04/16/19 02:16 [From Augmentin] prochlorperazine Allergy Mild Rash Verified 04/16/19 02:16 [Prochlorperazine] Sulfa (Sulfonamide Allergy Mild Rash Verified 04/16/19 02:16 Antibiotics) sulfamethoxazole Allergy Mild Rash Verified 04/16/19 02:16 [From Gantanol] adhesive Allergy Rash Verified 04/16/19 02:16 sulfasalazine Allergy Unknown Verified 04/16/19 02:16 [From Sulfazine] thiopental [From Pentothal] Allergy seizures Verified 04/16/19 02:16 aspirin AdvReac Cramps Verified 04/16/19 02:16 levofloxacin [From Levaquin] AdvReac Itching Verified 04/16/19 02:16 metoclopramide [From Reglan] AdvReac Unknown Verified 04/16/19 02:16 phenazopyridine [From Azo] AdvReac Cramps Verified 04/16/19 02:16 - Social History Does the pt smoke?: No Smoking Status: Never smoker Does the pt drink ETOH?: Yes Does the pt have substance abuse?: No - Immunizations Immunizations are current?: Yes - POLST Patient has POLST: No POLST Status: DNR PD ED PE NORMAL - Vitals Vital signs reviewed: Yes (Thin 84-year-old woman) - General General: Alert and oriented X 3, No acute distress - HEENT HEENT: Atraumatic, PERRL, Moist mucous membranes - Neck Neck: Supple, no meningeal sign, No adenopathy - Cardiac Cardiac: Strong equal pulses, Other (Tachycardia. 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, No motor deficit, No sensory deficit, Normal speech - Psych Psych: Normal mood, Normal affect Results - Vitals Vitals: Vital Signs - 24 hr 04/16/19 04/16/19 04/16/19 02:11 02:56 03:04 Temperature 36.9 C Heart Rate 135 H 124 H 100 Respiratory 17 20 16 Rate Blood Pressure 130/104 H 130/106 H 130/95 H O2 Saturation 93 97 98 04/16/19 04/16/19 04/16/19 03:08 03:13 03:29 Temperature Heart Rate 76 64 65 Respiratory 20 15 15 Rate Blood Pressure 98/68 107/75 115/71 O2 Saturation 92 93 97 04/16/19 04/16/19 04/16/19 03:45 03:59 04:37 Temperature Heart Rate 67 66 73 Respiratory 17 18 18 Rate Blood Pressure 129/104 H 113/76 126/69 O2 Saturation 95 95 96 04/16/19 04/16/19 05:25 06:00 Temperature Heart Rate 79 80 Respiratory 16 16 Rate Blood Pressure 115/71 126/72 O2 Saturation 95 94 Oxygen O2 Source [] Room air O2 Source Room air - EKG (time done) 0217 Rate: Rate (enter#) Rhythm: Atrial fibrillation Ischemia: Non specific changes Compare to prior EKG: Unchanged from prior EKG - Labs Labs: Laboratory Tests 04/16/19 04/16/19 04/16/19 03:00 03:00 03:00 WBC 6.2 RBC 3.52 L Hgb 11.9 L Hct 34.7 L MCV 98.6 MCH 33.7 H MCHC 34.2 RDW 14.7 Plt Count 241 MPV 7.1 L Neut # (Auto) 4.6 Lymph # (Auto) 0.9 L [place] # (Auto) 0.4 Eos # (Auto) 0.2 Baso # (Auto) 0.1 Absolute Nucleated RBC 0.00 Nucleated RBC % 0.1 Sodium 136 Potassium 3.9 Chloride 104 Carbon Dioxide 21 Anion Gap 11.0 BUN 22 H Creatinine 0.8 Estimated GFR (MDRD) 69 L Glucose 100 Calcium 9.1 Troponin I < 0.04 B-Natriuretic Peptide 04/16/19 04/16/19 03:00 06:00 WBC RBC Hgb Hct MCV MCH MCHC RDW Plt Count MPV Neut # (Auto) Lymph # (Auto) [place] # (Auto) Eos # (Auto) Baso # (Auto) Absolute Nucleated RBC Nucleated RBC % Sodium Potassium Chloride Carbon Dioxide Anion Gap BUN Creatinine Estimated GFR (MDRD) Glucose Calcium Troponin I < 0.04 B-Natriuretic Peptide 437 H - Rads (name of study) CXR Radiology: See rad report PD MEDICAL DECISION MAKING - ED course Complexity details: re-evaluated patient ED course: 0342: Patient's heart rate is down into the 60s and 70s. She remains in A. fib after Cardizem 20 mg bolus. BNP is elevated over 300 with some mild interstitial edema on her chest x-ray. She still complaining of a headache and pain in her throat but is feeling little better. We discussed treatment options for the headache and have decided to give a hydrocodone tablet. She is also ordered for Lasix 20 mg IV. Plan to observe and check a 3-hour troponin. 0653: Patient's heart rate has remained controlled. Her 3-hour troponin was normal. She is been urinating after the Lasix. She is quite frustrated that she is having these episodes of tachycardia but they have tried to cardiovert her on at least 2 occasions without success and she had some mural thrombus that dictated that they could not convert her. I have encouraged her to follow-up with her assistant store manager operations about these breakthrough episodes. Return if she has increasing shortness of breath, return to the rapid heart rate or other problems arise. Departure - Departure Disposition: 01 Home, Self Care Clinical Impression: Atypical chest pain, Atrial fibrillation with RVR Condition: Good Instructions: ED Afib Follow-Up: Nazanin Bentley MD [Primary Care Provider] - Gregory Ha MD [Physician No Access] - Comments: Continue to use her regular heart medications and the Lasix. Follow-up with your primary care provider or assistant store manager operations by early next week. He should probably discuss with the assistant store manager operations whether there is a better way to control the rate at home and prevent the breakthrough episodes. Return if you have increasing shortness of breath, return to the rapid heart rate that does not resolve, vomiting or other problems arise.
[2019-04-16] MEDS ORDERED: diltiaZEM INJ 5 MG/ML VIAL IVP STA (02:42)
[2019-04-16 03:10] LABS: BASOPHILS # (AUTO) 0.1 10^3/uL (0.0-0.1); BASOPHILS % (AUTO) 1.1 %; EOSINOPHILS # (AUTO) 0.2 10^3/uL (0.0-0.7); EOSINOPHILS % (AUTO) 3.3 %; HGB - HEMOGLOBIN 11.9 g/dL (12.0-16.0); LYMPHOCYTES # (AUTO) 0.9 10^3/uL (1.5-3.5); LYMPHOCYTES % (AUTO) 15.1 %; MEAN CORPUSCULAR HEMOGLOBIN 33.7 pg (27.0-31.0); MEAN CORPUSCULAR HGB CONC 34.2 g/dL (32.0-36.0); MEAN CORPUSCULAR VOLUME 98.6 fL (81.0-99.0); MEAN PLATELET VOLUME 7.1 fL (7.9-10.8); MONOCYTES # (AUTO) 0.4 10^3/uL (0.0-1.0); MONOCYTES % (AUTO) 6.6 %; NEUTROPHILS # (AUTO) 4.6 10^3/uL (1.5-6.6); NEUTROPHILS % (AUTO) 73.9 %; PLT - PLATELET COUNT 241 10^3/uL (130-450); RED BLOOD COUNT 3.52 10^6/uL (4.20-5.40); RED CELL DISTRIBUTION WIDTH 14.7 % (12.0-15.0); WHITE BLOOD COUNT 6.2 x10^3/uL (4.8-10.8)
--- NOTE | 2019-04-16 03:14 | XRAY Report ---
Reason: chest pain Procedure Date: 04/16/2019 Accession Number: [id number] / [id number] Procedure: XR - Chest 1 View X-Ray CPT Code: 19101 FULL RESULT: EXAM: CHEST RADIOGRAPHY EXAM DATE: 04/16/2019 02:57 AM. CLINICAL HISTORY: Chest pain. COMPARISON: CHEST 1 VIEW 12/07/2018 3:58 AM. TECHNIQUE: 1 view. FINDINGS: Lungs/Pleura: Large lung volumes. Pulmonary vascular congestion. Possible trace interstitial edema. No alveolar consolidation or pleural effusion seen. No pneumothorax. Mediastinum: Within exam limitations, heart is mildly enlarged. Aortic atherosclerosis. Other: Osteopenia. Left humeral neck fracture again seen. Surgical clips in the right axilla. IMPRESSION: 1. Large lung volumes with cardiomegaly and pulmonary vascular congestion. 2. Possible trace interstitial edema. RADIA
[2019-04-16 03:19] LABS: CALCIUM 9.1 mg/dL (8.5-10.3); CREATININE 0.8 mg/dL (0.4-1.0)
[2019-04-16] MEDS ORDERED: HYDROcod/ACETAM 5/325 MG TABLET PO STA (03:38)
[2019-04-16] MEDS ORDERED: FUROSEMIDE 20 MG/2 ML VIAL IVP STA (03:39)
[2019-04-16 07:20] VITALS: BP 126/85
== END 2019-04-16 08:35 | disposition home or self-care (01) ==
LOC: EDUNIT# → ED 02:05
DX: R07.89 Other chest pain (principal); I48.91 Unspecified atrial fibrillation; Z79.01 Long term (current) use of anticoagulants; J81.1 Chronic pulmonary edema; I51.3 Intracardiac thrombosis, not elsewhere classified; I25.10 Atherosclerotic heart disease of native coronary artery without angina pectoris; I10 Essential (primary) hypertension; R51 Headache; Z66 Do not resuscitate
CPT/HCPCS: 36415; 71045; 80048; 83880; 84484; 85025; 93005; 96374; 96375; 99284; A9270

== ENCOUNTER 2019-04-22 13:03 | Outpatient (CLI) | payer MEDICARE, OTHER ==
--- NOTE | 2019-04-22 13:15 | CONSULTATION NOTE ---
Palliative Care Consultation - Referral Referring Provider: Dr Bentley Time of Visit: Sat04/22/2019 9:30 - 11:00 Referral setting: Home Referral Reason: Cardiac disease - Information Sources Records reviewed: Previous records reviewed History/Review of Systems obtained from: Patient, Family Exam limitations: No limitations - History of Present Illness Brief History of Present Illness: 84-year-old woman living at home with her frail , with multiple, complex co-morbidities including cardiac disease and history of recurrent lobular breast cancer. She is referred to palliative care for advance care planning. Medical history:h/o recurrent lobular breast cancer s/p R mastectomy February 2018; CVA 2011 and 2017; atrial fibrillation 2017 and Dec 2018; HTN; cardiomegaly (EF 60%, moderate L atrial enlargement; CAD; atrial septal defect; long QT syndrome; HLD; emphysema; depression; hypothyroidism; post-herpetic neuralgia; osteoporosis; osteoarthritis; chronic pain; GERD. Patient is pleasant, awake and alert, appears somewhat tense, with fidgeting with hands. Her main concerns today are her reduced mobility, feeling extreme fatigue, a lack of energy and tired all the time. She does everything more slowly and so it takes all day to do anything. She expresses sadness about the declining health of both herself and her . They live in their home with nearly 5 acres, and are finding it more and difficult to maintain the property in the house. They do have help with ho usekeeping, woman who comes every other week. Patient says she feels depressed and overwhelmed at times with all their medical issues and seeing multiple doctors. When her fractured his arm late last year and was in rehab in [place], she felt overwhelmed with driving over there, all the medical appointments, bills, paperwork. She has been on sertraline for very long time does not think it is working anymore. She does not want any more pills, if anything she wants less pills. Patient and her spouse both still drive. She had cardioversion in Aug 2018. She was back in Afib Dec of this year. Two transesophageal echocardiographies (EERNDIRA) revealed clots, so the cardioversions were not performed. She reports they wanted her to see another oil inspector regarding placing a pacemaker, but she is undecided. Medical records record daily alcohol consumption of 2-[address] Ha notes on 3/13/19 that the most likely trigger for the atrial fibrillation noted earlier this year was excessive alcohol intake. They have 2 sons both of whom live [place] [address]. They report not seeing them as often as previously now that the grandchildren are older. Medical/Surgical History - Past Medical History Cardiovascular: reports: Hypertension, High cholesterol, Coronary artery disease, Atrial fibrillation, Other (atrial septal defect; long QT syndrome) Respiratory: reports: Emphysema Neuro: CVA (2011, 2017), TIA, Other Endocrine/Autoimmune: reports: HyPOthyroidism GI: reports: GERD, Chronic diarrhea, Ulcerative colitis STATION TENDER: reports: Breast cancer (recurrent; R mastectomy February 2018) : reports: None HEENT: reports: Chronic hearing loss Psych: reports: Depression Musculoskeletal: reports: Osteoarthritis, Osteoporosis, Other Derm: reports: Eczema MRSA Hx?: No - Past Surgical History General: reports: Colonoscopy Ortho: reports: Hip replacement (Left hip 2014), Other (Fracture L tibia spring 2015; fractured L arm Sep 2018) /STATION TENDER: reports: Mastectomy, Other HEENT: reports: Cataracts - Substance History Use: Uses substance without health or social issues: Alcohol (daily wine, 2 drinks) Tobacco Details: Cigarettes ([facility] 11/07 ppd x 30 years, quit 1969) Social History - Living Situation Living arrangement: At home Living Situation: With spouse/s.o. Support System: Patient lives at home with her spouse. He has health issues of his own, including full knee replacement in Dec 2018, still in outpatient PT and ambulatory difficulties. They live on nearly [address]. They have two adult sons, the elder is in [place], the other in [place]. They see their family less frequently since the grandchildren have become older Family History - Family History Family History Comment/Other: Father age 84 of heart disease, dementia. Mother age 79 of pulmonary embolism. Medications/Allergies - Medications Home Medications: Ambulatory Orders Medication Instructions Recorded Confirmed Atorvastatin [Lipitor] 10 mg PO DAILY 08/02/17 04/23/19 Sertraline HCl [Zoloft] 100 mg PO BID 08/02/17 04/23/19 Psyllium Husk/Aspartame [Fiber 1 packet PO DAILY 01/29/18 04/23/19 Therapy Powder] Metoprolol Succinate [Toprol Xl] 100 mg PO .QAM 06/28/18 04/23/19 Cholecalciferol (Vitamin D3) 2,000 unit PO DAILY 07/23/18 04/23/19 [Vitajoy Daily D] Furosemide 20 mg PO DAILY 11/17/18 04/23/19 Levothyroxine Sodium 75 mcg PO QDAC 11/17/18 04/23/19 Potassium Chloride 10 meq PO DAILY 11/17/18 04/23/19 Aspirin [Adult Low Dose Aspirin EC] 81 mg PO DAILY 04/16/19 04/23/19 Clobetasol 0.05% Oint [Temovate 1 applic TOP PRN 04/16/19 0.05% Oint] Digoxin 125 mcg PO DAILY 04/16/19 04/23/19 Lisinopril 2.5 mg PO DAILY 04/16/19 04/23/19 Rivaroxaban [Xarelto] 20 mg PO DAILY 04/16/19 04/23/19 Vitamin B Complex/Folic Acid 0.4 mg PO DAILY 04/16/19 04/23/19 [Vitamin B-100 Complex Tablet] Acetaminophen 500 - 1,000 mg PO PRN MDD 04/23/19 3000/mg/24hr maximum Calcium Carbonate [Tums (Calcium 500 mg PO DAILY PRN 04/23/19 04/23/19 Carbonate 500mg)] Metoprolol Succinate [Toprol Xl] 50 mg PO .QPM 04/23/19 04/23/19 Triamcinolone 0.1% Cream [Kenalog 1 ea TOP BID PRN 04/23/19 04/23/19 0.1% Cream] - Allergies Allergies/Adverse Reactions: Allergies Allergy/AdvReac Type Severity Reaction Status Date / Time amoxicillin trihydrate * Allergy Mild Rash Verified 04/16/19 02:16 [From Augmentin] indomethacin [From Indocin] Allergy Mild Rash Verified 04/16/19 02:16 indomethacin sodium * Allergy Mild Rash Verified 04/16/19 02:16 [From Indocin] lorazepam [From Ativan] Allergy Mild Rash Verified 04/16/19 02:16 metoclopramide HCl * Allergy Mild Rash Verified 04/16/19 02:16 [From Reglan] Penicillins Allergy Mild Rash Verified 04/16/19 02:16 potassium clavulanate * Allergy Mild Rash Verified 04/16/19 02:16 [From Augmentin] prochlorperazine Allergy Mild Rash Verified 04/16/19 02:16 [Prochlorperazine] Sulfa (Sulfonamide Allergy Mild Rash Verified 04/16/19 02:16 Antibiotics) sulfamethoxazole Allergy Mild Rash Verified 04/16/19 02:16 [From Gantanol] adhesive Allergy Rash Verified 04/16/19 02:16 sulfasalazine Allergy Unknown Verified 04/16/19 02:16 [From Sulfazine] thiopental [From Pentothal] Allergy seizures Verified 04/16/19 02:16 aspirin AdvReac Cramps Verified 04/16/19 02:16 levofloxacin [From Levaquin] AdvReac Itching Verified 04/16/19 02:16 metoclopramide [From Reglan] AdvReac Unknown Verified 04/16/19 02:16 phenazopyridine [From Azo] AdvReac Cramps Verified 04/16/19 02:16 Review of Systems - Constitutional Constitutional: reports: Fatigue, Poor appetite (moderate), Night sweats, Weight loss (114 lbs, bmi 21.27 03/24/19. Weight loss of 10 lbs in 6 months reported by patient.) - Ears, Nose & Throat Ears, Nose & Throat: reports: Hearing loss - Cardiovascular Cardiovascular: reports: Chest pain, Edema, Exertional dyspnea, Decr. exercise tolerance - Respiratory Respiratory: reports: SOB with exertion - Gastrointestinal Gastrointestinal: reports: Diarrhea (loose stools) - Musculoskeletal Musculoskeletal: reports: Back pain, Muscle weakness, Other (ambulatory but less stamina for walking outside). denies: Assistive devices, Transfer issues - Psychiatric Psychiatric: reports: Depression, Anxiety - Endocrine Endocrine: reports: Hypothyroidism Physical Exam - Vital Signs Temperature: 96.8 F Pulse Rate: 81 O2 Saturation: 95 (room air) Blood Pressure: 139/68 (wrist cuff) - Physical Exam General Appearance: positive: Alert, Mild distress (nervous, fidgets) Eyes Bilateral: positive: Normal inspection ENT: positive: No signs of dehydration Neck: positive: No JVD, Trachea midline Cardiovascular: positive: Irregularly irregular Respiratory: positive: Chest non-tender, No respiratory distress, Breath sounds nml Abdomen: positive: Non-tender, Soft, Nml bowel sounds Skin: positive: No symptoms Extremities: positive: Nml appearance, No pedal edema Neurologic/Psychiatric: positive: Oriented x3, Mood/affect nml Palliative Care - POLST Patient has POLST: Yes POLST Status: DNR, Selective Treatment Pain: Location (L hip fracture from 2015 still mildly painful. Aleve helped, but caused GI bleed), Severity (mild) Tiredness/Fatigue: Severe (7-10) Drowsiness/Sedation: Moderate (4-6) Nausea: Mild (1-3) Depression: Severe (7-10) Anxiety: Severe (7-10) Dyspnea: Severe (7-10) Anorexia: Moderate (4-6) Sleep: Sleeps well Constipation: No Performance Status: ambulatory but limited due to SOA increasing SOA and fatigue chronically performs ADLs and IADLs no cognitive deficits Palliative Performance Scale 70% MINA INDEX (All-cause 1-year mortality risk for community-dwelling adults age 65 and over: 11.3% Risk calculators cannot predict the future for any one individual. Risk calculators give an estimate of how many people with similar risk factors will live and , but they cannot identify who will live and who will . - Palliative Care Discussion: The patient's foremost concerns are her own declining health, constant fatigue and impaired mobility due to increasing SOA. She still has pain in her L hip S/P ORIF in 2015, and can no longer use NSAIDs due to a GI bleed. Tylenol doesn't do much to help the pain. Patient is experiencing existential distress at her declining health, as well as her 's. They love their home and where they live on 5 acres, but are less able to take care of it, or to enjoy walks around the property, or down to the water. She can't walk up the slight incline of the land because of her dyspnea. They used to lead very active lives, with trips and camping, but they've had to remain at home for the past several years. They both have insight into their situation and declining health and realize there's too much to do around their house and land, but they don't want to give up their home. They have done some research into assisted living facilities. They don't want to live in [place], and wish there were [facility] choices in [place]. They have tried in-home caregivers in the past but the experience wasn't good, with inconsistency in the staff, caregivers not being adequately trained, or not knowing how to do what they needed to do. 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 She feels increased depression at all the losses, including friends, close friends who have , leaving less people in her life whom she can speak to and connect with. 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 She moves slowly and finds that it takes her all day to do just the ADLs and IADLs. She does feel overwhelmed at times. She doesn't want to take any more medications for the depression, she would like to take less pills. We discussed other approaches, such as meditation, or finding time to get back in to her writing and poetry. Discussed that palliative care has SW for psychosocial support. She will consider this. It's important to them to have consistency and one person coming in to their home, not different people. Impression and Recommendations - Palliative Care Impression: 84-year-old woman living at home with her frail , with multiple, complex comorbidities including cardiac disease and history of recurrent lobular breast cancer. She is referred to palliative care for advance care planning. Recommendations/Counseling Done: Depression: Patient has been on sertraline for years. She previously discussed with PCP adding a small dose of Abilify, she declined. Today she also states she is not interested in "more pills." Discussed other alternatives: meditation, finding time to restart her writing (poetry, short stories). Discussed referring her to Palliative Care SW for psychosocial support and therapy. It's important to her that the same person comes, not different staff members. She is considering SW Atrial fibrillation: Two TEEs (transesophageal echos) revealed clots, so cardioversions were not performed. She has been recommended to follow up with another oil inspector about a pacemaker. She is currently on metoprolol, Xarelto, digoxin. General weakness: Increasing fatigue and debility, secondary to cardiac issues. Patient remains ambulatory, navigates stairs independently, but can't takes walks on the property due to SOA, no stamina. They do have a staircase elevator installed. currently uses it. They have long-term care insurance, but haven't had good experience with caregivers. Have done some research on ALFs, but they are not currently considering moving. Patient is considering having a pacemaker for improvement of fatigue/SOA. She is undecided. Discussed benefits and burdens: the effort and risks of the procedure vs. the possibility of improved energy, functionality, quality of life. She is undecided, is considering it. Advance care planning: Reviewed her POLST, originally signed in [address] Bentley, DNR and selective. Discussed patient's goals of care, they have not changed, she does want transition to hospital for treatment of reversible conditions. Re-signed the review section. Patient is considering Palliative Care SW services. Follow up in May. Time Spent: 90 minutes were spent with more than 50% of the time spent on counselling, education, providing anticipatory guidance and coordination of care.
== END 2019-04-22 13:04 | disposition home or self-care (01) ==
LOC: PC 13:03
PROVIDERS: ATTEND Nurse Practitioner
DX: Z51.5 Encounter for palliative care (principal); Z66 Do not resuscitate; R53.83 Other fatigue; R06.02 Shortness of breath; M25.552 Pain in left hip; F32.9 Major depressive disorder, single episode, unspecified; I48.91 Unspecified atrial fibrillation; I11.9 Hypertensive heart disease without heart failure; Z74.09 Other reduced mobility; Q21.1 Atrial septal defect; I45.81 Long QT syndrome; E78.5 Hyperlipidemia, unspecified; J43.9 Emphysema, unspecified; I25.10 Atherosclerotic heart disease of native coronary artery without angina pectoris; E03.9 Hypothyroidism, unspecified; B02.29 Other postherpetic nervous system involvement; M81.0 Age-related osteoporosis without current pathological fracture; M19.90 Unspecified osteoarthritis, unspecified site; G89.29 Other chronic pain; K21.9 Gastro-esophageal reflux disease without esophagitis; K51.90 Ulcerative colitis, unspecified, without complications; H91.90 Unspecified hearing loss, unspecified ear; L30.9 Dermatitis, unspecified; F50.89 Other specified eating disorder; Z79.82 Long term (current) use of aspirin; Z85.3 Personal history of malignant neoplasm of breast; Z87.891 Personal history of nicotine dependence; Z96.642 Presence of left artificial hip joint; Z90.11 Acquired absence of right breast and nipple; Z86.73 Personal history of transient ischemic attack (TIA), and cerebral infarction without residual deficits; Z68.21 Body mass index [BMI] 21.0-21.9, adult; F41.9 Anxiety disorder, unspecified
CPT/HCPCS: 99345

== ENCOUNTER 2019-04-30 09:54 | Emergency (ER) | payer MEDICARE, OTHER ==
--- NOTE | 2019-04-30 10:03 | ED Physician Documentation ---
History of Present Illness - Stated complaint Stated Complaint: SOA/RIB PX - Chief complaint Chief Complaint: General - History obtained from History obtained from: Patient - Additonal information Additional information: Patient is a 84-year-old female with complicated past medical history including breat cancer (not undergoing chemotherapy or radiation), CAD, hypertension, hyperlipidemia, atrial fibrillation with known cardiac thrombus and therefore not amenable to cardioversion presenting with shortness of breath and chest discomfort as well as palpitations. Patient states that her symptoms are at baseline and otherwise unchanged, but voices frustration over the symptoms. Patient denies any fever, cough, abdominal pain, vomiting, urinary changes, stool changes. Patient reports that she is compliant with home medications and took her morning medications today. No other inciting incident or factors that precipitated today's complaints. 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 Patient was seen for similar symptoms in this ED several weeks ago and received diltiazem for rate control. No other improving or worsening factors noted. Review of Systems Constitutional: denies: Fever Cardiac: reports: Chest pain / pressure, Palpitations Respiratory: reports: Dyspnea. 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: Breast cancer (recurrent; R mastectomy February 2018) : None HEENT: Chronic hearing loss Psych: Depression Musculoskeletal: Osteoarthritis, Osteoporosis, Other Derm: Eczema - Past Surgical History Past Surgical History: Yes General: Colonoscopy Ortho: Hip replacement (Left hip 2014), Other (Fracture L tibia spring 2015; fractured L arm Sep 2018) /WATER LEAK REPAIRER: Mastectomy, Other HEENT: Cataracts - Present Medications Home Medications: Ambulatory Orders Medication Instructions Recorded Confirmed Atorvastatin [Lipitor] 10 mg PO DAILY 08/02/17 04/23/19 Sertraline HCl [Zoloft] 100 mg PO BID 08/02/17 04/23/19 Psyllium Husk/Aspartame [Fiber 1 packet PO DAILY 01/29/18 04/23/19 Therapy Powder] Metoprolol Succinate [Toprol Xl] 100 mg PO .QAM 06/28/18 04/23/19 Cholecalciferol (Vitamin D3) 2,000 unit PO DAILY 07/23/18 04/23/19 [Vitajoy Daily D] Furosemide 20 mg PO DAILY 11/17/18 04/23/19 Levothyroxine Sodium 75 mcg PO QDAC 11/17/18 04/23/19 Potassium Chloride 10 meq PO DAILY 11/17/18 04/23/19 Aspirin [Adult Low Dose Aspirin EC] 81 mg PO DAILY 04/16/19 04/23/19 Clobetasol 0.05% Oint [Temovate 1 applic TOP PRN 04/16/19 0.05% Oint] Digoxin 125 mcg PO DAILY 04/16/19 04/23/19 Lisinopril 2.5 mg PO DAILY 04/16/19 04/23/19 Rivaroxaban [Xarelto] 20 mg PO DAILY 04/16/19 04/23/19 Vitamin B Complex/Folic Acid 0.4 mg PO DAILY 04/16/19 04/23/19 [Vitamin B-100 Complex Tablet] Acetaminophen 500 - 1,000 mg PO PRN MDD 04/23/19 3000/mg/24hr maximum Calcium Carbonate [Tums (Calcium 500 mg PO DAILY PRN 04/23/19 04/23/19 Carbonate 500mg)] Metoprolol Succinate [Toprol Xl] 50 mg PO .QPM 04/23/19 04/23/19 Triamcinolone 0.1% Cream [Kenalog 1 ea TOP BID PRN 04/23/19 04/23/19 0.1% Cream] - Allergies Allergies/Adverse Reactions: Allergies Allergy/AdvReac Type Severity Reaction Status Date / Time amoxicillin trihydrate * Allergy Mild Rash Verified 04/30/19 10:03 [From Augmentin] indomethacin [From Indocin] Allergy Mild Rash Verified 04/30/19 10:03 indomethacin sodium * Allergy Mild Rash Verified 04/30/19 10:03 [From Indocin] lorazepam [From Ativan] Allergy Mild Rash Verified 04/30/19 10:03 metoclopramide HCl * Allergy Mild Rash Verified 04/30/19 10:03 [From Reglan] Penicillins Allergy Mild Rash Verified 04/30/19 10:03 potassium clavulanate * Allergy Mild Rash Verified 04/30/19 10:03 [From Augmentin] prochlorperazine Allergy Mild Rash Verified 04/30/19 10:03 [Prochlorperazine] Sulfa (Sulfonamide Allergy Mild Rash Verified 04/30/19 10:03 Antibiotics) sulfamethoxazole Allergy Mild Rash Verified 04/30/19 10:03 [From Gantanol] adhesive Allergy Rash Verified 04/30/19 10:03 sulfasalazine Allergy Unknown Verified 04/30/19 10:03 [From Sulfazine] thiopental [From Pentothal] Allergy seizures Verified 04/30/19 10:03 aspirin AdvReac Cramps Verified 04/30/19 10:03 levofloxacin [From Levaquin] AdvReac Itching Verified 04/30/19 10:03 metoclopramide [From Reglan] AdvReac Unknown Verified 04/30/19 10:03 phenazopyridine [From Azo] AdvReac Cramps Verified 04/30/19 10:03 - Social History Does the pt smoke?: No Smoking Status: Never smoker Does the pt drink ETOH?: Yes Does the pt have substance abuse?: No - Immunizations Immunizations are current?: Yes - POLST Patient has POLST: Yes POLST Status: DNR PD ED PE NORMAL - Vitals Vital signs reviewed: Yes - General General: Alert and oriented X 3, No acute distress, Well developed/nourished - HEENT HEENT: Atraumatic, Moist mucous membranes - Neck Neck: Supple, no meningeal sign - Cardiac Cardiac: No murmur. No: RRR (Tachycardic) - Respiratory Respiratory: No respiratory distress, Clear bilaterally - Abdomen Abdomen: Soft, Non tender, Non distended - Derm Derm: Normal color, Warm and dry, No rash - Extremities Extremities: No deformity, No tenderness to palpate, No edema - Neuro Neuro: Alert and oriented X 3, No motor deficit, No sensory deficit - Psych Psych: Normal mood, Normal affect Results - Vitals Vitals: Vital Signs - 24 hr 04/30/19 04/30/19 04/30/19 09:59 10:02 10:59 Temperature 36.8 C Heart Rate 122 H 122 H 70 Respiratory 19 18 14 Rate Blood Pressure 120/79 120/88 H 127/88 H O2 Saturation 99 95 92 04/30/19 12:04 Temperature Heart Rate 82 Respiratory 17 Rate Blood Pressure 125/71 O2 Saturation 98 Oxygen O2 Source [] Room air O2 Source Room air - EKG (time done) 1000 Rate: Rate (enter#) (128) Rhythm: Atrial fibrillation 1132 Rate: Rate (enter#) (66) Rhythm: Atrial fibrillation Intervals: Prolonged QT - Labs Labs: Laboratory Tests 04/30/19 04/30/19 04/30/19 10:22 10:22 10:22 WBC 7.7 RBC 3.58 L Hgb 12.0 Hct 38.4 MCV 107.3 H MCH 33.5 H MCHC 31.3 L RDW 14.7 Plt Count 271 MPV 9.5 Neut # (Auto) 6.0 Lymph # (Auto) 0.8 L [place] # (Auto) 0.7 Eos # (Auto) 0.1 Baso # (Auto) 0.1 Absolute Nucleated RBC 0.00 Nucleated RBC % 0.0 PT 29.8 H INR 2.7 H APTT 37.4 H Sodium 133 L Potassium 4.3 Chloride 101 Carbon Dioxide 21 Anion Gap 11.0 BUN 23 H Creatinine 0.9 Estimated GFR (MDRD) 60 L Glucose 123 H Calcium 9.3 Total Bilirubin 1.4 H AST 106 H ALT 86 H Alkaline Phosphatase 81 Troponin I B-Natriuretic Peptide Total Protein 7.0 Albumin 4.2 Globulin 2.8 Albumin/Globulin Ratio 1.5 Lipase 30 04/30/19 04/30/19 10:22 10:22 WBC RBC Hgb Hct MCV MCH MCHC RDW Plt Count MPV Neut # (Auto) Lymph # (Auto) [place] # (Auto) Eos # (Auto) Baso # (Auto) Absolute Nucleated RBC Nucleated RBC % PT INR APTT Sodium Potassium Chloride Carbon Dioxide Anion Gap BUN Creatinine Estimated GFR (MDRD) Glucose Calcium Total Bilirubin AST ALT Alkaline Phosphatase Troponin I < 0.04 B-Natriuretic Peptide 645 H Total Protein Albumin Globulin Albumin/Globulin Ratio Lipase PD MEDICAL DECISION MAKING - ED course Complexity details: reviewed old records, reviewed results, re-evaluated patient, considered differential, d/w patient, d/w family ED course: Patient presenting with palpitations and in A. fib with RVR. This is a chronic problem for the patient and unfortunately she is not a candidate for cardioversion given her known thrombus. Patient is aware of this issue. Patient has been seen in the ED for similar symptoms before and responded well to diltiazem. Diltiazem bolus given here and patient now rate controlled, although remains in atrial fibrillation, again similar to previous visits.Have low suspicion for PE, pneumonia, ACS, myocardial infarction, unstable angina, but considered. Also low suspicion for dissection or aneurysm. EKG did not find evidence of ischemia but atrial fibrillation. Troponin negative. BNP slightly elevated, although patient shows no signs of fluid overload. When compared to previous measurements, BMP elevation is similar to prior. Do not feel this is a new issue that requires emergent work-up today. Remainder of screening lab work did show some abnormalities, although chronic in nature when compared to prior. Physical exam is otherwise unremarkable with benign abdomen. Do not feel patient requires further consult, hospitalization, or invasive testing at this time. Feel that she is safe to discharge home with her and recommended supportive cares, return precautions, and follow-up. Patient does have cardiology already scheduled for early May. Departure - Departure Disposition: Home, Self Care Clinical Impression: Atrial fibrillation Qualifiers: Atrial fibrillation type: paroxysmal Qualified Code(s): I48.0 - Paroxysmal atrial fibrillation Condition: Good Instructions: Atrial Fibrillation Dc, ED Afib Follow-Up: Nazanin Bentley MD [Primary Care Provider] - Within 3 Days Comments: Please continue all home medications as previously prescribed. Recommend follow-up with both your primary care physician and etch operator semiconductor wafers in the next 2-3 days or as scheduled.Return to ED sooner if experience return of symptoms, worsening symptoms, or have other concerns.
[2019-04-30] MEDS ORDERED: SODIUM CHLORIDE 0.9% 1,000 ML IV ONE (10:15)
[2019-04-30] MEDS ORDERED: diltiaZEM INJ 5 MG/ML VIAL IVP STA (10:16)
[2019-04-30 10:42] LABS: INR 2.7 (0.8-1.2); PT - PROTHROMBIN TIME 29.8 secs (9.9-12.6)
[2019-04-30 10:43] LABS: BASOPHILS # (AUTO) 0.1 10^3/uL (0.0-0.1); BASOPHILS % (AUTO) 0.9 %; EOSINOPHILS # (AUTO) 0.1 10^3/uL (0.0-0.7); EOSINOPHILS % (AUTO) 1.7 %; LYMPHOCYTES # (AUTO) 0.8 10^3/uL (1.5-3.5); MEAN CORPUSCULAR HEMOGLOBIN 33.5 pg (27.0-31.0); MEAN CORPUSCULAR HGB CONC 31.3 g/dL (32.0-36.0); MEAN CORPUSCULAR VOLUME 107.3 fL (81.0-99.0); MEAN PLATELET VOLUME 9.5 fL (7.9-10.8); MONOCYTES # (AUTO) 0.7 10^3/uL (0.0-1.0); MONOCYTES % (AUTO) 8.6 %; NEUTROPHILS % (AUTO) 78.3 %; PLT - PLATELET COUNT 271 10^3/uL (130-450); RED BLOOD COUNT 3.58 10^6/uL (4.20-5.40); RED CELL DISTRIBUTION WIDTH 14.7 % (12.0-15.0); WHITE BLOOD COUNT 7.7 x10^3/uL (4.8-10.8)
[2019-04-30 10:45] LABS: ALBUMIN 4.2 g/dL (3.2-5.5); ALBUMIN/GLOBULIN RATIO 1.5 (1.0-2.2); BILIRUBIN,TOTAL 1.4 mg/dL (0.2-1.0); CALCIUM 9.3 mg/dL (8.5-10.3); CREATININE 0.9 mg/dL (0.4-1.0)
[2019-04-30 10:50] LABS: PARTIAL THROMBOPLASTIN TIME 37.4 secs (24.9-33.3)
[2019-04-30 12:48] VITALS: BP 127/74
== END 2019-04-30 12:48 | disposition home or self-care (01) ==
LOC: ED 09:54
DX: I48.0 Paroxysmal atrial fibrillation (principal); I45.81 Long QT syndrome; I25.10 Atherosclerotic heart disease of native coronary artery without angina pectoris; I10 Essential (primary) hypertension; E78.5 Hyperlipidemia, unspecified; J43.9 Emphysema, unspecified; Z85.3 Personal history of malignant neoplasm of breast; Z86.73 Personal history of transient ischemic attack (TIA), and cerebral infarction without residual deficits; Z79.01 Long term (current) use of anticoagulants; Z79.82 Long term (current) use of aspirin; Z66 Do not resuscitate
CPT/HCPCS: 36415; 80053; 83690; 83880; 84484; 85025; 85610; 85730; 93005; 96374; 99283

== ENCOUNTER 2019-05-02 09:15 | Emergency (ER) | payer MEDICARE, OTHER ==
[2019-05-02] MEDS ORDERED: IOVERSOL 320 100 ML VIAL IVP ONE ×3 (09:16→12:39)
[2019-05-02] MEDS ORDERED: diltiaZEM INJ 5 MG/ML VIAL IVP STA (09:59)
--- NOTE | 2019-05-02 10:04 | ED Physician Documentation ---
History of Present Illness - Stated complaint Stated Complaint: SOA - Chief complaint Chief Complaint: Abd Pain - History obtained from History obtained from: Patient, Family - History of Present Illness Timing: Yesterday - Additonal information Additional information: 84-year-old female with a history of intermittent atrial fibrillation has been into the emergency department recently with a episode of atrial fibrillation with rapid meticulous response and she was slowed. She has now had increase in her rate and she is feeling dyspneic on exertion and she has some undulating abdominal pain. She has had this undulating abdominal pain previously as well. She has had multiple bowel movements without relief. She has had 2 visits to the emergency department in the past month with relief of her symptoms only to have symptoms return with an increase in her rate again. She was recently hydrated in the emergency department. Review of Systems Constitutional: denies: Fever Eyes: denies: Decreased vision Ears: denies: Ear pain Nose: denies: Congestion Throat: denies: Sore throat Cardiac: denies: Chest pain / pressure, Palpitations Respiratory: denies: Dyspnea, Cough GI: reports: Abdominal Pain, Nausea, Vomiting (once). 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: Breast cancer (recurrent; R mastectomy February 2018) : None HEENT: Chronic hearing loss Psych: Depression Musculoskeletal: Osteoarthritis, Osteoporosis, Other Derm: Eczema - Past Surgical History Past Surgical History: Yes General: Colonoscopy Ortho: Hip replacement (Left hip 2014), Other (Fracture L tibia spring 2015; fractured L arm Sep 2018) /LABEL REWINDER: Mastectomy, Other HEENT: Cataracts - Present Medications Home Medications: Ambulatory Orders Medication Instructions Recorded Confirmed Atorvastatin [Lipitor] 10 mg PO DAILY 08/02/17 04/23/19 Sertraline HCl [Zoloft] 100 mg PO BID 08/02/17 04/23/19 Psyllium Husk/Aspartame [Fiber 1 packet PO DAILY 01/29/18 04/23/19 Therapy Powder] Metoprolol Succinate [Toprol Xl] 100 mg PO .QAM 06/28/18 04/23/19 Cholecalciferol (Vitamin D3) 2,000 unit PO DAILY 07/23/18 04/23/19 [Vitajoy Daily D] Furosemide 20 mg PO DAILY 11/17/18 04/23/19 Levothyroxine Sodium 75 mcg PO QDAC 11/17/18 04/23/19 Potassium Chloride 10 meq PO DAILY 11/17/18 04/23/19 Aspirin [Adult Low Dose Aspirin EC] 81 mg PO DAILY 04/16/19 04/23/19 Clobetasol 0.05% Oint [Temovate 1 applic TOP PRN 04/16/19 0.05% Oint] Digoxin 125 mcg PO DAILY 04/16/19 04/23/19 Lisinopril 2.5 mg PO DAILY 04/16/19 04/23/19 Rivaroxaban [Xarelto] 20 mg PO DAILY 04/16/19 04/23/19 Vitamin B Complex/Folic Acid 0.4 mg PO DAILY 04/16/19 04/23/19 [Vitamin B-100 Complex Tablet] Acetaminophen 500 - 1,000 mg PO PRN MDD 04/23/19 3000/mg/24hr maximum Calcium Carbonate [Tums (Calcium 500 mg PO DAILY PRN 04/23/19 04/23/19 Carbonate 500mg)] Metoprolol Succinate [Toprol Xl] 50 mg PO .QPM 04/23/19 04/23/19 Triamcinolone 0.1% Cream [Kenalog 1 ea TOP BID PRN 04/23/19 04/23/19 0.1% Cream] Hydrocodone/Acetaminophen 1 - 2 each PO Q6H PRN #14 tablet 05/02/19 [Hydrocodon-Acetaminophen 5-325] - Allergies Allergies/Adverse Reactions: Allergies Allergy/AdvReac Type Severity Reaction Status Date / Time amoxicillin trihydrate * Allergy Mild Rash Verified 05/02/19 09:34 [From Augmentin] indomethacin [From Indocin] Allergy Mild Rash Verified 05/02/19 09:34 indomethacin sodium * Allergy Mild Rash Verified 05/02/19 09:34 [From Indocin] lorazepam [From Ativan] Allergy Mild Rash Verified 05/02/19 09:34 metoclopramide HCl * Allergy Mild Rash Verified 05/02/19 09:34 [From Reglan] Penicillins Allergy Mild Rash Verified 05/02/19 09:34 potassium clavulanate * Allergy Mild Rash Verified 05/02/19 09:34 [From Augmentin] prochlorperazine Allergy Mild Rash Verified 05/02/19 09:34 [Prochlorperazine] Sulfa (Sulfonamide Allergy Mild Rash Verified 05/02/19 09:34 Antibiotics) sulfamethoxazole Allergy Mild Rash Verified 05/02/19 09:34 [From Gantanol] adhesive Allergy Rash Verified 05/02/19 09:34 sulfasalazine Allergy Unknown Verified 05/02/19 09:34 [From Sulfazine] thiopental [From Pentothal] Allergy seizures Verified 05/02/19 09:34 aspirin AdvReac Cramps Verified 05/02/19 09:34 levofloxacin [From Levaquin] AdvReac Itching Verified 05/02/19 09:34 metoclopramide [From Reglan] AdvReac Unknown Verified 05/02/19 09:34 phenazopyridine [From Azo] AdvReac Cramps Verified 05/02/19 09:34 - Social History Does the pt smoke?: No Smoking Status: Never smoker Does the pt drink ETOH?: Yes Does the pt have substance abuse?: No - Immunizations Immunizations are current?: Yes - POLST Patient has POLST: Yes POLST Status: DNR PD ED PE NORMAL - Vitals Vital signs reviewed: Yes (tachy and hypertensive) - General General: Alert and oriented X 3, No acute distress, Well developed/nourished - HEENT HEENT: Atraumatic, PERRL, EOMI - Neck Neck: Supple, no meningeal sign, No bony TTP - Cardiac Cardiac: No murmur, Other (irregularly irregular) - Respiratory Respiratory: No respiratory distress, Clear bilaterally - Abdomen Abdomen: Normal bowel sounds, Soft, Non tender, Non distended, No organomegaly - Back Back: No CVA TTP, No spinal TTP - Derm Derm: Normal color, Warm and dry, No rash - Extremities Extremities: No deformity, No edema - Neuro Neuro: Alert and oriented X 3, chief investment officer 2-12 intact, No motor deficit, No sensory deficit, Normal speech Eye Opening: Spontaneous Motor: Obeys Commands Verbal: Oriented GCS Score: 15 - Psych Psych: Normal mood, Normal affect Results - Vitals Vitals: Vital Signs - 24 hr 05/02/19 05/02/19 05/02/19 09:30 09:59 10:20 Temperature 35.6 C L Heart Rate 131 H 114 H 125 H Respiratory 22 18 18 Rate Blood Pressure 145/100 H 141/106 H 148/113 H O2 Saturation 98 99 97 05/02/19 05/02/19 05/02/19 11:00 11:30 12:57 Temperature 36.7 C Heart Rate 70 81 91 Respiratory 19 18 18 Rate Blood Pressure 109/74 120/83 H 140/102 H O2 Saturation 94 94 98 05/02/19 05/02/19 05/02/19 13:08 13:30 14:00 Temperature 37.0 C 36.6 C Heart Rate 96 91 109 H Respiratory 19 15 16 Rate Blood Pressure 154/116 H 122/86 H 139/92 H O2 Saturation 96 97 94 Oxygen O2 Source [] Room air O2 Source Room air - EKG (time done) 0925 Rhythm: Atrial fibrillation Intervals: Prolonged QT QRS: Low voltage Compare to prior EKG: Changed from prior EKG (SPT 6-219 rate has increased QT is prolonged. ) Computer interpretation: Agree with computer - Labs Labs: Laboratory Tests 05/02/19 05/02/19 05/02/19 09:44 09:44 09:44 WBC 7.6 RBC 3.70 L Hgb 12.7 Hct 38.5 MCV 104.1 H MCH 34.3 H MCHC 33.0 RDW 14.7 Plt Count 287 MPV 9.7 Neut # (Auto) 5.9 Lymph # (Auto) 0.8 L [place] # (Auto) 0.6 Eos # (Auto) 0.1 Baso # (Auto) 0.1 Absolute Nucleated RBC 0.00 Nucleated RBC % 0.0 Sodium 133 L Potassium 4.0 Chloride 101 Carbon Dioxide 21 Anion Gap 11.0 BUN 24 H Creatinine 1.0 Estimated GFR (MDRD) 53 L Glucose 122 H Calcium 9.3 Magnesium 1.9 Total Bilirubin 1.6 H AST 90 H ALT 84 H Alkaline Phosphatase 87 Troponin I < 0.04 B-Natriuretic Peptide Total Protein 7.1 Albumin 4.1 Globulin 3.0 Albumin/Globulin Ratio 1.4 Lipase 26 Urine Color Urine Clarity Urine pH Ur Specific [place] Urine Protein Urine Glucose (UA) Urine Ketones Urine Occult Blood Urine Nitrite Urine Bilirubin Urine Urobilinogen Ur Leukocyte Esterase Ur Microscopic Review Urine Culture Comments Last Dose Date Last Dose Time Digoxin 05/02/19 05/02/19 05/02/19 09:44 09:44 11:17 WBC RBC Hgb Hct MCV MCH MCHC RDW Plt Count MPV Neut # (Auto) Lymph # (Auto) [place] # (Auto) Eos # (Auto) Baso # (Auto) Absolute Nucleated RBC Nucleated RBC % Sodium Potassium Chloride Carbon Dioxide Anion Gap BUN Creatinine Estimated GFR (MDRD) Glucose Calcium Magnesium Total Bilirubin AST ALT Alkaline Phosphatase Troponin I B-Natriuretic Peptide 855 H Total Protein Albumin Globulin Albumin/Globulin Ratio Lipase Urine Color YELLOW Urine Clarity CLEAR Urine pH 6.5 Ur Specific [place] 1.010 Urine Protein NEGATIVE Urine Glucose (UA) NEGATIVE Urine Ketones NEGATIVE Urine Occult Blood NEGATIVE Urine Nitrite NEGATIVE Urine Bilirubin NEGATIVE Urine Urobilinogen 0.2 (NORMAL) Ur Leukocyte Esterase NEGATIVE Ur Microscopic Review NOT INDICATED Urine Culture Comments NOT INDICATED Last Dose Date 05/02/19 Last Dose Time UNKNOWN Digoxin 0.8 - Rads (name of study) ct ab/pel with Radiology: Prelim report reviewed (Impression: 1. Small right greater than left pleural effusions, stable small ascites, increased. Distended gallbladder without evidence of cholelithiasis. Consider right upper quadrant ultrasound if indicated.), EMP read indepedently, See rad report Procedures - IVC sono (time) 0950 Bedside IVC sono: IVC measures (cm) (1.67), Euvolemia PD MEDICAL DECISION MAKING - ED course Complexity details: reviewed old records, reviewed results, re-evaluated patient, considered differential, d/w patient, d/w family ED course: 84 y/o female with afib on eliquist has had episodes of RVR and today she has rapid response again. She has prompt improvement with the use of diltiazem 20 mg intravenously but she does not convert. She is found to be euvolemic on interrogation of the inferior vena cava and fluids are not administered today. She is complaining of some abdominal pain in the left side which is been present for some time and after evaluating the patient a appeared that this was a nonmodifiable pain and I attempted to get a CT scan of the abdomen pelvis to rule out renal lithiasis. The scan was up without findings to explain pain. Patient eventually is discharged to home to follow-up with her statistical modeler for potential medication adjustments. Departure - Departure Disposition: 01 Home, Self Care Clinical Impression: Atrial fibrillation with RVR Abdominal pain Qualifiers: Abdominal location: left upper quadrant Qualified Code(s): R10.12 - Left upper quadrant pain Condition: Stable Instructions: ED Abdominal Pain Unkn Cause, ED Afib Follow-Up: Nazanin Bentley MD [Primary Care Provider] - Prescriptions: Hydrocodone/Acetaminophen [Hydrocodon-Acetaminophen 5-325] 1 - 2 each PO Q6H PRN #14 tablet PRN Reason: pain Discharge Date/Time: 05/02/19 14:53
[2019-05-02 10:20] LABS: ALBUMIN 4.1 g/dL (3.2-5.5); ALBUMIN/GLOBULIN RATIO 1.4 (1.0-2.2); BILIRUBIN,TOTAL 1.6 mg/dL (0.2-1.0); CALCIUM 9.3 mg/dL (8.5-10.3); MAGNESIUM 1.9 mg/dL (1.7-2.8); TOTAL PROTEIN 7.1 g/dL (6.7-8.2)
[2019-05-02 10:31] LABS: BASOPHILS # (AUTO) 0.1 10^3/uL (0.0-0.1); BASOPHILS % (AUTO) 0.9 %; EOSINOPHILS # (AUTO) 0.1 10^3/uL (0.0-0.7); EOSINOPHILS % (AUTO) 1.3 %; HGB - HEMOGLOBIN 12.7 g/dL (12.0-16.0); LYMPHOCYTES # (AUTO) 0.8 10^3/uL (1.5-3.5); MEAN CORPUSCULAR HEMOGLOBIN 34.3 pg (27.0-31.0); MEAN CORPUSCULAR VOLUME 104.1 fL (81.0-99.0); MEAN PLATELET VOLUME 9.7 fL (7.9-10.8); MONOCYTES # (AUTO) 0.6 10^3/uL (0.0-1.0); MONOCYTES % (AUTO) 7.3 %; NEUTROPHILS # (AUTO) 5.9 10^3/uL (1.5-6.6); NEUTROPHILS % (AUTO) 78.7 %; PLT - PLATELET COUNT 287 10^3/uL (130-450); RED CELL DISTRIBUTION WIDTH 14.7 % (12.0-15.0); WHITE BLOOD COUNT 7.6 x10^3/uL (4.8-10.8)
--- NOTE | 2019-05-02 10:49 | XRAY Report ---
Reason: chest pain Procedure Date: 05/02/2019 Accession Number: [id number] / [id number] Procedure: XR - Chest 1 View X-Ray CPT Code: 40977 FULL RESULT: EXAM: CHEST RADIOGRAPHY EXAM DATE: 05/02/2019 10:22 AM. CLINICAL HISTORY: Chest pain. COMPARISON: CHEST 1 VIEW 04/16/2019 2:43 AM. TECHNIQUE: 1 view. FINDINGS: Lungs/Pleura: New blunting of the left costophrenic sulcus questionably trace effusion. Slightly increased minimal basal opacity, atelectasis versus edema or infiltrate. No focal pulmonary consolidation. No pneumothorax. Mediastinum: Similar cardiomegaly. Mildly tortuous, calcified aorta Other: Right axillary surgical clips, evidence of mastectomy. Bones appear osteopenic. Left humeral neck fracture deformity as before. IMPRESSION: 1. Minimal basal opacity, atelectasis versus edema or infiltrate. Possible trace left pleural effusion. 2. Cardiomegaly. RADIA
[2019-05-02 11:15] LABS: DIGOXIN 0.8 ng/mL
[2019-05-02 11:30] LABS: BILIRUBIN,URINE NEGATIVE (NEGATIVE); GLUCOSE, URINE (UA) NEGATIVE (NEGATIVE); KETONES,URINE (UA) NEGATIVE (NEGATIVE); LEUKOCYTE ESTERASE, URINE NEGATIVE (NEGATIVE); NITRITE,URINE NEGATIVE (NEGATIVE); OCCULT BLOOD,URINE NEGATIVE (NEGATIVE); PH,URINE 6.5 PH (5.0-7.5); PROTEIN,URINE NEGATIVE (NEGATIVE); UROBILINOGEN,URINE 0.2 (NORMAL) E.U./dL (NORMAL)
[2019-05-02 11:31] LABS: CLARITY,URINE CLEAR (CLEAR)
--- NOTE | 2019-05-02 12:59 | CT Report ---
Reason: Left sided abdominal pain Procedure Date: 05/02/2019 Accession Number: [id number] / [id number] Procedure: CT - Abdomen/Pelvis W CPT Code: FULL RESULT: EXAM: CT ABDOMEN AND PELVIS EXAM DATE: 05/02/2019 12:38 PM. CLINICAL HISTORY: Left sided abdominal pain. COMPARISONS: ABDOMEN/PELVIS W/ 06/28/2018 8:18 PM ABDOMEN/PELVIS W/O 02/08/2018 12:22 PM ABDOMEN/PELVIS W/ 02/18/2014 11:17 AM. TECHNIQUE: Routine helical CT imaging was performed through the abdomen and pelvis. IV contrast: Optiray 320, 80 mL. Enteric contrast: No. Reconstructions: Coronal and sagittal. In accordance with CT protocol optimization, one or more of the following dose reduction techniques were utilized for this exam: automated exposure control, adjustment of mA and/or KV based on patient size, or use of iterative reconstructive technique. FINDINGS: Lung Bases: Small right and trace left pleural effusions, stable when compared to 06/28/2018 CT Liver: Stable cyst left hepatic lobe. Gallbladder/Bile Ducts: Distended gallbladder without evidence of cholelithiasis. Spleen: Normal. Pancreas: Normal. Adrenal Glands: Normal. Kidneys: No masses or hydronephrosis. Peritoneal Cavity/Bowel: Small ascites, increased when compared to 06/28/2018. No evidence for small bowel obstruction. Colonic diverticulosis. Pelvic Organs: The bladder and visualized pelvic organs are within normal limits. Vasculature: Moderate atherosclerotic calcification of the infrarenal abdominal aorta. No evidence for aneurysm or dissection. Bones: No significant abnormality. Other: None. IMPRESSION: 1. Small right greater than left pleural effusions, stable. 2. Small ascites, increased. 3. Distended gallbladder without evidence of cholelithiasis. Consider right upper quadrant US if indicated. RADIA
[2019-05-02 14:26] VITALS: BP 139/92
== END 2019-05-02 14:53 | disposition home or self-care (01) ==
LOC: ED 09:15
DX: I48.91 Unspecified atrial fibrillation (principal); I45.81 Long QT syndrome; R10.12 Left upper quadrant pain; J90 Pleural effusion, not elsewhere classified; J43.9 Emphysema, unspecified; I10 Essential (primary) hypertension; Z79.01 Long term (current) use of anticoagulants; Z79.82 Long term (current) use of aspirin; Z66 Do not resuscitate
CPT/HCPCS: 36415; 71045; 74177; 80053; 80162; 81003; 83690; 83735; 83880; 84484; 85025; 93005; 96374; 99283; 99284; Q9967; 81001; 87086

== ENCOUNTER 2019-05-13 00:55 | Outpatient (CLI) | payer MEDICARE, OTHER | END 2019-05-13 00:56 | disposition critical access hospital (66) | LOC: EMS 00:55 | PROVIDERS: ATTEND Surgery | DX: R07.9 Chest pain, unspecified (principal); M54.2 Cervicalgia; R51 Headache | CPT/HCPCS: A0425; A0427 ==

== ENCOUNTER 2019-05-13 01:07 | Emergency (ER) | payer MEDICARE, OTHER ==
[2019-05-13] MEDS ORDERED: METOPROLOL 5 MG/5 ML VIAL IVP STA (01:21)
[2019-05-13] MEDS ORDERED: SODIUM CHLORIDE 0.9% 500 ML IV ONE (01:21)
--- NOTE | 2019-05-13 01:31 | ED Physician Documentation ---
PD HPI CHEST PAIN - Stated complaint Stated Complaint: CP, TIGHT THROAT - Chief complaint Chief Complaint: Cardiac - History obtained from History obtained from: Patient - History of Present Illness Timing - onset: How many hours ago (1) Timing - onset during: Sleep, Rest Timing - duration: Hours (1) Timing - details: Abrupt onset, Still present Quality: Pressure, Tightness Location: Substernal Radiation: Back, Left upper extremity Associated symptoms: Shortness of air, General Weakness, Palpitations. No: Nausea, Feeling faint / dizzy, Cough Similar symptoms before: Diagnosis (similar with fast rate response to her atrial fib. Treated few times in ER with Diltiazem and HR slowed and she felt better and discharged.) Review of Systems Constitutional: denies: Fever Nose: denies: Rhinorrhea / runny nose, Congestion Throat: denies: Sore throat Cardiac: reports: Chest pain / pressure, Palpitations, Pedal edema. denies: Calf pain Respiratory: denies: Cough, Wheezing GI: denies: Nausea, Vomiting, Diarrhea, Bloody / black stool Skin: denies: Rash, Lesions Musculoskeletal: denies: Neck pain, Back pain PD PAST MEDICAL HISTORY - Past Medical History Past Medical History: Yes Cardiovascular: Hypertension, High cholesterol, Coronary artery disease, Atrial fibrillation, Other Respiratory: Emphysema Neuro: CVA, TIA, Other Endocrine/Autoimmune: HyPOthyroidism GI: GERD, Chronic diarrhea, Ulcerative colitis RECONDITIONING ASSOCIATE: Breast cancer : None HEENT: Chronic hearing loss Psych: Depression Musculoskeletal: Osteoarthritis, Osteoporosis, Other Derm: Eczema - Past Surgical History Past Surgical History: Yes General: Colonoscopy Ortho: Hip replacement, Other /RECONDITIONING ASSOCIATE: Mastectomy, Other HEENT: Cataracts - Present Medications Home Medications: Ambulatory Orders Medication Instructions Recorded Confirmed Atorvastatin [Lipitor] 10 mg PO DAILY 08/02/17 04/23/19 Sertraline HCl [Zoloft] 100 mg PO BID 08/02/17 04/23/19 Psyllium Husk/Aspartame [Fiber 1 packet PO DAILY 01/29/18 04/23/19 Therapy Powder] Metoprolol Succinate [Toprol Xl] 100 mg PO .QAM 06/28/18 04/23/19 Cholecalciferol (Vitamin D3) 2,000 unit PO DAILY 07/23/18 04/23/19 [Vitajoy Daily D] Furosemide 20 mg PO DAILY 11/17/18 04/23/19 Levothyroxine Sodium 75 mcg PO QDAC 11/17/18 04/23/19 Potassium Chloride 10 meq PO DAILY 11/17/18 04/23/19 Aspirin [Adult Low Dose Aspirin EC] 81 mg PO DAILY 04/16/19 04/23/19 Clobetasol 0.05% Oint [Temovate 1 applic TOP PRN 04/16/19 0.05% Oint] Digoxin 125 mcg PO DAILY 04/16/19 04/23/19 Lisinopril 2.5 mg PO DAILY 04/16/19 04/23/19 Rivaroxaban [Xarelto] 20 mg PO DAILY 04/16/19 04/23/19 Vitamin B Complex/Folic Acid 0.4 mg PO DAILY 04/16/19 04/23/19 [Vitamin B-100 Complex Tablet] Acetaminophen 500 - 1,000 mg PO PRN MDD 04/23/19 3000/mg/24hr maximum Calcium Carbonate [Tums (Calcium 500 mg PO DAILY PRN 04/23/19 04/23/19 Carbonate 500mg)] Metoprolol Succinate [Toprol Xl] 50 mg PO .QPM 04/23/19 04/23/19 Triamcinolone 0.1% Cream [Kenalog 1 ea TOP BID PRN 04/23/19 04/23/19 0.1% Cream] Hydrocodone/Acetaminophen 1 - 2 each PO Q6H PRN #14 tablet 05/02/19 [Hydrocodon-Acetaminophen 5-325] diltiaZEM [Cardizem] 30 mg PO Q6H PRN #15 tablet 05/13/19 - Allergies Allergies/Adverse Reactions: Allergies Allergy/AdvReac Type Severity Reaction Status Date / Time amoxicillin trihydrate * Allergy Mild Rash Verified 05/13/19 01:14 [From Augmentin] indomethacin [From Indocin] Allergy Mild Rash Verified 05/13/19 01:14 indomethacin sodium * Allergy Mild Rash Verified 05/13/19 01:14 [From Indocin] lorazepam [From Ativan] Allergy Mild Rash Verified 05/13/19 01:14 metoclopramide HCl * Allergy Mild Rash Verified 05/13/19 01:14 [From Reglan] Penicillins Allergy Mild Rash Verified 05/13/19 01:14 potassium clavulanate * Allergy Mild Rash Verified 05/13/19 01:14 [From Augmentin] prochlorperazine Allergy Mild Rash Verified 05/13/19 01:14 [Prochlorperazine] Sulfa (Sulfonamide Allergy Mild Rash Verified 05/13/19 01:14 Antibiotics) sulfamethoxazole Allergy Mild Rash Verified 05/13/19 01:14 [From Gantanol] adhesive Allergy Rash Verified 05/13/19 01:14 sulfasalazine Allergy Unknown Verified 05/13/19 01:14 [From Sulfazine] thiopental [From Pentothal] Allergy seizures Verified 05/13/19 01:14 aspirin AdvReac Cramps Verified 05/13/19 01:14 levofloxacin [From Levaquin] AdvReac Itching Verified 05/13/19 01:14 metoclopramide [From Reglan] AdvReac Unknown Verified 05/13/19 01:14 phenazopyridine [From Azo] AdvReac Cramps Verified 05/13/19 01:14 - Social History Does the pt smoke?: No Smoking Status: Never smoker Does the pt drink ETOH?: Yes Does the pt have substance abuse?: No - Immunizations Immunizations are current?: Yes - POLST Patient has POLST: Yes POLST Status: DNR PD ED PE NORMAL - Vitals Vital signs reviewed: Yes (fast rate atrial fib) - General General: Alert and oriented X 3, No acute distress, Well developed/nourished - HEENT HEENT: Pharynx benign - Neck Neck: Supple, no meningeal sign, No adenopathy - Cardiac Cardiac: No murmur. No: RRR (irregular and fast at 130-150. ) - Respiratory Respiratory: Clear bilaterally - Abdomen Abdomen: Soft, Non tender - Back Back: No CVA TTP - Derm Derm: Normal color, Warm and dry - Extremities Extremities: Normal ROM s pain, No edema, No calf tenderness / cord - Neuro Neuro: Alert and oriented X 3, No motor deficit Results - Vitals Vitals: Vital Signs - 24 hr 05/13/19 05/13/19 05/13/19 01:08 01:24 01:33 Temperature 36.7 C Heart Rate 109 H 105 H Respiratory 16 12 Rate Blood Pressure 157/117 H 157/117 H Blood Pressure 153/95 H [Left] O2 Saturation 95 96 05/13/19 05/13/19 02:26 03:42 Temperature Heart Rate 121 H 86 Respiratory 26 H 19 Rate Blood Pressure 159/113 H 150/80 H Blood Pressure [Left] O2 Saturation 94 97 Oxygen O2 Source [With Activity] Room air O2 Source Room air - EKG (time done) 01:09 Rate: Rate (enter#) (114) Rhythm: Atrial fibrillation QRS: LVH Ischemia: No: ST elevation c/w ischemia, ST depression - Labs Labs: Laboratory Tests 05/13/19 05/13/19 05/13/19 01:25 02:00 02:00 WBC 7.0 RBC 3.65 L Hgb 12.4 Hct 37.9 MCV 103.8 H MCH 34.0 H MCHC 32.7 RDW 13.8 Plt Count 339 MPV 9.3 Neut # (Auto) 4.6 Lymph # (Auto) 1.4 L Ward # (Auto) 0.6 Eos # (Auto) 0.3 Baso # (Auto) 0.1 Absolute Nucleated RBC 0.00 Nucleated RBC % 0.0 Sodium 136 Potassium 3.9 Chloride 101 Carbon Dioxide 23 Anion Gap 12.0 BUN 18 Creatinine 0.8 Estimated GFR (MDRD) 69 L Glucose 105 H Calcium 9.3 Magnesium 2.0 Total Bilirubin 0.8 AST 168 H ALT 100 H Alkaline Phosphatase 89 Troponin I < 0.04 B-Natriuretic Peptide Total Protein 6.7 Albumin 3.8 Globulin 2.9 Albumin/Globulin Ratio 1.3 Lipase 52 H Last Dose Date Last Dose Time Digoxin 05/13/19 05/13/19 02:00 02:00 WBC RBC Hgb Hct MCV MCH MCHC RDW Plt Count MPV Neut # (Auto) Lymph # (Auto) Ward # (Auto) Eos # (Auto) Baso # (Auto) Absolute Nucleated RBC Nucleated RBC % Sodium Potassium Chloride Carbon Dioxide Anion Gap BUN Creatinine Estimated GFR (MDRD) Glucose Calcium Magnesium Total Bilirubin AST ALT Alkaline Phosphatase Troponin I B-Natriuretic Peptide 622 H Total Protein Albumin Globulin Albumin/Globulin Ratio Lipase Last Dose Date UNKNOWN Last Dose Time UNKNOWN Digoxin 0.5 - Rads (name of study) chest xray Radiology: Prelim report reviewed, EMP read contemporaneously (no acute process), See rad report PD MEDICAL DECISION MAKING - ED course Complexity details: reviewed old records, re-evaluated patient (improved wtih dose of med, and HR controlled now. Feeling better. ), considered differential (recurrent fast rate to chronic atrial fib. Has had few visits with HR fast and improves with IV dose. ), d/w patient Departure - Departure Disposition: 01 Home, Self Care Clinical Impression: Chest discomfort, Atrial fibrillation with RVR Condition: Stable Record reviewed to determine appropriate education?: Yes Instructions: ED Afib Follow-Up: Nazanin Bentley MD [Primary Care Provider] - Prescriptions: diltiaZEM [Cardizem] 30 mg PO Q6H PRN #15 tablet PRN Reason: Tachycardia Comments: Continue usual medications. Stay well-hydrated. If you feel your heart rate is going fast episode like this evening or prior episodes, try an oral diltiazem tablet in give it 30 to 60 minutes and see how you are feeling. Return to the ER if still feeling badly your fast rate despite that. Follow-up with your orthodontic assistant or family doctor Discharge Date/Time: 05/13/19 04:27
[2019-05-13 01:39] LABS: BASOPHILS # (AUTO) 0.1 10^3/uL (0.0-0.1); BASOPHILS % (AUTO) 1.1 %; EOSINOPHILS # (AUTO) 0.3 10^3/uL (0.0-0.7); EOSINOPHILS % (AUTO) 4.1 %; HGB - HEMOGLOBIN 12.4 g/dL (12.0-16.0); LYMPHOCYTES # (AUTO) 1.4 10^3/uL (1.5-3.5); LYMPHOCYTES % (AUTO) 19.9 %; MEAN CORPUSCULAR HGB CONC 32.7 g/dL (32.0-36.0); MEAN CORPUSCULAR VOLUME 103.8 fL (81.0-99.0); MEAN PLATELET VOLUME 9.3 fL (7.9-10.8); MONOCYTES # (AUTO) 0.6 10^3/uL (0.0-1.0); MONOCYTES % (AUTO) 7.9 %; NEUTROPHILS # (AUTO) 4.6 10^3/uL (1.5-6.6); NEUTROPHILS % (AUTO) 66.4 %; PLT - PLATELET COUNT 339 10^3/uL (130-450); RED BLOOD COUNT 3.65 10^6/uL (4.20-5.40); RED CELL DISTRIBUTION WIDTH 13.8 % (12.0-15.0)
[2019-05-13] MEDS ORDERED: MORPHINE 10 MG/ML VIAL IVP STA (01:51)
[2019-05-13] MEDS ORDERED: diltiaZEM INJ 5 MG/ML VIAL IVP STA (02:18)
--- NOTE | 2019-05-13 02:22 | XRAY Report ---
Reason: chest pain Procedure Date: 05/13/2019 Accession Number: [id number] / [id number] Procedure: XR - Chest 1 View X-Ray CPT Code: 13547 FULL RESULT: EXAM: CHEST RADIOGRAPHY EXAM DATE: 05/13/2019 01:55 AM. CLINICAL HISTORY: Chest pain. COMPARISON: CHEST 1 VIEW 04/16/2019 2:43 AM, CHEST 1 VIEW 12/07/2018 3:58 AM, CHEST 1 VIEW 05/02/2019 10:09 AM, SHOULDER 2 VIEW LT 12/03/2018 11:27 AM. TECHNIQUE: 1 view. FINDINGS: Lungs/Pleura: Diffuse reticular pulmonary interstitial opacity is noted, similar to the recent prior study. This may be from senescent change. No significant pulmonary consolidation. No effusion or definite pneumothorax. Mediastinum: Stable mild enlargement of cardiac silhouette. Other: Mild right hemidiaphragm eventration. Multiple right axillary clips. Severe left shoulder degenerative change. IMPRESSION: Stable mild enlargement of cardiac silhouette without overt CHF. No significant pulmonary consolidation. RADIA
[2019-05-13 02:27] LABS: ALBUMIN 3.8 g/dL (3.2-5.5); ALBUMIN/GLOBULIN RATIO 1.3 (1.0-2.2); BILIRUBIN,TOTAL 0.8 mg/dL (0.2-1.0); CALCIUM 9.3 mg/dL (8.5-10.3); CREATININE 0.8 mg/dL (0.4-1.0); TOTAL PROTEIN 6.7 g/dL (6.7-8.2)
[2019-05-13 02:31] LABS: DIGOXIN 0.5 ng/mL
[2019-05-13 03:43] VITALS: BP 150/80
== END 2019-05-13 04:27 | disposition home or self-care (01) ==
LOC: EDUNIT# → ED 01:07
DX: R07.89 Other chest pain (principal); I48.91 Unspecified atrial fibrillation; Z79.01 Long term (current) use of anticoagulants; Z79.82 Long term (current) use of aspirin; I25.10 Atherosclerotic heart disease of native coronary artery without angina pectoris; I10 Essential (primary) hypertension; J43.9 Emphysema, unspecified; Z66 Do not resuscitate
CPT/HCPCS: 36415; 71045; 80053; 80162; 83690; 83735; 83880; 84484; 85025; 93005; 96361; 96374; 96375; 99284

== ENCOUNTER 2019-06-16 09:29 | Outpatient (CLI) | payer MEDICARE, OTHER ==
[2019-06-16 09:57] LABS: ALBUMIN 4.4 g/dL (3.2-5.5); ALBUMIN/GLOBULIN RATIO 1.5 (1.0-2.2); BILIRUBIN,TOTAL 0.9 mg/dL (0.2-1.0); CALCIUM 9.8 mg/dL (8.5-10.3); CREATININE 0.7 mg/dL (0.4-1.0); TOTAL PROTEIN 7.4 g/dL (6.7-8.2)
[2019-06-16] MEDS ORDERED: IOVERSOL 320 100 ML VIAL IVP ONE ×2 (09:59→12:49)
--- NOTE | 2019-06-17 14:22 | CT Report ---
Reason: WEIGHT LOSS, HX OF BREAST CANCER Procedure Date: 06/16/2019 Accession Number: [id number] / [id number] Procedure: CT - CHEST W CPT Code: FULL RESULT: EXAM: CT CHEST EXAM DATE: 06/16/2019 11:32 AM. CLINICAL HISTORY: WEIGHT LOSS, HX OF BREAST CANCER. COMPARISONS: CHEST W/ 06/28/2018 8:18 PM ABDOMEN/PELVIS W/ 02/18/2014 11:17 AM. TECHNIQUE: Routine helical CT imaging was performed through the chest. IV contrast: 80 cc Optiray 320. Reconstructions: Coronal and sagittal. In accordance with CT protocol optimization, one or more of the following dose reduction techniques were utilized for this exam: automated exposure control, adjustment of mA and/or KV based on patient size, or use of iterative reconstructive technique. FINDINGS: Lungs/Pleura: Mild biapical juxtapleural reticular density likely represents scarring. There is a stable cystic focus with some mild central nodularity and architectural distortion in the anterior basal segment of the right lower lobe. There is no evidence of acute infiltrate. No pleural effusion. No discrete suspicious lung nodules are seen. There is no evidence of pneumothorax. Mediastinum: There is mild cardiomegaly. Reflux of contrast into the IVC may reflect some element of right heart dysfunction. There are no enlarged axillary, supraclavicular, mediastinal, or hilar lymph nodes. Aortic contour is within normal limits. Bones: Unremarkable. Visualized Abdomen: The visualized portions of the upper abdominal organs demonstrate no acute abnormalities. Fluid density focus within segment 2 of the liver may represent a cyst. Other: There are right axillary surgical clips. IMPRESSION: 1. No CT evidence of primary or metastatic cancer within the chest. 2. No acute pulmonary CT process. 3. Mild cardiomegaly. No enlarged thoracic lymph nodes. RADIA
== END 2019-06-16 09:30 | disposition home or self-care (01) ==
LOC: DI 09:29
PROVIDERS: ATTEND Family Medicine
DX: R63.4 Abnormal weight loss (principal); R19.7 Diarrhea, unspecified; I51.7 Cardiomegaly; K82.4 Cholesterolosis of gallbladder; K82.8 Other specified diseases of gallbladder
CPT/HCPCS: 36415; 71260; 76705; 80053; Q9967

== ENCOUNTER 2019-06-16 09:43 | Outpatient (CLI) | payer MEDICARE, OTHER ==
--- NOTE | 2019-06-17 16:37 | Ultrasound Report ---
Reason: WEIGHT LOSS, ABNORMAL ABDOMINAL IMAGING Procedure Date: 06/16/2019 Accession Number: [id number] / [id number] Procedure: US - Abdomen Limited CPT Code: FULL RESULT: EXAM: ABDOMEN ULTRASOUND LIMITED, RUQ EXAM DATE: 06/16/2019 10:40 AM. CLINICAL HISTORY: Weight loss. Distended gallbladder on CT. COMPARISON: ABDOMEN/PELVIS W/ 05/02/2019 12:36 PM. TECHNIQUE: Real-time scanning was performed with static images obtained. FINDINGS: Liver: Normal in size and echotexture. Left lobe cyst noted 2.4 x 1.8 x 2.3 cm. 12.9 cm. Main portal vein flow: Hepatopetal. Gallbladder: Distended, 5.2 cm across. Small amount of sludge. No stones identified. Two small polyps. Nontender. Biliary System: CBD measures 7.7 mm. Normal for age. Other: The visualized pancreas and right kidney are unremarkable. No free fluid. IMPRESSION: Distended gallbladder with small amount of sludge and two small polyps. No sign of stones, wall thickening, point tenderness or dilated ducts. RADIA
== END 2019-06-16 09:44 | disposition home or self-care (01) ==
LOC: DI 09:43
PROVIDERS: ATTEND Family Medicine
DX: K82.4 Cholesterolosis of gallbladder (principal); K82.8 Other specified diseases of gallbladder
CPT/HCPCS: 76705

== ENCOUNTER 2019-06-24 02:12 | Outpatient (CLI) | payer MEDICARE, OTHER | END 2019-06-24 02:13 | disposition critical access hospital (66) | LOC: EMS 02:12 | PROVIDERS: ATTEND Surgery | DX: R07.89 Other chest pain (principal) | CPT/HCPCS: A0425; A0427 ==

== ENCOUNTER 2019-06-24 02:22 | Emergency (ER) | payer MEDICARE, OTHER ==
[2019-06-24 02:47] LABS: CALCIUM 8.5 mg/dL (8.5-10.3); CREATININE 0.8 mg/dL (0.4-1.0)
[2019-06-24 02:49] LABS: BASOPHILS # (AUTO) 0.1 10^3/uL (0.0-0.1); BASOPHILS % (AUTO) 0.7 %; EOSINOPHILS # (AUTO) 0.4 10^3/uL (0.0-0.7); EOSINOPHILS % (AUTO) 4.3 %; HGB - HEMOGLOBIN 11.6 g/dL (12.0-16.0); LYMPHOCYTES # (AUTO) 1.3 10^3/uL (1.5-3.5); LYMPHOCYTES % (AUTO) 15.4 %; MEAN CORPUSCULAR HEMOGLOBIN 34.9 pg (27.0-31.0); MEAN CORPUSCULAR HGB CONC 33.6 g/dL (32.0-36.0); MEAN CORPUSCULAR VOLUME 103.9 fL (81.0-99.0); MONOCYTES # (AUTO) 0.5 10^3/uL (0.0-1.0); MONOCYTES % (AUTO) 6.2 %; NEUTROPHILS % (AUTO) 72.8 %; PLT - PLATELET COUNT 229 10^3/uL (130-450); RED BLOOD COUNT 3.32 10^6/uL (4.20-5.40); WHITE BLOOD COUNT 8.2 x10^3/uL (4.8-10.8)
[2019-06-24] MEDS ORDERED: METOPROLOL 5 MG/5 ML VIAL IVP STA (02:50)
[2019-06-24 03:05] LABS: DIGOXIN 0.7 ng/mL
--- NOTE | 2019-06-24 03:07 | XRAY Report ---
Reason: chest pain Procedure Date: 06/24/2019 Accession Number: [id number] / [id number] Procedure: XR - Chest 1 View X-Ray CPT Code: 72532 FULL RESULT: EXAM: CHEST RADIOGRAPHY EXAM DATE: 06/24/2019 02:55 AM. CLINICAL HISTORY: Chest pain. COMPARISON: CHEST 1 VIEW 05/13/2019 1:42 AM CHEST W/ 06/16/2019 11:24 AM. TECHNIQUE: 1 view. FINDINGS: Lungs/Pleura: No focal pneumonia or edema evident. No gross pneumothorax or pleural effusion. Mediastinum: Mild cardiomegaly. Stable aortic contour. Other: Right chest wall clips and cardiac monitoring device noted. IMPRESSION: Mild cardiomegaly without overt heart failure. RADIA
--- NOTE | 2019-06-24 04:37 | ED Physician Documentation ---
PD HPI CHEST PAIN - Stated complaint Stated Complaint: CP, JAW PAIN, GARZA - Chief complaint Chief Complaint: Cardiac - History obtained from History obtained from: Patient, EMS - History of Present Illness Timing - onset: How many weeks ago (at least a week of intermittent heart palpitations and chest discomfort) Timing - onset during: Rest Timing - duration: Weeks Timing - details: Abrupt onset, Waxing and waning Quality: Other (palpitations and discomfort) Location: Other (mid chest) Radiation: Neck Improved by: Nothing Worsened by: Other (nothing) Associated symptoms: Palpitations. No: Shortness of air, Diaphoresis, Nausea, Vomiting, Feeling faint / dizzy, General Weakness, Cough Similar symptoms before: Diagnosis (similar to previous episodes of atrial fibrillation, pt is on eloquis, cardizem and lopressor for this) Recently seen: Clinic, Emergency Dept - Treatment prior to arrival Treatment prior to arrival: none Review of Systems Ten Systems: 10 systems reviewed and negative Constitutional: denies: Fever Cardiac: reports: Chest pain / pressure, Palpitations Respiratory: denies: Dyspnea, Cough GI: denies: Abdominal Pain, Nausea, Vomiting, Diarrhea Musculoskeletal: reports: Neck pain Neurologic: reports: Generalized weakness. denies: Focal weakness, Numbness, Near syncope, Syncope, Altered mental status Immunocompromised: reports: Reviewed and negative PD PAST MEDICAL HISTORY - Past Medical History Past Medical History: Yes Cardiovascular: Hypertension, High cholesterol, Coronary artery disease, Atrial fibrillation, Other Respiratory: Emphysema Neuro: CVA, TIA, Other Endocrine/Autoimmune: HyPOthyroidism GI: GERD, Chronic diarrhea, Ulcerative colitis PORTAL ARCHITECT: Breast cancer : None HEENT: Chronic hearing loss Psych: Depression Musculoskeletal: Osteoarthritis, Osteoporosis, Other Derm: Eczema - Past Surgical History Past Surgical History: Yes General: Colonoscopy Ortho: Hip replacement, Other /PORTAL ARCHITECT: Mastectomy, Other HEENT: Cataracts - Present Medications Home Medications: Ambulatory Orders Medication Instructions Recorded Confirmed RX: Atorvastatin [Lipitor] 10 mg PO DAILY 08/02/17 06/24/19 RX: Psyllium Husk/Aspartame [Fiber 1 packet PO DAILY 01/29/18 06/24/19 Therapy Powder] RX: Metoprolol Succinate [Toprol 100 mg PO BID 06/28/18 06/24/19 Xl] RX: Cholecalciferol (Vitamin D3) 2,000 unit PO DAILY 07/23/18 06/24/19 [Vitajoy Daily D] RX: Furosemide 20 mg PO DAILY 11/17/18 06/24/19 RX: Levothyroxine Sodium 75 mcg PO QDAC 11/17/18 06/24/19 RX: Potassium Chloride 10 meq PO DAILY 11/17/18 06/24/19 Clobetasol 0.05% Oint [Temovate 1 applic TOP PRN 04/16/19 0.05% Oint] RX: Digoxin 125 mcg PO DAILY 04/16/19 06/24/19 RX: Lisinopril 2.5 mg PO DAILY 04/16/19 06/24/19 Calcium Carbonate [Tums (Calcium 500 mg PO DAILY PRN 04/23/19 06/24/19 Carbonate 500mg)] RX: Acetaminophen 500 - 1,000 mg PO Q6HR PRN MDD 04/23/19 3000/mg/24hr maximum RX: Triamcinolone 0.1% Cream 1 ea TOP BID PRN 04/23/19 06/24/19 [Kenalog 0.1% Cream] Apixaban [Eliquis] 5 mg PO BID 06/24/19 06/24/19 - Allergies Allergies/Adverse Reactions: Allergies Allergy/AdvReac Type Severity Reaction Status Date / Time amoxicillin trihydrate * Allergy Mild Rash Verified 06/24/19 02:41 [From Augmentin] indomethacin [From Indocin] Allergy Mild Rash Verified 06/24/19 02:41 indomethacin sodium * Allergy Mild Rash Verified 06/24/19 02:41 [From Indocin] lorazepam [From Ativan] Allergy Mild Rash Verified 06/24/19 02:41 metoclopramide HCl * Allergy Mild Rash Verified 06/24/19 02:41 [From Reglan] Penicillins Allergy Mild Rash Verified 06/24/19 02:41 potassium clavulanate * Allergy Mild Rash Verified 06/24/19 02:41 [From Augmentin] prochlorperazine Allergy Mild Rash Verified 06/24/19 02:41 [Prochlorperazine] Sulfa (Sulfonamide Allergy Mild Rash Verified 06/24/19 02:41 Antibiotics) sulfamethoxazole Allergy Mild Rash Verified 06/24/19 02:41 [From Gantanol] adhesive Allergy Rash Verified 06/24/19 02:41 sulfasalazine Allergy Unknown Verified 06/24/19 02:41 [From Sulfazine] thiopental [From Pentothal] Allergy seizures Verified 06/24/19 02:41 aspirin AdvReac Cramps Verified 06/24/19 02:41 levofloxacin [From Levaquin] AdvReac Itching Verified 06/24/19 02:41 metoclopramide [From Reglan] AdvReac Unknown Verified 06/24/19 02:41 phenazopyridine [From Azo] AdvReac Cramps Verified 06/24/19 02:41 - Social History Does the pt smoke?: No Smoking Status: Never smoker Does the pt drink ETOH?: Yes Does the pt have substance abuse?: No - Immunizations Immunizations are current?: Yes - POLST Patient has POLST: Yes POLST Status: DNR PD ED PE NORMAL - Vitals Vital signs reviewed: Yes - General General: Alert and oriented X 3, No acute distress, Well developed/nourished - HEENT HEENT: Atraumatic - Neck Neck: Supple, no meningeal sign - Cardiac Cardiac: No murmur, No gallop, No rub, Strong equal pulses - Respiratory Respiratory: No respiratory distress, Clear bilaterally - Abdomen Abdomen: Soft, Non tender, Non distended - Female Female : Deferred - Rectal Rectal: Deferred - Derm Derm: Normal color, Warm and dry, No rash - Extremities Extremities: No deformity, No tenderness to palpate, Normal ROM s pain, No edema - Neuro Neuro: Alert and oriented X 3 Eye Opening: Spontaneous Motor: Obeys Commands Verbal: Oriented GCS Score: 15 - Psych Psych: Normal mood, Normal affect PD ED PE EXPANDED - Cardiac Cardiac: Irregularly irregular Results - Vitals Vitals: Vital Signs - 24 hr 06/24/19 06/24/19 06/24/19 02:24 02:25 02:40 Temperature 36.5 C Heart Rate 90 82 Respiratory 15 22 Rate Blood Pressure 116/91 H 137/91 H Blood Pressure 137/91 H [Left] Blood Pressure 134/88 H [Right] O2 Saturation 98 98 06/24/19 06/24/19 06/24/19 03:08 04:09 04:39 Temperature Heart Rate 97 93 92 Respiratory 18 22 15 Rate Blood Pressure 133/98 H 145/89 H 156/110 H Blood Pressure [Left] Blood Pressure [Right] O2 Saturation 100 98 98 Oxygen O2 Source [With Activity] Room air O2 Source Room air - EKG (time done) 2:25 Rate: Rate (enter#) Rhythm: Atrial fibrillation [place]: LAD Intervals: QRS normal. No: Prolonged QT Ischemia: Normal ST segments Computer interpretation: Disagree with computer (there is no consistently prolonged qt interval ) - Labs Labs: Laboratory Tests 06/24/19 06/24/19 06/24/19 02:20 02:20 02:45 WBC 8.2 RBC 3.32 L Hgb 11.6 L Hct 34.5 L MCV 103.9 H MCH 34.9 H MCHC 33.6 RDW 13.0 Plt Count 229 MPV 9.0 Neut # (Auto) 6.0 Lymph # (Auto) 1.3 L Parker # (Auto) 0.5 Eos # (Auto) 0.4 Baso # (Auto) 0.1 Absolute Nucleated RBC 0.00 Nucleated RBC % 0.0 Sodium 135 Potassium 3.7 Chloride 102 Carbon Dioxide 22 Anion Gap 11.0 BUN 20 Creatinine 0.8 Estimated GFR (MDRD) 69 L Glucose 94 Calcium 8.5 Troponin I High Sens Last Dose Date UNKNOWN Last Dose Time UNKNOWN Digoxin 0.7 06/24/19 04:05 WBC RBC Hgb Hct MCV MCH MCHC RDW Plt Count MPV Neut # (Auto) Lymph # (Auto) Parker # (Auto) Eos # (Auto) Baso # (Auto) Absolute Nucleated RBC Nucleated RBC % Sodium Potassium Chloride Carbon Dioxide Anion Gap BUN Creatinine Estimated GFR (MDRD) Glucose Calcium Troponin I High Sens 11.0 Last Dose Date Last Dose Time Digoxin normal labs except mild anemia which is baseline and normal troponin PD MEDICAL DECISION MAKING - ED course Complexity details: reviewed results, re-evaluated patient, considered differential, d/w patient ED course: ddx- afib, afib with rvr, electrolyte abnormality, acs 84 y/o F with symptomatic afib, but normal labs and vitals, already on eloquis and rate controlling agents. her ekg is nonischemic and her labs are stable and her troponin is negative. She is minimally symptomatic in the ED just reports waxing and waning palpitations with associated chest discomfort. Her exam is unremarkable. She states this has been ongoing for a week and intermittent. She has f/u outpt with her doctor who placed her on a holter monitor and should f/u with her PCP to obtain further evaluation and review these results. She was given return precautions as documented including syncope, a rapid heart rate or other new concerning symptoms. Departure - Departure Disposition: 01 Home, Self Care Clinical Impression: Atrial fibrillation Condition: Stable Record reviewed to determine appropriate education?: Yes Instructions: Atrial Fibrillation Dc Follow-Up: Christy Hook ARNP, NP-C [Primary Care Provider] - Comments: You were found today to be in Atrial fibrillation. Your labs and ekg and chest xray were normal including your heart enzymes. you do not appear to be having a heart attack. You should continue taking your eloquis and your medications for afib including your diltiazem and metoprolol. Follow up with your regular doctor to review your Holter monitor results. Return to the ED if you develop worsening pain or shortness of breath, passing out or other new concerning symptoms. Discharge Date/Time: 06/24/19 05:02
[2019-06-24 04:41] VITALS: BP 156/110
[2019-06-24] MEDS ORDERED: ACETAMINOPHEN 325 MG TABLET PO STA (04:46)
== END 2019-06-24 05:02 | disposition home or self-care (01) ==
LOC: EDUNIT# → ED 02:22
DX: I48.91 Unspecified atrial fibrillation (principal); Z79.01 Long term (current) use of anticoagulants; I25.10 Atherosclerotic heart disease of native coronary artery without angina pectoris; I10 Essential (primary) hypertension; E78.00 Pure hypercholesterolemia, unspecified; D64.9 Anemia, unspecified; Z66 Do not resuscitate
CPT/HCPCS: 36415; 71045; 80048; 80162; 84484; 85025; 93005; 96374; 99284; A9270

== ENCOUNTER 2019-06-30 15:00 | Outpatient (CLI) | payer MEDICARE, OTHER ==
[2019-06-30 16:06] LABS: THYROID STIMULATING HORMONE 1.38 uIU/mL (0.34-5.60)
== END 2019-06-30 15:01 | disposition home or self-care (01) ==
LOC: LAB 15:00
PROVIDERS: ATTEND Family Medicine
DX: E03.9 Hypothyroidism, unspecified (principal)
CPT/HCPCS: 36415; 84439; 84443; 84481

== ENCOUNTER 2019-07-15 09:22 | Outpatient (CLI) | payer MEDICARE, OTHER | END 2019-07-15 09:23 | disposition home or self-care (01) | LOC: DI 09:22 | PROVIDERS: ATTEND Family Medicine | DX: Z53.9 Procedure and treatment not carried out, unspecified reason (principal) ==

== ENCOUNTER 2019-07-15 10:10 | Outpatient (CLI) | payer MEDICARE, OTHER | END 2019-07-15 10:11 | disposition home or self-care (01) | LOC: LAB 10:10 | PROVIDERS: ATTEND Internal Medicine Gastroenterology | DX: R19.7 Diarrhea, unspecified (principal); K82.9 Disease of gallbladder, unspecified; R94.5 Abnormal results of liver function studies | CPT/HCPCS: 36415; 81599; 86704; 86706; 86708; 86803; 87340 ==

== ENCOUNTER 2019-07-30 10:03 | Outpatient (CLI) | payer MEDICARE, OTHER ==
[2019-07-30] MEDS ORDERED: SINCALIDE 5 MCG VIAL ONE (11:35)
[2019-07-30] MEDS ORDERED: SINCALIDE IV ONE (13:49)
[2019-07-30] MEDS ORDERED: SODIUM CHLORIDE 0.9% IV ONE (13:49)
--- NOTE | 2019-07-30 14:30 | Nuclear Medicine Report ---
Reason: GALLBLADDER DISORDER Procedure Date: 07/30/2019 Accession Number: [id number] / [id number] Procedure: NM - Hepatobiliary HIDA w/ Rx CPT Code: FULL RESULT: EXAM: HEPATOBILIARY SCAN WITH CCK/KINEVAC ADMINISTRATION EXAM DATE: 07/30/2019 10:06 AM. CLINICAL HISTORY: GALLBLADDER DISORDER. COMPARISON: ABDOMEN LIMITED 06/16/2019 10:00 AM. TECHNIQUE: Following the intravenous administration of 5 mCi of Tc99m Mebrofenin, a hepatobiliary scan was done centered on the liver and gallbladder in multiple sequential images and projections. Following the intravenous administration of 1 mcg of CCK/ Kinevac over the course of approximately 60 minutes, dynamic imaging was done and the gallbladder ejection fraction was calculated. FINDINGS: Normal extraction of tracer from the blood pool indicating normal hepatocellular function. The liver size and shape is grossly within normal limits. There is activity visualized within the bile ducts and gallbladder during the first hour. Small bowel activity is present after CCK administration. With CCK administration, the gallbladder demonstrates an effective contraction. The gallbladder ejection fraction is calculated to be 98%, well above the lower limit of normal of 38% for a 60-minute injection. The patient did not report symptoms after CCK administration. No evidence of enteric reflux into the stomach. No significant collection of tracer remaining in the common bile duct by the end of the study. IMPRESSION: 1. Patent cystic duct. 2. Patent common bile duct. 3. Negative for acute or chronic cholecystitis. 4. No enterogastric bile reflux. 5. Gallbladder ejection fraction of 98%. RADIA
== END 2019-07-30 10:04 | disposition home or self-care (01) ==
LOC: DI 10:03
PROVIDERS: ATTEND Family Medicine
DX: K82.9 Disease of gallbladder, unspecified (principal)
CPT/HCPCS: 78227; J7040

== ENCOUNTER 2019-10-13 15:23 | Outpatient (CLI) | payer MEDICARE, OTHER ==
[2019-10-13 15:45] LABS: BASOPHILS # (AUTO) 0.1 10^3/uL (0.0-0.1); BASOPHILS % (AUTO) 0.6 %; EOSINOPHILS # (AUTO) 0.4 10^3/uL (0.0-0.7); EOSINOPHILS % (AUTO) 4.6 %; HGB - HEMOGLOBIN 12.9 g/dL (12.0-16.0); LYMPHOCYTES # (AUTO) 1.2 10^3/uL (1.5-3.5); LYMPHOCYTES % (AUTO) 14.3 %; MEAN CORPUSCULAR HEMOGLOBIN 34.5 pg (27.0-31.0); MEAN CORPUSCULAR HGB CONC 32.5 g/dL (32.0-36.0); MEAN CORPUSCULAR VOLUME 106.1 fL (81.0-99.0); MEAN PLATELET VOLUME 8.8 fL (7.9-10.8); MONOCYTES # (AUTO) 0.5 10^3/uL (0.0-1.0); NEUTROPHILS # (AUTO) 6.1 10^3/uL (1.5-6.6); PLT - PLATELET COUNT 326 10^3/uL (130-450); RED BLOOD COUNT 3.74 10^6/uL (4.20-5.40); RED CELL DISTRIBUTION WIDTH 12.9 % (12.0-15.0); WHITE BLOOD COUNT 8.2 x10^3/uL (4.8-10.8)
[2019-10-13 15:57] LABS: ALBUMIN 4.6 g/dL (3.2-5.5); ALBUMIN/GLOBULIN RATIO 1.4 (1.0-2.2); BILIRUBIN,TOTAL 0.8 mg/dL (0.2-1.0); CALCIUM 9.5 mg/dL (8.5-10.3); CREATININE 0.8 mg/dL (0.4-1.0)
[2019-10-13 16:38] LABS: THYROID STIMULATING HORMONE 2.08 uIU/mL (0.34-5.60)
[2019-10-13 16:40] LABS: FREE T4 (FREE THYROXINE) 0.83 ng/dL (0.58-1.64)
--- NOTE | 2019-10-14 10:46 | XRAY Report ---
Reason: PAIN IN LEFT HIP Procedure Date: 10/13/2019 Accession Number: [id number] / [id number] Procedure: XR - Hip w/Pelvis 2-3V LT CPT Code: Final Report FULL RESULT: EXAM: LEFT HIP RADIOGRAPHY EXAM DATE: 10/13/2019 03:56 PM. CLINICAL HISTORY: Pain in left hip. COMPARISON: HIP 2 VIEW LT 08/12/2017 2:32 PM ABDOMEN/PELVIS / 06/28/2018 8:18 PM. TECHNIQUE: 2 views. FINDINGS: Bones: The patient is status post cephalomedullary construct with intramedullary ayala and femoral neck compression screw, configuration not significantly changed compared to 2017. Bones appear qualitatively osteopenic. No acute fracture is seen. Joints: Symmetric narrowing of the femoral acetabular joints. Sacroiliac joints are not well seen. Pubic symphysis is unremarkable. Soft Tissues: Normal. No soft tissue swelling. IMPRESSION: Essentially unchanged configuration of previous operative repair of left femoral neck/intratrochanteric fracture. RADIA
== END 2019-10-13 15:24 | disposition home or self-care (01) ==
LOC: LAB 15:23 → DI 15:24
PROVIDERS: ATTEND Family Medicine
DX: M25.552 Pain in left hip (principal); F41.8 Other specified anxiety disorders; R19.7 Diarrhea, unspecified; R63.4 Abnormal weight loss; K21.9 Gastro-esophageal reflux disease without esophagitis; I48.0 Paroxysmal atrial fibrillation; I10 Essential (primary) hypertension; E78.5 Hyperlipidemia, unspecified; E03.9 Hypothyroidism, unspecified
CPT/HCPCS: 36415; 80053; 84439; 84443; 84481; 85025

== ENCOUNTER 2019-10-23 02:00 | Outpatient (CLI) | payer MEDICARE, OTHER | END 2019-10-23 02:01 | disposition critical access hospital (66) | LOC: EMS 02:00 | PROVIDERS: ATTEND Surgery | DX: R07.89 Other chest pain (principal); R51 Headache; R11.0 Nausea; R05 Cough; K21.9 Gastro-esophageal reflux disease without esophagitis | CPT/HCPCS: A0425; A0429 ==

== ENCOUNTER 2019-10-23 02:13 | Observation (INO) | payer MEDICARE, OTHER ==
[2019-10-23] MEDS ORDERED: MAG HYDROX/AL HYDROX/SIMETH 30 ML UDC PO STA (02:26)
[2019-10-23] MEDS ORDERED: SODIUM CHLORIDE 0.9% 250 ML IV ONE (02:28)
[2019-10-23] MEDS ORDERED: ONDANSETRON 4 MG/2 ML VIAL IVP STA (02:30)
--- NOTE | 2019-10-23 02:30 | ED Physician Documentation ---
History of Present Illness - Stated complaint Stated Complaint: PALPITATIONS - Chief complaint Chief Complaint: Cardiac - Additonal information Additional information: This is an 84-year-old female with a medical history that includes atrial fibrillation on Eliquis, heart failure with last ejection fraction 55% and 2018, coronary artery disease, GERD, who presents with chest discomfort and palpitations. Patient states that she chronically gets palpitations and chest discomfort, this is usually associated with her atrial fibrillation. Tonight she woke up around midnight and she had some discomfort that started in epigastrium and radiated up to her chest to her neck more on the right side. She states that these of the symptoms that she typically gets when she has episodes that a been diagnosed with as GERD in the past. She took a nitroglycerin as well as an extra dose of her rate control medications and her chest discomfort improved. She states currently the discomfort is 4 out of 10 located over her epigastric area. She did have a couple episodes of dry heaving earlier. She follows with Dr. Ha of cardiology at 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: Breast cancer : None HEENT: Chronic hearing loss Psych: Depression Musculoskeletal: Osteoarthritis, Osteoporosis, Other Derm: Eczema - Past Surgical History Past Surgical History: Yes General: Colonoscopy Ortho: Hip replacement, Other /INDIVIDUALIZED EDUCATION PLAN AIDE: Mastectomy, Other HEENT: Cataracts - Present Medications Home Medications: Ambulatory Orders Medication Instructions Recorded Confirmed Atorvastatin [Lipitor] 10 mg PO DAILY 08/02/17 10/23/19 Psyllium Husk/Aspartame [Fiber 1 packet PO DAILY 01/29/18 10/23/19 Therapy Powder] Metoprolol Succinate [Toprol Xl] 100 mg PO BID 06/28/18 10/23/19 Cholecalciferol (Vitamin D3) 2,000 unit PO DAILY 07/23/18 10/23/19 [Vitajoy Daily D] Furosemide 20 mg PO DAILY 11/17/18 10/23/19 Levothyroxine Sodium 75 mcg PO QDAC 11/17/18 10/23/19 Clobetasol 0.05% Oint [Temovate 1 applic TOP DAILY 04/16/19 10/23/19 0.05% Oint] Digoxin 125 mcg PO DAILY 04/16/19 10/23/19 Lisinopril 2.5 mg PO DAILY 04/16/19 10/23/19 Acetaminophen 500 - 1,000 mg PO Q6HR PRN MDD 04/23/19 10/23/19 3000/mg/24hr maximum Calcium Carbonate [Tums (Calcium 500 mg PO DAILY PRN 04/23/19 10/23/19 Carbonate 500mg)] Triamcinolone 0.1% Cream [Kenalog 1 ea TOP BID PRN 04/23/19 10/23/19 0.1% Cream] Apixaban [Eliquis] 5 mg PO BID 06/24/19 10/23/19 - Allergies Allergies/Adverse Reactions: Allergies Allergy/AdvReac Type Severity Reaction Status Date / Time amoxicillin trihydrate * Allergy Mild Rash Verified 10/23/19 02:21 [From Augmentin] indomethacin [From Indocin] Allergy Mild Rash Verified 10/23/19 02:21 indomethacin sodium * Allergy Mild Rash Verified 10/23/19 02:21 [From Indocin] lorazepam [From Ativan] Allergy Mild Rash Verified 10/23/19 02:21 metoclopramide HCl * Allergy Mild Rash Verified 10/23/19 02:21 [From Reglan] Penicillins Allergy Mild Rash Verified 10/23/19 02:21 potassium clavulanate * Allergy Mild Rash Verified 10/23/19 02:21 [From Augmentin] prochlorperazine Allergy Mild Rash Verified 10/23/19 02:21 [Prochlorperazine] Sulfa (Sulfonamide Allergy Mild Rash Verified 10/23/19 02:21 Antibiotics) sulfamethoxazole Allergy Mild Rash Verified 10/23/19 02:21 [From Gantanol] adhesive Allergy Rash Verified 10/23/19 02:21 sulfasalazine Allergy Unknown Verified 10/23/19 02:21 [From Sulfazine] thiopental [From Pentothal] Allergy seizures Verified 10/23/19 02:21 aspirin AdvReac Cramps Verified 10/23/19 02:21 levofloxacin [From Levaquin] AdvReac Itching Verified 10/23/19 02:21 metoclopramide [From Reglan] AdvReac Unknown Verified 10/23/19 02:21 phenazopyridine [From Azo] AdvReac Cramps Verified 10/23/19 02:21 - Social History Does the pt smoke?: No Smoking Status: Never smoker Does the pt drink ETOH?: Yes Does the pt have substance abuse?: No - Immunizations Immunizations are current?: Yes - POLST Patient has POLST: Yes POLST Status: DNR PD ED PE NORMAL - Vitals Vital signs reviewed: Yes - General General: Alert and oriented X 3, No acute distress - HEENT HEENT: PERRL - Neck Neck: Supple, no meningeal sign - Cardiac Cardiac: No murmur, Other (Irregularly irregular rhythm, tachycardic.) - Respiratory Respiratory: Clear bilaterally - Abdomen Abdomen: Normal bowel sounds, Soft, Non tender, Non distended - Derm Derm: Warm and dry - Extremities Extremities: No deformity - Neuro Neuro: Alert and oriented X 3 - Psych Psych: Normal mood, Normal affect Results - Vitals Vitals: Oxygen O2 Source [With Activity] Room air O2 Source Room air - EKG (time done) 2:16 Other comments: Other comments (Rate 122, rhythm atrial fibrillation with rapid ventricular response. There is no ST segment elevation. There is slight [address] depression laterally in V5 and V6, which is unchanged from prior EKG on 06/24/2019. No significant change from prior EKG other than the rate is now faster.) 4:21 Other comments: Other comments (Rate 92, rhythm atrial fibrillation, there is slight lateral ST depression, pattern is unchanged from prior EKG. No ST segment elevation. QTc 350.) - Labs Labs: Laboratory Tests 10/23/19 10/23/19 10/23/19 02:30 02:30 02:30 WBC 10.3 RBC 3.81 L Hgb 12.6 Hct 39.0 MCV 102.4 H MCH 33.1 H MCHC 32.3 RDW 12.9 Plt Count 328 MPV 8.6 Neut # (Auto) 8.4 H Lymph # (Auto) 0.9 L [place] # (Auto) 0.6 Eos # (Auto) 0.2 Baso # (Auto) 0.1 Absolute Nucleated RBC 0.00 Nucleated RBC % 0.0 PT 14.1 H INR 1.3 H Sodium 135 Potassium 4.4 Chloride 97 L Carbon Dioxide 26 Anion Gap 12.0 BUN 23 H Creatinine 1.0 Estimated GFR (MDRD) 53 L Glucose 125 H Calcium 9.5 Total Bilirubin 0.6 AST 57 H ALT 41 Alkaline Phosphatase 100 Troponin I High Sens B-Natriuretic Peptide Total Protein 7.3 Albumin 4.1 Globulin 3.2 Albumin/Globulin Ratio 1.3 Lipase 49 10/23/19 10/23/19 10/23/19 02:30 02:30 04:40 WBC RBC Hgb Hct MCV MCH MCHC RDW Plt Count MPV Neut # (Auto) Lymph # (Auto) [place] # (Auto) Eos # (Auto) Baso # (Auto) Absolute Nucleated RBC Nucleated RBC % PT INR Sodium Potassium Chloride Carbon Dioxide Anion Gap BUN Creatinine Estimated GFR (MDRD) Glucose Calcium Total Bilirubin AST ALT Alkaline Phosphatase Troponin I High Sens 18.2 H* 14.1 B-Natriuretic Peptide 518 H Total Protein Albumin Globulin Albumin/Globulin Ratio Lipase - Rads (name of study) CXR Radiology: Other (Unchanged prominent interstitial lung markings without focal consolidation. No pleural effusion or pneumothorax.) PD MEDICAL DECISION MAKING - ED course Complexity details: considered differential (ACS, dysrhythmia, atrial fibrillation, heart failure, pneumothorax, pneumonia, pleural effusion, pulmonary embolism.) ED course: On arrival patient is nontoxic-appearing, she is in atrial fibrillation with RVR. She has unremarkable CBC, her CMP is also unremarkable, her troponin is mildly elevated at 18, her BNP is also elevated at 518. She has a history of GERD and she attributes her discomfort to the GERD, however given his radiation and her cardiac history, I am concerned that it is more of a ACS equivalent. No signs of DVT or history PE, and the nature of her chest discomfort also makes pulmonary embolism less likely. Her EKG does show some lateral ST depressions though this does not appear changed from prior. I spoke with Dr. Crowe of [facility] where she follows for cardiology, and reviewed the case with him, he states that she has not had an ischemia work-up, and recommends that she be admitted for stress testing. I spoke with patient who is in agreement the plan. I also called her hospitalist who accepted the patient for admission. Patient was admitted and at the time admission she was not having active chest pain symptoms. Departure - Departure Disposition: ED Place in Observation Clinical Impression: Chest pain Qualifiers: Chest pain type: unspecified Qualified Code(s): R07.9 - Chest pain, unspecified Condition: Stable Discharge Date/Time: 10/23/19 08:50
[2019-10-23 02:37] LABS: BASOPHILS # (AUTO) 0.1 10^3/uL (0.0-0.1); BASOPHILS % (AUTO) 0.7 %; EOSINOPHILS # (AUTO) 0.2 10^3/uL (0.0-0.7); EOSINOPHILS % (AUTO) 2.1 %; HGB - HEMOGLOBIN 12.6 g/dL (12.0-16.0); LYMPHOCYTES # (AUTO) 0.9 10^3/uL (1.5-3.5); LYMPHOCYTES % (AUTO) 8.4 %; MEAN CORPUSCULAR HEMOGLOBIN 33.1 pg (27.0-31.0); MEAN CORPUSCULAR HGB CONC 32.3 g/dL (32.0-36.0); MEAN CORPUSCULAR VOLUME 102.4 fL (81.0-99.0); MEAN PLATELET VOLUME 8.6 fL (7.9-10.8); MONOCYTES # (AUTO) 0.6 10^3/uL (0.0-1.0); NEUTROPHILS # (AUTO) 8.4 10^3/uL (1.5-6.6); NEUTROPHILS % (AUTO) 82.1 %; PLT - PLATELET COUNT 328 10^3/uL (130-450); RED BLOOD COUNT 3.81 10^6/uL (4.20-5.40); RED CELL DISTRIBUTION WIDTH 12.9 % (12.0-15.0); WHITE BLOOD COUNT 10.3 x10^3/uL (4.8-10.8)
[2019-10-23 02:46] LABS: INR 1.3 (0.8-1.2); PT - PROTHROMBIN TIME 14.1 secs (9.9-12.6)
[2019-10-23 02:52] LABS: ALBUMIN 4.1 g/dL (3.2-5.5); ALBUMIN/GLOBULIN RATIO 1.3 (1.0-2.2); BILIRUBIN,TOTAL 0.6 mg/dL (0.2-1.0); CALCIUM 9.5 mg/dL (8.5-10.3); TOTAL PROTEIN 7.3 g/dL (6.7-8.2)
--- NOTE | 2019-10-23 03:04 | XRAY Report ---
Reason: Chest Pain Procedure Date: 10/23/2019 Accession Number: [id number] / [id number] Procedure: XR - Chest 1 View X-Ray CPT Code: 06678 Final Report FULL RESULT: EXAM: CHEST RADIOGRAPHY EXAM DATE: 10/23/2019 02:40 AM. CLINICAL HISTORY: Chest Pain. COMPARISON: CHEST 1 VIEW 06/24/2019 2:42 AM. TECHNIQUE: 1 view. FINDINGS: Lungs/Pleura: Diffuse interstitial opacities without focal consolidation. No pleural effusion or pneumothorax. Mediastinum: Tortuous aorta. Atherosclerotic plaque calcifications in the aorta. Normal heart size. Other: Right axillary surgical clips. Old left humeral fracture deformity. IMPRESSION: Unchanged prominent interstitial lung markings without focal consolidation. RADIA
[2019-10-23] MEDS ORDERED: ACETAMINOPHEN 325 MG TABLET PO PRN ×2 (08:17→10:22)
[2019-10-23] MEDS ORDERED: MORPHINE 2 MG/ML CARPUJECT IVP PRN (08:17)
[2019-10-23] MEDS ORDERED: ZOLPIDEM 5 MG TABLET PO PRN (08:17)
[2019-10-23] MEDS ORDERED: ONDANSETRON 4 MG/2 ML VIAL IVP PRN (08:17)
[2019-10-23] MEDS ORDERED: SODIUM CHLORIDE FLUSH 0.9% 10 ML SYRINGE IVP PRN (08:17)
[2019-10-23] MEDS ORDERED: DIGOXIN 125 MCG TABLET PO SCH (09:00)
[2019-10-23] MEDS ORDERED: lisinopriL 5 MG TABLET PO SCH (09:00)
[2019-10-23] MEDS ORDERED: SODIUM CHLORIDE FLUSH 0.9% 10 ML SYRINGE IVP SCH (09:00)
[2019-10-23] MEDS ORDERED: ENOXAPARIN 40 MG/0.4 ML SYRINGE SUBQ SCH (09:00)
[2019-10-23] MEDS ORDERED: METOPROLOL SUCCINATE 50 MG TABLET PO SCH (09:00)
[2019-10-23] MEDS ORDERED: SODIUM CHLORIDE 0.9% 1,000 ML IV SCH ×2 (09:00)
[2019-10-23] MEDS ORDERED: APIXABAN 5 MG TABLET PO SCH (09:00)
[2019-10-23] MEDS ORDERED: FAMOTIDINE 20 MG TABLET PO SCH (09:00)
--- NOTE | 2019-10-23 09:03 | PHARMACY PROGRESS NOTE ---
- Best Possible Medication History Admit Date and Time: 10/23/19 0817 Processed by: Nursing Medication History completed: Yes As the person ultimately responsible for medication therapy, providers are able to order a medication from an existing home medication list in [facility] via the "Reconcile Routine" prior to Confirmation of that medication by application support. Such practice is discouraged except when the physician, in their clinical judgment, deems that a medical need exists for a medication without regard to previous use.
[2019-10-23] MEDS ORDERED: NITROGLYCERIN SL 0.4 MG TABLET SL PRN (10:26)
--- NOTE | 2019-10-23 10:28 | HISTORY & PHYSICAL EXAMINATION ---
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 treated with lumpectomy followed by right breast radiation, recurrent right breast cancer in 2011 involving right lower chest wall below the inflammatory crease treated with surgical resection placed on tamoxifen briefly, stopped after she had a stroke, recurrent right breast infiltrating lobular carcinoma status post mastectomy of the right breast on 02/04/2018, recent diagnosis of atrial fibrillation on Eliquis, 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 pt report her chest pain on and off for couple of months. her chest pain started when she had nausea, the pain went up on her middle chest, to her throat, tongue, even then headache. she report her PCP concern it is her GERD caused her symptoms. she report her chest discomfort always started on the night specially when she lay at flat. she also report she feel some palpitation when she had chest discomfort. she denies shortness of breath, syncope or pre-syncope, diaphoresis when she had chest discomfort. Troponin and EKG, and CXR are unremarkable. Initially pt present tachycardia otherwise pt is hemodynamical. pt is admitted for further evaluation and treatment of chest pain. 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 Social History Notes: Patient lives with her in their home. She has been living on [facility] for decades. She lives independently but does have a lady that comes in to help clean the home every other week. They live in [place]. She has one son who lives in [place] and another son who lives in [facility]. She smoked one-quarter of a pack a day for 30 years and quit smoking in 1969. She drinks 2 glasses of wine daily. She denies any illicit drug use. - Substance History Use: Uses substance without health or social issues: Alcohol (daily wine, 2 drinks) - POLST Patient has POLST: Yes POLST Status: DNR Meds/Allgy - Home Medications Home Medications: Ambulatory Orders Medication Instructions Recorded Confirmed Atorvastatin [Lipitor] 10 mg PO DAILY 08/02/17 10/23/19 Psyllium Husk/Aspartame [Fiber 1 packet PO DAILY 01/29/18 10/23/19 Therapy Powder] Metoprolol Succinate [Toprol Xl] 100 mg PO BID 06/28/18 10/23/19 Cholecalciferol (Vitamin D3) 2,000 unit PO DAILY 07/23/18 10/23/19 [Vitajoy Daily D] Furosemide 20 mg PO DAILY 11/17/18 10/23/19 Levothyroxine Sodium 75 mcg PO QDAC 11/17/18 10/23/19 Clobetasol 0.05% Oint [Temovate 1 applic TOP DAILY 04/16/19 10/23/19 0.05% Oint] Digoxin 125 mcg PO DAILY 04/16/19 10/23/19 Lisinopril 2.5 mg PO DAILY 04/16/19 10/23/19 Acetaminophen 500 - 1,000 mg PO Q6HR PRN MDD 04/23/19 10/23/19 3000/mg/24hr maximum Calcium Carbonate [Tums (Calcium 500 mg PO DAILY PRN 04/23/19 10/23/19 Carbonate 500mg)] Triamcinolone 0.1% Cream [Kenalog 1 ea TOP BID PRN 04/23/19 10/23/19 0.1% Cream] Apixaban [Eliquis] 5 mg PO BID 06/24/19 10/23/19 - Allergies Allergies/Adverse Reactions: Allergies Allergy/AdvReac Type Severity Reaction Status Date / Time amoxicillin trihydrate * Allergy Mild Rash Verified 10/23/19 02:21 [From Augmentin] indomethacin [From Indocin] Allergy Mild Rash Verified 10/23/19 02:21 indomethacin sodium * Allergy Mild Rash Verified 10/23/19 02:21 [From Indocin] lorazepam [From Ativan] Allergy Mild Rash Verified 10/23/19 02:21 metoclopramide HCl * Allergy Mild Rash Verified 10/23/19 02:21 [From Reglan] Penicillins Allergy Mild Rash Verified 10/23/19 02:21 potassium clavulanate * Allergy Mild Rash Verified 10/23/19 02:21 [From Augmentin] prochlorperazine Allergy Mild Rash Verified 10/23/19 02:21 [Prochlorperazine] Sulfa (Sulfonamide Allergy Mild Rash Verified 10/23/19 02:21 Antibiotics) sulfamethoxazole Allergy Mild Rash Verified 10/23/19 02:21 [From Gantanol] adhesive Allergy Rash Verified 10/23/19 02:21 sulfasalazine Allergy Unknown Verified 10/23/19 02:21 [From Sulfazine] thiopental [From Pentothal] Allergy seizures Verified 10/23/19 02:21 aspirin AdvReac Cramps Verified 10/23/19 02:21 levofloxacin [From Levaquin] AdvReac Itching Verified 10/23/19 02:21 metoclopramide [From Reglan] AdvReac Unknown Verified 10/23/19 02:21 phenazopyridine [From Azo] AdvReac Cramps Verified 10/23/19 02:21 Review of Systems - Constitutional Constitutional: denies: Fatigue, Fever, Chills, Malaise, Weakness, Poor appetite, Diaphoresis, Night sweats - Eyes Eyes: denies: Pain, Irritation, Amaurosis, Blurred vision, Spots in vision, Field loss, Vision loss, Dipolpia - Ears, Nose & Throat Ears, Nose & Throat: denies: Ear pain, Hearing loss, Hearing aids, Tinnitus, Vertigo, Nasal pain, Nasal discharge, Nosebleeds, Nasal obstruction, Nasal congestion, Postnasal drainage, Dentures, Sore throat, Hoarseness, Mouth lesions - Cardiovascular Cariovascular: reports: Palpitations, Chest pain. denies: Irregular heart rate, Edema, Lightheadedness, Syncope, Exertional dyspnea, Decr. exercise tolerance - Respiratory Respiratory: denies: Cough, Sputum production, Wheezing, Snoring, Hemoptysis, Orthopnea, SOB at rest, SOB with exertion, Apnea - Gastrointestinal Gastrointestinal: denies: Abdominal pain, Abdominal distention, Constipation, D iarrhea, Change in bowel habits, Rectal bleeding, Black stools, Bloody stools, Nausea, Vomiting, Bile emesis, Conrad blood emesis, Coffee grounds emesis - Genitourinary Genitourinary: denies: Dysuria, Frequency, Urgency, Hematuria, Incontinence, Flank pain, Urethral discharge - Musculoskeletal Musculoskeletal: denies: Muscle pain, Back pain, Muscle aches, Stiffness, Limited range of motion, Muscle weakness, Gout, Joint pain - Integumentary Integumentary: denies: Rash, Pruritis, Lesions, Dryness, Lumps, Acne, Pigment changes, Nail changes - Neurological Neurological: denies: General weakness, Focal weakness, Headache, Dizziness, Numbness, Memory problems, Pre-existing deficit, Abnormal gait, Seizures, Incoordination - Psychiatric Psychiatric: denies: Depression, Anxiety, Suicidal, Delusions, Hallucinations, Homicidal - Endocrine Endocrine: denies: Polyuria, Polydypsia, Polyphagia, Intolerance to cold - Hematologic/Lymphatic Hematologic/Lymphatic: denies: Anemia, Bruising, Petechiae, Blood clots, Lymphadenopathy, Bleeding tendencies Exam - Vital Signs Reviewed Vital Signs: Yes Vital Signs: Vital Signs x48h Temp Pulse Pulse Resp BP BP Pulse Ox 10/23/19 09:00 36.6 C 87 16 153/90 H 98 10/23/19 08:13 102 H 18 97/55 L 98 10/23/19 06:59 88 16 135/96 H 97 10/23/19 06:41 87 16 99 10/23/19 05:39 97 16 118/61 96 10/23/19 05:21 82 17 98 10/23/19 04:34 113 H 18 130/83 H 96 10/23/19 04:22 103 H 20 128/87 H 96 10/23/19 04:06 107 H 15 96 10/23/19 04:00 106 H 13 128/87 H 96 - Physical Exam General Appearance: positive: No acute distress, Alert. negative: Lethargic Eyes Bilateral: positive: Normal inspection, PERRL, EOMI, No lid inflammation ENT: positive: ENT inspection nml, Pharynx nml, No signs of dehydration. negative: Purulent nasal drainage Neck: positive: Nml inspection, Thyroid nml, No JVD, Trachea midline. negative: Thyromegaly, Lymphadenopathy (R), Lymphadenopathy (L), Stiff neck, Tracheal deviation Respiratory: positive: Chest non-tender, No respiratory distress, Breath sounds nml. negative: Wheezes, Rales, Rhonchi Cardiovascular: positive: Regular rate & rhythm, No murmur, No gallop. negative: Irregularly irregular, Extrasystoles, Tachycardia, Bradycardia, JVD present, Systolic murmur, Diastolic murmur Peripheral Pulses: positive: 2+ Abdomen: positive: Non-tender, No organomegaly, Nml bowel sounds, No distention. negative: Tenderness, Guarding, Rebound Back: positive: Nml inspection, CVA tenderness (R). negative: CVA tenderness (L) Skin: positive: Color nml, No rash, Warm, Dry. negative: Cyanosis, Diaphoresis, Pallor Extremities: positive: Non-tender, Full ROM, Nml appearance. negative: Calf tenderness, Viktor's sign/cords Neurologic/Psychiatric: positive: Oriented x3, Motor nml, Sensation nml, Mood/affect nml. negative: Weakness, Sensory loss, Facial droop, Slurred/abnml speech, Depressed mood/affect Sepsis Event Note (H) - Evaluation Current Stage of Sepsis: Ruled out Conclusion/Plan - Problem List (1) Chest pain Conclusion/Plan: Pt denies chest pain now. pt has hx of GERD. pt report she has nausea first then chest discomfort is running upper until she feel headache. her troponin and EKG are unremarkable. pt has hx of CAD, and afib. also she report ER she feel better for her chest discomfort after she took nitro at home. plan: stress test, ECHO Gi cocktail, PRN of Tums tele, vital monitor (2) Atrial fibrillation with RVR Conclusion/Plan: Patient was diagnosed with atrial fibrillation last year during hospitalization for a stroke. The patient was been on Eliquis. pt present afib with RVR initially. after she was resume her home meds, her HR is down to normal now. pt did not feel palpitation any more. continue: Digoxin, metoprolol, eliquis. tele and vital monito (3) chronic diastolic congestive heart failure, NYHA class 2 Conclusion/Plan: The patient has a history of diastolic heart failure with a preserved ejection fraction. pt does not present SOB. CXR is unremarkable for acute findings. plan: continue home meds, metoprolol, Lisinopril, continue tele and vital monitor (4) HTN (hypertension) Conclusion/Plan: stable, We will monitor the patient's blood pressure closely, resume home BP meds, and titrate medication as needed. (5) Hyperlipidemia Conclusion/Plan: Patient has a history of hyperlipidemia and is on Lipitor at home. Patient will be continued on her home dose of Lipitor while she is hospitalized. (6) History of CVA (cerebrovascular accident) Patient had recent CVA likely secondary to atrial fibrillation as she had what appears to be multiple emboli in the left middle cerebral artery causing dysarthria. The patient does still have some mild residual dysarthria but otherwise has no major focal neurologic deficits. The patient is currently on Lipitor and eliquis. We will continue these medications while the patient is hospitalized. (7) Hypothyroidism Patient has a history of hypothyroidism and is on Synthroid at home. Patient will be continued on her home dose of Synthroid. The patient did have her TSH checked in December of this year and it was 1.3 at that time, will check TSH at hospital. (8) GERD pt report she feel chest discomfort to start with nausea, then discomfort run upper to her middle chest, to throat, mouth, even she feel headache. Sleeping with flat make her worsening symptoms. her PCP concern her GERD make her chest discomfort. plan: Protonix daily GI cocktail, Tums PRN Qualifiers: Chest pain type: unspecified Qualified Code(s): R07.9 - Chest pain, unspecified - Lab Results Fish Bones: 10/23/19 02:30 10/23/19 02:30 Core Measures - Anticipated LOS I expect patient to be DC'd or transferred within 96 hours.: Yes - DVT/VTE - Prophylaxis VTE/DVT Device ordered at admit?: Yes VTE/DVT Prophylaxis med ordered at admit?: Yes
[2019-10-23] MEDS ORDERED: CALCIUM CARBONATE CHEW 500 MG TABLET PO PRN (11:04)
[2019-10-23] MEDS ORDERED: GI COCKTAIL 120 ML BOTTLE PO ONE (11:15)
[2019-10-23] MEDS ORDERED: REGADENOSON 0.4 MG/5 ML SYRINGE IVP ONE ×2 (11:49→14:00)
[2019-10-23] MEDS ORDERED: PANTOPRAZOLE 40 MG TABLET PO SCH (12:00)
--- NOTE | 2019-10-23 15:08 | Nuclear Medicine Report ---
Reason: chest pain Procedure Date: 10/23/2019 Accession Number: [id number] / [id number] Procedure: NM - Myocardial Perfusion STR/RST CPT Code: Final Report FULL RESULT: EXAM: SINGLE-ISOTOPE PHARMACOLOGICAL STRESS TEST WITH REGADENOSON. SINGLE-ISOTOPE AND ONE-DAY REST/STRESS MYOCARDIAL PERFUSION SCANS WITH TOMOGRAPHIC IMAGING, QUANTITATIVE ANALYSIS, WALL MOTION ANALYSIS AND CALCULATION OF EJECTION FRACTION. EXAM DATE: 10/23/2019 02:21 PM. CLINICAL HISTORY: Chest pain. COMPARISON: None available. TECHNIQUE: After the intravenous administration of 10.2 mCi of Tc-99m sestamibi, a rest myocardial perfusion scan was done with tomography. Motion correction was applied when appropriate. After an appropriate delay, pharmacological stress was performed with the infusion of 0.4 mg regadenoson per protocol. According to protocol, 40.3 mCi of Tc-99m sestamibi was injected for stress myocardial perfusion scan. Motion correction was applied when appropriate. Gated tomographic images were obtained for wall motion analysis and computation of left ventricular ejection fraction. FINDINGS: There is a small, mild, fixed defect in the distal anteroseptal wall. No convincing reversible perfusion defects. Summed stress score 1 Summed rest score 0 Summed difference score 1 Wall motion analysis demonstrates septal hypokinesis. The left ventricular end-diastolic volume is 47 cc. The left ventricular end-systolic volume is 18 cc. The left ventricular ejection fraction is calculated to be 62%. IMPRESSION: 1. Small mild fixed defect in the distal anteroseptal wall. No convincing reversible perfusion defects. 2. Left ventricular ejection fraction of 62%. 3. Septal hypokinesis. 4. Normal left ventricular cavity size, no change with stress. Please correlate findings with stress ECG tracings and procedure notes. RADIA
[2019-10-23 16:10] VITALS: BP 121/78
--- NOTE | 2019-10-23 16:13 | Discharge Plan ---
Discharge Plan Problem Reviewed?: Yes Disposition: Home, Self Care Condition: Stable Prescriptions: Omeprazole 20 mg PO DAILY #10 capsule. Diet: Cardiac Activity Restrictions: Activity as Tolerated Shower Restrictions: No (fall precaution, caregiver closely monitor) Instruction Topics: Omeprazole tablets OTC Health Concerns: chest discomfort, GERD Plan of Treatment: Your chest discomfort workup including stress test, ECHO, troponin and EKG are unremarkable for acute findings. your chest discomfort is more likely from your GERD, omeprazole is prescribed for you. Care Goals: stabilization and improvement of your medical conditions Assessment: discussed with you about clinic finding, and the care plan, you understand. Additional Instructions or Follow Up instructions: you may followup your PCP in one week, followup your business systems analyst as out-pt as your schedule. should your symptoms return or worsen, you may present ER or call 911 for help. No Smoking: If you smoke, Please STOP! Call for help. Follow-up with: Savage Madrigal MD [Primary Care Provider] -
--- NOTE | 2019-10-23 16:23 | DISCHARGE SUMMARY ---
Discharge Summary Admit Date: 10/23/19 Discharge Date: 10/23/19 Discharging Provider: JANAE LÓPEZ Primary Care Provider: Savage Fernandez Condition at Discharge: Stable Discharge Disposition: 01 Home, Self Care Discharge Facility Name: home - DIAGNOSES Admission Diagnoses: (1) Chest pain (2) Atrial fibrillation with RVR (3) chronic diastolic congestive heart failure, NYHA class 2 (4) HTN (hypertension) (5) Hyperlipidemia (6) History of CVA (cerebrovascular accident) (7) Hypothyroidism (8) GERD Discharge Diagnoses with Status of Each Condition: 1) Chest pain resolved. pt denies any more chest pain before d/c. pt's chest pain is likely heartburning from her GERD. Troponin is negative, ECHO reveals similar result as 06/21 one, diastolic heart failre with preserved EF. Stress test reveals no convincing reversible perfusion defects. I discussed all test results with pt and her . According to her clinical presentations, her chest pain is atypical, likely from her GERD and heartburn. I answered all her questions. pt report she had home meds Tums and Omeprazole. she decline new meds for her. I also advise pt take her medications as the schedule. it sound like she was medical non-compliance but she denies giving the detail information for that. (2) Atrial fibrillation with RVR stable (3) diastolic heart failure with preserved ejection fraction stable (4) HTN (hypertension) stable (5) Hyperlipidemia stable (6) History of CVA (cerebrovascular accident) stable (7) Hypothyroidism stable (8) GERD stable. her chest pain is atypical, likely from her GERD and heartburn. pt report she had home meds Tums and Omeprazole. she decline new meds for her. advise pt followup her PCP to manage her chronic medical issue. she state she understand and will followup. 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 treated with lumpectomy followed by right breast radiation, recurrent right breast cancer in 2011 involving right lower chest wall below the inflammatory crease treated with surgical resection placed on tamoxifen briefly, stopped after she had a stroke, recurrent right breast infiltrating lobular carcinoma status post mastectomy of the right breast on 02/04/2018, recent diagnosis of atrial fibrillation on Eliquis, 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 pt report her chest pain on and off for couple of months. her chest pain started when she had nausea, the pain went up on her middle chest, to her throat, tongue, even then headache. she report her PCP concern it is her GERD caused her symptoms. she report her chest discomfort always started on the night specially when she lay at flat. she also report she feel some palpitation when she had chest discomfort. she denies shortness of breath, syncope or pre-syncope, diaphoresis when she had chest discomfort. Troponin and EKG, and CXR are unremarkable. Initially pt present tachycardia otherwise pt is hemodynamical. pt is admitted for further evaluation and treatment of chest pain. - HOSPITAL COURSE Hospital Course: pt was admitted for chest discomfort. pt's Troponin is negative, ECHO reveals similar result as 06/21, diastolic heart failre with preserved EF. Stress test reveals no convincing reversible perfusion defects. According to her clinical presentations, her chest pain is likly atypical, from her GERD and heartburn. pt's chest discomfort was resolved before she was d/c. the detail hospital course is as the below 1) Chest pain resolved. pt denies any more chest pain before d/c. pt's chest pain is likely heartburning from her GERD. Troponin is negative, ECHO reveals similar result as 06/21, diastolic heart failre with preserved EF. Stress test reveals no convincing reversible perfusion defects. I discussed all test results with pt and her . According to her clinical presentations, her chest pain is atypical, likely from her GERD and heartburn. I answered all her questions. pt report she had home meds Tums and Omeprazole. she decline new meds for her. I also advise pt take her medications as the schedule. it sound like she was medical non-compliance but she denies giving the detail information for that. (2) Atrial fibrillation with RVR stable (3) diastolic heart failure with preserved ejection fraction stable (4) HTN (hypertension) stable (5) Hyperlipidemia stable (6) History of CVA (cerebrovascular accident) stable (7) Hypothyroidism stable (8) GERD stable. her chest pain is atypical, likely from her GERD and heartburn. pt report she had home meds Tums and Omeprazole. she decline new meds for her. advise pt followup her PCP to manage her chronic medical issue. she state she understand and will followup. - ALLERGIES Allergies/Adverse Reactions: Allergies Allergy/AdvReac Type Severity Reaction Status Date / Time amoxicillin trihydrate * Allergy Mild Rash Verified 10/23/19 02:21 [From Augmentin] indomethacin [From Indocin] Allergy Mild Rash Verified 10/23/19 02:21 indomethacin sodium * Allergy Mild Rash Verified 10/23/19 02:21 [From Indocin] lorazepam [From Ativan] Allergy Mild Rash Verified 10/23/19 02:21 metoclopramide HCl * Allergy Mild Rash Verified 10/23/19 02:21 [From Reglan] Penicillins Allergy Mild Rash Verified 10/23/19 02:21 potassium clavulanate * Allergy Mild Rash Verified 10/23/19 02:21 [From Augmentin] prochlorperazine Allergy Mild Rash Verified 10/23/19 02:21 [Prochlorperazine] Sulfa (Sulfonamide Allergy Mild Rash Verified 10/23/19 02:21 Antibiotics) sulfamethoxazole Allergy Mild Rash Verified 10/23/19 02:21 [From Gantanol] adhesive Allergy Rash Verified 10/23/19 02:21 sulfasalazine Allergy Unknown Verified 10/23/19 02:21 [From Sulfazine] thiopental [From Pentothal] Allergy seizures Verified 10/23/19 02:21 aspirin AdvReac Cramps Verified 10/23/19 02:21 levofloxacin [From Levaquin] AdvReac Itching Verified 10/23/19 02:21 metoclopramide [From Reglan] AdvReac Unknown Verified 10/23/19 02:21 phenazopyridine [From Azo] AdvReac Cramps Verified 10/23/19 02:21 - MEDICATIONS Home Medications: Ambulatory Orders Medication Instructions Recorded Confirmed Atorvastatin [Lipitor] 10 mg PO DAILY 08/02/17 10/23/19 Psyllium Husk/Aspartame [Fiber 1 packet PO DAILY 01/29/18 10/23/19 Therapy Powder] Metoprolol Succinate [Toprol Xl] 100 mg PO BID 06/28/18 10/23/19 Cholecalciferol (Vitamin D3) 2,000 unit PO DAILY 07/23/18 10/23/19 [Vitajoy Daily D] Furosemide 20 mg PO DAILY 11/17/18 10/23/19 Levothyroxine Sodium 75 mcg PO QDAC 11/17/18 10/23/19 Clobetasol 0.05% Oint [Temovate 1 applic TOP DAILY 04/16/19 10/23/19 0.05% Oint] Digoxin 125 mcg PO DAILY 04/16/19 10/23/19 Lisinopril 2.5 mg PO DAILY 04/16/19 10/23/19 Acetaminophen 500 - 1,000 mg PO Q6HR PRN MDD 04/23/19 10/23/19 3000/mg/24hr maximum Calcium Carbonate [Tums (Calcium 500 mg PO DAILY PRN 04/23/19 10/23/19 Carbonate 500mg)] Triamcinolone 0.1% Cream [Kenalog 1 ea TOP BID PRN 04/23/19 10/23/19 0.1% Cream] Apixaban [Eliquis] 5 mg PO BID 06/24/19 10/23/19 - PHYSICAL EXAM AT DISCHARGE General Appearance: positive: No acute distress, Alert. negative: Lethargic Eyes Bilateral: positive: Normal inspection, PERRL, EOMI, No lid inflammation ENT: positive: ENT inspection nml, Pharynx nml, No signs of dehydration. negative: Purulent nasal drainage Neck: positive: Nml inspection, Thyroid nml, No JVD, Trachea midline. negative: Thyromegaly, Lymphadenopathy (R), Lymphadenopathy (L), Stiff neck, Tracheal deviation Respiratory: positive: Chest non-tender, No respiratory distress, Breath sounds nml. negative: Wheezes, Rales, Rhonchi Cardiovascular: positive: No murmur, No gallop, Irregularly irregular. negative: Regular rate & rhythm, Extrasystoles, Tachycardia, Bradycardia, JVD present, Systolic murmur, Diastolic murmur Peripheral Pulses: positive: 2+ Abdomen: positive: Non-tender, No organomegaly, Nml bowel sounds, No distention. negative: Tenderness, Guarding, Rebound Back: positive: Nml inspection. negative: CVA tenderness (R), CVA tenderness (L) Skin: positive: Color nml, No rash, Warm, Dry. negative: Cyanosis, Diaphoresis, Pallor Extremities: positive: Non-tender, Full ROM, Nml appearance. negative: Calf tenderness, Viktor's sign/cords Neurologic/Psychiatric: positive: Oriented x3, Sensation nml, Mood/affect nml. negative: Weakness, Sensory loss, Facial droop, Slurred/abnml speech, Depressed mood/affect - LABS Result Diagrams: 10/23/19 02:30 10/23/19 02:30 - SEPSIS Current Stage of Sepsis: Ruled out - FOLLOW UP Follow Up: Your chest discomfort workup including stress test, ECHO, troponin and EKG are unremarkable for acute findings. your chest discomfort is more likely from your GERD, omeprazole is prescribed for you (pt decline the prescribe, she state she had the meds) you may followup your PCP in one week, followup your reproduction machine loader as out-pt as your schedule. should your symptoms return or worsen, you may present ER or call 911 for help. - TIME SPENT Time Spent in Discharge (Minutes): 50
[2019-10-24] MEDS ORDERED: LEVOTHYROXINE 75 MCG TABLET PO SCH (07:00)
== END 2019-10-23 16:30 | disposition home or self-care (01) ==
LOC: EDUNIT# → ED 02:13 → MS2 08:17
PROVIDERS: ADMIT Nurse Practitioner Gerontology; ATTEND Nurse Practitioner Gerontology
DX: R07.9 Chest pain, unspecified (principal); I48.91 Unspecified atrial fibrillation; K21.9 Gastro-esophageal reflux disease without esophagitis; I11.0 Hypertensive heart disease with heart failure; I50.32 Chronic diastolic (congestive) heart failure; I65.21 Occlusion and stenosis of right carotid artery; I69.822 Dysarthria following other cerebrovascular disease; E78.5 Hyperlipidemia, unspecified; I25.10 Atherosclerotic heart disease of native coronary artery without angina pectoris; E03.9 Hypothyroidism, unspecified; J43.9 Emphysema, unspecified; K52.9 Noninfective gastroenteritis and colitis, unspecified; M81.0 Age-related osteoporosis without current pathological fracture; M19.90 Unspecified osteoarthritis, unspecified site; H91.90 Unspecified hearing loss, unspecified ear; Z66 Do not resuscitate; Z72.89 Other problems related to lifestyle; Z79.01 Long term (current) use of anticoagulants; Z87.891 Personal history of nicotine dependence; Z87.19 Personal history of other diseases of the digestive system; Z90.11 Acquired absence of right breast and nipple; Z85.3 Personal history of malignant neoplasm of breast; Z96.649 Presence of unspecified artificial hip joint
CPT/HCPCS: 36415; 71045; 78452; 80053; 83690; 83880; 84484; 85025; 85610; 93005; 93017; 93306; 96374; 96375; 99284; 99285; A9270; A9500; G0378; J2785; 96361

== ENCOUNTER 2020-03-30 02:35 | Outpatient (CLI) | payer MEDICARE, OTHER | END 2020-03-30 02:36 | disposition critical access hospital (66) | LOC: EMS 02:35 | PROVIDERS: ATTEND Surgery | DX: R07.89 Other chest pain (principal) | CPT/HCPCS: A0425; A0427 ==

== ENCOUNTER 2020-03-30 02:45 | Emergency (ER) | payer MEDICARE, OTHER ==
[2020-03-30] MEDS ORDERED: LIDOCAINE VISCOUS 2% 15 ML UDC MM STA (02:53)
[2020-03-30] MEDS ORDERED: MAG HYDROX/AL HYDROX/SIMETH 30 ML UDC PO STA (02:53)
[2020-03-30] MEDS ORDERED: SUCRALFATE 1 GM/10 ML UDC PO STA (02:53)
--- NOTE | 2020-03-30 02:57 | ED Physician Documentation ---
PD HPI CHEST PAIN - Stated complaint Stated Complaint: CP - Chief complaint Chief Complaint: Cardiac - History obtained from History obtained from: Patient, EMS - History of Present Illness Timing - onset: How many hours ago (2) Timing - onset during: Rest Timing - duration: Hours (2) Timing - details: Gradual onset Pain level max: 4 Pain level now: 2 Quality: Pressure, Tightness, Indigestion Location: Substernal Radiation: No: Jaw, Neck, Back, Abdominal, Left upper extremity, Right upper extremity Improved by: Nitro (x2) Worsened by: No: Exertion, Inspiration, Eating, Movement, Palpation, Position Associated symptoms: No: Shortness of air, Diaphoresis, Nausea, Vomiting, Feeling faint / dizzy, General Weakness, Palpitations, Cough Similar symptoms before: Diagnosis (GERD) - Additional information Additional information: Patient states that she ate bratwurst and had wine for dinner. History of reflux. States that this feels similar. No history of acute coronary syndrome per the patient. She states she has never had a stent or bypass. 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: Breast cancer : None HEENT: Chronic hearing loss Psych: Depression Musculoskeletal: Osteoarthritis, Osteoporosis, Other Derm: Eczema - Past Surgical History Past Surgical History: Yes General: Colonoscopy Ortho: Hip replacement, Other /FIRE INVESTIGATION MANAGER: Mastectomy, Other HEENT: Cataracts - Present Medications Home Medications: Ambulatory Orders Medication Instructions Recorded Confirmed Atorvastatin [Lipitor] 10 mg PO DAILY 08/02/17 03/30/20 Psyllium Husk/Aspartame [Fiber 1 packet PO DAILY 01/29/18 03/30/20 Therapy Powder] Metoprolol Succinate [Toprol Xl] 100 mg PO BID 06/28/18 03/30/20 Cholecalciferol (Vitamin D3) 2,000 unit PO DAILY 07/23/18 03/30/20 [Vitajoy Daily D] Furosemide 20 mg PO DAILY 11/17/18 03/30/20 Levothyroxine Sodium 75 mcg PO QDAC 11/17/18 03/30/20 Clobetasol 0.05% Oint [Temovate 1 applic TOP DAILY 04/16/19 03/30/20 0.05% Oint] Digoxin 125 mcg PO DAILY 04/16/19 03/30/20 lisinopriL [Lisinopril] 2.5 mg PO DAILY 04/16/19 03/30/20 Acetaminophen 500 - 1,000 mg PO Q6HR PRN MDD 04/23/19 03/30/20 3000/mg/24hr maximum Calcium Carbonate [Tums (Calcium 500 mg PO DAILY PRN 04/23/19 03/30/20 Carbonate 500mg)] Triamcinolone 0.1% Cream [Kenalog 1 ea TOP BID PRN 04/23/19 03/30/20 0.1% Cream] Apixaban [Eliquis] 5 mg PO BID 06/24/19 03/30/20 Betamethasone/Propylene Glyc 1 applic DAILY 03/30/20 03/30/20 [Diprolene 0.05% Ointment] Liothyronine Sodium 1 tab DAILY 03/30/20 03/30/20 Omeprazole 1 tab DAILY 03/30/20 03/30/20 Sertraline [Zoloft] 100 mg DAILY PM 03/30/20 03/30/20 - Allergies Allergies/Adverse Reactions: Allergies Allergy/AdvReac Type Severity Reaction Status Date / Time amoxicillin trihydrate * Allergy Mild Rash Verified 10/23/19 02:21 [From Augmentin] indomethacin [From Indocin] Allergy Mild Rash Verified 10/23/19 02:21 lorazepam [From Ativan] Allergy Mild Rash Verified 10/23/19 02:21 Penicillins Allergy Mild Rash Verified 10/23/19 02:21 potassium clavulanate * Allergy Mild Rash Verified 10/23/19 02:21 [From Augmentin] prochlorperazine Allergy Mild Rash Verified 10/23/19 02:21 [Prochlorperazine] Sulfa (Sulfonamide Allergy Mild Rash Verified 10/23/19 02:21 Antibiotics) sulfamethoxazole Allergy Mild Rash Verified 10/23/19 02:21 [From Gantanol] adhesive Allergy Rash Verified 10/23/19 02:21 sulfasalazine Allergy Unknown Verified 10/23/19 02:21 [From Sulfazine] thiopental [From Pentothal] Allergy seizures Verified 10/23/19 02:21 aspirin AdvReac Cramps Verified 10/23/19 02:21 levofloxacin [From Levaquin] AdvReac Itching Verified 10/23/19 02:21 metoclopramide [From Reglan] AdvReac Unknown Verified 10/23/19 02:21 phenazopyridine [From Azo] AdvReac Cramps Verified 10/23/19 02:21 - Social History Does the pt smoke?: No Smoking Status: Never smoker Does the pt drink ETOH?: Yes Does the pt have substance abuse?: No - Immunizations Immunizations are current?: Yes - POLST Patient has POLST: Yes POLST Status: DNR PD ED PE NORMAL - Vitals Vital signs reviewed: Yes - General General: Alert and oriented X 3, No acute distress - HEENT HEENT: Moist mucous membranes - Neck Neck: Supple, no meningeal sign - Cardiac Cardiac: RRR, Strong equal pulses - Respiratory Respiratory: No respiratory distress, Clear bilaterally - Abdomen Abdomen: Soft, Non tender, Non distended - Back Back: No CVA TTP, No spinal TTP - Derm Derm: Warm and dry - Extremities Extremities: No edema, No calf tenderness / cord - Neuro Neuro: Alert and oriented X 3 Results - Vitals Vitals: Vital Signs - 24 hr 03/30/20 03/30/20 03/30/20 02:52 04:00 05:57 Temperature 37.0 C Heart Rate 71 70 70 Respiratory 14 15 15 Rate Blood Pressure 167/95 H 140/80 H 163/83 H O2 Saturation 96 97 94 Oxygen O2 Source [] Room air O2 Source Nasal cannula - EKG (time done) 0249 Rate: Rate (enter#) (70) Rhythm: Paced - Labs Labs: Laboratory Tests 03/30/20 03/30/20 03/30/20 03:00 03:00 03:00 WBC 6.8 RBC 3.15 L Hgb 10.8 L Hct 33.5 L MCV 106.3 H MCH 34.3 H MCHC 32.2 RDW 12.9 Plt Count 245 MPV 8.8 Neut # (Auto) 5.1 Lymph # (Auto) 0.9 L [place] # (Auto) 0.5 Eos # (Auto) 0.2 Baso # (Auto) 0.1 Absolute Nucleated RBC 0.00 Nucleated RBC % 0.0 Sodium 134 L Potassium 3.6 Chloride 100 L Carbon Dioxide 22 Anion Gap 12.0 BUN 14 Creatinine 0.8 Estimated GFR (MDRD) 69 L Glucose 95 Calcium 8.9 Total Bilirubin 0.6 AST 51 H ALT 27 Alkaline Phosphatase 65 Troponin I High Sens 13.7 B-Natriuretic Peptide Total Protein 7.0 Albumin 3.8 Globulin 3.2 Albumin/Globulin Ratio 1.2 Lipase 31 03/30/20 03/30/20 03:00 05:13 WBC RBC Hgb Hct MCV MCH MCHC RDW Plt Count MPV Neut # (Auto) Lymph # (Auto) [place] # (Auto) Eos # (Auto) Baso # (Auto) Absolute Nucleated RBC Nucleated RBC % Sodium Potassium Chloride Carbon Dioxide Anion Gap BUN Creatinine Estimated GFR (MDRD) Glucose Calcium Total Bilirubin AST ALT Alkaline Phosphatase Troponin I High Sens 20.9 H* B-Natriuretic Peptide 359 H Total Protein Albumin Globulin Albumin/Globulin Ratio Lipase - Rads (name of study) cxr Radiology: Prelim report reviewed, EMP read contemporaneously, See rad report (Cardiomegaly with pulmonary vascular congestion) PD MEDICAL DECISION MAKING - ED course Complexity details: reviewed results, re-evaluated patient, considered differential (No ST elevation [place], no aortic dissection, no PE, no tension pneumothorax, no aortic aneurysm), d/w patient ED course: 85-year-old female with chest pain tonight. Appears consistent with gastroesophageal reflux disease. Symptoms resolved with GI cocktail. No significant high-sensitivity troponin elevation x2. BNP is below her normal baseline. We will continue supportive care and have her follow-up with her doctor for further care. Patient counseled regarding signs and symptoms for which I believe and urgent re-evaluation would be necessary. Patient with good understanding of and agreement to plan and is comfortable going home at this time This document was made in part using voice recognition software. While efforts are made to proofread this document, sound alike and grammatical errors may occur. Departure - Departure Disposition: 01 Home, Self Care Clinical Impression: Gastroesophageal reflux disease Qualifiers: Esophagitis presence: esophagitis presence not specified Qualified Code(s): K21.9 - Gastro-esophageal reflux disease without esophagitis Chest pain Qualifiers: Chest pain type: unspecified Qualified Code(s): R07.9 - Chest pain, unspecified Condition: Good Instructions: ED Chest Pain Atypical Unkn Cause, ED GERD Follow-Up: Savage Madrigal MD [Primary Care Provider] - Within 1 week Comments: Return if you worsen. Follow-up with your doctor for further care. You should have a cardiac stress test with your doctor within the next week if you have not had one within the last year.
[2020-03-30 03:06] LABS: BASOPHILS # (AUTO) 0.1 10^3/uL (0.0-0.1); BASOPHILS % (AUTO) 0.9 %; EOSINOPHILS # (AUTO) 0.2 10^3/uL (0.0-0.7); EOSINOPHILS % (AUTO) 3.1 %; HGB - HEMOGLOBIN 10.8 g/dL (12.0-16.0); LYMPHOCYTES # (AUTO) 0.9 10^3/uL (1.5-3.5); LYMPHOCYTES % (AUTO) 13.3 %; MEAN CORPUSCULAR HEMOGLOBIN 34.3 pg (27.0-31.0); MEAN CORPUSCULAR HGB CONC 32.2 g/dL (32.0-36.0); MEAN CORPUSCULAR VOLUME 106.3 fL (81.0-99.0); MEAN PLATELET VOLUME 8.8 fL (7.9-10.8); MONOCYTES # (AUTO) 0.5 10^3/uL (0.0-1.0); NEUTROPHILS # (AUTO) 5.1 10^3/uL (1.5-6.6); NEUTROPHILS % (AUTO) 74.4 %; PLT - PLATELET COUNT 245 10^3/uL (130-450); RED BLOOD COUNT 3.15 10^6/uL (4.20-5.40); RED CELL DISTRIBUTION WIDTH 12.9 % (12.0-15.0); WHITE BLOOD COUNT 6.8 x10^3/uL (4.8-10.8)
[2020-03-30 03:20] LABS: ALBUMIN 3.8 g/dL (3.2-5.5); ALBUMIN/GLOBULIN RATIO 1.2 (1.0-2.2); BILIRUBIN,TOTAL 0.6 mg/dL (0.2-1.0); CALCIUM 8.9 mg/dL (8.5-10.3); CREATININE 0.8 mg/dL (0.4-1.0)
--- NOTE | 2020-03-30 03:44 | XRAY Report ---
Reason: Chest Pain Procedure Date: 03/30/2020 Accession Number: [id number] / [id number] Procedure: XR - Chest 1 View X-Ray CPT Code: 30823 Final Report FULL RESULT: EXAM: CHEST RADIOGRAPHY EXAM DATE: 03/30/2020 03:11 AM. CLINICAL HISTORY: Chest Pain. COMPARISON: CHEST 1 VIEW 10/23/2019 2:25 AM. TECHNIQUE: 1 view. FINDINGS: Lungs/Pleura: Neurovascular congestion has developed compared to the prior study. No pleural effusions. Mediastinum: The heart is enlarged and stable in appearance. Other: Pacemaker has been placed in the left with one intact lead. IMPRESSION: 1. Cardiomegaly and pulmonary vascular congestion. [facility]
[2020-03-30 05:58] VITALS: BP 163/83
== END 2020-03-30 06:19 | disposition home or self-care (01) ==
LOC: EDUNIT# → ED 02:45
DX: K21.9 Gastro-esophageal reflux disease without esophagitis (principal); R07.89 Other chest pain; I25.10 Atherosclerotic heart disease of native coronary artery without angina pectoris; I10 Essential (primary) hypertension; Z95.0 Presence of cardiac pacemaker; Z79.01 Long term (current) use of anticoagulants; Z86.73 Personal history of transient ischemic attack (TIA), and cerebral infarction without residual deficits; Z66 Do not resuscitate
CPT/HCPCS: 36415; 71045; 80053; 83690; 83880; 84484; 85025; 93005; 99283; 99284; A9270

== ENCOUNTER 2020-04-14 13:49 | Outpatient (CLI) | payer MEDICARE, OTHER ==
--- NOTE | 2020-04-14 14:26 | XRAY Report ---
Reason: LEFT WRIST PAIN Procedure Date: 04/14/2020 Accession Number: [id number] / [id number] Procedure: WCP - Wrist 3 View LT CPT Code: Final Report FULL RESULT: PROCEDURE: Wrist 3 View LT INDICATIONS: LEFT WRIST PAIN TECHNIQUE: 3 views of the wrist were acquired. COMPARISON: None FINDINGS: Bones: Old healed distal radial fracture is seen with chronic-appearing deformity. Diffuse osteopenia is seen. No acute fracture or dislocation. Moderate osteoarthritic changes throughout wrist joints are seen more prominent at the radiocarpal joint and first CMC joint.. No suspicious bony lesions. Scaphoid view: Scaphoid is grossly intact. Soft tissues: No suspicious soft tissue calcifications. IMPRESSION: Suggestion of old healed distal radial fracture. Moderate wrist joint osteoarthritis. No acute fracture or dislocation. Diffuse osteopenia. Reviewed by: Chong Tran MD on 04/14/2020 2:25 PM PDT Approved by: Chong Tran MD on 04/14/2020 2:25 PM PDT Station ID: [id number]
== END 2020-04-14 23:59 | disposition home or self-care (01) ==
LOC: DI.WCP 13:49
PROVIDERS: ATTEND Family Medicine
DX: M85.88 Other specified disorders of bone density and structure, other site (principal); M19.032 Primary osteoarthritis, left wrist

== ENCOUNTER 2020-04-22 10:08 | Outpatient (CLI) | payer MEDICARE, OTHER ==
--- NOTE | 2020-04-22 11:31 | XRAY Report ---
Reason: LEFT WRIST PAIN Procedure Date: 04/22/2020 Accession Number: [id number] / [id number] Procedure: WCP - Wrist 3 View LT CPT Code: Final Report FULL RESULT: PROCEDURE: Wrist 3 View LT INDICATIONS: LEFT WRIST PAIN TECHNIQUE: 3 views of the wrist were acquired. COMPARISON: Plain films of the left wrist dated 04.14.20 FINDINGS: Bones: No change in distal radial deformity, compatible with remote fracture. Joint space narrowing and periarticular osteophyte formation at the radiocarpal, scaphotrapezial, and first carpometacarpal joints, indicating osteoarthritis. No suspicious bony lesions. Scaphoid view: Not requested Soft tissues: No suspicious soft tissue calcifications. IMPRESSION: 1. No acute fracture. No osseous lesion. If symptoms and/or clinical suspicion for pathology continue, further assessment with repeat plain films, or advanced imaging (e.g., CT, MRI, or bone scan) is recommended for further assessment. 2. Osteoarthritis. Reviewed by: Doreen Okeefe MD on 04/22/2020 11:29 AM PDT Approved by: Doreen Okeefe MD on 04/22/2020 11:29 AM PDT Station ID: [id number]
== END 2020-04-22 23:59 | disposition home or self-care (01) ==
LOC: DI.WCP 10:08
PROVIDERS: ATTEND Family Medicine
DX: M19.032 Primary osteoarthritis, left wrist (principal)

== ENCOUNTER 2020-05-02 12:45 | Outpatient (CLI) | payer MEDICARE, OTHER ==
[2020-05-02 17:55] LABS: BASOPHILS % (AUTO) 0.5 %; EOSINOPHILS # (AUTO) 0.1 10^3/uL (0.0-0.7); EOSINOPHILS % (AUTO) 2.2 %; HGB - HEMOGLOBIN 12.4 g/dL (12.0-16.0); LYMPHOCYTES # (AUTO) 0.6 10^3/uL (1.5-3.5); LYMPHOCYTES % (AUTO) 9.3 %; MEAN CORPUSCULAR HEMOGLOBIN 33.2 pg (27.0-31.0); MEAN CORPUSCULAR VOLUME 103.5 fL (81.0-99.0); MEAN PLATELET VOLUME 9.4 fL (7.9-10.8); MONOCYTES # (AUTO) 0.5 10^3/uL (0.0-1.0); MONOCYTES % (AUTO) 8.5 %; NEUTROPHILS # (AUTO) 4.9 10^3/uL (1.5-6.6); PLT - PLATELET COUNT 352 10^3/uL (130-450); RED BLOOD COUNT 3.74 10^6/uL (4.20-5.40); RED CELL DISTRIBUTION WIDTH 12.5 % (12.0-15.0); WHITE BLOOD COUNT 6.2 x10^3/uL (4.8-10.8)
[2020-05-02 18:13] LABS: CALCIUM 9.5 mg/dL (8.5-10.3); CREATININE 0.8 mg/dL (0.4-1.0)
[2020-05-02 18:36] LABS: FREE T3 3.04 pg/mL (2.5-3.9); FREE T4 (FREE THYROXINE) 0.84 ng/dL (0.58-1.64)
== END 2020-05-02 23:59 | disposition home or self-care (01) ==
LOC: LAB.WCP 12:45
PROVIDERS: ATTEND Family Medicine
DX: F32.9 Major depressive disorder, single episode, unspecified (principal); F41.9 Anxiety disorder, unspecified; I48.91 Unspecified atrial fibrillation; I10 Essential (primary) hypertension; E03.9 Hypothyroidism, unspecified; R53.83 Other fatigue
CPT/HCPCS: 36415; 80048; 84439; 84443; 84481; 85025

== ENCOUNTER 2020-08-09 12:38 | Outpatient (CLI) | payer MEDICARE, OTHER ==
--- NOTE | 2020-08-09 12:50 | XRAY Report ---
PROCEDURE: Lumbar Spine Complete INDICATIONS: LUMBAR BACK PAIN TECHNIQUE: 4 views of the lumbar spine were acquired. COMPARISON: None. FINDINGS: Bones: 5 [id number] vertebrae are present. There is trace retrolisthesis of L3 on L4, trace an terolisthesis of L4 on L5. Moderate to severe disc space narrowing is present throughout the lumbar s pine most severe at L4-5 and L5-S1. Small nonbridging anterior osteophytes are present. Moderate fora miguel narrowing is noted at L5-S1. There is an approximate 45% height loss at L1. No suspicious bony lesions. Soft tissues: Overlying bowel gas pattern is normal. No suspicious soft tissue calcifications. Par tially visualized pacemaker lead is noted. IMPRESSION: 1. Approximate 45% height loss at L1. This is new compared to 05/02/19. Appearance is suggestive of a cute/subacute fracture. Recommend correlation to recent trauma. MR may be obtained to further assess chronicity. Reviewed by: Abbi Chin MD on 08/09/2020 12:49 PM PDT Approved by: Abbi Chin MD on 08/09/2020 12:49 PM PDT Station ID: [id number]
--- NOTE | 2020-08-09 13:37 | XRAY Report ---
PROCEDURE: Ribs 2 View LT INDICATIONS: LEFT SIDE RIB PAIN TECHNIQUE: 3 views of the left ribs were acquired. COMPARISON: Chest x-ray 03/30/2020 FINDINGS: Surgical changes and devices: None. Bones and chest wall: No fractures or dislocations. No suspicious bony lesions. Overlying soft tis sues appear unremarkable. Lungs and pleura: The visualized lung appears clear. No pleural effusions or pneumothorax are visib le. IMPRESSION: No visualized acute fracture or dislocation. However, occult injury cannot be excluded. Recommend atif rt interval imaging follow-up in 7-10 days as clinically indicated for additional evaluation. Reviewed by: Abbi Chin MD on 08/09/2020 1:35 PM PDT Approved by: Abbi Chin MD on 08/09/2020 1:35 PM PDT Station ID: [id number]
== END 2020-08-09 23:59 | disposition home or self-care (01) ==
LOC: DI.WCP 12:38
PROVIDERS: ATTEND Family Medicine
DX: R07.81 Pleurodynia (principal); R93.7 Abnormal findings on diagnostic imaging of other parts of musculoskeletal system
CPT/HCPCS: 72110

== ENCOUNTER 2020-10-10 16:10 | Outpatient (CLI) | payer MEDICARE, OTHER ==
--- NOTE | 2020-10-10 17:05 | XRAY Report ---
PROCEDURE: Shoulder 2 View LT INDICATIONS: LEFT SHOULDER PAIN TECHNIQUE: 3 views of the shoulder were acquired. COMPARISON: Chest radiograph dated 03/30/2020 and examination of humerus dated 08/09/2020.. FINDINGS: Bones: Old healed left humeral neck/proximal shaft fracture is again seen. Mild to moderate acromiocl avicular joint and glenohumeral joint osteoarthritic changes are noted. No acute fracture or dislocat ion. Diffuse osteopenia is seen. No suspicious bony lesions. Visualized ribs appear intact. Soft tissues: No suspicious soft tissue calcifications. IMPRESSION: Mild to moderate left shoulder joint osteoarthritis. Old healed left proximal humeral sh aft/neck fracture. No acute fracture or dislocation. Reviewed by: Chong Tran MD on 10/10/2020 4:04 PM [place] Approved by: Chong Tran MD on 10/10/2020 4:04 PM AKST Station ID: [id number]
--- NOTE | 2020-10-10 17:08 | CT Report ---
PROCEDURE: LUMBAR SPINE WO INDICATIONS: Lumbar Back Pain TECHNIQUE: Noncontrast 3 mm thick sections acquired from the T12 level to the sacrum. Sagittal and coronal refo rmats were constructed. For radiation dose reduction, the following was used: automated exposure co ntrol, adjustment of mA and/or kV according to patient size. COMPARISON: Lumbar spine x-ray 08/09/2020,CT abdomen pelvis 05/02/2019, CT chest 06/28/2018 FINDINGS: Image quality: Excellent. Bones: There is trace retrolisthesis of L1 on L2, L3 on L4, L5 on S1 and trace anterolisthesis of L4 on L5. There are no visualized fractures or dislocations. There is lucency with cortical destruction at the anterior aspect of L4, new compared to prior exam. In addition, prominent lucency is present in the L1 vertebral body extending into the pedicle. Left posterior 11th and 12th rib deformities are noted appearing to be related to nonacute fractures. Severe disc space narrowing with vacuum discs are noted at L2-3, L4-5 and L5-S1 with mild to moderate disc space narrowing throughout the remainder of the lumbar spine. Multilevel nonbridging anterior o steophytes are present. Only from L3 through L5. Mild disc bulges are present at L1-L2 including a le ft lateral component, L2-3, L3-4, L4-5 and L5-S1. There is minimal to mild spinal stenosis at L2-3, s evere L3-4, L4-5, moderate to severe L5-S1. Canal compression is noted at L3-4 and L4-5. Multilevel f acet and ligamentum flavum hypertrophy are present most severe from L3-4 through L5-S1. There is mode rate right foraminal narrowing at L2-3, mild to moderate right L2-3, mild left L2-3, moderate bilater al L3-4, severe bilateral L4-5, left greater than right with nerve root flattening, severe bilateral L5-S1 with mild nerve root flattening bilaterally. Soft tissues: No retroperitoneal masses or hematomas. Visualized aorta is normal in caliber. There is a mild right and minimal left effusions. In addition, multiple low-attenuation hepatic lesions ar e identified within visualized portions of the abdomen. These appear new compared to 2019. Nodularity of the left adrenal gland is again noted. Heart is enlarged. 9 mm spiculated lower lobe mass is pres ent. This is new since 2018 and this area was not included within the [id number] on the 2019 exam. IMPRESSION: 1. Multilevel degenerative changes as above. 2. Multilevel spinal stenosis is present most severe at L3-4 and L4-5 secondary to disc bulge with co ntributing effect of facet/ligament of flavum arthropathy. 3. Multilevel foraminal narrowing most severe at L4-5 and L5-S1 secondary to facet arthropathy. 4. Spiculated right lower lobe mass as above highly concerning for malignancy. In addition, multiple low-attenuation hepatic foci, partially visualized as well as areas of lucency within the visualized spine as well as rib fractures. Findings are concerning for metastatic disease. Recommend clinical c orrelation and further evaluation as indicated. Reviewed by: Abbi Chin MD on 10/10/2020 5:06 PM PST Approved by: Abbi Chin MD on 10/10/2020 5:06 PM PST Station ID: [id number]
--- NOTE | 2020-10-10 17:29 | XRAY Report ---
PROCEDURE: Hip w/Pelvis 2-3V LT INDICATIONS: LEFT HIP PAIN TECHNIQUE: AP pelvis with lateral view(s) of the bilateral hip(s). COMPARISON: Plain films dated 10/13/2019 FINDINGS: Bones: No fractures or dislocations. ORIF of the left femoral neck and shaft. Pelvic ring appears in tact. No suspicious bony lesions. Soft tissues: The visualized bowel gas pattern is normal. No suspicious soft tissue calcifications. IMPRESSION: No acute fracture. No osseous lesion. If symptoms and/or clinical suspicion for patholog y continue, further assessment with repeat plain films, or advanced imaging (e.g., CT or bone scan) i s recommended for further assessment. Reviewed by: Doreen Okeefe MD on 10/10/2020 5:28 PM PST Approved by: Doreen Okeefe MD on 10/10/2020 5:28 PM PST Station ID: [id number]
== END 2020-10-10 16:11 | disposition home or self-care (01) ==
LOC: DI 16:10
PROVIDERS: ATTEND Family Medicine
DX: M19.012 Primary osteoarthritis, left shoulder (principal); M25.552 Pain in left hip; M51.26 Other intervertebral disc displacement, lumbar region; M48.061 Spinal stenosis, lumbar region without neurogenic claudication
CPT/HCPCS: 72131

== ENCOUNTER 2020-11-07 13:26 | Emergency (ER) | payer MEDICARE, OTHER ==
[2020-11-07] MEDS ORDERED: HYDROcod/ACETAM 5/325 MG TABLET PO STA (14:06)
--- NOTE | 2020-11-07 14:09 | ED Physician Documentation ---
PD HPI BACK PAIN - Stated complaint Stated Complaint: BACK PX - Chief complaint Chief Complaint: Abd Pain - History obtained from History obtained from: Patient - Additional information Additional information: 85-year-old woman with history of atrial fibrillation and history of breast cancer. She presents today with complaints of mid back pain radiating through the ribs on both sides as well as being unable to have a bowel movement for the last 3 days. She is slightly vague historian and has difficulty telling me how long this has been going on. She does have a long history of breast cancer in remission and A. fib on Eliquis, also a stroke. It looks like she has seen her primary care physician for this, and she had imaging done a little under a month ago with a shoulder x-ray, lumbar spine CT and hip x-ray. The lumbar spine CT was notable for spinal stenosis at multiple levels, but also a spiculated right lower lobe mass concerning for malignancy, low-attenuation hepatic foci, and a reas of lucency within the visualized spine as well as rib fractures concerning for metastatic disease. She has an appointment with Dr. Caballero of oncology next week. She is on tramadol for pain which is insufficient. Review of Systems Ten Systems: 10 systems reviewed and negative Constitutional: denies: Fever, Chills Nose: denies: Rhinorrhea / runny nose, Congestion Cardiac: denies: Chest pain / pressure, Palpitations Respiratory: denies: Dyspnea, Cough PD PAST MEDICAL HISTORY - Past Medical History Cardiovascular: Hypertension, High cholesterol, Coronary artery disease, Atrial fibrillation, Other Respiratory: Emphysema Neuro: CVA, TIA, Other Endocrine/Autoimmune: HyPOthyroidism GI: GERD, Chronic diarrhea, Ulcerative colitis BEHAVIORAL THERAPY COORDINATOR: Breast cancer : None HEENT: Chronic hearing loss Psych: Depression Musculoskeletal: Osteoarthritis, Osteoporosis, Other Derm: Eczema - Past Surgical History Past Surgical History: Yes General: Colonoscopy Ortho: Hip replacement, Other /BEHAVIORAL THERAPY COORDINATOR: Mastectomy, Other HEENT: Cataracts - Present Medications Home Medications: Ambulatory Orders Medication Instructions Recorded Confirmed Atorvastatin [Lipitor] 10 mg PO DAILY 08/02/17 03/30/20 Psyllium Husk/Aspartame [Fiber 1 packet PO DAILY 01/29/18 03/30/20 Therapy Powder] Metoprolol Succinate [Toprol Xl] 100 mg PO BID 06/28/18 03/30/20 Cholecalciferol (Vitamin D3) 2,000 unit PO DAILY 07/23/18 03/30/20 [Vitajoy Daily D] Furosemide 20 mg PO DAILY 11/17/18 03/30/20 Levothyroxine Sodium 75 mcg PO QDAC 11/17/18 03/30/20 Clobetasol 0.05% Oint [Temovate 1 applic TOP DAILY 04/16/19 03/30/20 0.05% Oint] Digoxin 125 mcg PO DAILY 04/16/19 03/30/20 lisinopriL [Lisinopril] 2.5 mg PO DAILY 04/16/19 03/30/20 Acetaminophen 500 - 1,000 mg PO Q6HR PRN MDD 04/23/19 03/30/20 3000/mg/24hr maximum Calcium Carbonate [Tums (Calcium 500 mg PO DAILY PRN 04/23/19 03/30/20 Carbonate 500mg)] Triamcinolone 0.1% Cream [Kenalog 1 ea TOP BID PRN 04/23/19 03/30/20 0.1% Cream] Apixaban [Eliquis] 5 mg PO BID 06/24/19 03/30/20 Betamethasone/Propylene Glyc 1 applic DAILY 03/30/20 03/30/20 [Diprolene 0.05% Ointment] Liothyronine Sodium 1 tab DAILY 03/30/20 03/30/20 Omeprazole 1 tab DAILY 03/30/20 03/30/20 Sertraline [Zoloft] 100 mg DAILY PM 03/30/20 03/30/20 HYDROcod/ACETAM 5/325 [[place] 5/325] 1 - 2 tab PO Q6H PRN #15 tablet 11/07/20 polyethylene glycoL 3350 [Miralax] 17 gm PO DAILY PRN #1 bottle 11/07/20 - Allergies Allergies/Adverse Reactions: Allergies Allergy/AdvReac Type Severity Reaction Status Date / Time amoxicillin trihydrate * Allergy Mild Rash Verified 11/07/20 13:32 [From Augmentin] indomethacin [From Indocin] Allergy Mild Rash Verified 11/07/20 13:32 lorazepam [From Ativan] Allergy Mild Rash Verified 11/07/20 13:32 Penicillins Allergy Mild Rash Verified 11/07/20 13:32 potassium clavulanate * Allergy Mild Rash Verified 11/07/20 13:32 [From Augmentin] prochlorperazine Allergy Mild Rash Verified 11/07/20 13:32 [Prochlorperazine] Sulfa (Sulfonamide Allergy Mild Rash Verified 11/07/20 13:32 Antibiotics) sulfamethoxazole Allergy Mild Rash Verified 11/07/20 13:32 [From Gantanol] adhesive Allergy Rash Verified 11/07/20 13:32 sulfasalazine Allergy Unknown Verified 11/07/20 13:32 [From Sulfazine] thiopental [From Pentothal] Allergy seizures Verified 11/07/20 13:32 aspirin AdvReac Cramps Verified 11/07/20 13:32 levofloxacin [From Levaquin] AdvReac Itching Verified 11/07/20 13:32 metoclopramide [From Reglan] AdvReac Unknown Verified 11/07/20 13:32 phenazopyridine [From Azo] AdvReac Cramps Verified 11/07/20 13:32 - Social History Does the pt smoke?: No Smoking Status: Never smoker Does the pt drink ETOH?: Yes Does the pt have substance abuse?: No - Immunizations Immunizations are current?: Yes - POLST Patient has POLST: Yes POLST Status: DNR PD ED PE NORMAL - Vitals Vital signs reviewed: Yes - General General: No acute distress, Other (Although technically alert and oriented x3, seems mildly confused to recent events.) - HEENT HEENT: PERRL, EOMI - Neck Neck: Supple, no meningeal sign, No bony TTP - Cardiac Cardiac: Other (irreg/irreg) - Respiratory Respiratory: No respiratory distress, Clear bilaterally - Abdomen Abdomen: Soft, Non tender - Back Back: No CVA TTP, No spinal TTP - Derm Derm: Normal color, Warm and dry - Extremities Extremities: No edema, No calf tenderness / cord - Neuro Neuro: Alert and oriented X 3, No motor deficit, No sensory deficit, Normal speech Results - Vitals Vitals: Vital Signs - 24 hr 11/07/20 11/07/20 13:32 15:36 Temperature 36.5 C Heart Rate 60 60 Respiratory 14 18 Rate Blood Pressure 157/89 H 165/56 H O2 Saturation 99 98 Oxygen O2 Source [With Activity] Room air O2 Source Room air PD MEDICAL DECISION MAKING - ED course ED course: 85-year-old woman who presents with back pain and rib pain. I suspect this is metastatic in origin given recent imaging. Although she is alert and oriented she seems slightly confused about the results of decent recent imaging. They have an appointment on the with oncology, she knew she had an appointment but not when or particularly why. Her seems to have better memory but looks physically more disabled than she does. Rectal examination was done, no fecal impaction. Good tone without tenderness. I will asked social work to come by and see them. She received a hydrocodone here for the pain and we will recheck. 85-year-old woman presents with back and rib pain likely due to known metastatic disease. No fecal impaction on exam. Seen by social work and an APS referral was made. Also resources for help at home. Feeling better after hydrocodone. Departure - Departure Disposition: Home, Self Care Clinical Impression: Pain due to malignant neoplasm metastatic to bone Condition: Good Record reviewed to determine appropriate education?: Yes Prescriptions: polyethylene glycoL 3350 [Miralax] 17 gm PO DAILY PRN #1 bottle PRN Reason: Constipation HYDROcod/ACETAM 5/325 [[place] 5/325] 1 - 2 tab PO Q6H PRN #15 tablet PRN Reason: Pain Comments: You were seen today for back and rib pain that is likely related to the cancer disease that was seen on the CAT scan last month. Your appointment with the cancer doctor is on November 14. I am not sure what time. You should call [phone] to double check that time. Return if worsening. You also received a laxative here and some stronger pain medication. Do not drink or drive with that.
[2020-11-07] MEDS ORDERED: MAGNESIUM CITRATE 296 ML BOTTLE PO STA (14:54)
[2020-11-07 16:50] VITALS: BP 172/79
== END 2020-11-07 17:13 | disposition home or self-care (01) ==
LOC: ED 13:26
DX: G89.3 Neoplasm related pain (acute) (chronic) (principal); C79.51 Secondary malignant neoplasm of bone; Z85.3 Personal history of malignant neoplasm of breast; M48.061 Spinal stenosis, lumbar region without neurogenic claudication; I10 Essential (primary) hypertension; I48.91 Unspecified atrial fibrillation; Z79.01 Long term (current) use of anticoagulants; Z86.73 Personal history of transient ischemic attack (TIA), and cerebral infarction without residual deficits
CPT/HCPCS: 99283; 99284; A9270

== ENCOUNTER 2020-11-08 08:43 | Outpatient (CLI) | payer MEDICARE, OTHER ==
--- OUTSIDE RECORDS SUMMARY | 2020-11-16 00:27 | EXTERNAL MEDICAL SUMMARY RPT | Continuity of Care Document ---
: Demographics Phone Unavailable Preferred Language Lithuanian Marital Status Unknown Shinto Affiliation Unknown Race Unknown Ethnic Group Unknown Author Organization [place] Address [address] [place] [address] Phone Care Team Providers Name Role Phone Savage JARRETT, Unavailable Unavailable Savage Madrigal Unavailable Unavailable Nazanin Bentley Unavailable Unavailable Problems date description facility 2018-06-01 11:30 PAROXYSMAL ATRIAL FIBRILLATION [facility] 2018-06-10 08:45 UNSPECIFIED ABDOMINAL PAIN [facility] 2018-06-10 08:45 ABNORMAL RESULTS OF LIVER [facility] FUNCTION STUDIES 2020-08-09 12:38 LOW BACK PAIN [facility] 2020-08-09 12:38 PLEURODYNIA [facility] 2020-09-01 00:00:00 Late effect of fracture of [facility] spine and trunk without mention [facility] of spinal cord lesion 2020-09-01 00:00:00 [facility] unspecified lumbar vertebra, [facility] sequela 2020-09-01 00:00:00 Alcohol intake [facility] 2020-09-01 00:00:00 Health[facility]related behavior [facility] 2020-09-01 00:00:00 Tobacco use and exposure [facility] 2020-09-01 00:00:00 [facility] 2020-09-01 00:00:00 Late effect of fracture of [facility] lumbar vertebra [facility] 2020-09-01 00:00:00 Details of drug misuse behavior [facility] 2020-09-01 00:00:00 [facility] 2020-09-01 00:00:00 Tobacco smoking status NHIS [facility] 2020-09-01 00:00:00 Former smoker [facility] 2020-10-10 00:00:00 Abdominal aortic aneurysm [facility] without mention of rupture [facility] 2020-10-10 00:00:00 Pain in joint involving pelvic [facility] region and thigh [facility] 2020-10-10 00:00:00 XR SHOULDER COMPLETE 2 VIEW [facility] 2020-10-10 00:00:00 XR HIP UNILATERAL COMPL 2-3 [facility] VIEWS [facility] 2020-10-10 00:00:00 Abdominal aortic aneurysm, [facility] without rupture [facility] 2020-10-10 00:00:00 Pain in left hip [facility] 2020-10-10 00:00:00 [facility] 2020-10-10 00:00:00 [facility]related [facility] 2020-10-10 00:00:00 Tobacco use and exposure [facility] 2020-10-10 00:00:00 Exercise [facility] 2020-10-10 00:00:00 Details of drug misuse behavior [facility] Primary Care [facility] 2020-10-10 00:00:00 [facility] 2020-10-10 00:00:00 [facility] 2020-10-10 00:00:00 Tobacco smoking status NHIS [facility] 2020-10-10 00:00:00 Former smoker [facility] 2020-10-10 16:10 PAIN IN LEFT SHOULDER [facility] [place] 2020-10-10 16:10 PAIN IN LEFT HIP [facility] [place] 2020-10-12 00:00:00 Malignant [facility]oplasm [facility] (female), unspecified [facility] 2020-10-12 00:00:00 Malignant neoplasm of [facility] Care unspecified site of unspecified [facility] female breast 2020-10-12 00:00:00 Malignant tumor of breast [facility] 2020-10-17 00:00:00 Malignant neoplasm of liver, [facility] specified as secondary [facility] 2020-10-17 00:00:00 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 [facility] 2020-10-17 00:00:00 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 [facility] 2020-11-07 13:26 SECONDARY MALIGNANT NEOPLASM OF [facility] BONE 2020-11-07 13:26 NEOPLASM RELATED PAIN (ACUTE) [facility] (CHRONIC) 2020-11-07 13:26 ESSENTIAL (PRIMARY) [facility] HYPERTENSION 2020-11-07 13:26 UNSPECIFIED ATRIAL FIBRILLATION [facility] 2020-11-07 13:26 SPINAL STENOSIS, LUMBAR REGION [facility] WITHOUT NEUROGENIC 2020-11-07 13:26 RETIREMENT (CURRENT) USE OF [facility] ANTICOAGULANTS 2020-11-07 13:26 PERSONAL HISTORY OF MALIGNANT [facility] NEOPLASM OF BREAST 2020-11-07 13:26 PRSNL HX OF TIA (TIA), AND [facility] CEREB INFRC W/O RESID D Allergies date description facility FLECAINIDE [facility] PRAVASTATIN [facility] QUININE [facility] SIMVASTATIN [facility] ROSUVASTATIN CALCIUM [facility]ICILLINS [facility] Penicillins [facility] NO ALLERGY INFORMATION AVAILABLE [facility] NO KNOWN ALLERGIES [facility] CUCUMBER [facility] PEANUT OIL [facility] WHEAT [facility] MORPHINE [facility] CODEINE [facility] METRONIDAZOLE [facility] amoxicillin trihydrate * [facility] potassium clavulanate * [facility] Sulfa (Sulfonamide Antibiotics) [facility]epam [facility] aspirin [facility] ind[facility] sulfamethoxazole [facility] sulfasalazine [facility] adhesive [facility] thiopental [facility] metoclopramide [facility] phenazopyridine [facility] levofloxacin [facility] NO KNOWN ENVIRONMENTAL ALLERGIES [facility] NO KNOWN ALLERGIES [facility] AMOXICILLIN [facility] DOXYCYCLINE [facility] LEVETIRACETAM [facility] MORPHINE [facility] HYDROCODONE-ACETAMINOPHEN [facility] PENICILLINS [facility] SULFA ANTIBIOTICS [facility] Penicillins [facility] PENICILLINS [facility] NO KNOWN ALL[facility]GIES [facility] CELERY [facility] MORPHINE [facility] CODEINE [facility] IBUPROFEN [facility] AMOXICILLIN [facility] BEE VENOM PROTEIN (HONEY BEE) [facility] amoxicillin trihydrate * [facility] potassium clavulanate * [facility] Sulfa (Sulfonamide Antibiotics) [facility]orazepam [facility] aspirin [facility] indomethacin [facility] sulfamethoxazole [facility] sulfasalazine [facility] adhesive [facility] thiopental [facility] metoclopramide [facility] phenazopyridine [facility] levofloxacin [facility] Medications date description facility 2020-08-25 00:00:00 null [facility] 2020-08-25 00:00:00 null [facility] 2020-08-25 00:00:00 DEXAMETHASONE [facility] 2020-08-25 00:00:00 DEXAMETHASONE [facility] 2020-09-20 00:00:00 null [facility] 2020-09-20 00:00:00 null [facility] 2020-09-20 00:00:00 SERTRALINE HCL [facility] 2020-09-20 00:00:00 SERTRALINE HCL [facility] 2020-10-23 00:00:00 null [facility] 2020-10-23 00:00:00 null [facility] 2020-10-23 00:00:00 OMEPRAZOLE [facility] 2020-10-23 00:00:00 OMEPRAZOLE [facility] 2020-11-09 00:00:00 null [facility] 2020-11-09 00:00:00 null [facility] 2020-11-09 00:00:00 null [facility] 2020-11-09 00:00:00 null [facility] 2020-11-09 00:00:00 null [facility] 2020-11-09 00:00:00 null [facility] 2020-11-09 00:00:00 HYDROCODONE-ACETAMINOPHEN [facility] 2020-11-09 00:00:00 HYDROCODONE-ACETAMINOPHEN [facility] 2020-11-09 00:00:00 POLYETHYLENE GLYCOL 3350 [facility] 2020-11-09 00:00:00 HYDROCODONE-ACETAMINOPHEN [facility] 2020-11-09 00:00:00 HYDROCODONE-ACETAMINOPHEN [facility] 2020-11-09 00:00:00 POLYETHYLENE GLYCOL 3350 [facility] Procedures date description facility 2020-10-10 00:00:00 XR SHOULDER COMPLETE 2 VIEW [facility] date description facility 2020-10-10 00:00:00 XR HIP UNILATERAL COMPL 2-3 [facility] VIEWS [facility] date description facility 2020-10-10 00:00:00 [facility] Results test status date ordered by attending specimen huong e cholesterol_targ unknown 2020-10-10 unknown unknown unkno wn et_level 00:00:00 HDL_cholesterol_ unknown 2020-10-10 unknown unknown unkno wn serum_target_leve 00:00:00 l triglyceride_tar unknown 2020-10-10 unknown unknown unkno wn get_level 00:00:00 LDL_target_level unknown 2020-10-10 unknown unknown unkno wn 00:00:00 facility observation status value reference units lab abnor mal line range code notes [facility] cholesterol_ unknown 200 unknown mg/dL _6682 unknown unknown [facility] target_level [facility] HDL_choleste unknown 40 unknown mg/dL _6683 unknown unknown [facility] rol_serum_tar [facility] get_level [facility] triglyceride unknown 150 unknown mg/dL _6684 unknown unknown [facility] _target_level [facility] LDL_target_l unknown 160 unknown mg/dL _9350 unknown unknown [facility] evel 0001 [facility] Social History date description facility 2020-09-01 00:00:00 Former smoker [facility] date description facility 2020-10-10 00:00:00 Former smoker [facility] Social History date description facility 2020-09-01 00:00:00 [facility] date description facility 2020-10-10 00:00:00 [facility] date description facility [id number]
== END 2020-11-08 08:44 ==
LOC: EMS 08:43
PROVIDERS: ATTEND Surgery
DX: R19.7 Diarrhea, unspecified (principal)